=== PATIENT | male | born 1960 | race African-American/Black ===

== ENCOUNTER → 2017-11-24 08:27 | Outpatient (CLI) | payer OTHER, SELFPAY ==
--- NOTE | 2017-11-24 12:00 | CT_ITS ---
STUDY: CT CHEST WITHOUT CONTRAST REASON FOR EXAM: Male, 57 years old. Follow-up examination for renal cell carcinoma. RADIATION DOSAGE (If Supplied By Facility): CTDIvol = ( 12.14 ) mGy, DLP = ( 479.38 ) mGycm TECHNIQUE: Transaxial imaging was performed without the administration of intravenous contrast material. Multiplanar coronal and sagittal images were reformatted. Individualized dose optimization techniques were used for this CT. COMPARISON: Comparison is made with prior study dated January 02, 2017. FINDINGS: The lungs are normal. There is no demonstrated pleural abnormality. Normal heart and pericardium. Normal mediastinum. Normal hilar regions. Normal unenhanced pulmonary arteries. Normal aorta arch and descending thoracic aorta. There are mild degenerative changes of the thoracic spine. Status post left nephrectomy. Punctate nonobstructive intrarenal calculi in the right upper pole. CT/Chest without Contrast IMPRESSION: Stable examination. No acute abnormality is seen. Electronically Signed: Forrest Michael MD at 14:45 EDT Tel [phone], Service support ,
== END ==
PROVIDERS: Family Provider Family Medicine; PCP Family Medicine; Visit Provider Urology
DX: C64.9 Malignant neoplasm of unspecified kidney, except renal pelvis (principal)
CPT/HCPCS: 71250

== ENCOUNTER → 2017-11-25 08:45 | Outpatient (CLI) | payer OTHER, SELFPAY ==
[2017-11-25 09:34] LABS: Absolute Lymphocyte Count 1.63 X10^3/ul (0.83-4.51); Basophil# 0.03 X10^3/uL; Basophil% 0.7 % (0-1); Eosinophil# 0.05 X10^3/uL; Eosinophils% 1.2 % (0-5); Hematocrit 44.7 % (40-54); Hemoglobin 15.2 g/dl (13.0-16.5); Lymphocyte # 1.63 X10^3/ul (4.0); Lymphocyte % 39.7 % (19-41); Mean Corpuscular Hgb 31.8 pg (27.0-32.0); Mean Corpuscular Volume 93.5 fL (80-94); Mean Platelet Vol. 10.2 fl (6.2-12.0); Monocyte# 0.43 X10^3/uL; Monocyte% 10.5 % (0-10); Neutrophil # 1.97 X10^3/uL (2.7-7.7); Neutrophil % 47.9 % (47-70); Platelet Count 156 K/mm3 (150-450); RBC Distribution Width CV 12.1 % (11.6-14.6); RBC Distribution Width SD 40.9 fl (35.1-43.9); Red Blood Count 4.78 M/mm3 (4.6-6.2); White Blood Count 4.1 K/mm3 (4.4-11.0)
[2017-11-25 09:39] LABS: POSITIVE COUNT NO; POSITIVE DIFFERENTIAL NO; POSITIVE MORPHOLOGY NO
[2017-11-25 09:57] LABS: Microalbumin,Random Urine 5.2 mg/L (NO RANGE EST.); Microalbumin:Creatinine Ratio 10.9 mg/g CRE (<30 mg/g CRE)
[2017-11-25 10:10] LABS: AST(SGOT) 18 U/L (15-37); Alanine Aminotransfer ALT/SGPT 29 U/L (16-61); Albumin, Serum 3.9 g/dL (3.2-5.0); Alkaline Phosphatase 90 U/L (45-117); Anion Gap 6 (5-15); BUN 25 mg/dL (7-18); BUN/Creat Ratio 17.1 RATIO (10-20); Chloride 106 mmol/L (98-107); Creatinine, Serum 1.46 mg/dL (0.70-1.30); EST Glomerular Filtration Rate 53 mL/min (>60); Est Glom Filt Rate - Afr Amer 64 mL/min (>60); Globulin 3.9 g/dL (2.2-4.2); Glucose 94 mg/dL (74-106); Magnesium 2.2 mg/dL (1.6-2.6); PSA,Total - Annual Screen 0.63 ng/mL (0.00-4.00); Potassium 4.2 mmol/L (3.5-5.1); Protein, Total 7.8 g/dL (6.4-8.2); Sodium Level 140 mmol/L (136-145)
[2017-11-25 14:27] LABS: Bilirubin, Direct 0.14 mg/dL (0.00-0.30)
[2017-11-25 14:53] LABS: Phosphorus 2.9 mg/dL (2.5-4.9)
[2017-11-26 09:03] LABS: Vitamin D,25 Hydroxy 32.3 ng/mL (29.95-100.01)
[2017-11-26 09:05] LABS: PTHIN 38.7 pg/mL (18.4-80.1)
[2017-11-27 08:19] LABS: Cholesterol 183 mg/dL (200); High Density Lipoprotein 76 mg/dL; Triglycerides 42 mg/dL; Very Low Density Lipoprotein 8 mg/dL (5-40)
== END ==
PROVIDERS: Family Provider Family Medicine; PCP Family Medicine; Visit Provider Internal Medicine Nephrology
DX: C64.9 Malignant neoplasm of unspecified kidney, except renal pelvis (principal); N18.3 Chronic kidney disease, stage 3 (moderate); E78.00 Pure hypercholesterolemia, unspecified; E55.9 Vitamin D deficiency, unspecified; Z12.5 Encounter for screening for malignant neoplasm of prostate; Z13.0 Encounter for screening for diseases of the blood and blood-forming organs and certain disorders involving the immune mechanism; Z13.220 Encounter for screening for lipoid disorders
CPT/HCPCS: 36415; 80053; 80061; 82043; 82248; 82306; 82570; 83735; 83970; 84100; 84153; 85025; G0103

== ENCOUNTER → 2018-03-19 07:49 | Outpatient (CLI) | payer OTHER, SELFPAY ==
[2018-03-19 08:42] LABS: Absolute Lymphocyte Count 1.77 X10^3/ul (0.83-4.51); Absolute Neutrophil Count 1.5 X10^3/uL (2.0-7.7); Basophil# 0.04 X10^3/uL; Basophil% 1.1 % (0-1); Eosinophil# 0.04 X10^3/uL; Eosinophils% 1.1 % (0-5); Hematocrit 45.5 % (40-54); Lymphocyte # 1.77 X10^3/ul (4.0); Lymphocyte % 47.2 % (19-41); Mean Corpuscular Hgb 30.8 pg (27.0-32.0); Mean Corpuscular Volume 93.4 fL (80-94); Mean Platelet Vol. 9.9 fl (6.2-12.0); Monocyte# 0.39 X10^3/uL; Monocyte% 10.4 % (0-10); Neutrophil # 1.51 X10^3/uL (2.7-7.7); Neutrophil % 40.2 % (47-70); Platelet Count 168 K/mm3 (150-450); RBC Distribution Width CV 12.6 % (11.6-14.6); RBC Distribution Width SD 42.8 fl (35.1-43.9); Red Blood Count 4.87 M/mm3 (4.6-6.2); White Blood Count 3.8 K/mm3 (4.4-11.0)
[2018-03-19 08:44] LABS: POSITIVE COUNT NO; POSITIVE DIFFERENTIAL NO; POSITIVE MORPHOLOGY NO
[2018-03-19 09:15] LABS: ALB/GLOB Ratio 0.9 RATIO (0.9-2.4); AST(SGOT) 16 U/L (15-37); Alanine Aminotransfer ALT/SGPT 29 U/L (16-61); Albumin, Serum 3.7 g/dL (3.2-5.0); Alkaline Phosphatase 83 U/L (45-117); BUN 20 mg/dL (7-18); BUN/Creat Ratio 12.8 RATIO (10-20); Bilirubin, Direct 0.16 mg/dL (0.00-0.30); Calcium,Total 8.9 mg/dL (8.5-10.1); Chloride 107 mmol/L (98-107); Cholesterol 186 mg/dL (200); Creatinine, Serum 1.56 mg/dL (0.70-1.30); EST Glomerular Filtration Rate 49 mL/min (>60); Est Glom Filt Rate - Afr Amer 60 mL/min (>60); Glucose 96 mg/dL (74-106); High Density Lipoprotein 73 mg/dL; Phosphorus 2.9 mg/dL (2.5-4.9); Potassium 4.2 mmol/L (3.5-5.1); Protein, Total 7.7 g/dL (6.4-8.2); Sodium Level 140 mmol/L (136-145); Triglycerides 53 mg/dL; Very Low Density Lipoprotein 11 mg/dL (5-40)
[2018-03-21 11:10] LABS: Hep B Surface Antibodies Non Reactive (.)
== END ==
PROVIDERS: Family Provider Family Medicine; PCP Family Medicine; Referring Provider Family Medicine; Visit Provider Family Medicine
DX: Z00.00 Encounter for general adult medical examination without abnormal findings (principal); N18.3 Chronic kidney disease, stage 3 (moderate); E78.00 Pure hypercholesterolemia, unspecified
CPT/HCPCS: 36415; 80061; 80069; 82247; 82248; 84075; 84156; 84450; 84460; 85025; 86706

== ENCOUNTER → 2018-08-30 09:41 | Outpatient (CLI) | payer OTHER, SELFPAY ==
[2018-08-30 11:00] LABS: Absolute Lymphocyte Count 1.46 X10^3/ul (0.83-4.51); Absolute Neutrophil Count 1.8 X10^3/uL (2.0-7.7); Basophil# 0.01 X10^3/uL; Basophil% 0.3 % (0-1); Eosinophil# 0.04 X10^3/uL; Eosinophils% 1.1 % (0-5); Hematocrit 46.1 % (40-54); Hemoglobin 15.6 g/dl (13.0-16.5); Lymphocyte # 1.46 X10^3/ul (4.0); Lymphocyte % 40.7 % (19-41); Mean Corp Hgb Conc 33.8 g/gl (32-36); Mean Corpuscular Hgb 30.8 pg (27.0-32.0); Mean Corpuscular Volume 90.9 fL (80-94); Mean Platelet Vol. 10.4 fl (6.2-12.0); Monocyte# 0.31 X10^3/uL; Monocyte% 8.6 % (0-10); Neutrophil # 1.77 X10^3/uL (2.7-7.7); Neutrophil % 49.3 % (47-70); Platelet Count 173 K/mm3 (150-450); RBC Distribution Width CV 12.1 % (11.6-14.6); RBC Distribution Width SD 39.8 fl (35.1-43.9); Red Blood Count 5.07 M/mm3 (4.6-6.2); White Blood Count 3.6 K/mm3 (4.4-11.0)
[2018-08-30 11:04] LABS: POSITIVE COUNT NO; POSITIVE DIFFERENTIAL NO; POSITIVE MORPHOLOGY NO
[2018-08-30 11:35] LABS: Anion Gap 4 (5-15); BUN 15 mg/dL (7-18); BUN/Creat Ratio 10.9 RATIO (10-20); Calcium,Total 9.1 mg/dL (8.5-10.1); Chloride 107 mmol/L (98-107); Creatinine, Serum 1.37 mg/dL (0.70-1.30); EST Glomerular Filtration Rate 57 mL/min (>60); Est Glom Filt Rate - Afr Amer 69 mL/min (>60); Glucose 95 mg/dL (74-106); Magnesium 2.3 mg/dL (1.6-2.6); Potassium 3.9 mmol/L (3.5-5.1); Sodium Level 138 mmol/L (136-145); Thyroid Stim Hormone (TSH) 1.55 uIU/mL (0.358-3.74)
== END ==
PROVIDERS: Family Provider Family Medicine; PCP Family Medicine; Referring Provider Family Medicine; Visit Provider Family Medicine
DX: R07.89 Other chest pain (principal)
CPT/HCPCS: 36415; 80048; 83735; 84443; 84484; 85025

== ENCOUNTER → 2018-10-08 06:50 | Outpatient (CLI) | payer OTHER, SELFPAY ==
[2018-10-08 06:52] LABS: Bacteria 0 SEEN /hpf (None Seen); Mucous, Urine 0 SEEN /hpf (<or=2+); Squamous Epithelial Cells - UA 0 SEEN /hpf (0-5)
[2018-10-08 07:01] LABS: Color, Urine Straw (Yellow); Glucose, Dipstick Normal (Normal); Ketone-Dipstick Negative (Negative); Leukocyte Esterase-Dipstick Negative /ul (Negative); Nitrite-Dipstick Negative (Negative); Occult Blood-Urine Negative /ul (Negative); Protein-Dipstick Negative (Negative); Urine Bilirubin Dipstick Negative (Negative); Urine Clarity Clear (Clear); Urine Urobilinogen Normal (Normal)
[2018-10-08 07:09] LABS: White Blood Cells 0-5 SEEN /hpf (0-5)
[2018-10-08 07:10] LABS: Red Blood Cells-Urine 0-5 SEEN /hpf (0-5)
[2018-10-08 07:57] LABS: AST(SGOT) 18 U/L (15-37); Alanine Aminotransfer ALT/SGPT 36 U/L (16-61); Albumin, Serum 3.6 g/dL (3.2-5.0); Alkaline Phosphatase 86 U/L (45-117); Anion Gap 5 (5-15); BUN 20 mg/dL (7-18); BUN/Creat Ratio 12.8 RATIO (10-20); Bilirubin, Direct 0.17 mg/dL (0.00-0.30); Calcium,Total 8.9 mg/dL (8.5-10.1); Chloride 108 mmol/L (98-107); Creatinine, Serum 1.56 mg/dL (0.70-1.30); EST Glomerular Filtration Rate 49 mL/min (>60); Est Glom Filt Rate - Afr Amer 59 mL/min (>60); Globulin 3.9 g/dL (2.2-4.2); Glucose 96 mg/dL (74-106); Potassium 4.2 mmol/L (3.5-5.1); Protein, Total 7.5 g/dL (6.4-8.2); Sodium Level 140 mmol/L (136-145)
== END ==
PROVIDERS: Family Provider Family Medicine; PCP Family Medicine; Referring Provider Urology; Visit Provider Urology
DX: C64.2 Malignant neoplasm of left kidney, except renal pelvis (principal); R31.29 Other microscopic hematuria; N42.9 Disorder of prostate, unspecified
CPT/HCPCS: 36415; 80048; 80076; 81001; 84153

== ENCOUNTER → 2018-10-22 08:17 | Outpatient (CLI) | payer OTHER, SELFPAY ==
--- NOTE | 2018-10-22 06:44 | CT_ITS ---
STUDY: CT CHEST WITHOUT CONTRAST REASON FOR EXAM: Male, 58 years old. Left renal cancer, 5 year follow-up RADIATION DOSAGE (If Supplied By Facility): CTDIvol = ( 16.55 ) mGy, DLP = ( 603.35 ) mGycm TECHNIQUE: Transaxial imaging was performed without the administration of intravenous contrast material. Individualized dose optimization techniques were used for this CT. COMPARISON: 11/24/2017 FINDINGS: The lungs are normal. There is no demonstrated pleural abnormality. Normal heart and pericardium. Normal mediastinum. Normal hilar regions. Normal unenhanced pulmonary arteries. Normal aorta arch and descending thoracic aorta. Normal osseous structures. Left nephrectomy and adrenalectomy. Nonobstructing right renal stones. CT/Chest without Contrast IMPRESSION: No metastatic lesions are identified in the chest. Electronically Signed: Jose Carlos Ramírez MD at 11:11 EDT Tel , Service support ,
--- NOTE | 2018-10-22 06:44 | CT_ITS ---
STUDY: CT ABDOMEN AND PELVIS WITHOUT CONTRAST REASON FOR EXAM: Male, 58 years old. 5 years follow-up left renal cancer RADIATION DOSAGE (If Supplied By Facility): CTDIvol = ( 15.71 ) mGy, DLP = ( 722.23 ) mGycm TECHNIQUE: Transaxial images were obtained from the dome of the diaphragm to the symphysis pubis without oral contrast, and without intravenous contrast. Sagittal and coronal images were reconstructed. Individualized dose optimization techniques were used for this CT. COMPARISON: 01/02/2017, MRI 01/12/2015 FINDINGS: The visualized lung bases are unremarkable. The visualized portions of the heart are within normal limits. Interval development of a subcentimeter hypodensity in the left hepatic lobe on image 13 of series 3. Stable subcentimeter cyst in the right hepatic lobe. Normal gallbladder and extrahepatic biliary system. Normal spleen. Normal pancreas. Left nephrectomy and adrenalectomy. Multiple small nonobstructing right renal stones. Normal visualized stomach. Normal small intestine. Normal colon. The appendix is visualized and appears normal. Normal abdominal aorta. Normal inferior vena cava. Normal retroperitoneum. Normal urinary bladder. There are prostatic calcifications. Umbilical fat hernia. Remote deformity of the sacrum. CT/Abdomen/Pelvis without Cont IMPRESSION: Interval development of a subcentimeter hypodensity in the left hepatic lobe. Consider correlation with follow-up MRI or ultrasound. Otherwise, given the limitations of a noncontrast study, there is no CT evidence of metastatic disease in the abdomen or pelvis. Electronically Signed: Jose Carlos Ramírez MD at 11:27 EDT Tel , Service support ,
== END ==
PROVIDERS: Family Provider Family Medicine; PCP Family Medicine; Referring Provider Urology; Visit Provider Urology
DX: C64.2 Malignant neoplasm of left kidney, except renal pelvis (principal)
CPT/HCPCS: 71250; 74176

== ENCOUNTER → 2018-10-25 14:21 | Outpatient (CLI) | payer OTHER, SELFPAY ==
--- NOTE | 2018-10-25 14:22 | US_ITS ---
STUDY: ABDOMINAL ULTRASOUND - RIGHT UPPER QUADRANT REASON FOR VISIT: Male, 58 years old. Possible hepatic cysts. TECHNIQUE: Ultrasound evaluation of the right upper quadrant was performed with real-time and static harris-scale imaging. TECHNICAL QUALITY: Adequate. COMPARISON: Comparison is made with prior CT scan abdomen dated October 22, 2018. FINDINGS: Liver: The liver measures 13.3 cm. There is normal echogenicity of the liver. The bile ducts are within normal limits. There is hepatic color flow. The direction of portal flow is hepatopetal. There is a 7 mm x 10 mm x 5 mm cyst in the left lobe of the liver. This corresponds to the CT findings. Gallbladder: Normal distended gallbladder. The gallbladder wall measures 2.0 mm. There is a negative sonographic Richmond's sign. There is no pericholecystic fluid. There are no gallstones. Small polyps are seen adherent to the gallbladder wall. The largest measures 5 mm x 4 mm by 4 mm Common Bile Duct (C.B.D.): The common bile duct measures 2.0 mm. Pancreas: There is nonvisualization of the pancreas due to overlying bowel gas. Right Kidney: Normal size of the right kidney. The right kidney measures 11.7 cm x 5.6 x 5.8 cm. Normal renal cortex. The right cortex measures 1.9 cm. There is no demonstrated renal mass or cyst. There is no right hydronephrosis. Several small nonobstructive intrarenal calculi. The largest measures 3 mm x 4 mm x 3 mm US/Abdomen Limited IMPRESSION: Small cyst in the left lobe of the liver. Gallbladder polyps. Nonobstructive right intrarenal calculi. Electronically Signed: Forrest Michael, at 15:08 EDT , Service support ,
== END ==
PROVIDERS: Family Provider Family Medicine; PCP Family Medicine; Referring Provider Family Medicine; Visit Provider Family Medicine
DX: K76.89 Other specified diseases of liver (principal); K82.4 Cholesterolosis of gallbladder; N20.0 Calculus of kidney
CPT/HCPCS: 76705

== ENCOUNTER → 2019-03-23 07:03 | Outpatient (CLI) | payer OTHER, SELFPAY ==
[2019-03-23 09:30] LABS: Hematocrit 47.8 % (40-54); Hemoglobin 15.7 g/dL (13.0-16.5); Mean Corp Hgb Conc 32.8 g/dL (32-36); Mean Corpuscular Volume 94.3 fL (80-94); Mean Platelet Vol. 10.1 fl (6.2-12.0); Platelet Count 172 K/mm3 (150-450); RBC Distribution Width CV 12.2 % (11.6-14.6); RBC Distribution Width SD 42.1 fl (35.1-43.9); Red Blood Count 5.07 M/mm3 (4.6-6.2); White Blood Count 3.4 K/mm3 (4.4-11.0)
[2019-03-23 09:56] LABS: BUN 17 mg/dL (7-18); Calcium,Total 9.2 mg/dL (8.5-10.1); Chloride 104 mmol/L (98-107); Creatinine, Serum 1.42 mg/dL (0.70-1.30); EST Glomerular Filtration Rate 55 mL/min (>60); Est Glom Filt Rate - Afr Amer 66 mL/min (>60); Glucose 88 mg/dL (74-106); Magnesium 2.5 mg/dL (1.6-2.6); Phosphorus 2.7 mg/dL (2.5-4.9); Potassium 4.3 mmol/L (3.5-5.1); Sodium Level 139 mmol/L (136-145)
[2019-03-23 10:02] LABS: Protein:Creat Ratio 230 mg/g CRE (0-200)
[2019-03-23 10:27] LABS: Vitamin D,25 Hydroxy 24.5 ng/mL (29.95-100.01)
== END ==
LOC: LAB.FUTURE 07:05 → LAB 07:14
PROVIDERS: Family Provider Family Medicine; PCP Family Medicine; Referring Provider Internal Medicine Nephrology; Visit Provider Internal Medicine Nephrology
DX: N18.3 Chronic kidney disease, stage 3 (moderate) (principal); E55.9 Vitamin D deficiency, unspecified; Z13.0 Encounter for screening for diseases of the blood and blood-forming organs and certain disorders involving the immune mechanism
CPT/HCPCS: 36415; 80069; 82306; 82570; 83735; 84156; 85027

== ENCOUNTER → 2019-04-26 16:58 | Outpatient (CLI) | payer OTHER, SELFPAY ==
[2019-04-26 17:29] LABS: Bacteria 0 SEEN /hpf (None Seen); Mucous, Urine 0 SEEN /hpf (<or=2+); Red Blood Cells-Urine 0 SEEN /hpf (0-5); Squamous Epithelial Cells - UA 0 SEEN /hpf (0-5)
[2019-04-26 17:36] LABS: Color, Urine Straw (Yellow); Glucose, Dipstick Normal (Normal); Ketone-Dipstick Negative (Negative); Leukocyte Esterase-Dipstick 100 /ul (Negative); Nitrite-Dipstick Negative (Negative); Occult Blood-Urine 10 /ul (Negative); Protein-Dipstick Negative (Negative); Specific Gravity, Urine 1.005 (1.002-1.030); Urine Bilirubin Dipstick Negative (Negative); Urine Clarity Clear (Clear); Urine Urobilinogen Normal (Normal)
[2019-04-26 18:42] LABS: White Blood Cells 0-5 SEEN /hpf (0-5)
== END ==
PROVIDERS: Family Provider Family Medicine; PCP Family Medicine; Referring Provider Family Medicine; Visit Provider Family Medicine
DX: R30.0 Dysuria (principal)
CPT/HCPCS: 81001; 87077; 87086; 87088; 87186

== ENCOUNTER → 2019-04-27 09:55 | Outpatient (CLI) | payer OTHER, SELFPAY ==
[2019-04-27 11:03] LABS: Absolute Lymphocyte Count 1.23 X10^3/uL (0.83-4.51); Absolute Neutrophil Count 11.8 X10^3/uL (2.0-7.7); Basophil# 0.03 X10^3/uL; Basophil% 0.2 % (0-1); Hematocrit 46.2 % (40-54); Hemoglobin 15.2 g/dL (13.0-16.5); Lymphocyte # 1.23 X10^3/ul (4.0); Lymphocyte % 8.7 % (19-41); Mean Corp Hgb Conc 32.9 g/dL (32-36); Mean Corpuscular Volume 94.1 fL (80-94); Mean Platelet Vol. 10.4 fl (6.2-12.0); NRBC Flagged by Analyzer 0 % (0-5); Neutrophil # 11.84 X10^3/uL (2.7-7.7); Neutrophil % 83.3 % (47-70); Platelet Count 151 K/mm3 (150-450); RBC Distribution Width CV 12.4 % (11.6-14.6); RBC Distribution Width SD 42.8 fl (35.1-43.9); Red Blood Count 4.91 M/mm3 (4.6-6.2); White Blood Count 14.2 K/mm3 (4.4-11.0)
[2019-04-27 13:50] LABS: AST(SGOT) 19 U/L (15-37); Alanine Aminotransfer ALT/SGPT 39 U/L (16-61); Alkaline Phosphatase 81 U/L (45-117); Anion Gap 6 (5-15); BUN 21 mg/dL (7-18); BUN/Creat Ratio 12.1 RATIO (10-20); Calcium,Total 9.4 mg/dL (8.5-10.1); Chloride 106 mmol/L (98-107); Creatinine, Serum 1.74 mg/dL (0.70-1.30); EST Glomerular Filtration Rate 43 mL/min (>60); Est Glom Filt Rate - Afr Amer 52 mL/min (>60); Globulin 4.2 g/dL (2.2-4.2); Glucose 107 mg/dL (74-106); Potassium 3.9 mmol/L (3.5-5.1); Protein, Total 8.2 g/dL (6.4-8.2); Sodium Level 138 mmol/L (136-145)
[2019-04-27 13:59] VITALS: BP 126/75; PULSE 88; RESP 16; TEMP 37; O2SAT 94; BMI 27.1
[2019-04-27] MEDS: Ceftriaxone 1 GM/50 mL Premix x1 IV (14:16)
== END ==
LOC: LAB.FUTURE 10:00 → LAB 10:09
PROVIDERS: Family Provider Family Medicine; PCP Family Medicine; Referring Provider Family Medicine; Visit Provider Family Medicine
DX: N10 Acute pyelonephritis (principal); Z90.5 Acquired absence of kidney
CPT/HCPCS: 96365; 36415; 80053; 85025; 86140; J7050; A4216

== ENCOUNTER → 2019-04-28 14:23 | Outpatient (CLI) | payer OTHER, SELFPAY ==
[2019-04-27 13:59] VITALS: BMI 27.1
[2019-04-28] MEDS: Ceftriaxone 1 GM/50 mL Premix x1 IV (14:35)
[2019-04-28 14:38] VITALS: BP 118/87; PULSE 82; RESP 18; TEMP 36.2; O2SAT 99; BMI 26.9
== END ==
PROVIDERS: Family Provider Family Medicine; PCP Family Medicine; Referring Provider Family Medicine; Visit Provider Family Medicine
DX: N10 Acute pyelonephritis (principal); Z90.5 Acquired absence of kidney
CPT/HCPCS: 96365; J7050; A4216

== ENCOUNTER → 2019-05-15 07:09 | Outpatient (CLI) | payer OTHER, SELFPAY ==
[2019-04-28 14:38] VITALS: BMI 26.9
[2019-05-15 08:11] LABS: Hematocrit 43.1 % (40-54); Hemoglobin 14.1 g/dL (13.0-16.5); Mean Corp Hgb Conc 32.7 g/dL (32-36); Mean Corpuscular Hgb 30.7 pg (27.0-32.0); Mean Corpuscular Volume 93.7 fL (80-94); Mean Platelet Vol. 10.1 fl (6.2-12.0); Platelet Count 209 K/mm3 (150-450); RBC Distribution Width CV 12.3 % (11.6-14.6); RBC Distribution Width SD 42.4 fl (35.1-43.9); White Blood Count 3.9 K/mm3 (4.4-11.0)
[2019-05-15 08:39] LABS: Anion Gap 3 (5-15); BUN 17 mg/dL (7-18); BUN/Creat Ratio 11.5 RATIO (10-20); Calcium,Total 8.5 mg/dL (8.5-10.1); Chloride 107 mmol/L (98-107); Creatinine, Serum 1.48 mg/dL (0.70-1.30); EST Glomerular Filtration Rate 52 mL/min (>60); Est Glom Filt Rate - Afr Amer 63 mL/min (>60); Glucose 102 mg/dL (74-106); Potassium 3.8 mmol/L (3.5-5.1); Sodium Level 139 mmol/L (136-145); Uric Acid 5.7 mg/dL (3.5-7.2)
== END ==
PROVIDERS: Family Provider Family Medicine; PCP Family Medicine; Referring Provider Internal Medicine Nephrology; Visit Provider Internal Medicine Nephrology
DX: N18.3 Chronic kidney disease, stage 3 (moderate) (principal); N20.0 Calculus of kidney
CPT/HCPCS: 36415; 80048; 83735; 84100; 84550; 85027

== ENCOUNTER → 2019-09-16 08:25 | Outpatient (CLI) | payer OTHER, SELFPAY ==
[2019-04-28 14:38] VITALS: BMI 26.9
[2019-09-16 08:47] LABS: Bacteria 0 SEEN /hpf (None Seen); Mucous, Urine 0 SEEN /hpf (<or=2+); Red Blood Cells-Urine 0 SEEN /hpf (0-5); White Blood Cells 0 SEEN /hpf (0-5)
[2019-09-16 09:34] LABS: Hematocrit 46.2 % (40-54); Hemoglobin 15.2 g/dL (13.0-16.5); Mean Corp Hgb Conc 32.9 g/dL (32-36); Mean Corpuscular Hgb 31.4 pg (27.0-32.0); Mean Corpuscular Volume 95.5 fL (80-94); Mean Platelet Vol. 10.3 fl (6.2-12.0); Platelet Count 152 K/mm3 (150-450); RBC Distribution Width CV 12.1 % (11.6-14.6); RBC Distribution Width SD 42.1 fl (35.1-43.9); Red Blood Count 4.84 M/mm3 (4.6-6.2); White Blood Count 3.7 K/mm3 (4.4-11.0)
[2019-09-16 09:37] LABS: Color, Urine Yellow (Yellow); Glucose, Dipstick Normal (Normal); Ketone-Dipstick Negative (Negative); Leukocyte Esterase-Dipstick Negative /ul (Negative); Nitrite-Dipstick Negative (Negative); Occult Blood-Urine Negative /ul (Negative); Protein-Dipstick Negative (Negative); Urine Bilirubin Dipstick Negative (Negative); Urine Clarity Clear (Clear); Urine Urobilinogen Normal (Normal); Urine pH 6.5 (5.0 - 8.0)
[2019-09-16 09:46] LABS: Protein, Urine (Random) 10.1 mg/dL (<11.9); Protein:Creat Ratio 72 mg/g CRE (0-200)
[2019-09-16 09:48] LABS: Squamous Epithelial Cells - UA 0-5 SEEN /hpf (0-5)
[2019-09-16 10:09] LABS: ALB/GLOB Ratio 0.9 RATIO (0.9-2.4); AST(SGOT) 18 U/L (15-37); Alanine Aminotransfer ALT/SGPT 33 U/L (16-61); Albumin, Serum 3.6 g/dL (3.2-5.0); Alkaline Phosphatase 78 U/L (45-117); Anion Gap 7 (5-15); BUN 14 mg/dL (7-18); BUN/Creat Ratio 10.6 RATIO (10-20); Calcium,Total 8.9 mg/dL (8.5-10.1); Chloride 107 mmol/L (98-107); Cholesterol 189 mg/dL (200); Creatinine, Serum 1.32 mg/dL (0.70-1.30); EST Glomerular Filtration Rate 59 mL/min (>60); Est Glom Filt Rate - Afr Amer 72 mL/min (>60); Globulin 3.8 g/dL (2.2-4.2); Glucose 98 mg/dL (74-106); High Density Lipoprotein 73 mg/dL; Phosphorus 2.4 mg/dL (2.5-4.9); Protein, Total 7.4 g/dL (6.4-8.2); Sodium Level 138 mmol/L (136-145); Triglycerides 65 mg/dL; Very Low Density Lipoprotein 13 mg/dL (5-40)
[2019-09-18 08:10] LABS: Vitamin D,25 Hydroxy 51.3 ng/mL
== END ==
PROVIDERS: PCP Family Medicine; Referring Provider Urology; Visit Provider Urology
DX: N18.3 Chronic kidney disease, stage 3 (moderate) (principal); E78.00 Pure hypercholesterolemia, unspecified; E55.9 Vitamin D deficiency, unspecified; N42.9 Disorder of prostate, unspecified; C64.9 Malignant neoplasm of unspecified kidney, except renal pelvis; C79.9 Secondary malignant neoplasm of unspecified site; Z90.5 Acquired absence of kidney; Z13.0 Encounter for screening for diseases of the blood and blood-forming organs and certain disorders involving the immune mechanism
CPT/HCPCS: 36415; 80053; 80061; 81001; 82306; 82570; 83735; 84100; 84153; 84156; 85027

== ENCOUNTER 2020-02-01 08:46 | Emergency (ER) | payer OTHER, SELFPAY ==
[2019-04-28 14:38] VITALS: BMI 26.9
[2020-02-01 08:47] VITALS: BP 155/107; PULSE 91; RESP 18; TEMP 36.1; O2SAT 99; BMI 26.6
--- NOTE | 2020-02-01 08:47 | RAD_ITS ---
STUDY: X-RAY CHEST REASON FOR EXAM: Male, 59 years old. CHEST PAIN OFF AND ON, HEADACHE TECHNIQUE: Single AP portable view of the chest. COMPARISON: Comparison is made with prior study dated 05/05/2014. FINDINGS: EKG electrodes are seen. The lungs are clear and expanded. There is no demonstrated pleural abnormality. Normal size heart. Normal mediastinum and thao. Normal visualized pulmonary arteries. Normal visualized aortic arch and descending thoracic aorta. There are mild degenerative changes of the visualized thoracic spine. Normal visualized ribs, clavicles, and shoulders. There is no demonstrated abnormality of the visualized soft tissue structures of the upper abdomen. RAD/Chest 1 View (Portable) IMPRESSION: Normal x-ray examination of the chest. Electronically Signed: Forrest Michael, at 9:30 EDT , Service support ,
[2020-02-01 08:59] LABS: Absolute Lymphocyte Count 2.27 X10^3/uL (0.83-4.51); Absolute Neutrophil Count 1.9 X10^3/uL (2.0-7.7); Basophil# 0.04 X10^3/uL; Basophil% 0.8 % (0-1); Eosinophil# 0.05 X10^3/uL; Eosinophils% 1.1 % (0-5); Hematocrit 47.6 % (40-54); Hemoglobin 15.9 g/dL (13.0-16.5); Lymphocyte # 2.27 X10^3/ul (4.0); Lymphocyte % 47.7 % (19-41); Mean Corp Hgb Conc 33.4 g/dL (32-36); Mean Corpuscular Hgb 31.2 pg (27.0-32.0); Mean Corpuscular Volume 93.5 fL (80-94); Mean Platelet Vol. 9.7 fl (6.2-12.0); Monocyte# 0.52 X10^3/uL; Monocyte% 10.9 % (0-10); NRBC Flagged by Analyzer 0 % (0-5); Neutrophil # 1.87 X10^3/uL (2.7-7.7); Neutrophil % 39.3 % (47-70); Platelet Count 190 K/mm3 (150-450); RBC Distribution Width CV 11.9 % (11.6-14.6); RBC Distribution Width SD 41.1 fl (35.1-43.9); Red Blood Count 5.09 M/mm3 (4.6-6.2); White Blood Count 4.8 K/mm3 (4.4-11.0)
--- NOTE | 2020-02-01 08:59 | ED.VIS.GEN ---
History of Present Illness Chief Complaint: Chest Pain Informant: Patient Onset: Days Context: Gradual Onset Timing: Intermittent Current Severity: Mild Maximum Severity: Moderate Narrative: The patient is a 59-year-old male with medical history significant for hypertension and hyperlipidemia that presents to the emergency department with chest pain. Patient states he has been having the pain intermittently for the past 10 days. He states he had an outpatient stress about 7 days ago which was negative. Today, while at work, he began to have a substernal heaviness up into his neck and radiated to his left arm. He states that the symptoms abated. He did not climb stairs, and the symptoms returned. EKG was obtained prior to arrival which showed lateral T wave inversions which were new. On arrival, he rates the pain is mild. He states he did have a remote heart catheterization about 10 years ago without intervention. Prior similar symptoms: No Recent Illness/Hospitalization: No Past Medical History - Allergies and Home Meds Allergies/Adverse Reactions: Allergies No Known Allergies Allergy (Verified 04/27/19 13:59) Primary Care Physician: Tony Staples MD [Primary Care Provider] - Prior records reviewed: Yes Past Medical History: - - Hypertension, hyperlipidemia Surgical History: noncontributory Smoking Status: Never smoker Review of Systems General: Denies: Chills, Fever, Sweats Eyes: Denies: Visual changes - bilaterally, Diplopia ENT: Denies: Rhinorrhea, Sore throat Cardiovascular: Reports: Chest pain. Denies: Palpitations Respiratory: Denies: Dyspnea, Cough, Dyspnea on exertion Gastrointestinal: Denies: Abdominal pain, Nausea, Vomiting, Diarrhea, Melena, Hematochezia Genitourinary: Denies: Dysuria, Hematuria, Frequency Musculoskeletal: Denies: Back pain, Extremity Pain Skin: Denies: Rash, Wounds Neurological: Denies: Headache, Weakness, Numbness Physical Exam Vital Signs/Narrative: Vital Signs Temp Pulse Resp BP Pulse Ox 02/01/20 08:47 97.0 F L 91 18 155/107 H 99 Inital Vital Signs reviewed: Yes General: Well nourished, Well developed, No Acute Distress Head: Normocephalic, Atraumatic Eyes: Perrl, EOMI ENT: Moist mucous membranes, No rhinorrhea Neck: Supple, Nontender Cardiovascular: Regular rate, Regular rhythm, No murmurs Respiratory: No distress, CTA bilaterally, Chest nontender Abdomen: Soft, Nontender, Nondistended, Normal bowel sounds Back: Nontender, Normal Inspection Extremities: Nontender, No edema Skin: Normal color, No rash Neurological: Alert, Oriented x3, Cranial nerves II-XII grossly intact, Normal Strength, Normal Sensation Psychological: Normal affect, Normal Mood Diagnostic/Tx/Re-eval - Rhythm Strip Rhythm Strip: Sinus Rhythm Rate: 80 Ectopy: None - EKG Initial EKG Interpretation: Sinus Rhythm, Inverted T-Waves, Non-Specific ST Changes Prior: Changed - Medical Decision Making The patient presents with chest pain. His EKG is concerning for lateral ischemia with deep T wave inversions. There is also biphasic T wave in lead V3. He was given 1 nitro and his symptoms have resolved. I did discuss his case with Dr. Morgan, on-call for cardiology. The plan will be for after metabolic work-up to proceed for cardiac catheterization due to new ischemic changes on the EKG. Patient is comfortable with this plan of care. Impression 1. Acute coronary syndrome 2. EKG changes ED Disposition - Plan for ED Patient: Referrals: Tony Staples MD [Primary Care Provider] -
[2020-02-01 09:00] VITALS: BP 153/104; PULSE 4
[2020-02-01] MEDS: Nitroglycerin SL (ED/IMG/CATH) 0.4 MG TABLET SUBLINGUAL (09:00)
--- NOTE | 2020-02-01 09:08 | ED.RN ---
nitro given at 0901. unable to chart against medication. no chest pressure at this time. pt does have a headache
[2020-02-01 09:09] VITALS: BP 147/112; PULSE 85; RESP 18; TEMP 36.6; O2SAT 99
[2020-02-01 09:25] VITALS: BP 147/112; PULSE 85; RESP 18; O2SAT 99
[2020-02-01 09:34] LABS: International Normalized Ratio 0.9; Partial Thromboplast Time 26.2 Seconds (24.1-36.2)
[2020-02-01 09:42] LABS: Anion Gap 5 (5-15); BUN 12 mg/dL (7-18); BUN/Creat Ratio 8.8 RATIO (10-20); Chloride 105 mmol/L (98-107); Creatinine, Serum 1.37 mg/dL (0.70-1.30); EST Glomerular Filtration Rate 57 mL/min (>60); Est Glom Filt Rate - Afr Amer 69 mL/min (>60); Estimated Creatinine Clearance 53.68 ml/min; Glucose 112 mg/dL (74-106); Potassium 4.1 mmol/L (3.5-5.1); Sodium Level 139 mmol/L (136-145)
--- NOTE | 2020-02-01 11:26 | CL.D_ITS ---
Patient Name: HATTIE KATZ Study Date: 02/01/2020 Performing: Barron Morgan MD Ht: 66.14 inches 168 cm : 1960 Wt: 165.35 lbs 75 kg Age: 59 Gender: male BSA: 1.85 PROCEDURE(S) PERFORMED [id number]-GB[facility] CLINICAL PROFILE AND INDICATIONS Indications: Worsening Angina Heart Failure: None Stress/Imaging Stress/Image Study Performed: No Stress/Image Study Performed: No CAD Presentations: Unstable angina. CONCLUSIONS No significant obstructive stenoses. Normal LVEDP. No significant RECOMMENDATIONS DESCRIPTION OF PROCEDURE The patient arrived to the procedure lab. The risks and benefits of the procedure as well as a full d escription of our services here and current unavailability of surgical backup were fully explained to the patient and/or their significant other prior to the catheterization. The Timeout was completed, verifying the correct patient and procedure. The patient's procedural site was prepped and draped in the usual fashion. Local anesthetic was given subcutaneously to right radial region with Lidocaine 2% . Using a modified Seldinger technique, arterial access was obtained via the right radial artery, a 6 Fr sheath was inserted. Left Coronary Artery selective angiography was performed in multiple views u sing a 5 Fr. JL3.5 catheter. LV to AO pullback pressures were then recorded. Right Coronary Artery se lective angiography was then performed in multiple views using a 5 Fr. JR 4 catheter.The arterial she ath was pulled and a TR Band was applied for hemostasis 10cc air inserted CORONARY ANGIOGRAPHY DOMINANCE: Right Dominant LEFT HEART ASSESSMENT LEFT MAIN: Angiographically normal LEFT ANTERIOR DESCENDING ARTERY: No significant disease noted CIRCUMFLEX ARTERY: No significant disease noted. Mildly ectatic RIGHT CORONARY ARTERY: Mild luminal irregularities VALVE FINDINGS: No Aortic Valve Stenosis COMPLICATIONS No Complications PROCEDURE MEDICATIONS Oxygen: 2 L/min via nasal cannula Heparin given IA 02/01/2020 10:23:06 Verapamil 2.5mg, Ntg 100mcgs, 3000 units of Heparin given IA 02/01/2020 10:23:06 SUMMARY OF HEMODYNAMIC DATA Time AIR REST ECG 10:16:40 AO 126/82 (109) SA 10:25:15 LV 161/-8, 11 10:31:13 LV 153/-9, 9 10:31:19 LVp 158/-11, 8 10:31:28 AOp 131/77 (98) 10:31:34 Signed By Barron Morgan MD On 02/01/2020 11:25:55 AM Barron Morgan MD
--- NOTE | 2020-02-16 09:46 | HP.PCM_ITS ---
History of Present Illness Date of Admission: 03/02/20 Chief Complaint: chest pain The patient is a 59-year-old male with medical history significant for hypertension and hyperlipidemia that presents to the emergency department with chest pain. Patient states he has been having the pain intermittently for the past 10 days. He states he had an outpatient stress about 7 days ago which was negative. Today, while at work, he began to have a substernal heaviness up into his neck and radiated to his left arm. He states that the symptoms abated. He did climb stairs, and the symptoms returned. EKG was obtained prior to arrival which showed lateral T wave inversions which were new. On arrival, he rates the pain is mild. He had a remote heart catheterization about 10 years ago without intervention. Past Medical History Allergies/Adverse Reactions: Allergies No Known Allergies Allergy (Verified 04/27/19 13:59) Home Medications: Ambulatory Orders Medication Instructions Recorded Amlodipine [Norvasc] 10 mg PO DAILY 02/01/20 Cholecalciferol (Vitamin D3) 2,000 unit PO DAILY 02/01/20 [Vitamin D3] Simvastatin [Zocor] 20 mg PO DAILY 02/01/20 Surgical History: noncontributory Smoking Status: Never smoker Objective: Vital Signs Temp Pulse Resp BP Pulse Ox 97.9 F 85 18 147/112 H 99 02/01/20 09:09 02/01/20 09:25 02/01/20 09:25 02/01/20 09:25 02/01/20 09:25 Oxygen Flow Rate (L/min) 2 Oxygen Delivery Method Nasal Cannula Weight: 165 lb 5.547 oz Body Mass Index (BMI) 26.6 General: Awake, Alert, Oriented x 3 HEENT: Atraumatic Oral: Moist Mucosa Neck: Supple Cardiovascular: Regular Rhythm Extremities: No edema Skin: No Rashes Psych/Mental Status: Appropriate VTE Information - Inpt Only VTE Present on Admission: No VTE Mechan Device Prophylaxis: None VTE Pharm Prophylaxis ordered?: No Reason prophylaxis not ordered:: Treatment Not Indicated Rhythm: EKG: ECHO: Stress Test: Cardiac Cath: PCI: CT Surgery: Holter monitor: EPS: PPM: CXR: Chest CT Scan: Assessment/Plan 1. Chest pain: Chest pain appears typical by history and suspicious for unstable angina. We will proceed with coronary angiography. Rest of the management w ill be based on coronary angiography findings.
== END 2020-02-01 09:55 | disposition short-term general hospital (02) ==
PROVIDERS: Emergency Provider Emergency Medicine; PCP Family Medicine
DX: I20.0 Unstable angina (principal); I10 Essential (primary) hypertension; R94.31 Abnormal electrocardiogram [ECG] [EKG]; E78.5 Hyperlipidemia, unspecified
CPT/HCPCS: 71045; 80048; 84484; 85025; 85610; 85730; 87635; 93005; 93454; 93458; 99285; C9803; J7030; A4216; C1769; C1894; Q9967; U0003

== ENCOUNTER → 2020-02-14 08:53 | Outpatient (CLI) | payer OTHER, SELFPAY ==
[2020-02-01 08:47] VITALS: BMI 26.6
--- NOTE | 2020-02-14 08:56 | CT_ITS ---
STUDY: CT CHEST WITHOUT CONTRAST REASON FOR EXAM: Male, 59 years old. Atypical chest pain. HISTORY OF KIDNEY CANCER 2013. REMOVAL OF LEFT KIDNEY RADIATION DOSAGE (If Supplied By Facility): CTDIvol = ( 12.00 ) mGy, DLP = ( 434.96 ) mGycm TECHNIQUE: Transaxial imaging was performed without the administration of intravenous contrast material. Multiplanar coronal and sagittal images were reformatted. Individualized dose optimization techniques were used for this CT. COMPARISON: Comparison is made with prior examination dated 10/22/2018. FINDINGS: Stable small benign-appearing bilateral axillary lymph nodes. The lungs are normal. There is no demonstrated pleural abnormality. Normal heart and pericardium. Normal mediastinum. Normal hilar regions. Normal unenhanced pulmonary arteries. Normal aorta arch and descending thoracic aorta. Normal osseous structures. Status post left nephrectomy. Tiny nonobstructive calculi are seen in the upper pole calyx of the right kidney. Small cysts are seen in the right lobe of the liver. 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 CT/Chest without Contrast IMPRESSION: Stable examination. No acute abnormality is seen Electronically Signed: Forrest Michael, at 9:30 EDT , Service support ,
== END ==
PROVIDERS: PCP Family Medicine; Referring Provider Family Medicine; Visit Provider Family Medicine
DX: R07.89 Other chest pain (principal)
CPT/HCPCS: 71250

== ENCOUNTER → 2020-03-19 13:09 | Outpatient (CLI) | payer OTHER, SELFPAY ==
[2020-03-19 13:43] LABS: Hemoglobin 15.4 g/dL (13.0-16.5); Mean Corp Hgb Conc 32.1 g/dL (32-36); Mean Corpuscular Volume 96.6 fL (80-94); Mean Platelet Vol. 9.7 fl (6.2-12.0); Platelet Count 173 K/mm3 (150-450); RBC Distribution Width SD 43.1 fl (35.1-43.9); Red Blood Count 4.97 M/mm3 (4.6-6.2); White Blood Count 4.4 K/mm3 (4.4-11.0)
[2020-03-19 13:56] LABS: Protein, Urine (Random) 8.4 mg/dL (<11.9); Protein:Creat Ratio 104 mg/g CRE (0-200)
[2020-03-19 14:22] LABS: Albumin, Serum 3.9 g/dL (3.2-5.0); BUN 15 mg/dL (7-18); BUN/Creat Ratio 9.9 RATIO (10-20); Calcium,Total 9.3 mg/dL (8.5-10.1); Chloride 104 mmol/L (98-107); Cholesterol 183 mg/dL (200); Creatinine, Serum 1.51 mg/dL (0.70-1.30); EST Glomerular Filtration Rate 51 mL/min (>60); Est Glom Filt Rate - Afr Amer 61 mL/min (>60); Glucose 99 mg/dL (74-106); High Density Lipoprotein 85 mg/dL; Magnesium 2.1 mg/dL (1.6-2.6); Phosphorus 3.1 mg/dL (2.5-4.9); Potassium 3.6 mmol/L (3.5-5.1); Sodium Level 137 mmol/L (136-145); Triglycerides 61 mg/dL; Very Low Density Lipoprotein 12 mg/dL (5-40)
[2020-03-19 14:23] LABS: Vitamin D,25 Hydroxy 33.7 ng/mL
== END ==
PROVIDERS: PCP Family Medicine; Referring Provider Internal Medicine Nephrology; Visit Provider Internal Medicine Nephrology
DX: Z13.0 Encounter for screening for diseases of the blood and blood-forming organs and certain disorders involving the immune mechanism (principal); N18.30 Chronic kidney disease, stage 3 unspecified; E55.9 Vitamin D deficiency, unspecified; Q60.0 Renal agenesis, unilateral
CPT/HCPCS: 36415; 80061; 80069; 82306; 82570; 83735; 84156; 85027

== ENCOUNTER → 2020-04-25 08:01 | Outpatient (CLI) | payer OTHER, SELFPAY ==
[2020-04-25 08:45] LABS: Albumin, Serum 3.9 g/dL (3.2-5.0); BUN 15 mg/dL (7-18); BUN/Creat Ratio 9.9 RATIO (10-20); Calcium,Total 9.4 mg/dL (8.5-10.1); Chloride 107 mmol/L (98-107); Creatinine, Serum 1.52 mg/dL (0.70-1.30); EST Glomerular Filtration Rate 50 mL/min (>60); Est Glom Filt Rate - Afr Amer 61 mL/min (>60); Glucose 102 mg/dL (74-106); Phosphorus 2.9 mg/dL (2.5-4.9); Potassium 3.9 mmol/L (3.5-5.1); Sodium Level 140 mmol/L (136-145)
== END ==
PROVIDERS: PCP Family Medicine; Referring Provider Family Medicine; Visit Provider Family Medicine
DX: N18.30 Chronic kidney disease, stage 3 unspecified (principal)
CPT/HCPCS: 36415; 80069

== ENCOUNTER → 2020-06-05 13:26 | Outpatient (CLI) | payer OTHER, SELFPAY ==
[2020-06-05 13:30] LABS: Bacteria 0 SEEN /hpf (None Seen); Mucous, Urine 0 SEEN /hpf (<or=2+); Red Blood Cells-Urine 0 SEEN /hpf (0-5); Squamous Epithelial Cells - UA 0 SEEN /hpf (0-5); White Blood Cells 0 SEEN /hpf (0-5)
[2020-06-05 14:22] LABS: Color, Urine Straw (Yellow); Glucose, Dipstick Normal (Normal); Ketone-Dipstick Negative (Negative); Leukocyte Esterase-Dipstick Negative /ul (Negative); Nitrite-Dipstick Negative (Negative); Occult Blood-Urine Negative /ul (Negative); Protein-Dipstick Negative (Negative); Urine Bilirubin Dipstick Negative (Negative); Urine Clarity Clear (Clear); Urine Urobilinogen Normal (Normal)
== END ==
PROVIDERS: PCP Family Medicine; Visit Provider Family Medicine
DX: R53.81 Other malaise (principal)
CPT/HCPCS: 81001

== ENCOUNTER → 2020-11-23 09:08 | Outpatient (CLI) | payer OTHER, SELFPAY ==
[2020-08-27 07:21] VITALS: BMI 26.9
[2020-11-23 09:48] LABS: Absolute Lymphocyte Count 1.78 X10^3/uL (0.83-4.51); Absolute Neutrophil Count 1.8 X10^3/uL (2.0-7.7); Basophil# 0.04 X10^3/uL; Eosinophil# 0.03 X10^3/uL; Eosinophils% 0.7 % (0-5); Hematocrit 43.6 % (40-54); Hemoglobin 14.6 g/dL (13.0-16.5); Lymphocyte # 1.78 X10^3/ul (0.83-4.51); Lymphocyte % 44.4 % (19-41); Mean Corp Hgb Conc 33.5 g/dL (32-36); Mean Corpuscular Hgb 31.1 pg (27.0-32.0); Mean Platelet Vol. 9.6 fl (6.2-12.0); Monocyte# 0.37 X10^3/uL; Monocyte% 9.2 % (0-10); NRBC Flagged by Analyzer 0 % (0-5); Neutrophil # 1.78 X10^3/uL (2.7-7.7); Neutrophil % 44.5 % (47-70); Platelet Count 186 K/mm3 (150-450); RBC Distribution Width SD 41.3 fl (35.1-43.9); Red Blood Count 4.69 M/mm3 (4.6-6.2)
[2020-11-23 10:16] LABS: Microalbumin,Random Urine < 5.0 mg/L (NO RANGE EST.)
[2020-11-23 10:31] LABS: ALB/GLOB Ratio 0.9 RATIO (0.9-2.4); AST(SGOT) 20 U/L (15-37); Alanine Aminotransfer ALT/SGPT 28 U/L (16-61); Albumin, Serum 3.7 g/dL (3.2-5.0); Alkaline Phosphatase 113 U/L (45-117); Anion Gap 6 (5-15); BUN 17 mg/dL (7-18); BUN/Creat Ratio 11.9 RATIO (10-20); Chloride 105 mmol/L (98-107); Cholesterol 177 mg/dL (200); Creatinine, Serum 1.43 mg/dL (0.70-1.30); EST Glomerular Filtration Rate 54 mL/min (>60); Est Glom Filt Rate - Afr Amer 65 mL/min (>60); Glucose 96 mg/dL (74-106); High Density Lipoprotein 78 mg/dL; PSA,Total - Annual Screen 0.75 ng/mL (0.00-4.00); Protein, Total 7.7 g/dL (6.4-8.2); Sodium Level 136 mmol/L (136-145); Triglycerides 56 mg/dL; Very Low Density Lipoprotein 11 mg/dL (5-40)
[2020-11-25 15:31] LABS: Vitamin D,25 Hydroxy 33.2 ng/mL
== END ==
PROVIDERS: PCP Family Medicine; Referring Provider Family Medicine; Visit Provider Family Medicine
DX: N42.83 Cyst of prostate (principal); E78.00 Pure hypercholesterolemia, unspecified; N18.30 Chronic kidney disease, stage 3 unspecified
CPT/HCPCS: 36415; 80053; 80061; 82043; 82306; 82570; 84153; 85025; G0103

== ENCOUNTER → 2021-04-11 10:37 | Outpatient (CLI) | payer OTHER, SELFPAY ==
[2021-04-11 11:22] LABS: Absolute Lymphocyte Count 2.14 X10^3/uL (0.83-4.51); Absolute Neutrophil Count 1.5 X10^3/uL (2.0-7.7); Basophil# 0.04 X10^3/uL; Eosinophil# 0.03 X10^3/uL; Eosinophils% 0.7 % (0-5); Hematocrit 44.6 % (40-54); Hemoglobin 14.7 g/dL (13.0-16.5); Lymphocyte # 2.14 X10^3/ul (0.83-4.51); Lymphocyte % 52.1 % (19-41); Mean Corpuscular Hgb 30.9 pg (27.0-32.0); Mean Corpuscular Volume 93.9 fL (80-94); Mean Platelet Vol. 9.2 fl (6.2-12.0); Monocyte# 0.44 X10^3/uL; Monocyte% 10.7 % (0-10); NRBC Flagged by Analyzer 0 % (0-5); Neutrophil # 1.45 X10^3/uL (2.7-7.7); Neutrophil % 35.3 % (47-70); Platelet Count 177 K/mm3 (150-450); RBC Distribution Width CV 12.2 % (11.6-14.6); RBC Distribution Width SD 42.4 fl (35.1-43.9); Red Blood Count 4.75 M/mm3 (4.6-6.2); White Blood Count 4.1 K/mm3 (4.4-11.0)
[2021-04-11 11:38] LABS: Microalbumin,Random Urine < 5.0 mg/L (NO RANGE EST.)
[2021-04-11 11:53] LABS: Albumin, Serum 3.5 g/dL (3.2-5.0); BUN 15 mg/dL (7-18); BUN/Creat Ratio 10.9 RATIO (10-20); Calcium,Total 9.1 mg/dL (8.5-10.1); Chloride 106 mmol/L (98-107); Cholesterol 177 mg/dL (200); Creatinine, Serum 1.37 mg/dL (0.70-1.30); EST Glomerular Filtration Rate 57 mL/min (>60); Est Glom Filt Rate - Afr Amer 68 mL/min (>60); Glucose 92 mg/dL (74-106); High Density Lipoprotein 72 mg/dL; Phosphorus 2.7 mg/dL (2.5-4.9); Sodium Level 138 mmol/L (136-145); Triglycerides 47 mg/dL; Very Low Density Lipoprotein 9 mg/dL (5-40)
[2021-04-11 13:32] LABS: PTHIN 68.8 pg/mL (18.4-80.1); Vitamin D,25 Hydroxy 28.1 ng/mL
== END ==
PROVIDERS: PCP Family Medicine; Referring Provider Internal Medicine Nephrology; Visit Provider Internal Medicine Nephrology
DX: Z13.0 Encounter for screening for diseases of the blood and blood-forming organs and certain disorders involving the immune mechanism (principal); N18.31 Chronic kidney disease, stage 3a; E55.9 Vitamin D deficiency, unspecified; E78.00 Pure hypercholesterolemia, unspecified
CPT/HCPCS: 36415; 80061; 80069; 82043; 82306; 82570; 83735; 83970; 85025

== ENCOUNTER 2021-06-27 08:57 | Outpatient (CLI) | payer OTHER, SELFPAY ==
[2021-06-27 09:00] LABS: Mucous, Urine 0 SEEN /hpf (<or=2+); Squamous Epithelial Cells - UA 0 SEEN /hpf (0-5)
[2021-06-27 09:58] LABS: Color, Urine Yellow (Yellow); Glucose, Dipstick Normal (Normal); Ketone-Dipstick Negative (Negative); Leukocyte Esterase-Dipstick 500 /ul (Negative); Nitrite-Dipstick Negative (Negative); Occult Blood-Urine 25 /ul (Negative); Protein-Dipstick 15 mg/dl (Negative); Specific Gravity, Urine 1.015 (1.002-1.030); Urine Bilirubin Dipstick Negative (Negative); Urine Clarity Sl. Cloudy (Clear); Urine Urobilinogen Normal (Normal); Urine pH 6.5 (5.0 - 8.0)
[2021-06-27 10:05] LABS: Bacteria 1+ /hpf (None Seen); Red Blood Cells-Urine 0-5 SEEN /hpf (0-5); White Blood Cells 25-50 SEEN /hpf (0-5)
== END 2021-06-27 23:59 | disposition home or self-care (01) ==
PROVIDERS: PCP Family Medicine; Referring Provider Family Medicine; Visit Provider Family Medicine
DX: R30.0 Dysuria (principal)
CPT/HCPCS: 81001; 87077; 87086; 87088; 87186

== ENCOUNTER 2021-07-14 06:45 | Outpatient (CLI) | payer OTHER, SELFPAY ==
[2021-07-14 07:05] LABS: Hematocrit 45.4 % (40-54); Hemoglobin 15.1 g/dL (13.0-16.5); Mean Corp Hgb Conc 33.3 g/dL (32-36); Mean Corpuscular Hgb 31.1 pg (27.0-32.0); Mean Corpuscular Volume 93.4 fL (80-94); Mean Platelet Vol. 9.6 fl (6.2-12.0); Platelet Count 200 K/mm3 (150-450); RBC Distribution Width CV 12.7 % (11.6-14.6); RBC Distribution Width SD 43.6 fl (35.1-43.9); Red Blood Count 4.86 M/mm3 (4.6-6.2); White Blood Count 5.1 K/mm3 (4.4-11.0)
[2021-07-14 07:28] LABS: Albumin, Serum 3.7 g/dL (3.2-5.0); BUN 18 mg/dL (7-18); BUN/Creat Ratio 12.7 RATIO (10-20); Calcium,Total 9.2 mg/dL (8.5-10.1); Chloride 105 mmol/L (98-107); Creatinine, Serum 1.42 mg/dL (0.70-1.30); EST Glomerular Filtration Rate 54 mL/min (>60); Est Glom Filt Rate - Afr Amer 66 mL/min (>60); Glucose 103 mg/dL (74-106); Magnesium 2.5 mg/dL (1.6-2.6); Phosphorus 2.7 mg/dL (2.5-4.9); Potassium 3.8 mmol/L (3.5-5.1); Sodium Level 138 mmol/L (136-145)
[2021-07-14 07:29] LABS: Microalbumin,Random Urine 30.7 mg/L (NO RANGE EST.); Microalbumin:Creatinine Ratio 42.9 mg/g CRE (<30 mg/g CRE)
[2021-07-14 07:39] LABS: Color, Urine Yellow (Yellow); Glucose, Dipstick Normal (Normal); Ketone-Dipstick Negative (Negative); Leukocyte Esterase-Dipstick 25 /ul (Negative); Nitrite-Dipstick Negative (Negative); Occult Blood-Urine 10 /ul (Negative); Protein-Dipstick Negative (Negative); Specific Gravity, Urine 1.015 (1.002-1.030); Urine Bilirubin Dipstick Negative (Negative); Urine Clarity Clear (Clear); Urine Urobilinogen Normal (Normal)
[2021-07-14 08:25] LABS: PTHIN 98.2 pg/mL (18.4-80.1)
[2021-07-14 14:01] LABS: Squamous Epithelial Cells - UA 0 SEEN /hpf (0-5)
[2021-07-14 14:02] LABS: Bacteria 0 SEEN /hpf (None Seen); Mucous, Urine 0 SEEN /hpf (<or=2+)
[2021-07-14 14:23] LABS: Red Blood Cells-Urine 0-5 SEEN /hpf (0-5); White Blood Cells 0-5 SEEN /hpf (0-5)
[2021-07-15 10:44] LABS: Hemoglobin A1c 5.6 % (3.8-5.6)
== END 2021-07-14 23:59 | disposition home or self-care (01) ==
PROVIDERS: PCP Family Medicine; Referring Provider Internal Medicine Nephrology; Visit Provider Internal Medicine Nephrology
DX: Z13.0 Encounter for screening for diseases of the blood and blood-forming organs and certain disorders involving the immune mechanism (principal); N18.31 Chronic kidney disease, stage 3a; N30.00 Acute cystitis without hematuria; E55.9 Vitamin D deficiency, unspecified
CPT/HCPCS: 80069; 81002; 82043; 82570; 83036; 83735; 83970; 85027; 87086; 87088

== ENCOUNTER 2021-08-04 07:02 | Outpatient (CLI) | payer OTHER, SELFPAY ==
[2021-08-04 07:06] LABS: Mucous, Urine 0 SEEN /hpf (<or=2+); Squamous Epithelial Cells - UA 0 SEEN /hpf (0-5)
[2021-08-04 08:01] LABS: Color, Urine Yellow (Yellow); Glucose, Dipstick Normal (Normal); Ketone-Dipstick Negative (Negative); Leukocyte Esterase-Dipstick 100 /ul (Negative); Nitrite-Dipstick Negative (Negative); Occult Blood-Urine 10 /ul (Negative); Protein-Dipstick Negative (Negative); Urine Bilirubin Dipstick Negative (Negative); Urine Clarity Clear (Clear); Urine Urobilinogen Normal (Normal)
[2021-08-04 08:10] LABS: Bacteria 1+ /hpf (None Seen); Red Blood Cells-Urine 0-5 SEEN /hpf (0-5); White Blood Cells 10-25 SEEN /hpf (0-5)
[2021-08-04 08:21] LABS: Microalbumin,Random Urine 13.8 mg/L (NO RANGE EST.); Microalbumin:Creatinine Ratio 12.4 mg/g CRE (<30 mg/g CRE)
[2021-08-04 17:30] LABS: Vitamin D,25 Hydroxy 36.4 ng/mL
[2021-08-05 08:28] LABS: PTHIN 75.2 pg/mL (18.4-80.1)
== END 2021-08-04 23:59 | disposition home or self-care (01) ==
PROVIDERS: PCP Family Medicine; Referring Provider Family Medicine; Visit Provider Family Medicine
DX: N18.31 Chronic kidney disease, stage 3a (principal); E55.9 Vitamin D deficiency, unspecified; N42.83 Cyst of prostate; N30.00 Acute cystitis without hematuria; A49.9 Bacterial infection, unspecified
CPT/HCPCS: 36415; 81001; 82043; 82306; 82570; 83970; 87077; 87086; 87088; 87186

== ENCOUNTER 2021-08-09 03:53 | Emergency (ER) | payer OTHER, SELFPAY ==
[2021-08-09 03:54] VITALS: BP 149/88; PULSE 94; RESP 16; TEMP 37; O2SAT 99; BMI 31.6
[2021-08-09 03:56] VITALS: BP 149/88; PULSE 88; RESP 17; TEMP 37; O2SAT 99
[2021-08-09 04:18] LABS: Absolute Lymphocyte Count 1.16 X10^3/uL (0.83-4.51); Absolute Neutrophil Count 4.3 X10^3/uL (2.0-7.7); Basophil# 0.03 X10^3/uL; Basophil% 0.5 % (0-1); Eosinophil# 0.01 X10^3/uL; Eosinophils% 0.2 % (0-5); Hematocrit 41.9 % (40-54); Hemoglobin 14.3 g/dL (13.0-16.5); Lymphocyte # 1.16 X10^3/ul (0.83-4.51); Lymphocyte % 18.3 % (19-41); Mean Corp Hgb Conc 34.1 g/dL (32-36); Mean Corpuscular Hgb 32.2 pg (27.0-32.0); Mean Corpuscular Volume 94.4 fL (80-94); Mean Platelet Vol. 9.3 fl (6.2-12.0); Monocyte% 12.6 % (0-10); NRBC Flagged by Analyzer 0 % (0-5); Neutrophil # 4.33 X10^3/uL (2.7-7.7); Neutrophil % 68.2 % (47-70); Platelet Count 174 K/mm3 (150-450); RBC Distribution Width CV 12.3 % (11.6-14.6); RBC Distribution Width SD 42.9 fl (35.1-43.9); Red Blood Count 4.44 M/mm3 (4.6-6.2); White Blood Count 6.3 K/mm3 (4.4-11.0)
[2021-08-09] MEDS: Piperacil/Tazobactam 3.375 GM/50 ML ML IV (04:30)
[2021-08-09 04:32] LABS: Anion Gap 2 (5-15); BUN 19 mg/dL (7-18); Chloride 109 mmol/L (98-107); Creatinine, Serum 1.58 mg/dL (0.70-1.30); EST Glomerular Filtration Rate 48 mL/min (>60); Est Glom Filt Rate - Afr Amer 58 mL/min (>60); Estimated Creatinine Clearance 45.43 ml/min; Glucose 135 mg/dL (74-106); Sodium Level 140 mmol/L (136-145)
[2021-08-09 04:46] LABS: Lactic Acid 0.9 mmol/L (0.4-1.9)
--- NOTE | 2021-08-09 05:29 | EDS_ITS ---
HPI History of Present Illness Chief Complaint: General Illness Narrative Narrative: Patient is a 61-year-old male with past medical history of single kidney and mild renal insufficiency secondary to this. He had outpatient studies performed 4 days ago secondary to urinary frequency with slight dysuria and was found to have UTI secondary to prostatic issues. The urine was sent for culture and he was started on Omnicef. Patient states he has been taking the medication as directed but he has had increased fatigue subjective chills and headache. He states that he has previously needed IV antibiotics to help resolve similar infections and is concerned he is progressing to that route once again and therefore comes in for evaluation. PFSH PFS Home Medications amlodipine 10 mg PO DAILY 02/01/20 [History Last Taken 02/01/20] cholecalciferol (vitamin D3) 2,000 unit PO DAILY 02/01/20 [History Last Taken 02/01/20] simvastatin 20 mg PO DAILY 02/01/20 [History Last Taken 02/01/20] cefdinir 300 mg 08/09/21 [History Last Taken Unknown] Allergy/AdvReac Type Severity Reaction Status Date / Time No Known Allergies Allergy Verified 08/09/21 03:58 Social History (Updated 08/27/20 @ 10:56 by Cezar DEAN, PA) Smoking Status: Never smoker ROS [facility] ED Constitutional Constitutional ED: Reports chills and subjective; Denies fever(s) ENT ENT ED: Denies sore throat Cardiovascular Cardiovascular: Denies chest pain Respiratory/Chest Respiratory/Chest: Denies cough or dyspnea Gastrointestinal Gastrointestinal: Reports abdominal pain; Denies nausea or vomiting Genitourinary Genitourinary ED: Reports dysuria and urinary frequency Musculoskeletal Musculoskeletal: Reports myalgias Integumentary Denies rash Neurologic Neurologic: Reports headache(s) Hematologic/Lymphatic Hematologic/Lymphatic: Denies easy bleeding or easy bruising EXAM Physical Exam Const Vital Signs: 08/09/21 03:54 08/09/21 03:56 08/09/21 04:01 Temperature 98.6 F 98.6 F Temperature Source Oral Temporal Pulse Rate 94 88 Respiratory Rate 16 17 Respiratory Effort Normal Blood Pressure 149/88 H 149/88 H Blood Pressure Mean 108 108 Pulse Ox 99 99 Oxygen Delivery Method Room Air Room Air Positive well nourished and well developed General Appearance ED: well developed Eyes PERRL and EOMs intact bilaterally Neck supple GI non-distended and no masses GI Narrative: Abdomen is soft and nondistended there are no masses organomegaly noted. No pulsatile mass. There is mild pain with palpation in the suprapubic region. Palpation: soft Extremity normal to inspection Neuro oriented x3 and CN's II-XII intact bilaterally Sensorium / Orientation: alert Motor Exam: strength 5/5 throughout Psych mental status grossly normal Skin no rashes or lesions noted MDM MDM MDM Narrative Medical decision making narrative: Patient presented to the ER afebrile and slightly hypertensive. His abdomen is soft and nonsurgical so I feel there is no need for a CT scan. Because of the patient's history of single kidney with renal insufficiency and UTI I did elect to perform basic laboratory studies. Patient's white count is normal at 6.3 he does not have left shift and there is no elevation to his lactate. Kidney function is slightly elevated at 1.58 but chart review reveals patient's baseline is approximately 1.4. Therefore this mild elevation is not clinically significant. The patient's recent urine culture was reviewed and it shows E. coli present. It is resistant to multiple drugs and therefore patient was given Zosyn which list sensitivity with an SHAYNA of 4. On reevaluation the patient is resting comfortably and vitals remained stable. Patient was advised to continue his Omnicef but was informed based on the culture reports he may need to be given once daily IV infusion as the Omnicef is not strictly listed under the sensitivity report and the remaining medications are only injectable. Patient will follow up with his doctor to discuss the possibility of changing his medication and if symptoms worsen he will return to the ER for repeat evaluation Lab Data Attestation: I reviewed the patient's lab results. Labs: Laboratory Results - last 24 hr 08/09/21 08/09/21 08/09/21 04:10 04:10 04:10 WBC 6.3 RBC 4.44 L Hgb 14.3 Hct 41.9 MCV 94.4 H MCH 32.2 H MCHC 34.1 RDW Std Deviation 42.9 RDW Coeff of [place] 12.3 Plt Count 174 MPV 9.3 Immature Gran % (Auto) 0.200 Neut % (Auto) 68.2 Lymph % (Auto) 18.3 L [place] % (Auto) 12.6 H Eos % (Auto) 0.2 Baso % (Auto) 0.5 Absolute Neuts (auto) 4.3 Absolute Lymphs (auto) 1.16 Nucleated RBC % 0 Sodium 140 Potassium 4.0 Chloride 109 H Carbon Dioxide 29.0 Anion Gap 2 L BUN 19 H Creatinine 1.58 H Estim Creat Clear Calc 45.43 Est GFR (MDRD) Af Amer 58 L Est GFR (MDRD) Non-Af 48 L BUN/Creatinine Ratio 12.0 Glucose 135 H Lactic Acid 0.9 Calcium 9.0 Discharge Plan Triage Chief Complaint: General Illness ED Provider: Ki Webb Dx/Rx/DC Orders Clinical Impression: UTI (urinary tract infection), Chronic renal insufficiency Instructions: Urinary Tract Infections in Men Prescriptions: No Action amlodipine 10 MG tablet 10 mg PO DAILY RF: 0 simvastatin 20 MG tablet 20 mg PO DAILY RF: 0 cholecalciferol (vitamin D3) 2,000 UNIT capsule 2,000 unit PO DAILY RF: 0 cefdinir 300 mg capsule 300 mg RF: 0 Primary Care Provider: Tony Staples Referrals: Tony Staples MD [Primary Care Provider] - Activity Restrictions/Additional Instructions: Please discuss with your doctor about changing from oral medication to home injections or daily infusions based on the urine culture Disposition Disposition: Home, Self Care
[2021-08-09 05:40] VITALS: BP 138/76; PULSE 85; RESP 16; TEMP 37.3; O2SAT 99
== END 2021-08-09 05:44 | disposition home or self-care (01) ==
PROVIDERS: Emergency Provider Emergency Medicine; PCP Family Medicine; Visit Provider Emergency Medicine
DX: N39.0 Urinary tract infection, site not specified (principal); B96.20 Unspecified Escherichia coli [E. coli] as the cause of diseases classified elsewhere; N18.9 Chronic kidney disease, unspecified; Z90.5 Acquired absence of kidney; Z79.899 Other long term (current) drug therapy
CPT/HCPCS: 80048; 83605; 85025; 96365; 99283; J7050; A4216

== ENCOUNTER 2021-08-11 08:54 | Outpatient (CLI) | payer OTHER, SELFPAY ==
[2021-08-11] MEDS: 0.9% NaCl Peripheral Flush Adult/Peds IV (09:08)
[2021-08-11 09:17] VITALS: BP 139/81; PULSE 101; RESP 16; TEMP 36.9; O2SAT 99
[2021-08-11 10:51] VITALS: BP 135/76; PULSE 90; RESP 16; TEMP 37.7; O2SAT 98
== END 2021-08-11 23:59 | disposition home or self-care (01) ==
LOC: MEDOUTP 08:54
PROVIDERS: PCP Family Medicine; Referring Provider Family Medicine; Visit Provider Family Medicine
DX: N41.0 Acute prostatitis (principal); A49.9 Bacterial infection, unspecified
CPT/HCPCS: 96365; J7040; A4216

== ENCOUNTER 2021-08-12 07:49 | Outpatient (CLI) | payer OTHER, SELFPAY ==
[2021-08-12] MEDS: 0.9% NaCl Peripheral Flush Adult/Peds IV (07:54)
[2021-08-12 08:00] VITALS: BP 136/81; PULSE 78; RESP 16; TEMP 36.6; O2SAT 98
== END 2021-08-12 23:59 | disposition home or self-care (01) ==
LOC: MEDOUTP 07:49
PROVIDERS: PCP Family Medicine; Referring Provider Family Medicine; Visit Provider Family Medicine
DX: N41.0 Acute prostatitis (principal); A49.9 Bacterial infection, unspecified
CPT/HCPCS: 96365; J7040; A4216

== ENCOUNTER 2021-08-13 07:58 | Outpatient (CLI) | payer OTHER, SELFPAY ==
[2021-08-13] MEDS: 0.9% NaCl Peripheral Flush Adult/Peds IV ×2 (08:05→09:50)
[2021-08-13 08:12] VITALS: BP 124/83; PULSE 75; RESP 16; TEMP 35.7; O2SAT 99; BMI 26.8
== END 2021-08-13 23:59 | disposition home or self-care (01) ==
LOC: MEDOUTP 07:58
PROVIDERS: PCP Family Medicine; Referring Provider Family Medicine; Visit Provider Family Medicine
DX: N41.0 Acute prostatitis (principal); A49.9 Bacterial infection, unspecified
CPT/HCPCS: 96365; J7040; A4216

== ENCOUNTER 2021-08-14 07:53 | Outpatient (CLI) | payer OTHER, SELFPAY ==
[2021-08-14] MEDS: 0.9% NaCl Peripheral Flush Adult/Peds IV (08:06)
[2021-08-14 08:08] VITALS: BP 124/76; PULSE 77; RESP 16; TEMP 36.2; O2SAT 100
[2021-08-14 09:26] VITALS: BP 125/78; PULSE 61; TEMP 35.8; O2SAT 99
== END 2021-08-14 23:59 | disposition home or self-care (01) ==
LOC: MEDOUTP 07:53
PROVIDERS: PCP Family Medicine; Referring Provider Family Medicine; Visit Provider Family Medicine
DX: N41.0 Acute prostatitis (principal); A49.9 Bacterial infection, unspecified
CPT/HCPCS: 96365; J7040; A4216

== ENCOUNTER 2021-08-15 07:56 | Outpatient (CLI) | payer OTHER, SELFPAY ==
[2021-08-15] MEDS: 0.9% NaCl Peripheral Flush Adult/Peds IV ×2 (08:06→09:41)
[2021-08-15 08:09] VITALS: BP 114/86; PULSE 71; RESP 16; TEMP 35.7; O2SAT 100
== END 2021-08-15 23:59 | disposition home or self-care (01) ==
PROVIDERS: PCP Family Medicine; Referring Provider Family Medicine; Visit Provider Family Medicine
DX: N41.0 Acute prostatitis (principal); A49.9 Bacterial infection, unspecified
CPT/HCPCS: 96365; J7040; A4216

== ENCOUNTER 2021-08-16 08:17 | Outpatient (CLI) | payer OTHER, SELFPAY ==
[2021-08-16 08:22] VITALS: BP 132/89; PULSE 71; RESP 16; TEMP 36.2; O2SAT 100
[2021-08-16] MEDS: 0.9% Saline Lock 10 ML Syringe IV (09:31)
[2021-08-16 09:33] VITALS: BP 129/90; PULSE 61; RESP 16; TEMP 36.2; O2SAT 100
== END 2021-08-16 23:59 | disposition home or self-care (01) ==
LOC: MEDOUTP 08:17 → MS3 08:18
PROVIDERS: PCP Family Medicine; Referring Provider Family Medicine; Visit Provider Family Medicine
DX: N41.0 Acute prostatitis (principal); A49.9 Bacterial infection, unspecified
CPT/HCPCS: 96365; J7050; A4216

== ENCOUNTER 2021-08-17 08:06 | Outpatient (CLI) | payer OTHER, SELFPAY ==
[2021-08-17 08:17] VITALS: BP 125/88; PULSE 69; RESP 18; TEMP 36.9; O2SAT 98
[2021-08-17 09:11] VITALS: BP 127/87; PULSE 62; RESP 18; TEMP 36.9; O2SAT 98
== END 2021-08-17 23:59 | disposition home or self-care (01) ==
LOC: MEDOUTP 08:06 → MS3 08:07
PROVIDERS: PCP Family Medicine; Referring Provider Family Medicine; Visit Provider Family Medicine
DX: N41.0 Acute prostatitis (principal); A49.9 Bacterial infection, unspecified
CPT/HCPCS: 96365

== ENCOUNTER 2021-08-18 07:51 | Outpatient (CLI) | payer OTHER, SELFPAY ==
[2021-08-18] MEDS: 0.9% NaCl Peripheral Flush Adult/Peds IV ×2 (08:16→09:49)
[2021-08-18 08:21] VITALS: BP 124/80; PULSE 71; RESP 16; TEMP 36.1; O2SAT 100
[2021-08-18 08:28] LABS: Hemoglobin 14.2 g/dL (13.0-16.5); Mean Corpuscular Hgb 30.9 pg (27.0-32.0); Mean Corpuscular Volume 93.5 fL (80-94); Mean Platelet Vol. 8.9 fl (6.2-12.0); Platelet Count 275 K/mm3 (150-450); RBC Distribution Width CV 12.5 % (11.6-14.6); RBC Distribution Width SD 43.1 fl (35.1-43.9); White Blood Count 4.7 K/mm3 (4.4-11.0)
[2021-08-18 08:44] LABS: AST(SGOT) 31 U/L (15-37); Alanine Aminotransfer ALT/SGPT 63 U/L (16-61); Albumin, Serum 2.9 g/dL (3.2-5.0); Alkaline Phosphatase 95 U/L (45-117); Anion Gap 5 (5-15); BUN 17 mg/dL (7-18); BUN/Creat Ratio 14.9 RATIO (10-20); Calcium,Total 7.6 mg/dL (8.5-10.1); Chloride 113 mmol/L (98-107); Creatinine, Serum 1.14 mg/dL (0.70-1.30); EST Glomerular Filtration Rate 70 mL/min (>60); Est Glom Filt Rate - Afr Amer 84 mL/min (>60); Globulin 3.7 g/dL (2.2-4.2); Glucose 97 mg/dL (74-106); Potassium 3.4 mmol/L (3.5-5.1); Protein, Total 6.6 g/dL (6.4-8.2); Sodium Level 141 mmol/L (136-145)
[2021-08-18 09:49] VITALS: BP 140/83; PULSE 69; RESP 16; TEMP 35.9; O2SAT 100
== END 2021-08-18 23:59 | disposition home or self-care (01) ==
LOC: MEDOUTP 07:51
PROVIDERS: Internal Medicine Infectious Disease; PCP Family Medicine; Referring Provider Family Medicine; Visit Provider Family Medicine
DX: N41.0 Acute prostatitis (principal); A49.9 Bacterial infection, unspecified
CPT/HCPCS: 96365; 80048; 80076; 85027; J7040; A4216

== ENCOUNTER 2021-08-19 09:02 | Outpatient (CLI) | payer OTHER, SELFPAY ==
[2021-08-19 09:12] VITALS: BP 136/79; PULSE 82; RESP 16; TEMP 36.8; O2SAT 98
[2021-08-19] MEDS: 0.9% NaCl Peripheral Flush Adult/Peds IV (09:12)
[2021-08-19 10:24] VITALS: BP 119/72; PULSE 62; RESP 16; TEMP 36.2; O2SAT 99
== END 2021-08-19 23:59 | disposition home or self-care (01) ==
LOC: MEDOUTP 09:02
PROVIDERS: PCP Family Medicine; Referring Provider Family Medicine; Visit Provider Family Medicine
DX: N41.0 Acute prostatitis (principal); A49.9 Bacterial infection, unspecified
CPT/HCPCS: 96365; J7050; A4216

== ENCOUNTER 2021-08-20 07:53 | Outpatient (CLI) | payer OTHER, SELFPAY ==
[2021-08-20 07:55] VITALS: BP 132/75; PULSE 66; RESP 16; TEMP 36.6; O2SAT 99
[2021-08-20] MEDS: 0.9% NaCl Peripheral Flush Adult/Peds IV (08:03)
[2021-08-20] MEDS: 0.9% NaCl IVPB Med Flush (250 mL) 15 ML IV (08:03)
[2021-08-20 09:04] VITALS: BP 142/89; PULSE 71; RESP 16
== END 2021-08-20 23:59 | disposition home or self-care (01) ==
LOC: MEDOUTP 07:53
PROVIDERS: PCP Family Medicine; Referring Provider Family Medicine; Visit Provider Family Medicine
DX: N41.0 Acute prostatitis (principal); A49.9 Bacterial infection, unspecified
CPT/HCPCS: 96365; J7050; A4216

== ENCOUNTER 2021-08-21 08:01 | Outpatient (CLI) | payer OTHER, SELFPAY ==
[2021-08-21 08:10] VITALS: BP 137/83; PULSE 70; RESP 16; TEMP 36.6; O2SAT 100
[2021-08-21] MEDS: 0.9% NaCl Peripheral Flush Adult/Peds IV (08:14)
[2021-08-21 09:42] VITALS: BP 129/89; PULSE 71; RESP 12; TEMP 36.6; O2SAT 99
== END 2021-08-21 23:59 | disposition home or self-care (01) ==
LOC: MEDOUTP 08:01
PROVIDERS: PCP Family Medicine; Referring Provider Family Medicine; Visit Provider Family Medicine
DX: N41.0 Acute prostatitis (principal); A49.9 Bacterial infection, unspecified
CPT/HCPCS: 96365; J7040; A4216

== ENCOUNTER 2021-08-22 07:53 | Outpatient (CLI) | payer OTHER, SELFPAY ==
[2021-08-22] MEDS: 0.9% NaCl Peripheral Flush Adult/Peds IV ×3 (08:00→09:35)
[2021-08-22 08:15] VITALS: BP 135/77; PULSE 78; RESP 16; TEMP 36.4; O2SAT 95
[2021-08-22 09:04] LABS: ALB/GLOB Ratio 0.8 RATIO (0.9-2.4); AST(SGOT) 23 U/L (15-37); Alanine Aminotransfer ALT/SGPT 59 U/L (16-61); Albumin, Serum 3.2 g/dL (3.2-5.0); Alkaline Phosphatase 103 U/L (45-117); Anion Gap 3 (5-15); BUN 15 mg/dL (7-18); Calcium,Total 8.8 mg/dL (8.5-10.1); Chloride 110 mmol/L (98-107); Creatinine, Serum 1.36 mg/dL (0.70-1.30); EST Glomerular Filtration Rate 57 mL/min (>60); Est Glom Filt Rate - Afr Amer 69 mL/min (>60); Globulin 4.1 g/dL (2.2-4.2); Glucose 109 mg/dL (74-106); Magnesium 2.2 mg/dL (1.6-2.6); Potassium 4.3 mmol/L (3.5-5.1); Protein, Total 7.3 g/dL (6.4-8.2); Sodium Level 139 mmol/L (136-145)
== END 2021-08-22 23:59 | disposition home or self-care (01) ==
LOC: MEDOUTP 07:53
PROVIDERS: PCP Family Medicine; Referring Provider Family Medicine; Visit Provider Family Medicine
DX: N41.0 Acute prostatitis (principal); N18.30 Chronic kidney disease, stage 3 unspecified; A49.9 Bacterial infection, unspecified
CPT/HCPCS: 96365; 36415; 80053; 83735; J7040; A4216

== ENCOUNTER 2021-08-23 08:21 | Outpatient (CLI) | payer OTHER, SELFPAY ==
[2021-08-23] MEDS: 0.9% Saline Lock 10 ML Syringe IV ×2 (08:15→09:04)
== END 2021-08-23 23:59 | disposition home or self-care (01) ==
LOC: MEDOUTP 08:23 → MS3 08:25
PROVIDERS: PCP Family Medicine; Referring Provider Family Medicine; Visit Provider Family Medicine
DX: N41.0 Acute prostatitis (principal); A49.9 Bacterial infection, unspecified
CPT/HCPCS: 96365; J7050; A4216

== ENCOUNTER 2021-08-24 08:08 | Outpatient (CLI) | payer OTHER, SELFPAY ==
[2021-08-24] MEDS: 0.9% Saline Lock 10 ML Syringe IV (08:20)
== END 2021-08-24 23:59 | disposition home or self-care (01) ==
LOC: MEDOUTP 08:09 → MS3 08:09
PROVIDERS: PCP Family Medicine; Referring Provider Family Medicine; Visit Provider Family Medicine
DX: N41.0 Acute prostatitis (principal); A49.9 Bacterial infection, unspecified
CPT/HCPCS: 96365; J7050; A4216

== ENCOUNTER → 2021-09-30 | Outpatient (CLI) | payer OTHER, SELFPAY ==
[2021-09-30 10:15] LABS: Albumin, Serum 3.6 g/dL (3.2-5.0); BUN 11 mg/dL (7-18); Calcium,Total 9.1 mg/dL (8.5-10.1); Chloride 105 mmol/L (98-107); Creatinine, Serum 1.37 mg/dL (0.70-1.30); EST Glomerular Filtration Rate 56 mL/min (>60); Est Glom Filt Rate - Afr Amer 68 mL/min (>60); Glucose 107 mg/dL (74-106); Phosphorus 3.3 mg/dL (2.5-4.9); Potassium 3.6 mmol/L (3.5-5.1); Sodium Level 138 mmol/L (136-145)
[2021-09-30 21:50] LABS: Mucous, Urine 0 SEEN /hpf (<or=2+)
[2021-09-30 22:06] LABS: Color, Urine Straw (Yellow); Glucose, Dipstick Normal (Normal); Ketone-Dipstick Negative (Negative); Leukocyte Esterase-Dipstick 100 /ul (Negative); Nitrite-Dipstick Negative (Negative); Occult Blood-Urine 25 /ul (Negative); Protein-Dipstick Negative (Negative); Urine Bilirubin Dipstick Negative (Negative); Urine Clarity Clear (Clear); Urine Urobilinogen Normal (Normal)
[2021-09-30 22:18] LABS: Bacteria RARE /hpf (None Seen); Red Blood Cells-Urine 0-5 SEEN /hpf (0-5); Squamous Epithelial Cells - UA 0-5 SEEN /hpf (0-5); White Blood Cells 5-10 SEEN /hpf (0-5)
== END | disposition home or self-care (01) ==
PROVIDERS: PCP Family Medicine; Referring Provider Family Medicine; Visit Provider Family Medicine
DX: R82.81 Pyuria (principal); N18.30 Chronic kidney disease, stage 3 unspecified
CPT/HCPCS: 36415; 80069; 81001; 87077; 87086; 87088; 87186

== ENCOUNTER → 2021-10-10 | Outpatient (CLI) | payer OTHER, SELFPAY ==
[2021-10-10 07:54] VITALS: BP 133/81; PULSE 73; RESP 16; TEMP 36; O2SAT 99
== END | disposition home or self-care (01) ==
LOC: MEDOUTP 07:30
PROVIDERS: PCP Family Medicine; Referring Provider Internal Medicine Infectious Disease; Visit Provider Internal Medicine Infectious Disease
DX: N41.0 Acute prostatitis (principal); B96.20 Unspecified Escherichia coli [E. coli] as the cause of diseases classified elsewhere
CPT/HCPCS: 96365; J7050; A4216; J3490

== ENCOUNTER 2021-10-11 08:37 | Outpatient (CLI) | payer OTHER, SELFPAY ==
[2021-10-11] MEDS: 0.9% NaCl Peripheral Flush Adult/Peds IV ×2 (08:42→10:00)
[2021-10-11 08:51] VITALS: BP 129/97; PULSE 74; RESP 12; TEMP 36.6; O2SAT 100
== END 2021-10-11 09:11 | disposition home or self-care (01) ==
LOC: MEDOUTP 08:37 → PCU 08:38
PROVIDERS: PCP Family Medicine; Referring Provider Internal Medicine Infectious Disease; Visit Provider Internal Medicine Infectious Disease
DX: N41.0 Acute prostatitis (principal); B96.20 Unspecified Escherichia coli [E. coli] as the cause of diseases classified elsewhere
CPT/HCPCS: 96365; A4216

== ENCOUNTER 2021-10-12 09:55 | Outpatient (CLI) | payer OTHER, SELFPAY ==
[2021-10-20 07:54] VITALS: BP 107/61; PULSE 68; RESP 16; TEMP 36.6; O2SAT 97; BMI 26.3
[2021-10-20 08:51] VITALS: BP 116/69; PULSE 61; RESP 16
== END 2021-10-12 10:18 | disposition home or self-care (01) ==
LOC: MEDOUTP 09:57 → PCU 10:02
PROVIDERS: PCP Family Medicine; Visit Provider Internal Medicine Infectious Disease
DX: R69 Illness, unspecified (principal)

== ENCOUNTER → 2021-10-12 | Outpatient (CLI) | payer OTHER, SELFPAY ==
[2021-10-12 08:20] VITALS: BP 135/78; PULSE 78; RESP 14; TEMP 36.6; O2SAT 100
== END | disposition home or self-care (01) ==
LOC: MEDOUTP 10-18 21:06
PROVIDERS: PCP Family Medicine; Referring Provider Internal Medicine Infectious Disease; Visit Provider Internal Medicine Infectious Disease
DX: N41.0 Acute prostatitis (principal); B96.20 Unspecified Escherichia coli [E. coli] as the cause of diseases classified elsewhere
CPT/HCPCS: 96365

== ENCOUNTER 2021-10-13 08:13 | Outpatient (CLI) | payer OTHER, SELFPAY ==
[2021-10-13 08:17] VITALS: BP 127/79; PULSE 72; RESP 12; TEMP 36.8; O2SAT 99
[2021-10-13] MEDS: 0.9% Saline Lock 10 ML Syringe IV (09:04)
== END 2021-10-13 09:08 | disposition home or self-care (01) ==
LOC: MEDOUTP 08:14 → PCU 08:14
PROVIDERS: PCP Family Medicine; Referring Provider Internal Medicine Infectious Disease; Visit Provider Internal Medicine Infectious Disease
DX: N41.0 Acute prostatitis (principal); B96.20 Unspecified Escherichia coli [E. coli] as the cause of diseases classified elsewhere
CPT/HCPCS: 96365; A4216

== ENCOUNTER → 2021-10-14 | Outpatient (CLI) | payer OTHER, SELFPAY ==
[2021-10-14 07:53] VITALS: BP 124/81; PULSE 79; RESP 16; TEMP 36.2; O2SAT 98; BMI 26.1
[2021-10-14 08:35] VITALS: BP 123/79; PULSE 73; RESP 12; TEMP 36.2; O2SAT 98
== END | disposition home or self-care (01) ==
LOC: MEDOUTP 07:33
PROVIDERS: PCP Family Medicine; Referring Provider Internal Medicine Infectious Disease; Visit Provider Internal Medicine Infectious Disease
DX: N41.0 Acute prostatitis (principal); B96.20 Unspecified Escherichia coli [E. coli] as the cause of diseases classified elsewhere
CPT/HCPCS: 96365; J7050; A4216

== ENCOUNTER 2021-10-15 07:34 | Outpatient (CLI) | payer OTHER, SELFPAY ==
[2021-10-15 07:41] VITALS: PULSE 68; RESP 16; TEMP 36.1; O2SAT 99; BMI 26.1
[2021-10-15 08:10] LABS: Erythrocyte Sedimentation Rate 20 mm/hr (0-20)
[2021-10-15 08:11] LABS: Hematocrit 43.8 % (40-54); Hemoglobin 14.6 g/dL (13.0-16.5); Mean Corp Hgb Conc 33.3 g/dL (32-36); Mean Corpuscular Hgb 31.2 pg (27.0-32.0); Mean Corpuscular Volume 93.6 fL (80-94); Mean Platelet Vol. 9.7 fl (6.2-12.0); Platelet Count 189 K/mm3 (150-450); RBC Distribution Width CV 12.4 % (11.6-14.6); RBC Distribution Width SD 42.6 fl (35.1-43.9); Red Blood Count 4.68 M/mm3 (4.6-6.2); White Blood Count 3.9 K/mm3 (4.4-11.0)
[2021-10-15 08:15] LABS: AST(SGOT) 18 U/L (15-37); Alanine Aminotransfer ALT/SGPT 23 U/L (16-61); Albumin, Serum 3.6 g/dL (3.2-5.0); Alkaline Phosphatase 78 U/L (45-117); Anion Gap 5 (5-15); BUN 15 mg/dL (7-18); BUN/Creat Ratio 11.1 RATIO (10-20); Bilirubin, Direct 0.16 mg/dL (0.00-0.30); Calcium,Total 9.5 mg/dL (8.5-10.1); Chloride 110 mmol/L (98-107); Creatinine, Serum 1.35 mg/dL (0.70-1.30); EST Glomerular Filtration Rate 57 mL/min (>60); Est Glom Filt Rate - Afr Amer 69 mL/min (>60); Estimated Creatinine Clearance 53.17 ml/min; Glucose 103 mg/dL (74-106); Protein, Total 7.6 g/dL (6.4-8.2); Sodium Level 139 mmol/L (136-145)
[2021-10-15 08:31] VITALS: BP 120/77; PULSE 66; RESP 12; TEMP 35.7; O2SAT 98
[2021-10-15 09:23] VITALS: BP 138/102; PULSE 76; RESP 14; TEMP 36.6; O2SAT 100; BMI 26.1
== END 2021-10-15 23:59 | disposition home or self-care (01) ==
PROVIDERS: PCP Family Medicine; Referring Provider Internal Medicine Infectious Disease; Visit Provider Internal Medicine Infectious Disease
DX: N41.0 Acute prostatitis (principal); B96.20 Unspecified Escherichia coli [E. coli] as the cause of diseases classified elsewhere
CPT/HCPCS: 96365; 36569; 80048; 80076; 85027; 85652; J7050; A4216; J3490

== ENCOUNTER 2021-10-16 07:28 | Outpatient (CLI) | payer OTHER, SELFPAY ==
[2021-10-16 07:45] VITALS: BP 117/75; PULSE 68; RESP 16; TEMP 36.1; O2SAT 97; BMI 26.1
[2021-10-16 08:31] VITALS: BP 108/72; PULSE 68; RESP 12; TEMP 35.8; O2SAT 98
== END 2021-10-16 23:59 | disposition home or self-care (01) ==
PROVIDERS: PCP Family Medicine; Referring Provider Internal Medicine Infectious Disease; Visit Provider Internal Medicine Infectious Disease
DX: N41.0 Acute prostatitis (principal); B96.20 Unspecified Escherichia coli [E. coli] as the cause of diseases classified elsewhere
CPT/HCPCS: 96365; J7050; A4216

== ENCOUNTER 2021-10-17 07:31 | Outpatient (CLI) | payer OTHER, SELFPAY ==
[2021-10-17 07:42] VITALS: BP 127/80; PULSE 78; RESP 16; TEMP 35.6; BMI 26.1
[2021-10-17 08:53] VITALS: BP 113/79; PULSE 79; RESP 14; TEMP 36.4; O2SAT 99
== END 2021-10-17 23:59 | disposition home or self-care (01) ==
LOC: MEDOUTP 07:31
PROVIDERS: PCP Family Medicine; Referring Provider Internal Medicine Infectious Disease; Visit Provider Internal Medicine Infectious Disease
DX: N41.0 Acute prostatitis (principal); B96.20 Unspecified Escherichia coli [E. coli] as the cause of diseases classified elsewhere
CPT/HCPCS: 96365; J7050; A4216; J3490

== ENCOUNTER 2021-10-18 08:28 | Outpatient (CLI) | payer OTHER, SELFPAY | END 2021-10-18 09:20 | disposition home or self-care (01) | LOC: MEDOUTP 08:29 → PCU 08:30 | PROVIDERS: PCP Family Medicine; Referring Provider Internal Medicine Infectious Disease; Visit Provider Internal Medicine Infectious Disease | DX: N41.0 Acute prostatitis (principal); B96.20 Unspecified Escherichia coli [E. coli] as the cause of diseases classified elsewhere | CPT/HCPCS: 96365 ==

== ENCOUNTER 2021-10-19 08:24 | Outpatient (CLI) | payer OTHER, SELFPAY | END 2021-10-19 09:27 | disposition home or self-care (01) | LOC: MEDOUTP 08:24 → PCU 08:25 | PROVIDERS: PCP Family Medicine; Referring Provider Internal Medicine Infectious Disease; Visit Provider Internal Medicine Infectious Disease | DX: N41.0 Acute prostatitis (principal); B96.20 Unspecified Escherichia coli [E. coli] as the cause of diseases classified elsewhere | CPT/HCPCS: 96365 ==

== ENCOUNTER → 2021-10-20 | Outpatient (CLI) | payer OTHER, SELFPAY | END | disposition home or self-care (01) | LOC: MEDOUTP 07:31 | PROVIDERS: PCP Family Medicine; Referring Provider Internal Medicine Infectious Disease; Visit Provider Internal Medicine Infectious Disease | DX: N41.0 Acute prostatitis (principal); B96.20 Unspecified Escherichia coli [E. coli] as the cause of diseases classified elsewhere | CPT/HCPCS: 96365; J7050; A4216 ==

== ENCOUNTER → 2021-10-21 | Outpatient (CLI) | payer OTHER, SELFPAY ==
[2021-10-21 07:35] VITALS: BP 121/76; PULSE 86; RESP 16; TEMP 36.4; O2SAT 99; BMI 26.3
== END | disposition home or self-care (01) ==
LOC: MEDOUTP 07:33
PROVIDERS: PCP Family Medicine; Referring Provider Internal Medicine Infectious Disease; Visit Provider Internal Medicine Infectious Disease
DX: N41.0 Acute prostatitis (principal); B96.20 Unspecified Escherichia coli [E. coli] as the cause of diseases classified elsewhere
CPT/HCPCS: 96365; J7050; A4216; J3490

== ENCOUNTER → 2021-10-22 | Outpatient (CLI) | payer OTHER, SELFPAY ==
[2021-10-22 08:50] VITALS: BP 112/61; PULSE 62; RESP 14; TEMP 36.6; O2SAT 95; BMI 26.3
[2021-10-22 09:03] LABS: Hematocrit 43.5 % (40-54); Hemoglobin 14.4 g/dL (13.0-16.5); Mean Corp Hgb Conc 33.1 g/dL (32-36); Mean Corpuscular Hgb 30.8 pg (27.0-32.0); Mean Corpuscular Volume 92.9 fL (80-94); Mean Platelet Vol. 9.4 fl (6.2-12.0); Platelet Count 160 K/mm3 (150-450); RBC Distribution Width CV 12.4 % (11.6-14.6); RBC Distribution Width SD 42.5 fl (35.1-43.9); Red Blood Count 4.68 M/mm3 (4.6-6.2); White Blood Count 3.3 K/mm3 (4.4-11.0)
[2021-10-22 09:09] LABS: Erythrocyte Sedimentation Rate 21 mm/hr (0-20)
[2021-10-22 09:23] LABS: AST(SGOT) 17 U/L (15-37); Alanine Aminotransfer ALT/SGPT 27 U/L (16-61); Albumin, Serum 3.5 g/dL (3.2-5.0); Alkaline Phosphatase 79 U/L (45-117); Anion Gap 6 (5-15); BUN 18 mg/dL (7-18); BUN/Creat Ratio 14.4 RATIO (10-20); Bilirubin, Direct 0.16 mg/dL (0.00-0.30); Calcium,Total 9.4 mg/dL (8.5-10.1); Chloride 106 mmol/L (98-107); Creatinine, Serum 1.25 mg/dL (0.70-1.30); EST Glomerular Filtration Rate 63 mL/min (>60); Est Glom Filt Rate - Afr Amer 76 mL/min (>60); Estimated Creatinine Clearance 57.42 ml/min; Globulin 4.1 g/dL (2.2-4.2); Glucose 98 mg/dL (74-106); Protein, Total 7.6 g/dL (6.4-8.2); Sodium Level 139 mmol/L (136-145)
[2021-10-22 09:46] VITALS: BP 124/81; PULSE 70; RESP 16; O2SAT 98
== END | disposition home or self-care (01) ==
LOC: MEDOUTP 08:33
PROVIDERS: PCP Family Medicine; Referring Provider Internal Medicine Infectious Disease; Visit Provider Internal Medicine Infectious Disease
DX: N41.0 Acute prostatitis (principal); B96.20 Unspecified Escherichia coli [E. coli] as the cause of diseases classified elsewhere
CPT/HCPCS: 96365; 36592; 80048; 80076; 85027; 85652; A4216; J3490

== ENCOUNTER → 2021-10-23 | Outpatient (CLI) | payer OTHER, SELFPAY ==
[2021-10-23 07:47] VITALS: BP 110/78; PULSE 76; RESP 16; TEMP 36.3; O2SAT 98; BMI 26.3
[2021-10-23 08:31] VITALS: BP 115/82; PULSE 61; RESP 16; TEMP 36.3; O2SAT 98
== END | disposition home or self-care (01) ==
LOC: MEDOUTP 07:31
PROVIDERS: PCP Family Medicine; Referring Provider Internal Medicine Infectious Disease; Visit Provider Internal Medicine Infectious Disease
DX: N41.0 Acute prostatitis (principal); B96.20 Unspecified Escherichia coli [E. coli] as the cause of diseases classified elsewhere
CPT/HCPCS: 96365; J7050; A4216; J3490

== ENCOUNTER → 2021-10-24 | Outpatient (CLI) | payer OTHER, SELFPAY ==
[2021-10-24 08:44] VITALS: BP 118/76; PULSE 92; RESP 16; TEMP 36.3; O2SAT 100
[2021-10-24 09:30] VITALS: BP 138/80; PULSE 86; RESP 16; O2SAT 99
== END | disposition home or self-care (01) ==
LOC: MEDOUTP 08:28
PROVIDERS: PCP Family Medicine; Referring Provider Internal Medicine Infectious Disease; Visit Provider Internal Medicine Infectious Disease
DX: N41.0 Acute prostatitis (principal); B96.20 Unspecified Escherichia coli [E. coli] as the cause of diseases classified elsewhere
CPT/HCPCS: 96365; A4216

== ENCOUNTER 2021-10-25 08:04 | Outpatient (CLI) | payer OTHER, SELFPAY ==
[2021-10-25] MEDS: 0.9% NaCl PICC Flush IV (08:17)
[2021-10-25 08:18] VITALS: BP 111/69; PULSE 74; RESP 16; TEMP 36.8; O2SAT 98
== END 2021-10-25 09:11 | disposition home or self-care (01) ==
LOC: MEDOUTP 08:05 → PCU 08:06
PROVIDERS: PCP Family Medicine; Referring Provider Internal Medicine Infectious Disease; Visit Provider Internal Medicine Infectious Disease
DX: N41.0 Acute prostatitis (principal); B96.20 Unspecified Escherichia coli [E. coli] as the cause of diseases classified elsewhere
CPT/HCPCS: 96365; A4216

== ENCOUNTER 2021-10-26 08:05 | Outpatient (CLI) | payer OTHER, SELFPAY ==
[2021-10-26 08:15] VITALS: BP 107/62; PULSE 63; RESP 16; TEMP 36.8; O2SAT 99
[2021-10-26] MEDS: 0.9% NaCl PICC Flush IV (09:07)
== END 2021-10-26 09:01 | disposition home or self-care (01) ==
LOC: MEDOUTP 08:14 → PCU 08:15
PROVIDERS: PCP Family Medicine; Referring Provider Internal Medicine Infectious Disease; Visit Provider Internal Medicine Infectious Disease
DX: N41.0 Acute prostatitis (principal); B96.20 Unspecified Escherichia coli [E. coli] as the cause of diseases classified elsewhere
CPT/HCPCS: 96365; J7040; A4216

== ENCOUNTER → 2021-10-27 | Outpatient (CLI) | payer OTHER, SELFPAY ==
[2021-10-27] MEDS: 0.9% NaCl IVPB Med Flush (250 mL) 15 ML IV (07:42)
[2021-10-27] MEDS: 0.9% NaCl PICC Flush IV ×2 (07:42→08:35)
[2021-10-27 07:47] VITALS: BP 100/58; PULSE 68; RESP 16; TEMP 36.4; O2SAT 98
== END | disposition home or self-care (01) ==
LOC: MEDOUTP 07:28
PROVIDERS: PCP Family Medicine; Referring Provider Internal Medicine Infectious Disease; Visit Provider Internal Medicine Infectious Disease
DX: N41.0 Acute prostatitis (principal); B96.20 Unspecified Escherichia coli [E. coli] as the cause of diseases classified elsewhere
CPT/HCPCS: 96365; J7050; A4216

== ENCOUNTER → 2021-10-28 | Outpatient (CLI) | payer OTHER, SELFPAY ==
[2021-10-28] MEDS: 0.9% NaCl IVPB Med Flush (250 mL) 15 ML IV (07:36)
[2021-10-28] MEDS: 0.9% NaCl PICC Flush IV ×2 (07:36→08:33)
[2021-10-28 07:39] VITALS: BP 116/72; PULSE 74; RESP 14; TEMP 36.6; O2SAT 98; BMI 26.3
[2021-10-28 08:38] VITALS: BP 113/85; PULSE 84; RESP 12; TEMP 36.7; O2SAT 98
[2021-10-28 16:27] LABS: Bacteria 0 SEEN /hpf (None Seen); Mucous, Urine 0 SEEN /hpf (<or=2+); Red Blood Cells-Urine 0 SEEN /hpf (0-5); White Blood Cells 0 SEEN /hpf (0-5)
[2021-10-28 17:25] LABS: Color, Urine Straw (Yellow); Glucose, Dipstick Normal (Normal); Ketone-Dipstick Negative (Negative); Leukocyte Esterase-Dipstick Negative /ul (Negative); Nitrite-Dipstick Negative (Negative); Occult Blood-Urine Negative /ul (Negative); Protein-Dipstick Negative (Negative); Specific Gravity, Urine 1.015 (1.002-1.030); Urine Bilirubin Dipstick Negative (Negative); Urine Clarity Clear (Clear); Urine Urobilinogen Normal (Normal); Urine pH 6.5 (5.0 - 8.0)
[2021-10-28 17:36] LABS: Squamous Epithelial Cells - UA 0-5 SEEN /hpf (0-5)
== END | disposition home or self-care (01) ==
PROVIDERS: PCP Family Medicine; Referring Provider Internal Medicine Infectious Disease; Visit Provider Internal Medicine Infectious Disease
DX: N41.0 Acute prostatitis (principal); B96.20 Unspecified Escherichia coli [E. coli] as the cause of diseases classified elsewhere; N30.00 Acute cystitis without hematuria
CPT/HCPCS: 96365; 81001; 87086; J7050; A4216

== ENCOUNTER → 2021-10-29 | Outpatient (CLI) | payer OTHER, SELFPAY ==
[2021-10-29 07:54] VITALS: BP 105/74; PULSE 60; RESP 14; TEMP 36.4; O2SAT 99; BMI 26.3
[2021-10-29 08:06] LABS: Hemoglobin 13.6 g/dL (13.0-16.5); Mean Corp Hgb Conc 33.2 g/dL (32-36); Mean Corpuscular Hgb 31.3 pg (27.0-32.0); Mean Corpuscular Volume 94.3 fL (80-94); Mean Platelet Vol. 9.3 fl (6.2-12.0); Platelet Count 183 K/mm3 (150-450); RBC Distribution Width CV 12.2 % (11.6-14.6); Red Blood Count 4.35 M/mm3 (4.6-6.2)
[2021-10-29 08:52] VITALS: BP 108/76; PULSE 56; RESP 12; TEMP 36.7; O2SAT 99
[2021-10-29 09:02] LABS: Erythrocyte Sedimentation Rate 12 mm/hr (0-20)
[2021-10-29 09:26] LABS: AST(SGOT) 17 U/L (15-37); Alanine Aminotransfer ALT/SGPT 23 U/L (16-61); Albumin, Serum 3.4 g/dL (3.2-5.0); Alkaline Phosphatase 82 U/L (45-117); Anion Gap 5 (5-15); BUN 12 mg/dL (7-18); BUN/Creat Ratio 9.6 RATIO (10-20); Bilirubin, Direct 0.12 mg/dL (0.00-0.30); Calcium,Total 9.1 mg/dL (8.5-10.1); Chloride 109 mmol/L (98-107); Creatinine, Serum 1.25 mg/dL (0.70-1.30); EST Glomerular Filtration Rate 63 mL/min (>60); Est Glom Filt Rate - Afr Amer 76 mL/min (>60); Estimated Creatinine Clearance 57.42 ml/min; Globulin 3.6 g/dL (2.2-4.2); Glucose 102 mg/dL (74-106); Potassium 3.9 mmol/L (3.5-5.1); Sodium Level 141 mmol/L (136-145)
== END | disposition home or self-care (01) ==
LOC: MEDOUTP 07:27
PROVIDERS: PCP Family Medicine; Referring Provider Internal Medicine Infectious Disease; Visit Provider Internal Medicine Infectious Disease
DX: N41.0 Acute prostatitis (principal); B96.20 Unspecified Escherichia coli [E. coli] as the cause of diseases classified elsewhere
CPT/HCPCS: 96365; 36592; 80048; 80076; 85027; 85652; A4216; J3490

== ENCOUNTER → 2021-10-30 | Outpatient (CLI) | payer OTHER, SELFPAY ==
[2021-10-30 07:45] VITALS: BP 116/71; PULSE 77; RESP 12; TEMP 36.4; O2SAT 99
[2021-10-30 08:31] VITALS: BP 116/85; PULSE 72; RESP 12; TEMP 36.2; O2SAT 98
== END | disposition home or self-care (01) ==
LOC: MEDOUTP 07:32
PROVIDERS: PCP Family Medicine; Referring Provider Internal Medicine Infectious Disease; Visit Provider Internal Medicine Infectious Disease
DX: N41.0 Acute prostatitis (principal); B96.20 Unspecified Escherichia coli [E. coli] as the cause of diseases classified elsewhere
CPT/HCPCS: 96365; J7050; A4216

== ENCOUNTER → 2021-10-31 | Outpatient (CLI) | payer OTHER, SELFPAY ==
[2021-10-31 08:48] VITALS: BP 115/81; PULSE 67; RESP 16; TEMP 35.7; O2SAT 100
== END | disposition home or self-care (01) ==
LOC: MEDOUTP 08:39
PROVIDERS: PCP Family Medicine; Referring Provider Internal Medicine Infectious Disease; Visit Provider Internal Medicine Infectious Disease
DX: N41.0 Acute prostatitis (principal); B96.20 Unspecified Escherichia coli [E. coli] as the cause of diseases classified elsewhere
CPT/HCPCS: 96365; J7050; A4216

== ENCOUNTER 2021-11-01 09:22 | Outpatient (CLI) | payer OTHER, SELFPAY ==
[2021-11-01 09:37] VITALS: BP 135/84; PULSE 75; RESP 18; TEMP 35.7; O2SAT 100
[2021-11-01] MEDS: 0.9% NaCl PICC Flush IV (10:35)
[2021-11-01 10:41] VITALS: BP 134/69; PULSE 68; RESP 16; TEMP 35.7; O2SAT 98
== END 2021-11-01 10:42 | disposition home or self-care (01) ==
LOC: MEDOUTP 09:22 → ICU 09:24
PROVIDERS: PCP Family Medicine; Referring Provider Internal Medicine Infectious Disease; Visit Provider Internal Medicine Infectious Disease
DX: N41.0 Acute prostatitis (principal); B96.20 Unspecified Escherichia coli [E. coli] as the cause of diseases classified elsewhere
CPT/HCPCS: 96365; A4216

== ENCOUNTER 2021-11-02 07:58 | Outpatient (CLI) | payer OTHER, SELFPAY ==
[2021-11-02 08:07] VITALS: BP 117/75; PULSE 69; RESP 16; TEMP 36.2; O2SAT 98
[2021-11-02] MEDS: 0.9% Saline Lock 10 ML Syringe IV ×2 (08:08→09:18)
[2021-11-02 09:18] VITALS: BP 111/82; PULSE 67; RESP 16; TEMP 36.1; O2SAT 99
== END 2021-11-02 09:20 | disposition home or self-care (01) ==
LOC: MEDOUTP 07:58 → ICU 08:00
PROVIDERS: PCP Family Medicine; Referring Provider Internal Medicine Infectious Disease; Visit Provider Internal Medicine Infectious Disease
DX: N41.0 Acute prostatitis (principal); B96.20 Unspecified Escherichia coli [E. coli] as the cause of diseases classified elsewhere
CPT/HCPCS: 96365; A4216

== ENCOUNTER → 2021-11-03 | Outpatient (CLI) | payer OTHER, SELFPAY ==
[2021-11-03] MEDS: 0.9% NaCl PICC Flush IV ×2 (07:44→08:42)
[2021-11-03] MEDS: 0.9% NaCl IVPB Med Flush (250 mL) 15 ML IV (07:44)
[2021-11-03 07:48] VITALS: BP 118/72; PULSE 66; RESP 16; TEMP 35.6; O2SAT 98
[2021-11-03 08:42] VITALS: BP 118/86; PULSE 62; RESP 16
== END | disposition home or self-care (01) ==
LOC: MEDOUTP 07:34
PROVIDERS: PCP Family Medicine; Referring Provider Internal Medicine Infectious Disease; Visit Provider Internal Medicine Infectious Disease
DX: N41.0 Acute prostatitis (principal); B96.20 Unspecified Escherichia coli [E. coli] as the cause of diseases classified elsewhere
CPT/HCPCS: 96365; J7050; A4216

== ENCOUNTER → 2021-11-04 | Outpatient (CLI) | payer OTHER, SELFPAY ==
[2021-11-04 07:43] VITALS: BP 114/70; PULSE 70; RESP 12; TEMP 36.1; O2SAT 99
== END | disposition home or self-care (01) ==
LOC: MEDOUTP 07:32
PROVIDERS: PCP Family Medicine; Referring Provider Internal Medicine Infectious Disease; Visit Provider Internal Medicine Infectious Disease
DX: N41.0 Acute prostatitis (principal); B96.20 Unspecified Escherichia coli [E. coli] as the cause of diseases classified elsewhere
CPT/HCPCS: 96365; J7050; A4216

== ENCOUNTER → 2021-11-05 | Outpatient (CLI) | payer OTHER, SELFPAY ==
[2021-11-05 07:52] VITALS: BP 130/81; PULSE 78; RESP 12; TEMP 36.2; O2SAT 97
[2021-11-05 08:09] LABS: Hematocrit 43.4 % (40-54); Hemoglobin 14.4 g/dL (13.0-16.5); Mean Corp Hgb Conc 33.2 g/dL (32-36); Mean Corpuscular Hgb 30.7 pg (27.0-32.0); Mean Corpuscular Volume 92.5 fL (80-94); Mean Platelet Vol. 9.7 fl (6.2-12.0); Platelet Count 196 K/mm3 (150-450); RBC Distribution Width CV 12.5 % (11.6-14.6); RBC Distribution Width SD 42.4 fl (35.1-43.9); Red Blood Count 4.69 M/mm3 (4.6-6.2); White Blood Count 3.3 K/mm3 (4.4-11.0)
[2021-11-05 08:11] LABS: Erythrocyte Sedimentation Rate 17 mm/hr (0-20)
[2021-11-05 08:21] LABS: AST(SGOT) 16 U/L (15-37); Alanine Aminotransfer ALT/SGPT 26 U/L (16-61); Albumin, Serum 3.6 g/dL (3.2-5.0); Alkaline Phosphatase 81 U/L (45-117); Anion Gap 7 (5-15); BUN 11 mg/dL (7-18); BUN/Creat Ratio 8.5 RATIO (10-20); Bilirubin, Direct 0.17 mg/dL (0.00-0.30); Calcium,Total 9.1 mg/dL (8.5-10.1); Chloride 107 mmol/L (98-107); EST Glomerular Filtration Rate 60 mL/min (>60); Est Glom Filt Rate - Afr Amer 73 mL/min (>60); Glucose 102 mg/dL (74-106); Potassium 3.8 mmol/L (3.5-5.1); Protein, Total 7.6 g/dL (6.4-8.2); Sodium Level 139 mmol/L (136-145)
[2021-11-05 13:49] VITALS: BP 106/78; PULSE 68; RESP 12; TEMP 36.5; O2SAT 98
--- NOTE | 2021-11-05 13:52 | NURSING ---
Old PICC line dressing removed. Sterile gloves applied SL PICC line discontinued from Right upper arm per order. Patient tolerated well. Cannula intact. Pressure applied and held for at least 5 minutes. Site without compromise. Vaseline gauze applied over insertion site covered with 2x2 gauze and IV 3000 tegaderm applied. Wrapped with Coban. Patient tolerated well site witout compromise. Patient remained on the unit for addtional 20 minutes for observation. Site observed and remains with compromise. Reviewed s/s of infection and what to do if bleeding starts and patient verbalized understanding and agreeable. JULIA Guzmán
== END | disposition home or self-care (01) ==
LOC: MEDOUTP 07:40
PROVIDERS: PCP Family Medicine; Referring Provider Internal Medicine Infectious Disease; Visit Provider Internal Medicine Infectious Disease
DX: N41.0 Acute prostatitis (principal); B96.20 Unspecified Escherichia coli [E. coli] as the cause of diseases classified elsewhere
CPT/HCPCS: 96365; 36592; 80048; 80076; 85027; 85652; A4216

== ENCOUNTER → 2021-11-30 | Outpatient (CLI) | payer OTHER, SELFPAY ==
[2021-11-30 14:48] LABS: Mucous, Urine 0 SEEN /hpf (<or=2+); Red Blood Cells-Urine 0 SEEN /hpf (0-5); Squamous Epithelial Cells - UA 0 SEEN /hpf (0-5)
[2021-11-30 14:56] LABS: Color, Urine Straw (Yellow); Glucose, Dipstick Normal (Normal); Ketone-Dipstick Negative (Negative); Leukocyte Esterase-Dipstick 500 /ul (Negative); Nitrite-Dipstick Negative (Negative); Occult Blood-Urine 150 /ul (Negative); Protein-Dipstick Negative (Negative); Specific Gravity, Urine 1.005 (1.002-1.030); Urine Bilirubin Dipstick Negative (Negative); Urine Clarity Clear (Clear); Urine Urobilinogen Normal (Normal)
[2021-11-30 15:12] LABS: White Blood Cells 5-10 SEEN /hpf (0-5)
[2021-11-30 15:15] LABS: Bacteria 1+ /hpf (None Seen)
== END | disposition home or self-care (01) ==
LOC: LAB 14:39
PROVIDERS: PCP Family Medicine; Visit Provider Family Medicine
DX: N41.1 Chronic prostatitis (principal); R39.9 Unspecified symptoms and signs involving the genitourinary system
CPT/HCPCS: 81001; 87077; 87086; 87088; 87186

== ENCOUNTER → 2022-02-09 | Outpatient (CLI) | payer OTHER, SELFPAY ==
[2022-02-09 17:03] LABS: Bacteria 0 SEEN /hpf (None Seen); Mucous, Urine 0 SEEN /hpf (<or=2+); Red Blood Cells-Urine 0 SEEN /hpf (0-5); Squamous Epithelial Cells - UA 0 SEEN /hpf (0-5)
[2022-02-09 18:07] LABS: Color, Urine Straw (Yellow); Glucose, Dipstick Normal (Normal); Ketone-Dipstick Negative (Negative); Leukocyte Esterase-Dipstick 500 /ul (Negative); Nitrite-Dipstick Negative (Negative); Occult Blood-Urine 25 /ul (Negative); Protein-Dipstick Negative (Negative); Urine Bilirubin Dipstick Negative (Negative); Urine Clarity Clear (Clear); Urine Urobilinogen Normal (Normal)
[2022-02-09 18:15] LABS: White Blood Cells 5-10 SEEN /hpf (0-5)
== END | disposition home or self-care (01) ==
LOC: LAB 17:00
PROVIDERS: PCP Family Medicine; Referring Provider Family Medicine; Visit Provider Family Medicine
DX: N41.9 Inflammatory disease of prostate, unspecified (principal)
CPT/HCPCS: 81001; 87086; 87088

== ENCOUNTER → 2022-10-20 | Outpatient (CLI) | payer SELFPAY ==
[2022-10-19 16:17] LABS: Bacteria 0 SEEN /hpf (None Seen); Mucous, Urine 0 SEEN /hpf (<or=2+); Red Blood Cells-Urine 0 SEEN /hpf (0-5); Squamous Epithelial Cells - UA 0 SEEN /hpf (0-5); White Blood Cells 0 SEEN /hpf (0-5)
[2022-10-20 08:02] LABS: Absolute Lymphocyte Count 2.06 X10^3/uL (0.83-4.51); Absolute Neutrophil Count 1.3 X10^3/uL (2.0-7.7); Basophil# 0.05 X10^3/uL; Basophil% 1.3 % (0-1); Eosinophil# 0.05 X10^3/uL; Eosinophils% 1.3 % (0-5); Hematocrit 46.7 % (40-54); Hemoglobin 15.5 g/dL (13.0-16.5); Lymphocyte # 2.06 X10^3/ul (0.83-4.51); Mean Corp Hgb Conc 33.2 g/dL (32-36); Mean Corpuscular Hgb 31.7 pg (27.0-32.0); Mean Corpuscular Volume 95.5 fL (80-94); Mean Platelet Vol. 9.8 fl (6.2-12.0); Monocyte# 0.43 X10^3/uL; Monocyte% 11.1 % (0-10); NRBC Flagged by Analyzer 0 % (0-5); Neutrophil # 1.29 X10^3/uL (2.7-7.7); Platelet Count 184 K/mm3 (150-450); RBC Distribution Width SD 42.4 fl (35.1-43.9); Red Blood Count 4.89 M/mm3 (4.6-6.2); White Blood Count 3.9 K/mm3 (4.4-11.0)
[2022-10-20 08:05] LABS: Color, Urine Yellow (Yellow); Glucose, Dipstick Normal (Normal); Ketone-Dipstick Negative (Negative); Leukocyte Esterase-Dipstick Negative /ul (Negative); Nitrite-Dipstick Negative (Negative); Occult Blood-Urine Negative /ul (Negative); Protein-Dipstick Negative (Negative); Urine Bilirubin Dipstick Negative (Negative); Urine Clarity Clear (Clear); Urine Urobilinogen Normal (Normal)
[2022-10-20 08:29] LABS: Microalbumin,Random Urine 5.8 mg/L (NO RANGE EST.)
[2022-10-20 08:31] LABS: AST(SGOT) 22 U/L (15-37); Alanine Aminotransfer ALT/SGPT 27 U/L (16-61); Albumin, Serum 3.8 g/dL (3.2-5.0); Alkaline Phosphatase 79 U/L (45-117); Anion Gap 3 (5-15); BUN 13 mg/dL (7-18); BUN/Creat Ratio 9.6 RATIO (10-20); Calcium,Total 9.2 mg/dL (8.5-10.1); Chloride 107 mmol/L (98-107); Cholesterol 205 mg/dL (200); Creatinine, Serum 1.35 mg/dL (0.70-1.30); EST Glomerular Filtration Rate 57 mL/min (>60); Est Glom Filt Rate - Afr Amer 69 mL/min (>60); Glucose 96 mg/dL (74-106); High Density Lipoprotein 85 mg/dL; PSA,Total- Diagnostic 0.97 ng/mL (0.0-4.0); Potassium 3.8 mmol/L (3.5-5.1); Protein, Total 7.8 g/dL (6.4-8.2); Sodium Level 137 mmol/L (136-145); Triglycerides 65 mg/dL; Very Low Density Lipoprotein 13 mg/dL (5-40)
[2022-10-20 08:49] LABS: Vitamin D,25 Hydroxy 33.6 ng/mL
[2022-10-20 08:59] LABS: PTHIN 93.2 pg/mL (18.4-80.1)
== END | disposition home or self-care (01) ==
LOC: LAB 07:05
PROVIDERS: PCP Family Medicine; Referring Provider Family Medicine; Visit Provider Family Medicine
DX: I12.9 Hypertensive chronic kidney disease with stage 1 through stage 4 chronic kidney disease, or unspecified chronic kidney disease (principal); N18.31 Chronic kidney disease, stage 3a; N41.1 Chronic prostatitis; E78.00 Pure hypercholesterolemia, unspecified; Z85.528 Personal history of other malignant neoplasm of kidney
CPT/HCPCS: 36415; 80053; 80061; 81001; 82043; 82306; 82570; 83970; 84153; 85025

== ENCOUNTER → 2022-11-27 | Outpatient (CLI) | payer OTHER, SELFPAY ==
[2022-11-27 18:52] LABS: Bacteria 0 SEEN /hpf (None Seen); Mucous, Urine 0 SEEN /hpf (<or=2+); Squamous Epithelial Cells - UA 0 SEEN /hpf (0-5)
[2022-11-27 18:59] LABS: Color, Urine Yellow (Yellow); Glucose, Dipstick Normal (Normal); Ketone-Dipstick 5 mg/dl (Negative); Leukocyte Esterase-Dipstick 100 /ul (Negative); Nitrite-Dipstick Negative (Negative); Occult Blood-Urine 10 /ul (Negative); Protein-Dipstick Negative (Negative); Specific Gravity, Urine 1.005 (1.002-1.030); Urine Bilirubin Dipstick Negative (Negative); Urine Clarity Clear (Clear); Urine Urobilinogen Normal (Normal)
[2022-11-27 19:09] LABS: Red Blood Cells-Urine 0-5 SEEN /hpf (0-5); White Blood Cells 0-5 SEEN /hpf (0-5)
== END | disposition home or self-care (01) ==
LOC: LAB 18:47
PROVIDERS: PCP Family Medicine; Referring Provider Family Medicine; Visit Provider Family Medicine
DX: N41.1 Chronic prostatitis (principal); R30.0 Dysuria
CPT/HCPCS: 81001; 87077; 87086; 87088; 87186

== ENCOUNTER 2022-11-30 12:01 | Outpatient (CLI) | payer OTHER, SELFPAY ==
[2022-11-30 12:18] VITALS: BP 117/82; PULSE 60; RESP 16; TEMP 35.9; O2SAT 98; BMI 25.2
[2022-11-30] MEDS: 0.9% NaCl IVPB Med Flush (250 mL) 15 ML IV (12:22)
[2022-11-30] MEDS: 0.9% NaCl Peripheral Flush Adult/Peds IV (12:24)
[2022-11-30 13:43] VITALS: BP 130/76; PULSE 57; RESP 16; TEMP 36.1; O2SAT 99
== END 2022-11-30 12:02 | disposition home or self-care (01) ==
PROVIDERS: PCP Family Medicine; Referring Provider Family Medicine; Visit Provider Family Medicine
DX: N41.9 Inflammatory disease of prostate, unspecified (principal)
CPT/HCPCS: 96365; J7050; A4216

== ENCOUNTER 2022-12-01 07:06 | Outpatient (CLI) | payer OTHER, SELFPAY ==
[2022-12-01] MEDS: 0.9% NaCl IVPB Med Flush (250 mL) 15 ML IV (07:34)
[2022-12-01] MEDS: 0.9% NaCl Peripheral Flush Adult/Peds IV (07:37)
[2022-12-01 07:38] VITALS: BP 128/80; PULSE 74; RESP 16; TEMP 36.6; O2SAT 98; BMI 25.2
[2022-12-01 08:39] VITALS: BP 128/84; PULSE 71; RESP 16; TEMP 36.6; O2SAT 99
== END 2022-12-01 07:07 | disposition home or self-care (01) ==
LOC: MEDOUTP 07:06
PROVIDERS: PCP Family Medicine; Referring Provider Family Medicine; Visit Provider Family Medicine
DX: N41.9 Inflammatory disease of prostate, unspecified (principal); Z16.12 Extended spectrum beta lactamase (ESBL) resistance
CPT/HCPCS: 96365; J7050; A4216

== ENCOUNTER 2022-12-02 07:34 | Outpatient (CLI) | payer OTHER, SELFPAY ==
[2022-12-02] MEDS: 0.9% NaCl IVPB Med Flush (250 mL) 15 ML IV (07:43)
[2022-12-02] MEDS: 0.9% NaCl Peripheral Flush Adult/Peds IV ×2 (07:44→09:05)
[2022-12-02 07:48] VITALS: BP 117/73; PULSE 69; RESP 16; TEMP 36.4; O2SAT 100; BMI 25.2
[2022-12-02 08:56] VITALS: BP 120/87; PULSE 64
[2022-12-02 09:06] LABS: Anion Gap 6 (5-15); BUN 12 mg/dL (7-18); BUN/Creat Ratio 9.4 RATIO (10-20); Calcium,Total 9.2 mg/dL (8.5-10.1); Chloride 106 mmol/L (98-107); Creatinine, Serum 1.28 mg/dL (0.70-1.30); EST Glomerular Filtration Rate 61 mL/min (>60); Est Glom Filt Rate - Afr Amer 74 mL/min (>60); Estimated Creatinine Clearance 55.38 ml/min; Glucose 99 mg/dL (74-106); Potassium 4.1 mmol/L (3.5-5.1); Sodium Level 137 mmol/L (136-145)
== END 2022-12-02 07:35 | disposition home or self-care (01) ==
LOC: MEDOUTP 07:34
PROVIDERS: PCP Family Medicine; Referring Provider Family Medicine; Visit Provider Family Medicine
DX: N41.1 Chronic prostatitis (principal); Z16.12 Extended spectrum beta lactamase (ESBL) resistance
CPT/HCPCS: 96365; 36415; 80048; 84153; 86140; J7050; A4216

== ENCOUNTER 2022-12-03 07:26 | Outpatient (CLI) | payer OTHER, SELFPAY ==
[2022-12-03] MEDS: 0.9% NaCl Peripheral Flush Adult/Peds IV (07:39)
[2022-12-03] MEDS: 0.9% NaCl IVPB Med Flush (250 mL) 15 ML IV (07:40)
[2022-12-03 07:45] VITALS: BP 120/87; PULSE 66; RESP 16; TEMP 36.2; O2SAT 98
[2022-12-03 08:43] VITALS: BP 119/81; PULSE 71; RESP 16; TEMP 36.1; O2SAT 100
== END 2022-12-03 07:27 | disposition home or self-care (01) ==
LOC: MEDOUTP 07:26
PROVIDERS: PCP Family Medicine; Referring Provider Family Medicine; Visit Provider Family Medicine
DX: N41.9 Inflammatory disease of prostate, unspecified (principal)
CPT/HCPCS: 96365; J7050; A4216

== ENCOUNTER 2022-12-04 07:21 | Outpatient (CLI) | payer OTHER, SELFPAY ==
[2022-12-04] MEDS: 0.9% NaCl Peripheral Flush Adult/Peds IV (07:27)
[2022-12-04] MEDS: 0.9% NaCl IVPB Med Flush (250 mL) 15 ML IV (07:27)
[2022-12-04 07:28] VITALS: BP 117/77; PULSE 70; RESP 16; TEMP 35.9; O2SAT 97
[2022-12-04 08:39] VITALS: BP 136/81; PULSE 57; RESP 16
== END 2022-12-04 07:22 | disposition home or self-care (01) ==
LOC: MEDOUTP 07:21
PROVIDERS: PCP Family Medicine; Referring Provider Family Medicine; Visit Provider Family Medicine
DX: N41.9 Inflammatory disease of prostate, unspecified (principal)
CPT/HCPCS: 96365; J7050; A4216

== ENCOUNTER 2022-12-05 12:09 | Outpatient (CLI) | payer OTHER, SELFPAY ==
[2022-12-05 12:00] VITALS: BP 129/90; PULSE 66; RESP 12; TEMP 36.9; O2SAT 100
== END 2022-12-05 13:02 | disposition home or self-care (01) ==
LOC: MEDOUTP 12:11 → PCU 12:12
PROVIDERS: PCP Family Medicine; Referring Provider Family Medicine; Visit Provider Family Medicine
DX: N41.9 Inflammatory disease of prostate, unspecified (principal)
CPT/HCPCS: 96365

== ENCOUNTER 2022-12-06 12:13 | Outpatient (CLI) | payer OTHER, SELFPAY ==
[2022-12-06 12:15] VITALS: BP 132/80; PULSE 67; RESP 12; TEMP 36.8; O2SAT 98
== END 2022-12-06 13:37 | disposition home or self-care (01) ==
LOC: MEDOUTP 12:20 → PCU 12:22
PROVIDERS: PCP Family Medicine; Referring Provider Family Medicine; Visit Provider Family Medicine
DX: N41.9 Inflammatory disease of prostate, unspecified (principal)
CPT/HCPCS: 96365

== ENCOUNTER 2022-12-07 07:36 | Outpatient (CLI) | payer OTHER, SELFPAY ==
[2022-12-07 07:36] VITALS: BP 122/81; PULSE 67; RESP 16; TEMP 36.1; O2SAT 99
[2022-12-07 08:47] VITALS: BP 118/78; PULSE 60; RESP 16; TEMP 36.3
== END 2022-12-07 07:37 | disposition home or self-care (01) ==
LOC: MEDOUTP 07:36
PROVIDERS: PCP Family Medicine; Referring Provider Family Medicine; Visit Provider Family Medicine
DX: N41.9 Inflammatory disease of prostate, unspecified (principal)
CPT/HCPCS: 96365; J7050; A4216

== ENCOUNTER 2022-12-08 07:41 | Outpatient (CLI) | payer OTHER, SELFPAY ==
[2022-12-08] MEDS: 0.9% NaCl Peripheral Flush Adult/Peds IV ×2 (07:43→08:44)
[2022-12-08] MEDS: 0.9% NaCl IVPB Med Flush (250 mL) 15 ML IV (07:44)
[2022-12-08 07:46] VITALS: BP 106/71; PULSE 62; RESP 16; TEMP 36.8; O2SAT 100; BMI 25.3
[2022-12-08 08:45] VITALS: BP 122/80; PULSE 68
== END 2022-12-08 07:42 | disposition home or self-care (01) ==
LOC: MEDOUTP 07:42
PROVIDERS: PCP Family Medicine; Referring Provider Family Medicine; Visit Provider Family Medicine
DX: N41.9 Inflammatory disease of prostate, unspecified (principal)
CPT/HCPCS: 96365; J7050; A4216

== ENCOUNTER 2022-12-09 07:37 | Outpatient (CLI) | payer OTHER, SELFPAY ==
[2022-12-09] MEDS: 0.9% NaCl IVPB Med Flush (250 mL) 15 ML IV (07:42)
[2022-12-09] MEDS: 0.9% NaCl Peripheral Flush Adult/Peds IV ×2 (07:42→08:27)
[2022-12-09 07:49] VITALS: BP 121/79; PULSE 66; RESP 16; TEMP 36.2; O2SAT 98
== END 2022-12-09 07:38 | disposition home or self-care (01) ==
LOC: MEDOUTP 07:37
PROVIDERS: PCP Family Medicine; Referring Provider Family Medicine; Visit Provider Family Medicine
DX: N41.1 Chronic prostatitis (principal); Z16.12 Extended spectrum beta lactamase (ESBL) resistance
CPT/HCPCS: 96365; 87086; J7050; A4216

== ENCOUNTER 2022-12-10 07:33 | Outpatient (CLI) | payer OTHER, SELFPAY ==
[2022-12-10] MEDS: 0.9% NaCl IVPB Med Flush (250 mL) 15 ML IV (07:39)
[2022-12-10] MEDS: 0.9% NaCl Peripheral Flush Adult/Peds IV (07:39)
[2022-12-10 07:40] VITALS: BP 116/79; PULSE 67; RESP 16; TEMP 36.2; O2SAT 98
[2022-12-10 08:36] VITALS: BP 117/76; PULSE 74; RESP 16; TEMP 36.3; O2SAT 100
== END 2022-12-10 07:34 | disposition home or self-care (01) ==
LOC: MEDOUTP 07:34
PROVIDERS: PCP Family Medicine; Referring Provider Family Medicine; Visit Provider Family Medicine
DX: N41.1 Chronic prostatitis (principal); Z16.12 Extended spectrum beta lactamase (ESBL) resistance
CPT/HCPCS: 96365; J7050; A4216

== ENCOUNTER 2022-12-11 07:29 | Outpatient (CLI) | payer OTHER, SELFPAY ==
[2022-12-11 07:38] VITALS: BP 115/74; PULSE 75; RESP 16; TEMP 36.1; O2SAT 100
[2022-12-11] MEDS: 0.9% NaCl Peripheral Flush Adult/Peds IV ×2 (07:38→08:37)
[2022-12-11] MEDS: 0.9% NaCl IVPB Med Flush (250 mL) 15 ML IV (07:38)
== END 2022-12-11 07:30 | disposition home or self-care (01) ==
LOC: MEDOUTP 07:30
PROVIDERS: PCP Family Medicine; Visit Provider Family Medicine
DX: N41.1 Chronic prostatitis (principal); Z16.12 Extended spectrum beta lactamase (ESBL) resistance
CPT/HCPCS: 96365; J7050; A4216

== ENCOUNTER 2022-12-12 11:30 | Outpatient (CLI) | payer OTHER, SELFPAY ==
[2022-12-12] MEDS: 0.9% NaCl IVPB Med Flush (250 mL) 15 ML IV (11:37)
[2022-12-12] MEDS: 0.9% NaCl Peripheral Flush Adult/Peds IV (11:46)
[2022-12-12 11:50] VITALS: BP 120/80; PULSE 63; RESP 18; TEMP 35.7; O2SAT 100
== END 2022-12-12 12:42 | disposition home or self-care (01) ==
LOC: MEDOUTP 11:31 → MS3 11:32
PROVIDERS: PCP Family Medicine; Referring Provider Family Medicine; Visit Provider Family Medicine
DX: N41.1 Chronic prostatitis (principal); Z16.12 Extended spectrum beta lactamase (ESBL) resistance
CPT/HCPCS: 96365; J7050; A4216

== ENCOUNTER 2022-12-13 09:10 | Outpatient (CLI) | payer OTHER, SELFPAY ==
[2022-12-13] MEDS: 0.9% NaCl IVPB Med Flush (250 mL) 15 ML IV (09:05)
[2022-12-13 09:19] VITALS: BP 110/73; PULSE 57; RESP 18; TEMP 36.6; O2SAT 98
[2022-12-13] MEDS: 0.9% NaCl Peripheral Flush Adult/Peds IV (09:19)
== END 2022-12-13 10:08 | disposition home or self-care (01) ==
LOC: MEDOUTP 09:11 → MS3 09:12
PROVIDERS: PCP Family Medicine; Visit Provider Family Medicine
DX: N41.1 Chronic prostatitis (principal); Z16.12 Extended spectrum beta lactamase (ESBL) resistance
CPT/HCPCS: 96365; J7050; A4216

== ENCOUNTER 2022-12-14 07:29 | Outpatient (CLI) | payer OTHER, SELFPAY ==
[2022-12-14] MEDS: 0.9% NaCl IVPB Med Flush (250 mL) 15 ML IV (07:54)
[2022-12-14 07:55] VITALS: BP 117/81; PULSE 72; RESP 16; TEMP 36.4; O2SAT 99; BMI 25.3
[2022-12-14] MEDS: 0.9% NaCl Peripheral Flush Adult/Peds IV ×3 (08:03→08:36)
[2022-12-14 08:38] VITALS: BP 131/97; PULSE 76; RESP 16; TEMP 36.4; O2SAT 98
== END 2022-12-14 07:30 | disposition home or self-care (01) ==
PROVIDERS: PCP Family Medicine; Visit Provider Family Medicine
DX: N41.1 Chronic prostatitis (principal); Z16.12 Extended spectrum beta lactamase (ESBL) resistance
CPT/HCPCS: 96365; J7050; A4216

== ENCOUNTER 2022-12-15 07:47 | Outpatient (CLI) | payer OTHER, SELFPAY ==
[2022-12-15 07:50] VITALS: BP 118/80; PULSE 68; RESP 16; TEMP 36.4; O2SAT 98; BMI 25.3
[2022-12-15] MEDS: 0.9% NaCl Peripheral Flush Adult/Peds IV ×3 (08:01→08:57)
[2022-12-15] MEDS: 0.9% NaCl IVPB Med Flush (250 mL) 15 ML IV (08:01)
[2022-12-15 08:58] VITALS: BP 125/81; PULSE 66
== END 2022-12-15 07:48 | disposition home or self-care (01) ==
PROVIDERS: PCP Family Medicine; Referring Provider Family Medicine; Visit Provider Family Medicine
DX: N41.1 Chronic prostatitis (principal); Z16.12 Extended spectrum beta lactamase (ESBL) resistance
CPT/HCPCS: 96365; J7050; A4216

== ENCOUNTER 2022-12-16 07:28 | Outpatient (CLI) | payer OTHER, SELFPAY ==
[2022-12-16 07:45] VITALS: BP 109/80; PULSE 65; RESP 16; TEMP 36.3; O2SAT 99; BMI 25.3
[2022-12-16] MEDS: 0.9% NaCl Peripheral Flush Adult/Peds IV (07:50)
[2022-12-16] MEDS: 0.9% NaCl IVPB Med Flush (250 mL) 15 ML IV (07:50)
[2022-12-16 09:02] VITALS: BP 127/77; PULSE 67; RESP 16
== END 2022-12-16 07:29 | disposition home or self-care (01) ==
LOC: MEDOUTP 07:28
PROVIDERS: PCP Family Medicine; Referring Provider Family Medicine; Visit Provider Family Medicine
DX: N41.1 Chronic prostatitis (principal); Z16.12 Extended spectrum beta lactamase (ESBL) resistance
CPT/HCPCS: 96365; J7050; A4216

== ENCOUNTER → 2022-12-17 | Outpatient (CLI) | payer OTHER, SELFPAY ==
[2022-12-17 08:04] LABS: ALB/GLOB Ratio 0.8 RATIO (0.9-2.4); AST(SGOT) 16 U/L (15-37); Alanine Aminotransfer ALT/SGPT 26 U/L (16-61); Albumin, Serum 3.5 g/dL (3.2-5.0); Alkaline Phosphatase 106 U/L (45-117); Anion Gap 8 (5-15); BUN 20 mg/dL (7-18); BUN/Creat Ratio 15.7 RATIO (10-20); CRP < 2.90 mg/L (0.0-3.0); Calcium,Total 9.1 mg/dL (8.5-10.1); Chloride 105 mmol/L (98-107); Creatinine, Serum 1.27 mg/dL (0.70-1.30); EST Glomerular Filtration Rate 61 mL/min (>60); Est Glom Filt Rate - Afr Amer 74 mL/min (>60); Globulin 4.2 g/dL (2.2-4.2); Glucose 103 mg/dL (74-106); PSA,Total- Diagnostic 3.57 ng/mL (0.0-4.0); Protein, Total 7.7 g/dL (6.4-8.2); Sodium Level 139 mmol/L (136-145)
== END | disposition home or self-care (01) ==
LOC: LAB 06:49
PROVIDERS: PCP Family Medicine; Referring Provider Family Medicine; Visit Provider Family Medicine
DX: N41.0 Acute prostatitis (principal); N41.1 Chronic prostatitis
CPT/HCPCS: 36415; 80053; 84153; 86140; 87086

== ENCOUNTER → 2023-04-14 | Outpatient (CLI) | payer OTHER, SELFPAY ==
[2023-04-14 06:21] LABS: Bacteria 0 SEEN /hpf (None Seen); Mucous, Urine 0 SEEN /hpf (<or=2+); Squamous Epithelial Cells - UA 0 SEEN /hpf (0-5); White Blood Cells 0 SEEN /hpf (0-5)
[2023-04-14 07:04] LABS: Color, Urine Yellow (Yellow); Glucose, Dipstick Normal (Normal); Ketone-Dipstick Negative (Negative); Leukocyte Esterase-Dipstick Negative /ul (Negative); Nitrite-Dipstick Negative (Negative); Occult Blood-Urine 250 /ul (Negative); Protein-Dipstick 15 mg/dl (Negative); Specific Gravity, Urine 1.015 (1.002-1.030); Urine Bilirubin Dipstick Negative (Negative); Urine Clarity Clear (Clear); Urine Urobilinogen Normal (Normal)
[2023-04-14 07:57] LABS: Absolute Lymphocyte Count 2.01 X10^3/uL (0.83-4.51); Absolute Neutrophil Count 2.1 X10^3/uL (2.0-7.7); Basophil# 0.05 X10^3/uL; Basophil% 1.1 % (0-1); Eosinophil# 0.04 X10^3/uL; Eosinophils% 0.8 % (0-5); Hemoglobin 14.1 g/dL (13.0-16.5); Lymphocyte # 2.01 X10^3/ul (0.83-4.51); Lymphocyte % 42.7 % (19-41); Mean Corpuscular Hgb 31.1 pg (27.0-32.0); Mean Corpuscular Volume 97.1 fL (80-94); Mean Platelet Vol. 10.1 fl (6.2-12.0); Monocyte# 0.51 X10^3/uL; Monocyte% 10.8 % (0-10); NRBC Flagged by Analyzer 0 % (0-5); Neutrophil # 2.09 X10^3/uL (2.7-7.7); Neutrophil % 44.4 % (47-70); Platelet Count 199 K/mm3 (150-450); RBC Distribution Width CV 12.2 % (11.6-14.6); Red Blood Count 4.53 M/mm3 (4.6-6.2); White Blood Count 4.7 K/mm3 (4.4-11.0)
[2023-04-14 08:38] LABS: Red Blood Cells-Urine 25-50 SEEN /hpf (0-5)
[2023-04-14 10:34] LABS: ALB/GLOB Ratio 0.9 RATIO (0.9-2.4); AST(SGOT) 19 U/L (15-37); Alanine Aminotransfer ALT/SGPT 26 U/L (16-61); Albumin, Serum 3.6 g/dL (3.2-5.0); Alkaline Phosphatase 124 U/L (45-117); Anion Gap 5 (5-15); BUN 20 mg/dL (7-18); BUN/Creat Ratio 12.9 RATIO (10-20); Calcium,Total 9.2 mg/dL (8.5-10.1); Chloride 106 mmol/L (98-107); Creatinine, Serum 1.55 mg/dL (0.70-1.30); EST Glomerular Filtration Rate 49 mL/min (>60); Est Glom Filt Rate - Afr Amer 59 mL/min (>60); Globulin 3.9 g/dL (2.2-4.2); Glucose 121 mg/dL (74-106); Potassium 3.8 mmol/L (3.5-5.1); Protein, Total 7.5 g/dL (6.4-8.2); Sodium Level 136 mmol/L (136-145)
== END | disposition home or self-care (01) ==
LOC: LAB 06:19
PROVIDERS: PCP Family Medicine; Referring Provider Family Medicine; Visit Provider Family Medicine
DX: N40.1 Benign prostatic hyperplasia with lower urinary tract symptoms (principal); N18.31 Chronic kidney disease, stage 3a; N13.8 Other obstructive and reflux uropathy; I12.9 Hypertensive chronic kidney disease with stage 1 through stage 4 chronic kidney disease, or unspecified chronic kidney disease; N42.83 Cyst of prostate; N41.1 Chronic prostatitis
CPT/HCPCS: 36415; 80053; 81001; 85025; 87086

== ENCOUNTER → 2023-05-03 | Outpatient (CLI) | payer OTHER, SELFPAY ==
[2023-05-03 15:01] LABS: Bacteria 0 SEEN /hpf (None Seen); Mucous, Urine 0 SEEN /hpf (<or=2+); Squamous Epithelial Cells - UA 0 SEEN /hpf (0-5)
[2023-05-03 15:15] LABS: Color, Urine Straw (Yellow); Glucose, Dipstick Normal (Normal); Ketone-Dipstick Negative (Negative); Leukocyte Esterase-Dipstick 100 /ul (Negative); Nitrite-Dipstick Negative (Negative); Occult Blood-Urine 250 /ul (Negative); Protein-Dipstick 30 mg/dl (Negative); Urine Bilirubin Dipstick Negative (Negative); Urine Clarity Clear (Clear); Urine Urobilinogen Normal (Normal); Urine pH 6.5 (5.0 - 8.0)
[2023-05-03 15:30] LABS: Red Blood Cells-Urine 25-50 SEEN /hpf (0-5); White Blood Cells 10-25 SEEN /hpf (0-5)
== END | disposition home or self-care (01) ==
LOC: LAB 14:56
PROVIDERS: PCP Family Medicine; Referring Provider Family Medicine; Visit Provider Family Medicine
DX: N41.1 Chronic prostatitis (principal)
CPT/HCPCS: 81001; 87086

== ENCOUNTER → 2023-08-30 | Outpatient (CLI) | payer OTHER, SELFPAY ==
[2023-08-30 07:31] LABS: Absolute Lymphocyte Count 1.95 X10^3/uL (0.83-4.51); Absolute Neutrophil Count 1.5 X10^3/uL (2.0-7.7); Basophil# 0.03 X10^3/uL; Basophil% 0.7 % (0-1); Eosinophil# 0.06 X10^3/uL; Eosinophils% 1.5 % (0-5); Hematocrit 43.9 % (40-54); Lymphocyte # 1.95 X10^3/ul (0.83-4.51); Lymphocyte % 48.3 % (19-41); Mean Corp Hgb Conc 31.9 g/dL (32-36); Mean Corpuscular Hgb 30.1 pg (27.0-32.0); Mean Corpuscular Volume 94.4 fL (80-94); Mean Platelet Vol. 9.8 fl (6.2-12.0); Monocyte% 12.4 % (0-10); NRBC Flagged by Analyzer 0 % (0-5); Neutrophil # 1.49 X10^3/uL (2.7-7.7); Neutrophil % 36.9 % (47-70); Platelet Count 182 K/mm3 (150-450); RBC Distribution Width CV 12.6 % (11.6-14.6); Red Blood Count 4.65 M/mm3 (4.6-6.2)
[2023-08-30 08:08] LABS: ALB/GLOB Ratio 1.1 RATIO (0.9-2.4); AST(SGOT) 17 U/L (15-37); Alanine Aminotransfer ALT/SGPT 21 U/L (16-61); Albumin, Serum 3.7 g/dL (3.2-5.0); Alkaline Phosphatase 78 U/L (45-117); Anion Gap 5 (5-15); BUN 14 mg/dL (7-18); BUN/Creat Ratio 10.7 RATIO (10-20); Calcium,Total 9.1 mg/dL (8.5-10.1); Chloride 107 mmol/L (98-107); Cholesterol 205 mg/dL (200); Creatinine, Serum 1.31 mg/dL (0.70-1.30); EST Glomerular Filtration Rate 59 mL/min (>60); Est Glom Filt Rate - Afr Amer 71 mL/min (>60); Globulin 3.5 g/dL (2.2-4.2); Glucose 103 mg/dL (74-106); High Density Lipoprotein 84 mg/dL; PSA,Total- Diagnostic 1.24 ng/mL (0.0-4.0); Potassium 4.1 mmol/L (3.5-5.1); Protein, Total 7.2 g/dL (6.4-8.2); Sodium Level 140 mmol/L (136-145); Triglycerides 49 mg/dL; Very Low Density Lipoprotein 10 mg/dL (5-40)
[2023-08-30 09:16] LABS: Vitamin D,25 Hydroxy 29.5 ng/mL
[2023-08-30 09:52] LABS: Hemoglobin A1c 5.5 % (3.8-5.6)
--- NOTE | 2023-08-30 13:10 | RAD_ITS ---
STUDY: X-RAY - ABDOMEN/PELVIS REASON FOR EXAM: Male, 63 years old. CALCULUS OF KIDNEY TECHNIQUE: Single AP view of the abdomen / pelvis. COMPARISON: None. FINDINGS: Normal visualized lung bases. There is an abundance of fecal material throughout the colon. The visualized liver, spleen and kidneys are grossly normal in size and morphology. Normal soft tissue structures. Normal visualized osseous structures. RAD/Abdomen Single View IMPRESSION: Large amount of fecal material is seen in the colon. Electronically Signed: Forrest Michael MD at 8:32 EDT ,
== END | disposition home or self-care (01) ==
LOC: LAB 06:51
PROVIDERS: PCP Family Medicine; Referring Provider Urology; Visit Provider Urology
DX: N42.83 Cyst of prostate (principal); N18.31 Chronic kidney disease, stage 3a; N20.0 Calculus of kidney; E78.00 Pure hypercholesterolemia, unspecified
CPT/HCPCS: 36415; 74018; 80053; 80061; 82306; 83036; 84153; 85025

== ENCOUNTER → 2024-03-01 | Outpatient (CLI) | payer OTHER, SELFPAY ==
[2024-03-01 09:06] LABS: ALB/GLOB Ratio 1.1 RATIO (0.9-2.4); AST(SGOT) 14 U/L (15-37); Alanine Aminotransfer ALT/SGPT 22 U/L (16-61); Albumin, Serum 3.7 g/dL (3.2-5.0); Alkaline Phosphatase 86 U/L (45-117); Anion Gap 4 (5-15); BUN 12 mg/dL (7-18); BUN/Creat Ratio 9.1 RATIO (10-20); Calcium,Total 9.1 mg/dL (8.5-10.1); Chloride 108 mmol/L (98-107); Cholesterol 164 mg/dL (200); Creatinine, Serum 1.32 mg/dL (0.70-1.30); EST Glomerular Filtration Rate 58 mL/min (>60); Est Glom Filt Rate - Afr Amer 71 mL/min (>60); Globulin 3.5 g/dL (2.2-4.2); Glucose 101 mg/dL (74-106); High Density Lipoprotein 76 mg/dL; PSA,Total- Diagnostic 1.02 ng/mL (0.0-4.0); Potassium 4.2 mmol/L (3.5-5.1); Protein, Total 7.2 g/dL (6.4-8.2); Sodium Level 139 mmol/L (136-145); Triglycerides 39 mg/dL; Very Low Density Lipoprotein 8 mg/dL (5-40)
== END | disposition home or self-care (01) ==
LOC: LAB.FUTURE 07:43 → LAB 07:44
PROVIDERS: PCP Family Medicine; Referring Provider Urology; Visit Provider Urology
DX: N41.1 Chronic prostatitis (principal); N18.31 Chronic kidney disease, stage 3a; E78.00 Pure hypercholesterolemia, unspecified
CPT/HCPCS: 36415; 80053; 80061; 84153

== ENCOUNTER → 2024-03-03 | Outpatient (CLI) | payer OTHER, SELFPAY ==
--- NOTE | 2024-03-03 10:18 | RAD_ITS ---
STUDY: X-RAY - ABDOMEN/PELVIS REASON FOR EXAM: Male, 64 years old. Calculus of kidney TECHNIQUE: Frontal view COMPARISON: None. FINDINGS: Normal visualized lung bases. There is an unremarkable bowel gas pattern. Colonic fecal retention. There is no demonstrated free abdominal air. The visualized liver, spleen and kidneys are grossly normal in size and morphology. Normal soft tissue structures. Normal visualized osseous structures. RAD/Abdomen Single View IMPRESSION: Colonic fecal retention. Electronically Signed: Srikanth Toure DO at 17:30 EDT ,
== END | disposition home or self-care (01) ==
LOC: RAD 08:25
PROVIDERS: PCP Family Medicine; Referring Provider Urology; Visit Provider Urology
DX: N20.0 Calculus of kidney (principal)
CPT/HCPCS: 74018

== ENCOUNTER 2024-06-25 09:59 | Outpatient (CLI) | payer OTHER, SELFPAY | END 2024-06-25 23:59 | disposition home or self-care (01) | LOC: LABSPEC 10:00 | PROVIDERS: PCP Family Medicine; Referring Provider Family Medicine; Visit Provider Family Medicine | DX: R39.9 Unspecified symptoms and signs involving the genitourinary system (principal) ==

== ENCOUNTER 2024-06-25 10:16 | Outpatient (CLI) | payer OTHER, SELFPAY ==
[2024-06-25 10:22] LABS: Bacteria 0 SEEN /hpf (None Seen); Mucous, Urine 0 SEEN /hpf (<or=2+); Squamous Epithelial Cells - UA 0 SEEN /hpf (0-5); White Blood Cells 0 SEEN /hpf (0-5)
[2024-06-25 10:34] LABS: Color, Urine Yellow (Yellow); Glucose, Dipstick Normal (Normal); Ketone-Dipstick Negative (Negative); Leukocyte Esterase-Dipstick Negative /ul (Negative); Nitrite-Dipstick Negative (Negative); Occult Blood-Urine Negative /ul (Negative); Protein-Dipstick Negative (Negative); Urine Bilirubin Dipstick Negative (Negative); Urine Clarity Clear (Clear); Urine Urobilinogen Normal (Normal)
[2024-06-25 10:45] LABS: Red Blood Cells-Urine 0 SEEN /hpf (0-5)
== END 2024-06-25 23:59 | disposition home or self-care (01) ==
LOC: LAB 10:17
PROVIDERS: PCP Family Medicine; Visit Provider Family Medicine
DX: R39.9 Unspecified symptoms and signs involving the genitourinary system (principal); N18.31 Chronic kidney disease, stage 3a
CPT/HCPCS: 81001; 87086

== ENCOUNTER → 2024-12-04 | Outpatient (CLI) | payer OTHER, SELFPAY ==
--- OUTSIDE RECORDS SUMMARY | 2024-12-04 06:51 | XMS RPT_ITS | CCD ---
Author Organization [facility] Care Team Providers Care Cardiothoracic Icu Rn Name Role Phone Ivonne Garcia DC Unavailable DAVE STUART Attending Unavailable NOY STAPLES Referring Unavailable NOY STAPLES Primary Care Unavailable DAVE STUART Attending Unavailable NOY STAPLES Referring Unavailable NOY STAPLES Primary Care Unavailable DAVE STUART Attending Unavailable NOY STAPLES Referring Unavailable NOY STAPLES Primary Care Unavailable Ivonne Garcia DC Unavailable NOY STAPLES MD Primary Care Physician Dr. Noy Staples Primary Care Provider Dr. Noy Staples Referring Provider [phone] JERMAINE Ramachandran Attending Provider Dr. Héctor Benavidez Attending Provider JERMAINE Crockett Attending Provider Dr. oNy Staples Primary Care Provider Dr. Noy Staples Referring Provider Noy Staples MD Primary Care Provider Dr. Noy Staples Primary Care Provider [phone] Dr. Noy Staples Referring Provider Noy Staples MD Primary Care Provider Dr. Noy Staples Primary Care Provider Dr. Noy Staples Referring Provider Dr. Ivonne Garcia Attending Provider [phone] Staples MD A Primary Care Provider [phone] DAVE STUART Referring Unavail able DAVE STUART Admitting Unavail able STAPLES, NOY A Primary Care Unavailable DAVE STUART Attending Unavail able STUART, DAVE SMALL Referring Unavail able STUART, DAVE SMALL Attending Unavail able STAPLES, NOY A Primary Care Unavailable STUART, DAVE SMALL Referring Unavail able STAPLES, NOY A Primary Care Unavailable DAVE STUART Attending Unavail able STUART, DAVE SMALL Referring Unavail able LUCIE SCHNEIDER Attending Unavailable STAPLES, NOY A Primary Care Unavailable STUARTDAVE SPARKS Attending Unavail able STAPLES, NOY A Primary Care Unavailable CHERI MURRAY Admitting Unavailabl e CHERI MURRAY Attending Unavailabl e STAPLES, NOY A Primary Care Unavailable STAPLES, NOY A Primary Care Unavailable Jhoan CESAR, Dr. Jimenez Primary Care Provider [phone] Jhoan CESAR, Dr. Jimenez Referring Provider [phone] Dr. Ivonne Garcia DC Attending Provider [phone] Noy Staples Primary Care Unavailable JollDiamond lagunas Attending Unavailable JollDiamond lagunas Referring Unavailable Jhoan, Noy Primary Care Unavailable Dave Stuart Attending Unavailable Chuck, Dave Referring Unavailable Staples, Noy Primary Care Unavailable Dave Stuart Attending Unavailable Chuck, Dave Referring Unavailable Staples, Noy Primary Care Unavailable Staples, Noy Referring Unavailable Ivonne Garcia Attending Unavailable Jhoan, Noy Primary Care Unavailable Noy Staples Attending Unavailable Medications Current Medications Medication Drug Class(es) Dates Sig (Normalized) Sig (Original) amLODIPine 10 mg oral tablet (20 sources) Dihydropyridine Calcium Channel Rossana Start: 02-01-2015 take 1 tablet by mouth once daily Amlodipine 10 MG tablet Active 10 mg PO DAILY February 01, 2020 12:00am AMLODIPINE BESYL ATE (NORVASC ORAL) Take by mouth. 0 Active Comment on above: Take by mouth. Take 10 mg by mouth. ascorbic acid 1000 mg oral tablet (5 sources) Vitamin C ascorbic acid (VITAMIN C ORAL) Take 1,000 mg by mouth. Active Comment on above: Take 1,000 mg by timmy th. cholecalciferol 0.05 mg oral capsule (20 sources) Vitamin D Start: 09-17-2 020 take 1 capsule by mouth once daily Cholecalciferol (Vitamin D3) 2,000 UNIT capsule Active 2000 U PO DAILY February 01, 2020 12:00am Comment on above: Take by mouth. methenamine hippurate 1000 mg oral tablet (6 sources) take 1 tablet by mouth twice daily at mealtime Methenamine Hippurate (HIPREX) 1 gram tablet Take 1 g by mouth two times a day with meals. Active Comment on above: Take 1 g by mouth tw o times a day with meals. nitrofurantoin, macrocrystals 100 mg oral capsule (12 sources) Nitrofuran Antibacterial Start: End: take 1 capsule by mouth twice daily nitrofurantoin macrocrystal (MACRODANTIN) 100 mg capsule Take 1 capsule by mouth two times a day. 60 capsule 0 08/27/2023 09/26/2023 Active Start: 12-03-2021 nitrofurantoin macrocrystal (MACRODANTIN) 50 mg capsule Take 1 capsule by mouth as directed for 30 doses. Take 1 tab PO as directed 30 capsule 2 12/03/2021 Active Start: 10-06-2021 End: 12-05-2021 take 1 capsule by mouth twice daily nitrofurantoin (MACRODANTIN) 100 mg capsule Take 1 capsule by mouth twice daily. 60 capsule 1 10/06/2021 12/05/2021 Active Comment on above: Take 1 capsule by [facility] twice daily. Take 1 capsule by mo [facility] as directed for 30 doses. Take 1 tab PO as directed Take 1 capsule by mo [facility] two times a day. simvastatin 20 mg oral tablet (20 sources) HMG-CoA Reductase Inhibitor Start: 02-01-2015 take 1 tablet by mouth once daily Simvastatin 20 MG tablet Active 20 mg PO DAILY February 01, 2020 12:00am SIMVASTATIN ORAL Take by mouth. 0 Active Comment on above: Take by mouth. Take 20 mg by mouth once daily. tadalafil 5 mg oral tablet (17 sources) Phosphodiesterase 5 Inhibitor Start: 07-26-19 End: 03-03-20 take 1 tablet by mouth once daily Tadalafil (CIALIS) 5 mg tablet Indications: erectile dysfunction Take 1 tablet by mouth once daily. 90 tablet 3 03/03/2024 03/03/2025 Active Comment on above: Take 1 tablet by timmy th once daily. Completed/Discontinued Medications Medication Drug Class(es) Dates Sig (Normalized) Sig (Original) cefdinir 300 mg oral capsule (20 sources) Cephalosporin Antibacterial Start: 08-07-2021 End: 07-26-2023 Cefdinir 300 mg capsule Discontinued 300 mg August 09, 2021 12:00am July 26, 2023 3:23pm Comment on above: Take 1 capsule by mo [facility] twice daily. fosfomycin 3000 mg powder for oral solution (7 sources) Start: 08-16-2021 fosfomycin (MONUROL) 3 g pack Problems Active Problems Problem Classification Problem Date Documented Da te Episodic/Chronic Cancer of kidney and renal pelvis (3 sources) Malignant tumor of kidney; Translations: [Malignant neoplasm of left kidney, except renal pelvis] Onset: 03-03-2024 08-27-2023 Chronic Chronic kidney disease (20 sources) Chronic renal insufficiency; Translations: [Chronic kidney disease, unspecified] 08-17-2021 Chronic Disorders of lipid metabolism (5 sources) Hyperlipidemia; Translations: [Hyperlipidemia, unspecified] Onset: 04-07-2023 04-07-2023 Chronic Essential hypertension (5 sources) Hypertensive disorder; Translations: [Essential (primary) hypertension] Onset: 04-07-2023 04-07-2023 Chronic Hyperplasia of prostate (14 sources) Benign prostatic hypertrophy with outflow obstruction; Translations: [Benign prostatic hyperplasia with lower urinary tract symptoms] Onset: 04-08-2023 Chronic Immunizations and screening for infectious disease (20 sources) Patient encounter status; Translations: [Encounter for screening for COVID-19] Episodic Inflammatory conditions of male genital organs (2 sources) Chronic prostatitis; Translations: [Chronic prostatitis] Onset: 03-23-2024 Chronic Other bone disease and musculoskeletal deformities (16 sources) Segmental and somatic dysfunction; Translations: [Segmental and somatic dysfunction of lumbar region] Onset: 09-22-2016 09-22-2016 Episodic Other bone disease and musculoskeletal deformities (3 sources) Segmental and somatic dysfunction of lumbar region; Translations: [Nonallopathic lesions, lumbar region] Onset: 11-16-2024 07-26-2023 Episodic Other bone disease and musculoskeletal deformities (3 sources) Segmental and somatic dysfunction of pelvic region; Translations: [Nonallopathic lesions, pelvic region] Onset: 11-16-2024 07-26-2023 Episodic Other diseases of kidney and ureters (2 sources) Other obstructive and reflux uropathy; Translations: [Hypertrophy of prostate with urinary obstruction] Onset: 04-08-2023 Episodic Other male genital disorders (1 source) Prostatic cyst; Translations: [Cyst of prostate] Chronic Other male genital disorders (1 source) Cyst of prostate; Translations: [Cyst of prostate] Onset: 07-09-2023 Chronic Other male genital disorders (7 sources) Prostate mass; Translations: [Other specified disorders of prostate] Onset: 04-07-2023 03-12-2023 Episodic Other male genital disorders (1 source) Disorder of prostate; Translations: [Disorder of prostate, unspecified] 08-27-2023 Episodic Other upper respiratory disease (20 sources) Respiratory tract congestion; Translations: [Nasal congestion] 04-29-2021 Episodic Spondylosis; intervertebral disc disorders; other back problems (2 sources) Dorsalgia, unspecified; Translations: [Backache, unspecified] 07-26-2023 Episodic Sprains and strains (4 sources) Low back strain; Translations: [Strain of muscle, fascia and tendon of lower back, initial encounter] 07-26-2023 Episodic Unclassified (2 sources) Other microscopic hematuria Onset: 07-25-2018 Unclassified (1 source) Patient Conference Onset: 03-12-2023 Urinary tract infections (20 sources) Urinary tract infectious disease; Translations: [Urinary tract infection, site not specified] 08-17-2021 Episodic Past or Other Problems Problem Classification Problem Date Documented Date Episodic/Chronic Calculus of urinary tract (4 sources) Kidney stone; Translations: [Calculus of kidney] Onset: 03-03-2024 08-27-2023 Episodic Genitourinary symptoms and ill-defined conditions (1 source) Unspecified symptoms and signs involving the genitourinary system; Translations: [Unspecified symptoms and signs involving the genitourinary system] Onset: 08-17-2024 Episodic Other inflammatory condition of skin (5 sources) Seborrheic dermatitis; Translations: [Seborrheic dermatitis, unspecified] Onset: 04-16-2011 04-16-2011 Episodic Other male genital disorders (1 source) Other specified disorders of prostate; Translations: [Prostate mass] Onset: 04-07-2023 Episodic Other male genital disorders (1 source) Disorder of prostate, unspecified; Translations: [Disorder of prostate] Onset: 08-27-2023 Episodic Results Test Name Value Interpretation Reference Range Facility Chiropractic Reporton 2024 Chiropractic Report [facility] [address] [place] [address] OFFICE VISIT Date of Service: 11/16/24 MR#: [id number] Acct: [id number] Name: RICARDO GANNON Rep #: [id number] : 1960 Provider: HENRY Kirkpatrick Age/Sex: 64/M Location: [facility] Status: Signed Intake Vital Signs 12/16/22 07:45 11/16/24 11:46 Height 5 ft 6 in 5 ft 6 in Intake Visit Reasons: REEVAL Chief Complaint: Low back pain Is patient in pain?: Yes (low back ) Pain scale (1-10): 3 Allergies No Known Allergies Allergy (Verified 11/16/24 15:51) Medications ???Medication ???Instructions ???Recorded ???Confirmed ???Type amlodipine 10 mg tablet 10 mg PO DAILY 02/01/20 11/16/24 H istory cholecalciferol (vitamin D3) 50 2,000 unit PO DAILY 02/01/2011/16 History mcg (2,000 unit) capsule simvastatin 20 mg tablet 20 mg PO DAILY 02/01/20 11/16/24 [facility] Social History Smoking Status: Never smoker HPI REEVAL Chief Complaint: low back pain Visit Number: 1 Details: Ricardo Gannon a 64 year old male is here today to f/u on low back pain. Pt. advises his low back pain flared up about 2 weeks ago. He states he has been doing a lot of heart caths recently and then went golfing last which really caused his pain to increase. He rates his pain 3/10 today. The pain continues to be slightly worse on the left side. He denies new injury, numbness, tingling or radiculopathy. 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 He states the bending position he uses for golf also aggravates his low back. He has been performing John exercises at home to treat pain as well as Icy hot patches,which provide some relief. He reports chiropractic adjustments are helpful in relieving his pain and discomfort. Onset: 11/06/24 Location: low back Duration: constant Aggravating or associated factors: bending, working, golfing Relieving factors: chiro,John ex Pain Quality: aching and dull Exam Musc General: Yes normal posture, normal gait and joint tenderness; No muscle weakness or decreased range of motion Thoracic/Lumber: Yes thoracic and lumbar spine normal to inspection, Yes straight leg raise negative bilaterally, Yes pain with thoraco-lumbar ROM (pain on L) with forward flexion, with lateral flexion to the right and with rotation to the left, Yes paraspinal tenderness on the left greater than right (lumbopelvic), No thoraco-lumbar ROM limited, Yes thoraco-lumbar spasm on the left greater than right (QL, paraspinal L2-L5) and Yes misalignment L2, L3, L4, L5, RIL and LIL Sacroiliac joints: bilaterally tender to palpation Neuro General: patient alert, patient awake, patient oriented x3, gait normal, normal light touch, pain and propioception and no focal motor deficits Cognition: normal cognition Speech: speech normal Gait: normal gait Motor: muscle tone normal throughout Sensory Exam: no sensory deficits noted Ortho Test CERVICAL THORACIC LUMBAR Kemps: Negative Valsalvas: Negative SLR: Negative Iliac Compression: Positive and Left Office Procedures Procedures - Chiropractic Procedures Manipulation: Lumbar L4 and Pelvis RIL Manipulation: 1-2 regions Electronic Stimulation: Yes Electrical Stimulation: Lumbar 15 mins (12) mA Therapy Performed by:: Cecilia May Traction, Mechanical: Yes Patient Response: positive Assessment and Plan Assessment and Plan (1) Segmental and somatic dysfunction of lumbar region: Status: Acute (2) Segmental and somatic dysfunction of pelvic region: Status: Acute Orders: Orders Chiropractic Treatments 11/16/24 M99.03 - Segmental and somatic dysfunction of lumbar region, M99.05 - Segmental and somatic dysfunction of pelvic region Plan Patient presented with similar exacerbation from previous visit. Treated with Gonstead/Brewer drop adjustment, well tolerated. He will continue to perform his John exercises and follow up should pain persist. Plan Details Goals Barriers: Goals Decrease pain Decrease spasm Improve ROM/ADLs Target Due Date 12/14/24 Follow Up: PRN Coding Level of Care Code Off vis,est,level 2 Diagnoses Segmental and somatic dysfunction of lumbar region M99.03 Segmental and somatic dysfunction of pelvic region M99.05 CPT Codes Procedures - Manipulation: 1-2 regions (02606) Procedures - Electronic Stimulation: Yes (31229) Procedures - Traction, Mechanical: Yes (93958) 11/20/24 0941 Date Ivonne John Signature: Date (if applicable) CC: Normal [facility] Urine Cultureon 06-26-2024 URC Culture exhibits no growth. Normal [facility] Comment on above: Performed By: #### M 100.2200, L400.0001 #### [facility] [address] [place], [address] Urinalysis, Completeon 06-25 RBC 0 SEEN Normal 0-5 [facility] Comment on above: Order Comment: Urine , Random Performed By: #### M 100.2200, L400.0001 #### [facility] [address] [place], [address] BACTERIA 0 SEEN Normal None Seen [facility] Comment on above: Order Comment: Urine , Random Performed By: #### M 100.2200, L400.0001 #### [facility] [address] [place], [address] EPI,SQUAMOUS 0 SEEN Normal 0-5 [facility] Comment on above: Order Comment: Urine , Random Performed By: #### M 100.2200, L400.0001 #### [facility] [address] [place], [address] Mucus Ql (Urine sed) 0 SEEN Normal [facility] Comment on above: Order Comment: Urine , Random Performed By: #### M 100.2200, L400.0001 #### [facility] [address] [place], [address] WBC 0 SEEN Normal 0-5 [facility] Comment on above: Order Comment: Urine , Random Performed By: #### M 100.2200, L400.0001 #### [facility] [address] [place], [address] Abdomen Single Viewon 2023 Abdomen Single View [facility] Services [address] [place] [address] Abdomen Single View MR#: [id number] Acct: [id number] Name: RICARDO GANNON Rep #: [id number] : 1960 M 64 From: Srikanth Toure DO PCP: Dr. Noy Staples MD Status: REG CLI Study: Abdomen Single View Date of Exam: 03/03/24 Exam# [id number] Ordering Dr: Dave Stuart MD [id number] STUDY: X-RAY - ABDOMEN/PELVIS REASON FOR EXAM: Male, 64 years old. Calculus of kidney TECHNIQUE: Frontal view COMPARISON: None. FINDINGS: Normal visualized lung bases. There is an unremarkable bowel gas pattern. Colonic fecal retention. There is no demonstrated free abdominal air. The visualized liver, spleen and kidneys are grossly normal in size and morphology. Normal soft tissue structures. Normal visualized osseous structures. RAD/Abdomen Single View IMPRESSION: Colonic fecal retention. Electronically Signed: Srikanth Toure DO at 17:30 EDT , CC: Dr. Dave Stuart MD; Dr. Noy Staples MD Donor Center Technician: Signed [facility] CNOVon 03-03-2024 CNOV Office Visit (AKURFL) RICARDO GANNON ([id number]) 1960 M Date Time Provider Department 03/03/24 7:15 AM DAVE STUART During your visit today, we recorded the following information about you: Temperature Height 76 degrees 1.676 m Dave Stuart MD 03/03/2024 8:41 AM Signed ESTABLISHED PATIENT VISIT HPI Buckleydustin Gannon is a 64 year old male who presents with a history of left renal cell carcinoma, much greater than 5 years out with no evidence of disease PSA 1.02 03/01/24 Creatinine 1.32 Currently taking methenamine and occasionally takes nitrofurantoin He does have a simple cyst and a small renal stone. Solitary right kidney Longstanding history of a prostatic utricle and recurrent UTI with sepsis. MRI done for the prostatic utricle and this demonstrated a PI-RADS 4 lesion. This was biopsied again demonstrated high-grade PIN Mini TURP/unroofing of prostatic utricle in April 2023 07/09/23 Renal US: 1. Status post left nephrectomy. 2. Right kidney shows no hydronephrosis. 3. Benign-appearing right-sided renal cysts. 4. 2. Nonobstructing stones in the right kidney. Creatinine Date Value Ref Range Status 01/03/2014 1.67 (H) 0.67 - 1.17 mg/dL Final PSA (no units) Date Value 09/16/2019 1.20 10/08/2018 0.70 11/25/2017 0.63 Color (no units) Date Value 12/15/2012 YELLOW Glucose, Urine (mg/dL) Date Value 07/23/2017 neg Bilirubin, Urine (no units) Date Value 07/23/2017 neg Ketones, Urine (no units) Date Value 07/23/2017 neg Specific [place], Ur (no units) Date Value 07/23/2017 1.020 Hemoglobin/Blood,Ur (no units) Date Value 07/23/2017 trace pH, Urine (no units) Date Value 07/23/2017 6.0 Protein, Urine (mg/dL) Date Value 07/23/2017 neg Nitrites (no units) Date Value 07/23/2017 neg Leukocytes Esterase (no units) Date Value 12/15/2012 NEGATIVE 24HR Urine Studies: No results for input(s): LUPH, LUCAL, LUCIT, LUOXA, LUURIC, LUVOL, LSCAO, LSCAP, LSURIC, LUCL, EVANGELIST, CARTER, LUUREA, LUAM, LUMAG, LUPHOS, LUPCR, LUCREA, LUCRKBW, LUCAKBW, LUCACREA, LUCREACL, LWK, LUSUL in the last 77013 hours. REVIEW OF SYSTEMS Review of Systems Review of system, history including past medical history, surgical history, family history and social history reviewed and confirmed by me. HISTORIES PAST MEDICAL HISTORY Diagnosis Date Acute prostatitis Encounter for prostate cancer screening Hypertension Male stress incontinence Malignant neoplasm of left kidney, except renal pelvis (HCC) Unspecified disorder of prostate PAST SURGICAL HISTORY Procedure Laterality Date PAST SURGICAL HISTORY OF 2013 left total nephrectomy VASECTOMY UNI/BI SPX W/POSTOP SEMEN EXAMS FAMILY HISTORY Problem Relation Age of Onset Hypertension Mother Stroke Mother Hypertension Father SOCIAL HISTORY Social History Tobacco Use Smoking status: Never Smokeless tobacco: Never Substance Use Topics Alcohol use: No Drug use: No MEDICATIONS: ascorbic acid (VITAMIN C ORAL) Take 1,000 mg by mouth. Methenamine Hippurate (HIPREX) 1 gram tablet Take 1 g by mouth two times a day with meals. Cholecalciferol, Vitamin D3, 50 mcg (2,000 unit) cap Take by mouth. AMLODIPINE BESYLATE (NORVASC ORAL) Take 10 mg by mouth. SIMVASTATIN ORAL Take 20 mg by mouth once daily. Tadalafil (CIALIS) 5 mg tablet Take 1 tablet by mouth once daily. nitrofurantoin macrocrystal (MACRODANTIN) 50 mg capsule Take 1 capsule by mouth as directed for 30 doses. Take 1 tab PO as directed (Patient not taking: Reported on 03/03/2024) PHYSICAL EXAMINATION General appearance: Well appearing, alert, in no acute distress, and well-hydrated, well nourished ASSESSMENT/PLAN: 1. Malignant neoplasm of left kidney (HCC) - ICD9: 189.0, ICD10: C64.2 (primary diagnosis) 2. Hypertrophy of prostate with urinary obstruction - ICD9: 600.01, 599.69, ICD10: N40.1, N13.8 3. Prostate mass - ICD9: 602.8, ICD10: N42.89 4. Calculus of kidney - ICD9: 592.0, ICD10: N20.0 - XR ABDOMEN 1V SUPINE Dave Stuart Start daily tadalafil ; May try to stop methenamine Uses nitrofurantoin prn sexual activity Medical Decision Making: Medical Decision Making Level: 1 - N/A Referring Provider: DAVE STUART [[id number]] Allergies As of Date: 03/03/2024 (No Known Allergies) Date Reviewed: 03/03/2024 Reviewed by: Stacey Gonzalez MA - Fully Assessed Reason for Visit: Prostate Problem [89] Kidney Stones [84977] Renal Cancer [3907] Primary Visit Diagnosis:Malignant neoplasm of left kidney (HCC) [C64.2] Other Visit Diagnoses:Hypertroph y of prostate with urinary obstruction [N40.1, N13.8] Prostate mass [N42.89] Calculus of kidney [N20.0] Order(s):UA DIP, URINE (POC) [[id number]] Order #: [id number] #:[id number] (more content not included)... Normal [facility] UA DIP, URINE (POC)on 2023 BILIRUBIN UA (POCT) Negative Negative [facility] CLARITY UA (POCT) Clear [facility] COLOR UA (POCT) Yellow [facility] GLUCOSE UA (POCT) Negative Negative mg/dL [facility] Hemoglobin Ql (U) Negative Negative [facility] Interpretation and review of laboratory results Abnormal [facility] KETONE UA (POCT) Negative Negative mg/dL [facility] LEUKOCYTES UA (POCT) Trace Abnormal [facility] ([facility]) Negative Negative [facility] PH UA (POCT) 6.5 4.5 - 8.0 [facility] Protein Ql (U) Negative Negative mg/dL [facility] SPECIFIC GRAVITY UA (POCT) 1.015 1.005 - 1.030 [facility] UROBILINOGEN UA (POCT) 0.2 Jaye l E.U./dL [facility] Location:[facility], [address] [place] [address], [address] [place] [address] POINT OF CARE [facility] Comprehensive Metabolic Prof ilhector 03-01-2024 Albumin [Mass/Vol] 3.7 g/dL Normal 3.2-5.0 [facility] Comment on above: Order Comment: Inter face Comments: cc copy all to Dr. Stuart, urology Order Date: 02/28/24 Order Info: [id number] - CMP Order Info: [id number] - LIPID Comments: cc copy all to Dr. Stuart, urology Order Info: [id number] - PSAD cc copy all to Dr. Stuart, urology Performed By: #### L 500.4050, L501.9940, L500.4100 #### [facility] [address] [place], [address] Albumin/Globulin [Mass ratio] 1.1 {ratio} Normal 0.9-2.4 [facility] Comment on above: Order Comment: Inter face Comments: cc copy all to Dr. Stuart, urology Order Date: 02/28/24 Order Info: [id number] - CMP Order Info: [id number] - LIPID Comments: cc copy all to Dr. Stuart, urology Order Info: [id number] - PSAD cc copy all to Dr. Stuart, urology Performed By: #### L 500.4050, L501.9940, L500.4100 #### [facility] [address] [place], [address] ALK P 86 U/L Normal 45-117 [facility] Comment on above: Order Comment: Inter face Comments: cc copy all to Dr. Stuart, urology Order Date: 02/28/24 Order Info: [id number] - CMP Order Info: [id number] - LIPID Comments: cc copy all to Dr. Stuart, urology Order Info: [id number] PSAD cc copy all to Dr. Stuart, urology Performed By: #### L 500.4050, L501.9940, L500.4100 #### [facility] [address] [place], [address] ALT [Catalytic activity/Vol] 22 U/L Normal 16-61 [facility] Comment on above: Order Comment: Inter face Comments: cc copy all to Dr. Stuart, urology Order Date: 02/28/24 Order Info: 785-05 - CMP Order Info: [id number] - LIPID Comments: cc copy all to Dr. Stuart, urology Order Info: 782-05 PSAD cc copy all to Dr. Stuart, urology Performed By: #### L 500.4050, L501.9940, L500.4100 #### [facility] [address] [place], [address] AST [Catalytic activity/Vol] 14 U/L Low 15-37 [facility] Comment on above: Order Comment: Inter face Comments: cc copy all to Dr. Stuart, urology Order Date: 02/28/24 Order Info: 785-05 - CMP Order Info: [id number] - LIPID Comments: cc copy all to Dr. Stuart, urology Order Info: 782-05 - PSAD cc copy all to Dr. Stuart, urology Performed By: #### L 500.4050, L501.9940, L500.4100 #### [facility] [address] [place], [address] Bilirubin [Mass/Vol] 0.70 mg/dL Normal 0.20-1.00 [facility] Comment on above: Order Comment: Inter face Comments: cc copy all to Dr. Stuart, urology Order Date: 02/28/24 Order Info: 785-05 - CMP Order Info: [id number] - LIPID Comments: cc copy all to Dr. Stuart, urology Order Info: 782-05 - PSAD cc copy all to Dr. Stuart, urology Result Comment: For patients on eltrombopag therapy, use of Dimension [place] TBIL is not recommended. Performed By: #### L 500.4050, L501.9940, L500.4100 #### [facility] [address] [place], [address] BUN/CRE 9.1 RATIO Low 10-20 [facility] Comment on above: Order Comment: Inter face Comments: cc copy all to Dr. Stuart urology Order Date: 02/28/24 Order Info: 785-05 - CMP Order Info: [id number] - LIPID Comments: cc copy all to Dr. Stuart, urology Order Info: 782-05 - PSAD cc copy all to Dr. Stuart, urology Performed By: #### L 500.4050, L501.9940, L500.4100 #### [facility] [address] [place], [address] CA,Total 9.1 mg/dL Normal 8.5-10.1 [facility] Comment on above: Order Comment: Inter face Comments: cc copy all to Dr. Stuart urology Order Date: 02/28/24 Order Info: 785-05 - CMP Order Info: [id number] - LIPID Comments: cc copy all to Dr. Stuart, urology Order Info: 782-05 - PSAD cc copy all to Dr. Stuart, urology Performed By: #### L 500.4050, L501.9940, L500.4100 #### [facility] [address] [place], [address] Chloride [Moles/Vol] 108 mmol/L High 98-107 [facility] Comment on above: Order Comment: Inter face Comments: cc copy all to Dr. Stuart, urology Order Date: 02/28/24 Order Info: 785-05 - CMP Order Info: [id number] - LIPID Comments: cc copy all to Dr. Stuart, urology Order Info: 782-05 PSAD cc copy all to Dr. Stuart, urology Performed By: #### L 500.4050, L501.9940, L500.4100 #### [facility] [address] [place], [address] CO2 [Moles/Vol] 27.0 mmol/L Normal 21.0-32.0 [facility] Comment on above: Order Comment: Inter face Comments: cc copy all to Dr. Stuart urology Order Date: 02/28/24 Order Info: 785-05 - CMP Order Info: [id number] - LIPID Comments: cc copy all to Dr. Stuart, urology Order Info: [id number] cc copy all to Dr. Stuart, urology Performed By: #### L 500.4050, L501.9940, L500.4100 #### [facility] [address] [place], [address] Creatinine [Mass/Vol] 1.32 mg/dL High 0.70-1.30 [facility] Comment on above: Order Comment: Inter face Comments: cc copy all to Dr. Stuart, urology Order Date: 02/28/24 Order Info: 785-05 - CMP Order Info: [id number] - LIPID Comments: cc copy all to Dr. Stuart, urology Order Info: 782-05 PSAD cc copy all to Dr. Stuart, urology Result Comment: The validity of the calculated GFR GFRAA in patients over 70 years has not been determined. Clinical correlation is essential. Performed By: #### L 500.4050, L501.9940, L500.4100 #### [facility] [address] [place], [address] EST GFR - AA 71 mL/min Normal >60 [facility] Comment on above: Order Comment: Inter face Comments: cc copy all to Dr. Stuart, urology Order Date: 02/28/24 Order Info: 785-05 - CMP Order Info: [id number] - LIPID Comments: cc copy all to Dr. Stuart, urology Order Info: 782-05 - PSAD cc copy all to Dr. Stuart, urology Result Comment: Afri can Barb[place] GFR Calc Performed By: #### L 500.4050, L501.9940, L500.4100 #### [facility] [address] [place], [address] GAP 4 Low 5-15 [facility] Comment on above: Order Comment: Inter face Comments: cc copy all to Dr. Stuart, urology Order Date: 02/28/24 Order Info: 785-05 - CMP Order Info: [id number] - LIPID Comments: cc copy all to Dr. Stuart, urology Order Info: 782-05 - PSAD cc copy all to Dr. Stuart, urology Performed By: #### L 500.4050, L501.9940, L500.4100 #### [facility] [address] [place], [address] GFR/1.73 sq M.predicted among non-blacks MDRD (S/P/Bld) [Vol rate/Area] 58 mL/min/{1.73_m2} Low >60 [facility] Comment on above: Order Comment: Inter face Comments: cc copy all to Dr. Stuart, urology Order Date: 02/28/24 Order Info: 785-05 - CMP Order Info: [id number] - LIPID Comments: cc copy all to Dr. Stuart, urology Order Info: 782-05 - PSAD cc copy all to Dr. Stuart, urology Result Comment: Non- GFR Calc Performed By: #### L 500.4050, L501.9940, L500.4100 #### [facility] [address] [place], [address] Globulin (S) [Mass/Vol] 3.5 g/dL Normal 2.2-4.2 [facility] Comment on above: Order Comment: Inter face Comments: cc copy all to Dr. Stuart, urology Order Date: 02/28/24 Order Info: 785-05 - CMP Order Info: [id number] - LIPID Comments: cc copy all to Dr. Stuart, urology Order Info: 782-05 - PSAD cc copy all to Dr. Stuart, urology Performed By: #### L 500.4050, L501.9940, L500.4100 #### [facility] [address] [place], [address] Glucose [Mass/Vol] 101 mg/dL Normal 74-106 [facility] Comment on above: Order Comment: Inter face Comments: cc copy all to Dr. Stuart, urology Order Date: 02/28/24 Order Info: 785-05 - CMP Order Info: [id number] - LIPID Comments: cc copy all to Dr. Stuart, urology Order Info: 782-05 - D cc copy all to Dr. Stuart, urology Result Comment: Fast ing Glucose result from 100 to 125 mg/dL suggests IMPAIRED HOMEOSTASIS per A.D.A. criteria. Performed By: #### L 500.4050, L501.9940, L500.4100 #### [facility] [address] [place], [address] Potassium [Moles/Vol] 4.2 mmol/L Normal 3.5-5.1 [facility] Comment on above: Order Comment: Inter face Comments: cc copy all to Dr. Stuart, urology Order Date: 02/28/24 Order Info: 785-05 - CMP Order Info: [id number] - LIPID Comments: cc copy all to Dr. Stuart, urology Order Info: 782-05 - PSAD cc copy all to Dr. Stuart, urology Performed By: #### L 500.4050, L501.9940, L500.4100 #### [facility] [address] [place], [address] Sodium [Moles/Vol] 139 mmol/L Normal 136-145 [facility] Comment on above: Order Comment: Inter face Comments: cc copy all to Dr. Stuart, urology Order Date: 02/28/24 Order Info: 785-05 - CMP Order Info: [id number] - LIPID Comments: cc copy all to Dr. Stuart, urology Order Info: 782-05 PSAD cc copy all to Dr. Stuart, urology Performed By: #### L 500.4050, L501.9940, L500.4100 #### [facility] [address] [place], [address] T PROT 7.2 g/dL Normal 6.4-8.2 [facility] Comment on above: Order Comment: Inter face Comments: cc copy all to Dr. Stuart, urology Order Date: 02/28/24 Order Info: 785-05 - CMP Order Info: [id number] - LIPID Comments: cc copy all to Dr. Stuart, urology Order Info: 782-05 cc copy all to Dr. Stuart, urology Performed By: #### L 500.4050, L501.9940, L500.4100 #### [facility] [address] [place], [address] Urea nitrogen [Mass/Vol] 12 mg/dL Normal 7-18 [facility] Comment on above: Order Comment: Inter face Comments: cc copy all to Dr. Stuart urology Order Date: 02/28/24 Order Info: 785-05 - CMP Order Info: [id number] - LIPID Comments: cc copy all to Dr. Stuart, urology Order Info: 782-05 PSAD cc copy all to Dr. Stuart, urology Performed By: #### L 500.4050, L501.9940, L500.4100 #### [facility] [address] [place], [address] Lipid Profileon 03-01-2024 Cholesterol [Mass/Vol] 164 mg/dL Normal 200 [facility] Comment on above: Order Comment: Inter face Comments: cc copy all to Dr. Stuart urology Order Date: 02/28/24 Order Info: 785-05 - CMP Order Info: [id number] - LIPID Comments: cc copy all to Dr. Stuart, urology Order Info: 782-05 - PSAD cc copy all to Dr. Stuart, urology Result Comment: <200 mg/dL Desirable 200-240 mg/dL Borderline >240 mg/dL High Risk Performed By: #### L 500.4050, L501.9940, L500.4100 #### [facility] [address] [place], [address] Cholesterol in HDL [Mass/Vol] 76 mg/dL Normal [facility] Comment on above: Order Comment: Inter face Comments: cc copy all to Dr. Stuart, urology Order Date: 02/28/24 Order Info: 785-05 - CMP Order Info: [id number] - LIPID Comments: cc copy all to Dr. Stuart, urology Order Info: 782-05 PSAD cc copy all to Dr. Stuart, urology Result Comment: The drugs N-Acetylcysteine and Metamizole may falsely depress this assay. Reference Range HDL <40 mg/dL Low HDL Cholesterol HDL >or= 60 mg/dL High HDL Cholesterol Performed By: #### L 500.4050, L501.9940, L500.4100 #### [facility] [address] [place], [address] Cholesterol in LDL [Mass/Vol] 80 mg/dL Normal 0-130 [facility] Comment on above: Order Comment: Inter face Comments: cc copy all to Dr. Stuart, urology Order Date: 02/28/24 Order Info: 785-05 - CMP Order Info: [id number] - LIPID Comments: cc copy all to Dr. Stuart, urology Order Info: 782-05 - PSAD cc copy all to Dr. Stuart, urology Performed By: #### L 500.4050, L501.9940, L500.4100 #### [facility] [address] [place], [address] Cholesterol in VLDL [Mass/Vol] 8 mg/dL Normal 5-40 [facility] Comment on above: Order Comment: Inter face Comments: cc copy all to Dr. Stuart, urology Order Date: 02/28/24 Order Info: 785-05 - CMP Order Info: [id number] - LIPID Comments: cc copy all to Dr. Stuart, urology Order Info: 782-05 - PSAD cc copy all to Dr. Stuart, urology Performed By: #### L 500.4050, L501.9940, L500.4100 #### [facility] [address] [place], [address] Triglyceride [Mass/Vol] 39 mg/dL Normal [facility] Comment on above: Order Comment: Inter face Comments: cc copy all to Dr. Stuart urology Order Date: 02/28/24 Order Info: 785-05 - CMP Order Info: [id number] - LIPID Comments: cc copy all to Dr. Stuart, urology Order Info: 782-05 - PSAD cc copy all to Dr. Stuart, urology Result Comment: The drugs N-Acetylcysteine and Metamizole may falsely depress this assay. Serum Triglycerides Reference Interval Normal <150 mg/dL Borderline high 150 - 199 mg/dL High 200 - 499 mg/dL Very High > or = 500 mg/dL Performed By: #### L 500.4050, L501.9940, L500.4100 #### [facility] [address] [place], [place], [address] PSA,Total- Diagnosticon 02-14 PSA, DIAGNOSTIC 1.02 ng/mL Normal 0.0-4.0 [facility] Comment on above: Order Comment: Inter face Comments: cc copy all to Dr. Stuart urology Order Date: 02/28/24 Order Info: 785-05 - CMP Order Info: [id number] - LIPID Comments: cc copy all to Dr. Stuart, urology Order Info: 782-05 - PSAD cc copy all to Dr. Stuart, urology Result Comment: This test was performed using the TPSA assay method for the bop.fm system. Values obtained with different assay methods cannot be used interchangably. When changing PSA assays in the course of monitoring a patient, additional sequential testing should be carried out to confirm baseline values. Performed By: #### L 500.4050, L501.9940, L500.4100 #### [facility] [address] [place], [address] Absolute lymphocyte countOrd ered By: Noy Staples on 08-30-2023 Lymphocytes Auto (Unsp spec) [#/Vol] 1.95 10*3/uL 0.83-4.51 [facility] Automated lymphocyte count a s percentage of total leukocytesOrdered By: Noy Staples on 08-30-2023 Lymphocytes/100 WBC Auto (Unsp spec) 48.3 % 19-41 [facility] Basophil percentageOrdered B y: Noy Staples on 08-30-2023 Basophil percentage 1.24 ng/mL 0.0-4.0 [facility] Comment on above: This test was perfor med using the TPSA assay method for theYaphie chemistry system. Values obtained with differentassay methods cannot be used interchangably.When changing PSA assays in the course of monitoring apatient, additional sequential testing should be carriedout to confirm baseline values. Basophils/100 WBC (Bld) 0.7 % 0-1 [facility] Bilirubin [Mass/Vol] 0.70 mg/dL 0.20-1.00 [facility] Comment on above: For patients on eltr ombopag therapy, use of Dimension [place] TBIL is not recommended. Chloride [Moles/Vol] 107 mmol/L 98-107 [facility] Cholesterol [Mass/Vol] 205 mg/dL <200 [facility] Comment on above: <200 mg/dL Desirable 200-240 mg/dL Borderline >240 mg/dL High Risk Eosinophils/100 WBC (Bld) 1.5 % 0-5 [facility] Glucose [Mass/Vol] 103 mg/dL 74-106 [facility] Comment on above: Fasting Glucose resu lt from 100 to 125 mg/dL suggests IMPAIRED HOMEOSTASIS per A.D.A. criteria. Hemoglobin (Bld) [Mass/Vol] 14.0 g/dL 13.0-16.5 [facility] Monocytes/100 WBC (Bld) 12.4 % 0-10 [facility] Neutrophils (Bld) [#/Vol] 1.5 10*3/uL 2.0-7.7 [facility] Neutrophils/100 WBC (Bld) 36.9 % 47-70 [facility] Potassium [Moles/Vol] 4.1 mmol/L 3.5-5.1 [facility] Protein [Mass/Vol] 7.2 g/dL 6.4-8.2 [facility] Sodium [Moles/Vol] 140 mmol/L 136-145 [facility] Triglyceride [Mass/Vol] 49 mg/dL <199 [facility] Comment on above: The drugs N-Acetylcy steine and Metamizole may falsely depress this assay.Serum Triglycerides Reference Interval Normal <150 mg/dL Borderline high 150 - 199 mg/dL High 200 - 499 mg/dL Very High > or = 500 mg/dL WBC (Bld) [#/Vol] 4.0 10*3/uL 4.4-11.0 [facility] Determination of erythrocyte mean corpuscular volume (MCV)Ordered By: Noy Staples on 08-30-2023 MCV (RBC) [Entitic vol] 94.4 fL 80-94 [facility] Erythrocyte distribution wid th ratioOrdered By: Noy Staples on 08-30-2023 Erythrocyte distribution width (RBC) [Ratio] 12.6 % 11.6-14.6 [facility] Erythrocyte distribution wid th standard deviationOrdered By: Noy Staples on 08-30-2023 Erythrocyte distribution width (RBC) [Entitic vol] 44.0 fL 35.1-43.9 [facility] Hematocrit Auto (Bld) [Volum e fraction]Ordered By: Noy Staples on 08-30-2023 Hematocrit (Bld) [Volume fraction] 43.9 % 40-54 [facility] Immature granulocytes/100 WB C Auto (Bld)Ordered By: Noy Staples on 08-30-2023 Immature granulocytes/100 WBC (Bld) 0.200 % 0.0-0.9 [facility] Comment on above: IG% - Immature Granu locytes (promyelocytes, myelocytes and metamyelocytes) > 1% indicates that a LEFT SHIFT is Present. Laboratory - Chemistry and C hemistry - challengeOrdered By: Noy Staples on 08-30-2023 Albumin/Globulin [Mass ratio] 1.1 {ratio} 0.9-2.4 [facility] ALP [Catalytic activity/Vol] 78 U/L 45-117 [facility] ALT [Catalytic activity/Vol] 21 U/L 16-61 [facility] Cholesterol in HDL [Mass/Vol] 84 mg/dL >40 [facility] Comment on above: The drugs N-Acetylcy steine and Metamizole may falsely depress this assay. Reference Range HDL <40 mg/dL Low HDL Cholesterol HDL >or= 60 mg/dL High HDL Cholesterol Cholesterol in LDL [Mass/Vol] 111 mg/dL 0-130 [facility] CO2 [Moles/Vol] 28.0 mmol/L 21.0-32.0 [facility] Globulin (S) [Mass/Vol] 3.5 g/dL 2.2-4.2 [facility] Urea nitrogen/Creatinine [Mass ratio] 10.7 mg/mg 10-20 [facility] - Hematology and Cell countsOrdered By: Noy Staples on 08-30-2023 MCH (RBC) [Entitic mass] 30.1 pg 27.0-32.0 [facility] MCHC (RBC) [Mass/Vol] 31.9 g/dL 32-36 [facility] Nucleated RBC/100 WBC (Bld) [Ratio] 0 % 0-5 [facility] Platelet mean volume (Bld) [Entitic vol] 9.8 fL 6.2-12.0 [facility] Platelets (Bld) [#/Vol] 182 10*3/uL 150-450 [facility] No Panel InformationOrdered By: Noy Staples on 08-30-2023 Estimated GFR (MDRD) Amer 71 mL/min >60 [facility] Comment on above: GFR Calc Estimated GFR (MDRD) Non-Af Amer 59 mL/min >60 [facility] Comment on above: Non- GFR Calc Vitamin D 25-Hydroxy 29.5 ng/mL [facility] Comment on above: Vitamin D 25(OH) Sta tus Range Deficiency <20 ng/mL (50nmol/L) Insufficiency 20 - 30 ng/mL (50 - 75 nmol/L) Sufficiency 30 - 100 ng/mL (75 - 250 nmol/L) Toxicity >100 ng/mL (>250 nmol/L) VLDL Cholesterol 10 mg/dL 5-40 [facility] RBC Auto (Bld) [#/Vol]Ordere d By: Noy Staples on 08-30-2023 RBC (Bld) [#/Vol] 4.65 10*6/uL 4.6-6.2 [facility] Serum or plasma calcium kaitlin urement (mass/volume)Ordered By: Noy Staples on 08-30-2023 Calcium [Mass/Vol] 9.1 mg/dL 8.5-10.1 [facility] Serum or plasma creatinine m easurement (mass/volume)Ordered By: Noy Staples on 08-30-2023 Creatinine [Mass/Vol] 1.31 mg/dL 0.70-1.30 [facility] Comment on above: The validity of the calculated GFR & GFRAA in patients over 70 years has not been determined. Clinical correlation is essential. Serum or plasma urea nitroge n measurement (mass/volume)Ordered By: Noy Staples on 08-30-2023 Urea nitrogen [Mass/Vol] 14 mg/dL 7-18 [facility] Thin prep Papanicolaou smear with manual screeningOrdered By: Noy Staples on 08-30-2023 Thin prep Papanicolaou smear with manual screening 3.7 g/dL 3.2-5.0 [facility] Thin prep Papanicolaou smear with manual screening 17 U/L 15-37 [facility] Thin prep Papanicolaou smear with manual screening 5 5-15 [facility] Whole blood hemoglobin A1c/t otal hemoglobin ratio (mass fraction)Ordered By: Noy Staples on 08-30-2023 HbA1c (Bld) [Mass fraction] 5.5 % 3.8-5.6 [facility] Comment on above: Normal < 5.7 % Predi abetic 5.7 - 6.4 % Diabetic >or= 6.5 % Please note range changes. CNOVon 08-27-2023 CNOV Office Visit (AKURFL) RICARDO GANNON ([id number]) 1960 M Date Time Provider Department 08/27/23 7:15 AM DAVE STUART During your visit today, we recorded the following information about you: Pulse Blood pressure Height 72/minute 170/72 1.676 m Dave Stuart MD 08/27/2023 7:45 AM Signed ESTABLISHED PATIENT VISIT HPI Ricardo Gannon is a 63 year old male who presents left renal cell carcinoma, no evidence of disease greater than 5 years out Recent renal ultrasound reviewed, simple cyst, small renal stone, gave order for KUB MRI of the prostate done for a prostatic utricle and recurrent UTI with sepsis demonstrated a PI-RADS 4 lesion. This lesion was biopsied and was high-grade PIN Patient will get a follow-up PSA Mini TURP/unroofing of prostatic utricle in April 2023 and has had no urinary tract infections since. Urinary tract infections and sepsis tended to happen after ejaculation, so he will continue to take prophylactic nitrofurantoin after sexual activity Creatinine Date Value Ref Range Status 01/03/2014 1.67 (H) 0.67 - 1.17 mg/dL Final PSA (no units) Date Value 09/16/2019 1.20 10/08/2018 0.70 11/25/2017 0.63 Color (no units) Date Value 12/15/2012 YELLOW Glucose, Urine (mg/dL) Date Value 07/23/2017 neg Bilirubin, Urine (no units) Date Value 07/23/2017 neg Ketones, Urine (no units) Date Value 07/23/2017 neg Specific [place], Ur (no units) Date Value 07/23/2017 1.020 Hemoglobin/Blood,Ur (no units) Date Value 07/23/2017 trace pH, Urine (no units) Date Value 07/23/2017 6.0 Protein, Urine (mg/dL) Date Value 07/23/2017 neg Nitrites (no units) Date Value 07/23/2017 neg Leukocytes Esterase (no units) Date Value 12/15/2012 NEGATIVE 24HR Urine Studies: No results for input(s): LUPH, LUCAL, LUCIT, LUOXA, LUURIC, LUVOL, LSCAO, LSCAP, LSURIC, LUCL, EVANGELIST, CARTER, LUUREA, LUAM, LUMAG, LUPHOS, LUPCR, LUCREA, LUCRKBW, LUCAKBW, LUCACREA, LUCREACL, LWK, LUSUL in the last 04131 hours. REVIEW OF SYSTEMS Review of Systems Constitutional: Negative. HENT: Negative. Eyes: Negative. Respiratory: Negative. Cardiovascular: Negative. Gastrointestinal: Negative. Endocrine: Negative. Genitourinary: Nocturia Review of system, history including past medical history, surgical history, family history and social history reviewed and confirmed by me. HISTORIES PAST MEDICAL HISTORY Diagnosis Date Acute prostatitis Encounter for prostate cancer screening Hypertension Male stress incontinence Malignant neoplasm of left kidney, except renal pelvis (HCC) Unspecified disorder of prostate PAST SURGICAL HISTORY Procedure Laterality Date PAST SURGICAL HISTORY OF 2013 left total nephrectomy VASECTOMY UNI/BI SPX W/POSTOP SEMEN EXAMS FAMILY HISTORY Problem Relation Age of Onset Hypertension Mother Stroke Mother Hypertension Father SOCIAL HISTORY Social History Tobacco Use Smoking status: Never Smokeless tobacco: Never Substance Use Topics Alcohol use: No Drug use: No MEDICATIONS: Tadalafil (CIALIS) 5 mg tablet Take 1 tablet by mouth once daily. nitrofurantoin macrocrystal (MACRODANTIN) 100 mg capsule Take 1 capsule by mouth two times a day. ascorbic acid (VITAMIN C ORAL) Take 1,000 mg by mouth. Methenamine Hippurate (HIPREX) 1 gram tablet Take 1 g by mouth two times a day with meals. nitrofurantoin macrocrystal (MACRODANTIN) 50 mg capsule Take 1 capsule by mouth as directed for 30 doses. Take 1 tab PO as directed (Patient not taking: Reported on 05/27/2023) Cholecalciferol, Vitamin D3, 50 mcg (2,000 unit) cap Take by mouth. Tadalafil (CIALIS) 5 mg tablet Take 1 tablet by mouth once daily. AMLODIPINE BESYLATE (NORVASC ORAL) Take 10 mg by mouth. SIMVASTATIN ORAL Take 20 mg by mouth once daily. PHYSICAL EXAMINATION General appearance: Well appearing, alert, in no acute distress, and well-hydrated, well nourished ASSESSMENT/PLAN: 1. Disorder of prostate - ICD9: 602.9, ICD10: N42.9 (primary diagnosis) - PROSTATE-SPECIFIC ANTIGEN DIAGNOSTIC 2. Calculus of kidney - ICD9: 592.0, ICD10: N20.0 - XR ABDOMEN 1V SUPINE 3. 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 Normal [facility] UA DIP, URINE (POC)on 2023 BILIRUBIN UA (POCT) Negative Negative [facility] CLARITY UA (POCT) Clear [facility] COLOR UA (POCT) Yellow [facility] GLUCOSE UA (POCT) Negative Negative mg/dL [facility] Hemoglobin Ql (U) Trace-intact Abnormal Negative [facility] [facility] KETONE UA (POCT) Negative Negative mg/dL [facility] LEUKOCYTES UA (POCT) Negative Negative [facility] NITRITE UA (POCT) Negative Negative [facility] PH UA (POCT) 5.5 4.5 - 8.0 [facility] Protein Ql (U) Negative Negative mg/dL [facility] SPECIFIC GRAVITY UA (POCT) 1.020 1.005 - 1.030 [facility] UROBILINOGEN UA (POCT) 0.2 E.U./dL Jaye l E.U./dL [facility] US KIDNEY/BLADDERon 07-09-19 24 US KIDNEY/BLADDER * * *Final Report* * * DATE OF EXAM: Jul 09 2023 4:17PM LDU 1055 - US KIDNEY/BLADDER / PROCEDURE REASON: Prostatic utricle cyst N42.83 * * * * Physician Interpretation * * * * EXAMINATION: RENAL ULTRASOUND CLINICAL HISTORY: Follow-up. History of left nephrectomy for renal cell carcinoma. TECHNIQUE: Sonography of the kidneys and urinary bladder was performed. Images were obtained and stored in a permanent archive. MQ: UR_1 COMPARISON: Outside CT scan from RESULT: Right Kidney: -Renal length: 12.2 cm -Parenchyma: Normal parenchymal echogenicity. Normal parenchymal thickness. -Collecting system: No hydronephrosis. -Calculus: Suspicion of 6 mm stone in the upper pole and 7 mm stone in the mid to lower pole. -Lesion: Benign-appearing simple cyst measuring 1.2 cm in the mid to upper pole. Left Kidney: -Surgically absent. Bladder: Normal sonographic appearance. Prostate: Measures 4.1 x 2.8 x 3.2 cm with volume of 20 cc. Previously noted utricle cyst is not seen. IMPRESSION: 1. Status post left nephrectomy. 2. Right kidney shows no hydronephrosis. 3. Benign-appearing right-sided renal cysts. 4. 2. Nonobstructing stones in the right kidney. Donor Center Technician: PSCB Transcribe Date/Time: Jul 10 2023 3:54P Dictated by : JUAN BELLO MD This examination was interpreted and the report reviewed and electronically signed by: JUAN BELLO MD on Jul 10 2023 3:57PM EST [id number] CN [facility] 05-29-2023 [facility] Telephone (AKMARYJANE) RICARDO GANNON ([id number]) 1960 M Date Time Provider Department 05/29/23 LUCIE SCHNEIDER During your visit today, we recorded the following information about you: Lucie Schneider PA-C 05/29/2023 6:53 AM Signed Please call pt, no infection in urine. DREW Burroughs Cma, [place] 05/31/2023 8:39 AM Signed Called left message for patient to call for test results. Alexia Kimbrough Cma, MA 05/31/2023 9:12 AM Signed Pt advised of message. Alexia gillespie MA Allergies As of Date: 05/29/2023 (No Known Allergies) Date Reviewed: 05/27/2023 Reviewed by: Renate Hernandez MA - Fully Assessed Reason for Visit: Results [95] Prescriptions as of 05/31/2023 - ascorbic acid (VITAMIN C ORAL) Take 1,000 mg by mouth. - Methenamine Hippurate (HIPREX) 1 gram tablet Take 1 g by mouth two times a day with meals. - nitrofurantoin macrocrystal (MACRODANTIN) 50 mg capsule Take 1 capsule by mouth as directed for 30 doses. Take 1 tab PO as directed - Cholecalciferol, Vitamin D3, 50 mcg (2,000 unit) cap Take by mouth. - Tadalafil (CIALIS) 5 mg tablet Take 1 tablet by mouth once daily. - AMLODIPINE BESYLATE (NORVASC ORAL) Take 10 mg by mouth. - SIMVASTATIN ORAL Take 20 mg by mouth once daily. 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, N13.8] 04/22/2023 Encounter Status:Closed by LUCIE SCHNEIDER on 05/29/23 [facility] Bacteria Ur Culton Bacteria identified Cx Nom (U) CULTURE, URINE: No growth (<1,000 CFU/ml) [facility] Comment on above: Performed By: #### 6 30-4 ####[facility]ATORY[facility]IA [id number] [address] [place] CNOVon 05-27-2023 CNOV Office Visit (BEATRIZ) RICARDO GANNON ([id number]) 1960 M Date Time Provider Department 05/27/23 3:00 PM LUCIE SCHNEIDER During your visit today, we recorded the following information about you: Pulse Weight Height 80/minute 72.6 kg 1.676 m Lucie Schneider PA-C 05/27/2023 3:24 PM Signed ESTABLISHED PATIENT OFFICE VISIT HISTORY OF PRESENT ILLNESS: Ricardo Gannon is a 63 year old male, Ht 167.6 cm (5' 6) BMI 25.82 kg/m2 with a PMH significant for s/p Turp, pvr 67cc. . Pt with just occational dysuria since surgery, has not seen blood for several days. No fever,chills. Will continue methenamine and sending urine today. LAB: Creatinine Date Value Ref Range Status 01/03/2014 1.67 (H) 0.67 - 1.17 mg/dL Final PSA (no units) Date Value 09/16/2019 1.20 10/08/2018 0.70 11/25/2017 0.63 Glucose, Urine (mg/dL) Date Value 07/23/2017 neg Bilirubin, Urine (no units) Date Value 07/23/2017 neg Ketones, Urine (no units) Date Value 07/23/2017 neg Specific [place], Ur (no units) Date Value 07/23/2017 1.020 Hemoglobin/Blood,Ur (no units) Date Value 07/23/2017 trace pH, Urine (no units) Date Value 07/23/2017 6.0 Protein, Urine (mg/dL) Date Value 07/23/2017 neg Urobilinogen, Urine (EU) Date Value 07/23/2017 0.2 Nitrites (no units) Date Value 07/23/2017 neg Leukocytes (no units) Date Value 07/23/2017 neg Color/Appearance (comment:) Date Value 07/23/2017 y/c MEDICATIONS: ascorbic acid (VITAMIN C ORAL) Take 1,000 mg by mouth. Methenamine Hippurate (HIPREX) 1 gram tablet Take 1 g by mouth two times a day with meals. Cholecalciferol, Vitamin D3, 50 mcg (2,000 unit) cap Take by mouth. Tadalafil (CIALIS) 5 mg tablet Take 1 tablet by mouth once daily. AMLODIPINE BESYLATE (NORVASC ORAL) Take 10 mg by mouth. SIMVASTATIN ORAL Take 20 mg by mouth once daily. nitrofurantoin macrocrystal (MACRODANTIN) 50 mg capsule Take 1 capsule by mouth as directed for 30 doses. Take 1 tab PO as directed (Patient not taking: Reported on 05/27/2023) Review of Systems HISTORIES PAST MEDICAL HISTORY Diagnosis Date Acute prostatitis Encounter for prostate cancer screening Hypertension Male stress incontinence Malignant neoplasm of left kidney, except renal pelvis (HCC) Unspecified disorder of prostate FAMILY HISTORY Problem Relation Age of Onset Hypertension Mother Stroke Mother Hypertension Father Social History Tobacco Use Smoking status: Never Smokeless tobacco: Never Substance Use Topics Alcohol use: No Drug use: No PHYSICAL EXAMINATION GENERAL APPEARANCE: Well appearing, alert, in no acute distress, well-hydrated, well nourished. ASSESSMENT/PLAN: 1. Hypertrophy of prostate with urinary obstruction - ICD9: 600.01, 599.69, ICD10: N40.1, N13.8 - US MSR POST-VOID RESID URINE - URINE CULTURE Continue methenamine Lucie Schneider PA-C Referring Provider: DAVE STUART [[id number]] Allergies As of Date: 05/27/2023 (No Known Allergies) Date Reviewed: 05/27/2023 Reviewed by: Renate Hernandez MA - Fully Assessed Reason for Visit: Post Op [174] Cmt: TURP Primary Visit Diagnosis:Hypertroph y of prostate with urinary obstruction [N40.1, N13.8] Order(s):US MSR POST-VOID RESID URINE [16781YOR] Order #: [id number] UA DIP, URINE (POC) [[id number]] Order #: [id number]. #:[id number] URINE CULTURE [SQURCUL] Order #: [id number]. #:[id number] Prescriptions as of 05/27/2023 - ascorbic acid (VITAMIN C ORAL) Take 1,000 mg by mouth. - Methenamine Hippurate (HIPREX) 1 gram tablet Take 1 g by mouth two times a day with meals. - nitrofurantoin macrocrystal (MACRODANTIN) 50 mg capsule Take 1 capsule by mouth as directed for 30 doses. Take 1 tab PO as directed - Cholecalciferol, Vitamin D3, 50 mcg (2,000 unit) cap Take by mouth. - Tadalafil (CIALIS) 5 mg tablet Take 1 tablet by mouth once daily. - AMLODIPINE BESYLATE (NORVASC ORAL) Take 10 mg by mouth. - SIMVASTATIN ORAL Take 20 mg by mouth once daily. Problem List As Of Date 05/27/2023 Noted Resolved Preop examination [Z01.818] 04/07/2023 Prostate mass [N42.89] 04/07/2023 Hypertension [I10] 04/07/2023 Hyperlipidemia [E78.5] 04/07/2023 BPH with obstruction/lower urinary tract sympto*04/08/2023 BPH with urinary obstruction [N40.1, N13.8] 04/22/2023 Encounter Status:Closed by LUCIE SCHNEIDER on 05/27/23 [facility] Basophil percentageOrdered B y: Noy Staples on 05-03-2023 Basophil percentage 10-25 SEEN /hpf 0-5 [facility] Bilirubin Test strip Ql (U)O rdered By: Noy Staples on 05-03-2023 Bilirubin Ql (U) Negative Negative [facility] Culture, urineOrdered By: Madhav Staples on 05-03-2023 Bacteria identified Cx Nom (U) Culture exhibits no growth. [facility] Ketones Test strip Ql (U)Ord ered By: Noy Staples on 05-03-2023 Ketones Ql (U) Negative Negative [facility] Mucus LM Ql (Urine sed)Order ed By: Noy Staples on 05-03-2023 Mucus Ql (Urine sed) 0 SEEN /hpf [facility] Nitrite Test strip Ql (U)Ord ered By: Noy Staples on 05-03-2023 Nitrite Ql (U) Negative Negative [facility] Protein Test strip Ql (U)Ord ered By: Noy Staples on 05-03-2023 Protein Ql (U) 30 mg/dl Negative [facility] Squamous epithelial cells de tection in urine sediment by light microscopyOrdered By: Noy Staples on 05-03-2023 Epithelial cells.squamous LM Ql (Urine sed) 0 SEEN /hpf 0-5 [facility] Urine blood detectionOrdered By: Noy Staples on 05-03-2023 RBC Ql (U) 250 /ul Negative [facility] RBC Ql (U) 25-50 SEEN /hpf 0-5 [facility] Urine clarityOrdered By: Nabila Staples on 05-03-2023 Clarity (U) Clear Clear [facility] Urine color determinationOrd ered By: Noy Staples on 05-03-2023 Color (U) Straw Yellow [facility] Urine glucose detectionOrder ed By: Noy Staples on 05-03-2023 Glucose Ql (U) Normal mg/dl Normal [facility] Urine leukocyte esterase det ection by dipstickOrdered By: Noy Staples on 05-03-2023 Leukocyte esterase Test strip Ql (U) 100 /ul Negative [facility] Urine pHOrdered By: Noy briseno on 05-03-2023 pH (U) 6.5 [pH] 5.0 - 8.0 [facility] Urine sediment bacteria coun t by microscopy (number/high power field)Ordered By: Noy Staples on 05-03-2023 Bacteria LM.HPF (Urine sed) [#/Area] 0 /[HPF] None Seen [facility] Urine specific gravity measu rementOrdered By: Noy Staples on 05-03-2023 Specific gravity (U) [Rel density] 1.010 1.002-1.030 [facility] Urobilinogen Auto test strip Ql (U)Ordered By: Noy Staples on 05-03-2023 Urobilinogen Ql (U) Normal mg/dl Normal [facility] ANES POSTPROC EVALon 023 ANES POSTPROC EVAL HNO ID: [id number] Author: Juan Sofia MD Service: Anesthesiology Author Type: Physician Type: Anesthesia Postprocedure Evaluation Filed: 04/23/2023 10:29 AM Note Text: POST ANESTHESIA EVALUATION NOTE : 1960 Procedure Summary Date: 04/22/23 Room / Location: [place] OR 19 / [place] Anesthesia Start: 1247 Anesthesia Stop: 1333 Procedures: CYSTOSCOPY (Bladder) TURP COMPLETE (Prostate) Diagnosis: BPH with obstruction/lower urinary tract symptoms (BPH with obstruction/lower urinary tract symptoms [N40.1, N13.8]) Surgeons: Dave Stuart MD Responsible Provider: Juan Sofia MD Anesthesia Type: general ASA Status: 3 Anesthesia Type: general Airway Type: LMA Last Vitals Vitals Value Taken Time BP 114/82 04/22/231999 Temp 36.3 ?C (97.3 ?F) 04/22/231999 HR SpO2 70 04/22/232014 Resp 17 04/22/232014 SpO2 96 % 04/22/232014 Post Anesthesia Patient Status Patient Evaluation: bedside. Neurological Status: aware and responsive. Pulmonary Status: breathing comfortably on supplemental oxygen Airway Control: returned to baseline unsupported. Cardiovascular Status: stable. Pain Management: clinically adequate Postoperative Hydration: acceptable. Intraoperative Events: no significant anesthesia events Post Operative Nausea/Vomiting Status: no significant post operative nausea or vomiting Recommendation: continue current plan of care. Anesthesia Observations No Documentation SIGNATURE: Juan Sofia MD PATIENT NAME: Ricardo Gannon DATE: April 23, 2023 TIME: 10:29 AM CSN: [id number] [facility] 04-23-2023 [facility] HNO ID: [id number] Author: Dave Stuart MD Service: Urology Author Type: Physician Type: Discharge Summary Filed: 04/23/2023 9:23 AM Note Text: DISCHARGE NOTE (Patient Admitted Less than 48 Hours) SERVICE DATE: 04/23/2023 SERVICE TIME: 8:46 AM ADMISSION DATE: 04/22/2023 DISCHARGE DISPOSITION: Home with Self Care Prostatic utricle s/p TURP/unroofing of prostatic utricle 04/22. Was kept overnight for observation and for administration of 1 dose of ertapenem on the morning of POD1. Patient was discharged with martinez in place. DIET: Regular ACTIVITY AFTER DISCHARGE: Resume pre-hospital activity FOLLOW UP CARE REQUIRED: Urology for martinez removal DISCHARGE MEDICATIONS: Medication List CONTINUE taking these medications Cholecalciferol (Vitamin D3) 50 mcg (2,000 unit) Cap Methenamine Hippurate 1 gram tablet Commonly known as: HIPREX nitrofurantoin macrocrystal 50 mg capsule Commonly known as: MACRODANTIN Take 1 capsule by mouth as directed for 30 doses. Take 1 tab PO as directed NORVASC ORAL SIMVASTATIN ORAL Tadalafil 5 mg tablet Commonly known as: CIALIS Take 1 tablet by mouth once daily. VITAMIN C ORAL FINAL DIAGNOSIS: prostatic utricle Plan of care discussed with Provider, RN, Patient SIGNATURE: Jessie Murray MD PATIENT NAME: Ricardo Gannon DATE: April 23, 2023 TIME: 8:46 AM [facility] ANES PRE-OPon 04-22-2023 ANES PRE-OP HNO ID: [id number] Author: Juan Sofia MD Service: Anesthesiology Author Type: Physician Type: Anesthesia Preprocedure Evaluation Filed: 04/22/2023 11:44 AM Note Text: ANESTHESIOLOGY DAY OF SURGERY NOTE : 1960 Procedure Information Date/Time: 04/22/23 1130 Procedures: CYSTOSCOPY (Bladder) TURP COMPLETE (Prostate) Location: [place] OR 19 / [place] Surgeons: Dave Stuart MD Estimated body mass index is 25.18 kg/m? as calculated from the following: Height as of 04/07/23: 167.6 cm (5' 6). Weight as of 04/07/23: 70.8 kg (156 lb). Most recent hematocrit and potassium results: Hematocrit 38.5 12/08/2013 Potassium 4.9 01/03/2014 Relevant Problems CARDIO (+) Hypertension I - PHYSICAL EVALUATION AIRWAY Patient intubated: No. Tracheostomy tube not present Mallampati: II. TM distance: >3 FB. Neck ROM: full ROM without neurological symptoms. Mouth opening: adequate. Short neck: no. Thick neck: no DENTAL Dental findings: teeth intact. Additional exam findings: no II - ANESTHESIA PLAN ASA Score: 3 Anesthetic Plan: general Airway type: LMA NPO Status: adequate Beta [place]ana Monitoring Plan Monitoring plan: standard ASA. Post Procedure Analgesic Plan Postoperative analgesic plan: parenteral or oral opioids. Informed Consent Anesthetic risks, benefits, alternatives, personnel and consent discussed: yes. Patient / Responsible Republican agrees to proceed: yes Patient / Surrogate agrees to blood products: blood products not planned DNR status not reviewed with patient and/or family prior to surgery. Significant changes in the patient condition since the History and Physical, not otherwise documented in primary service progress note: no. Potential Anesthesia issues that may suggest increased risk of complications or contraindication to planned procedure: none. Vitals Value Taken Time BP 126/84 04/22/23 1008 Pulse 66 04/22/23 1008 Resp 18 04/22/23 1008 Temp 36.4 ?C (97.5 ?F) 04/22/23 1008 SpO2 100 % 04/22/23 1008 Facility-Administere d Medications as of 04/22/2023 Medication Dose Route Frequency - lidocaine 10 mg/mL (1 %) 1-2 mg injection (XYLOCAINE) 0.1-0.2 mL INTRADERMAL PRN - lactated ringers iv infusion 5-30 mL/hr INTRAVENOUS CONTINUOUS - NaCl 0.9% iv flush bag 20 mL INTRAVENOUS PRN - ertapenem 1 g in NaCl 0.9% 100 mL Vial-Bag (INVanz) 1 g INTRAVENOUS ONCE Outpatient Medications as of 04/22/2023 Medication Sig - nitrofurantoin macrocrystal (MACRODANTIN) 50 mg capsule Take 1 capsule by mouth as directed for 30 doses. Take 1 tab PO as directed (Patient taking differently: Take 100 mg by mouth once daily. Take 1 tab PO as directed) - Cholecalciferol, Vitamin D3, 50 mcg (2,000 unit) cap Take by mouth. - AMLODIPINE BESYLATE (NORVASC ORAL) Take by mouth. - SIMVASTATIN ORAL Take 20 mg by mouth once daily. - Tadalafil (CIALIS) 5 mg tablet Take 1 tablet by mouth once daily. I have interviewed and examined the patient. I have reviewed the medical record and/or the pre-anesthesia evaluation, pertinent labs, and test results. This contains updated information obtained within 48 hours of Surgery/Procedure. SIGNATURE: Juan Sofia MD PATIENT NAME: Ricardo Gannon DATE: April 22, 2023 TIME: 11:43 AM CSN: [id number] [facility] OPERATIVE NOon 04-22-2023 OPERATIVE NO HNO ID: [id number] Author: Dave Stuart MD Service: Urology Author Type: Physician Type: Operative Report Filed: 04/23/2023 7:12 AM Note Text: UROLOGY OPERATIVE/PROCEDURE REPORT LOG ID: [id number] Surgery/Procedure Date: 04/22/2023 Incision/Procedure Start Time: 1:00 PM Incision Close/Procedure End Time: 1:23 PM Surgeon(s)/Procedura list(s) and Autom[employer] General Manager(s): Surgeon(s) and Role: * Dave Stuart MD - Primary * Prem Dowling MD - Resident - Assisting No Additional Staff Procedure(s): Cystoscopy, Transurethral resection of prostate- bipolar, unroofing of prostatic utricle Anesthesia: General Pre-Op/Pre-Procedure Diagnosis: prostatic utricle, recurrent urosepsis Post-Op/Post-Procedu re Diagnosis: Same Estimated Blood Loss: <20cc Specimens: prostate chips Implantable Devices: None Drains: 24F martinez Complications: None Procedure Details: Indications This is a 63 year old pt who presents with a history of prostatic utricle and recurrent sepsis from urinary origin. After a thorough discussion of his risks, benefits and treatment options he does wish to proceed forward with surgical intervention. Operation Patient was brought to the operating room. Patient was placed on OR table, secured with a safety strap, and anesthesia induced. Airways and lines were maintained by anesthesia team. Patient was placed into dorsal lithotomy position. Pressure points were padded. Prepped and draped in usual sterile fashion. A timeout was completed confirming the correct patient, procedure, medications, positioning, prior to beginning the procedure. All present were in agreement. A 26 F continuous flow resectoscope sheath was inserted through the male urethra using the visual obturator. The entire bladder was inspected using a 30 degree angled lens. The prostatic urethra had no significant obstruction, but a high bladder neck and a short length prostatic fossa. Bilateral ureteral orifices were in normal anatomic position, well away from the bladder neck. Using the bipolar loop, the floor of the the resection was done deeply along the floor until the prostatic utricle was unroofed. Prostate was resected carefully. This was begun starting at the bladder neck working distally to the verumontanum. Starting at the 6 o'clock position this was done to create a trough. Care was taken to avoid resection distally to the verumontanum to avoid injury to the external urethral sphincter. The utricle was marsupialized and completely unroofed. There was cloudy appearing urine that drained from this. Hemostasis was maintained during the procedure using the cautery function. After achieving hemostasis the bladder was irrigated and all debris was evacuated from the bladder. On re-inspection, any bleeding was point cauterized until hemostasis was excellent. There was noted to be a steep angle from the verumontanum up to the bladder, due to the prostatic utricle. The resectoscope was withdrawn and a 24 F 3-way martinez catheter with 30 ml balloon was inserted. A catheter guide was required for martinez placement due to the steep angle created body utricle and tissue irritation from the resection. The bladder was irrigated and the urine found to be light pink/ clear. The patient tolerated the procedure well and was transported to the recovery room. At the end of the case all counts were correct. The primary surgeon/proceduralis t performed the procedure with assistance. SIGNATURE: Prem Dowling MD PATIENT NAME: Ricardo Gannon DATE: April 22, 2023 TIME: 2:57 PM PAGER/CONTACT #: I performed procedure with assistance from my resident Dave Stuart MD [facility] SURGICAL PATHOLOGYon CASE REPORT [facility] Comment on above: Order Comment: Speci men Type: TISSUE SPECIMEN Ordering Facility: [facility] Address: [address] [place] [address] Result Comment: Surg ica Pathology Report Case: [id number] Authorizing Provider: Dave Stuart, Collected: 04/22/2023 01:17 PM Ordering Location: [facility] Received: 04/23/2023 06:38 AM Pathologist: Matias Garcia DO Specimen: PROSTATE TISSUE (CHIPS), prostate chips Performed By: #### S #### [facility] CLIA [id number] [address] [place] [address] [place] CLINICAL HISTORY Normal [facility] Comment on above: Order Comment: Speci men Type: TISSUE SPECIMEN Ordering Facility: [facility] Address: [address] [place] [address] Result Comment: Pre- op diagnosis: BPH with obstruction/lower urinary tract symptoms [N40.1, N13.8] Performed By: #### S #### [facility] CLIA [id number] [address] [place] [address] FINAL DIAGNOSIS Normal [facility] Comment on above: Order Comment: Speci men Type: TISSUE SPECIMEN Ordering Facility: [facility] Address: [address] [place] [address] Result Comment: Nathaniel chance, transurethral resection: - Benign prostatic tissue. Performed By: #### S #### [facility] CLIA [id number] [address] [place] [address] FINAL PERFORMING LAB Normal [facility] Comment on above: Order Comment: Speci men Type: TISSUE SPECIMEN Ordering Facility: [facility] Address: [address] [place] [address] Result Comment: Diag nostic interpretation performed at [facility], [address] [place] [address] CLIA# [id number] Negotiator Sales: Noy Duran M.D. Performed By: #### S #### [facility] CLIA [id number] [address] [place] [address] GROSS DESCRIPTION Normal [facility] Comment on above: Order Comment: Speci men Type: TISSUE SPECIMEN Ordering Facility: [facility] Address: [address] [place] [address] Result Comment: Nathaniel CHANCE TISSUE (CHIPS) Received in formalin labeled prostate tissue chips are multiple irregular cunningham-pink rubbery tissue fragments weighing 2 g and aggregating to 3 x 2.5 x 0.4 cm. The specimen is submitted entirely in A1-A2. Gross examination performed at [facility], [address] [place] [address] CLIA#[id number] [facility] [address] April 23, 2023 10:00 AM Performed By: #### S #### [facility] CLIA [id number] [address] [place] Absolute lymphocyte countOrd ered By: Noy Staples on 04-14-2023 Lymphocytes Auto (Unsp spec) [#/Vol] 2.01 10*3/uL 0.83-4.51 [facility] Basophil percentageOrdered B y: Noy Staples on 04-14-2023 Basophil percentage 0 SEEN /hpf 0-5 [facility] Basophils/100 WBC (Bld) 1.1 % 0-1 [facility] Bilirubin [Mass/Vol] 0.30 mg/dL 0.20-1.00 [facility] Comment on above: For patients on eltr ombopag therapy, use of Dimension [place] TBIL is not recommended. Chloride [Moles/Vol] 106 mmol/L 98-107 [facility] Eosinophils/100 WBC (Bld) 0.8 % 0-5 [facility] Glucose [Mass/Vol] 121 mg/dL 74-106 [facility] Comment on above: Fasting Glucose resu lt from 100 to 125 mg/dL suggests IMPAIRED HOMEOSTASIS per A.D.A. criteria. Neutrophils (Bld) [#/Vol] 2.1 10*3/uL 2.0-7.7 [facility] Neutrophils/100 WBC (Bld) 44.4 % 47-70 [facility] Potassium [Moles/Vol] 3.8 mmol/L 3.5-5.1 [facility] Protein [Mass/Vol] 7.5 g/dL 6.4-8.2 [facility] Sodium [Moles/Vol] 136 mmol/L 136-145 [facility] WBC (Bld) [#/Vol] 4.7 10*3/uL 4.4-11.0 [facility] Bilirubin Test strip Ql (U)O rdered By: Noy Staples on 04-14-2023 Bilirubin Ql (U) Negative Negative [facility] Blood erythrocytes count (nu mber/volume)Ordered By: Noy Staples on 04-14-2023 RBC (Bld) [#/Vol] 4.53 10*6/uL 4.6-6.2 [facility] Blood hemoglobin measurement (mass/volume)Ordered By: Noy Staples on 04-14-2023 Hemoglobin (Bld) [Mass/Vol] 14.1 g/dL 13.0-16.5 [facility] Blood lymphocytes/100 leukoc ytesOrdered By: Noy Staples on 04-14-2023 Lymphocytes/100 WBC (Bld) 42.7 % 19-41 [facility] Blood monocytes/100 leukocyt esOrdered By: Noy Staples on 04-14-2023 Monocytes/100 WBC (Bld) 10.8 % 0-10 [facility] Blood platelet mean volumeOr dered By: Noy Staples on 04-14-2023 Platelet mean volume (Bld) [Entitic vol] 10.1 fL 6.2-12.0 [facility] Culture, urineOrdered By: Madhav Staples on 04-14-2023 Bacteria identified Cx Nom (U) Culture exhibits no growth. [facility] Determination of erythrocyte mean corpuscular volume (MCV)Ordered By: Noy Staples on 04-14-2023 MCV (RBC) [Entitic vol] 97.1 fL 80-94 [facility] Hematocrit Auto (Bld) [Volum e fraction]Ordered By: Noy Staples on 04-14-2023 Hematocrit (Bld) [Volume fraction] 44.0 % 40-54 [facility] Ketones Test strip Ql (U)Ord ered By: Noy Staples on 04-14-2023 Ketones Ql (U) Negative Negative [facility] Laboratory - Chemistry and C hemistry - challengeOrdered By: Noy Staples on 04-14-2023 ALP [Catalytic activity/Vol] 124 U/L 45-117 [facility] ALT [Catalytic activity/Vol] 26 U/L 16-61 [facility] CO2 [Moles/Vol] 25.0 mmol/L 21.0-32.0 [facility] Globulin (S) [Mass/Vol] 3.9 g/dL 2.2-4.2 [facility] Urea nitrogen/Creatinine [Mass ratio] 12.9 mg/mg 10-20 [facility] Laboratory - Hematology and Cell countsOrdered By: Noy Staples on 04-14-2023 Erythrocyte distribution width (RBC) [Entitic vol] 44.0 fL 35.1-43.9 [facility] Erythrocyte distribution width (RBC) [Ratio] 12.2 % 11.6-14.6 [facility] Immature granulocytes/100 WBC (Bld) 0.200 % 0.0-0.9 [facility] Comment on above: IG% - Immature Granu locytes (promyelocytes, myelocytes and metamyelocytes) > 1% indicates that a LEFT SHIFT is Present. MCH (RBC) [Entitic mass] 31.1 pg 27.0-32.0 [facility] Nucleated RBC/100 WBC (Bld) [Ratio] 0 % 0-5 [facility] MCHC Auto (RBC) [Mass/Vol]Or dered By: Noy Staples on 04-14-2023 MCHC (RBC) [Mass/Vol] 32.0 g/dL 32-36 [facility] Mucus LM Ql (Urine sed)Order ed By: Noy Staples on 04-14-2023 Mucus Ql (Urine sed) 0 SEEN /hpf [facility] Nitrite Test strip Ql (U)Ord ered By: Noy Staples on 04-14-2023 Nitrite Ql (U) Negative Negative [facility] No Panel InformationOrdered By: Noy Staples on 04-14-2023 Estimated GFR (MDRD) Amer 59 mL/min >60 [facility] Comment on above: GFR Calc Estimated GFR (MDRD) Non-Af Amer 49 mL/min >60 [facility] Comment on above: Non- GFR Calc Platelets bldOrdered By: Nabila Staples on 04-14-2023 Platelets (Bld) [#/Vol] 199 10*3/uL 150-450 [facility] Protein Test strip Ql (U)Ord ered By: Noy Staples on 04-14-2023 Protein Ql (U) 15 mg/dl Negative [facility] Serum or plasma albumin kaitlin urement (mass/volume)Ordered By: Noy Staples on 04-14-2023 Albumin [Mass/Vol] 3.6 g/dL 3.2-5.0 [facility] Serum or plasma albumin/glob ulin mass ratioOrdered By: Noy Staples on 04-14-2023 Albumin/Globulin [Mass ratio] 0.9 {ratio} 0.9-2.4 [facility] Serum or plasma calcium kaitlin urement (mass/volume)Ordered By: Noy Staples on 04-14-2023 Calcium [Mass/Vol] 9.2 mg/dL 8.5-10.1 [facility] Serum or plasma creatinine m easurement (mass/volume)Ordered By: Noy Staples on 04-14-2023 Creatinine [Mass/Vol] 1.55 mg/dL 0.70-1.30 [facility] Comment on above: The validity of the calculated GFR & GFRAA in patients over 70 years has not been determined. Clinical correlation is essential. Serum or plasma urea nitroge n measurement (mass/volume)Ordered By: Noy Staples on 04-14-2023 Urea nitrogen [Mass/Vol] 20 mg/dL 7-18 [facility] Squamous epithelial cells de tection in urine sediment by light microscopyOrdered By: Noy Staples on 04-14-2023 Epithelial cells.squamous LM Ql (Urine sed) 0 SEEN /hpf 0-5 [facility] Thin prep Papanicolaou smear with manual screeningOrdered By: Noy Staples on 04-14-2023 Thin prep Papanicolaou smear with manual screening 19 U/L 15-37 [facility] Thin prep Papanicolaou smear with manual screening 5 5-15 [facility] Urine blood detectionOrdered By: Noy Staples on 04-14-2023 RBC Ql (U) 250 /ul Negative [facility] RBC Ql (U) 25-50 SEEN /hpf 0-5 [facility] Urine clarityOrdered By: Nabila Staples on 04-14-2023 Clarity (U) Clear Clear [facility] Urine color determinationOrd ered By: Noy Staples on 04-14-2023 Color (U) Yellow Yellow [facility] Urine glucose detectionOrder ed By: Noy Staples on 04-14-2023 Glucose Ql (U) Normal mg/dl Normal [facility] Urine leukocyte esterase det ection by dipstickOrdered By: Noy Staples on 04-14-2023 Leukocyte esterase Test strip Ql (U) Negative Negative [facility] Urine pHOrdered By: Noy briseno on 04-14-2023 pH (U) 6.0 [pH] 5.0 - 8.0 [facility] Urine sediment bacteria coun t by microscopy (number/high power field)Ordered By: Noy Staples on 04-14-2023 Bacteria LM.HPF (Urine sed) [#/Area] 0 /[HPF] None Seen [facility] Urine specific gravity measu rementOrdered By: Noy Staples on 04-14-2023 Specific gravity (U) [Rel density] 1.015 1.002-1.030 [facility] Urobilinogen Auto test strip Ql (U)Ordered By: Noy Staples on 04-14-2023 Urobilinogen Ql (U) Normal mg/dl Normal [facility] CNPNon 04-12-2023 CNPN Telephone (AKURFL) RICARDO GANNON ([id number]) 1960 M Date Time Provider Department 04/12/23 DAVE STUART AKURF During your visit today, we recorded the following information about you: Melody Dupree 04/12/2023 4:40 PM Signed Pt had MRI Fusion prostate Bx last week. Also has TURP scheduled for next week, 04/22/23. Please advise if okay to proceed with TURP based on Bx results. Thanks, Melody Morales 04/13/2023 9:31 AM Signed Pt notified of below. Pt to do preop labs tomorrow. Postop with Lucie scheduled for 05/27/22 @ 3:00. Melody Dupree Allergies As of Date: 04/12/2023 (No Known Allergies) Date Reviewed: 04/07/2023 Reviewed by: Diana Crowder, JULIA - Fully Assessed Reason for Visit: Results [95] Prescriptions as of 04/13/2023 - ascorbic acid (VITAMIN C ORAL) Take 1,000 mg by mouth. - Methenamine Hippurate (HIPREX) 1 gram tablet Take 1 g by mouth two times a day with meals. - nitrofurantoin macrocrystal (MACRODANTIN) 50 mg capsule Take 1 capsule by mouth as directed for 30 doses. Take 1 tab PO as directed - fosfomycin (MONUROL) 3 g pack - cefdinir (OMNICEF) 300 mg capsule Take 1 capsule by mouth twice daily. - cefdinir (OMNICEF) 300 mg capsule - Cholecalciferol, Vitamin D3, 50 mcg (2,000 unit) cap Take by mouth. - Tadalafil (CIALIS) 5 mg tablet Take 1 tablet by mouth once daily. - AMLODIPINE BESYLATE (NORVASC ORAL) Take by mouth. - SIMVASTATIN ORAL Take 20 mg by mouth once daily. Problem List As Of Date 04/12/2023 Noted Resolved Preop examination [Z01.818] 04/07/2023 Prostate mass [N42.89] 04/07/2023 Hypertension [I10] 04/07/2023 Hyperlipidemia [E78.5] 04/07/2023 BPH with obstruction/lower urinary tract sympto*04/08/2023 Encounter Status:Closed by MELODY DUPREE on 04/13/23 [facility] HISTORY PHYSICALon 3 HISTORY PHYSICAL HNO ID: [id number] Author: Cheri Murray MD Service: Urology Author Type: Physician Type: HANDP Filed: 04/07/2023 12:17 PM Note Text: UPDATED HISTORY AND PHYSICAL EXAMINATION SERVICE DATE: 04/07/2023 SERVICE TIME: 12:17 PM PHYSICAL EXAM MUST BE COMPLETED ON ADMISSION The History and Physical (completed in the past 30 days) has been reviewed and the patient has been examined. The contents accurately reflect the patient's condition with the following additions or revisions since the HANDP was completed. Examination indicates no changes. This HANDP can be found in the Electronic Medical Record dated 04/07. SIGNATURE: Cheri Murray MD PATIENT NAME: Ricardo Gannon DATE: April 07, 2023 TIME: 12:17 PM PAGER: [facility] HISTORY PHYSICAL HNO ID: [id number] Author: Noy Zafar PA Service: Anesthesiology Author Type: Physician Automotive General Manager Type: HANDP Filed: 04/07/2023 11:39 AM Note Text: HISTORY AND PHYSICAL EXAMINATION SERVICE DATE: 04/07/2023 SERVICE TIME: 11:34 AM PRIMARY CARE PHYSICIAN: Noy Staples MD REASON FOR VISIT: The reason for this visit is To perform a comprehensive review of the patients past medical history, assess their current health status and obtain any additional testing required based on anesthesia guidelines. To assess and identify potential anesthesia problems, particularly those that may suggest potential complications or contraindications to the planned procedure. The patient has the following: ACTIVE PROBLEM LIST Preop Examination Prostate Mass Hypertension Hyperlipidemia Subjective CHIEF COMPLAINT: Preoperative Examination HPI: Patient presents for Procedure(s): BIOPSY PROSTATE (N/A) MRI FUSION PROSTATE BIOPSY (N/A). Pt states a lesion was discovered on MRI on his prostate. Pt denies urinary frequency, urgency, nocturia, dysuria, hematuria. Patient denies any other problems or concerns at this time. Risks and benefits of the procedure discussed by Surgeon and patient agreed to proceed with planned procedure. METS: Climb a flight of stairs or walk up a hill (5.50 METs) Patient denies any CP/SOB with above activity. PAST MEDICAL HISTORY Diagnosis Date Acute prostatitis Encounter for prostate cancer screening Hypertension Male stress incontinence Malignant neoplasm of left kidney, except renal pelvis (HCC) Unspecified disorder of prostate PAST SURGICAL HISTORY Procedure Laterality Date PAST SURGICAL HISTORY OF 2013 left total nephrectomy VASECTOMY UNI/BI SPX W/POSTOP SEMEN EXAMS FAMILY HISTORY Problem Relation Age of Onset Hypertension Mother Stroke Mother Hypertension Father SOCIAL HISTORY: Social History Tobacco Use Smoking status: Never Smokeless tobacco: Never Substance Use Topics Alcohol use: No Drug use: No Prior to Admission medications as of 04/07/23 1137 Medication Sig Last Dose Taking ascorbic acid (VITAMIN C ORAL) Take 1,000 mg by mouth. Yes Methenamine Hippurate (HIPREX) 1 gram tablet Take 1 g by mouth two times a day with meals. Yes nitrofurantoin macrocrystal (MACRODANTIN) 50 mg capsule Take 1 capsule by mouth as directed for 30 doses. Take 1 tab PO as directed Patient taking differently: Take 100 mg by mouth once daily. Take 1 tab PO as directed Yes Cholecalciferol, Vitamin D3, 50 mcg (2,000 unit) cap Take by mouth. Yes AMLODIPINE BESYLATE (NORVASC ORAL) Take by mouth. 04/07/2023 at 0600 Yes SIMVASTATIN ORAL Take 20 mg by mouth once daily. 04/07/2023 at 0600 Yes fosfomycin (MONUROL) 3 g pack cefdinir (OMNICEF) 300 mg capsule Take 1 capsule by mouth twice daily. cefdinir (OMNICEF) 300 mg capsule Tadalafil (CIALIS) 5 mg tablet Take 1 tablet by mouth once daily. No medication comments found. ALLERGIES No Known Allergies REVIEW OF SYSTEMS: PAIN ASSESSMENT: Pain Pain Level: 0 Pain Assessment: Assessment Tool: Verbal (Numeric Rating or Visual Analog Scale) General: (-) fever, chills, and unexpected weight change. Neuro: (-) dizziness and headaches. Respiratory: (-) SOB. Cardiovascular: (+) HTN, HLD. (-) CP and palpitations. GI: (-) abdominal pain, N/V/D/C. : See HPI. Endocrine: (-) diabetes, thyroid conditions. Hematology: (-) history of bleeding or clotting disorder, autoimmune disorders. Psych: (-) anxiety/depression. Musculoskeletal: (-) joint pain and swelling. Skin: (-) open sores and rashes. Objective PHYSICAL EXAM: VITALS: BP 130/83 Pulse 72 Temp (Src) 96.8 (Temporal) Resp 16 Ht 5' 6 (1.68m) Wt 156 lb (70.8kg) SpO2 100% BMI 25.19 kg/(m2). O2 Therapy: Room Air General: NAD. Cooperative. Skin: Skin is warm, no rashes, and no open sores. HEENT: Normocephalic. Cardiovascular: Normal S1 AND S2. No murmur. Lungs: CTA Bilaterally. No respiratory distress. Abdomen: Soft. Pos BS x4quad Extremities: No edema. Neurological: Alert and oriented to person, place, and time. Pulses: radial pulses +2 Diagnostic tests reviewed for today's visit: Lab Value Units Date High Low HB No results within date range. HCT No results within date range. WBC No results within date range. PLT No results within date range. NA No results within date range. K No results within date range. GLUC No results within date range. BUN No results within date range. CREAT No results within date range. PTSEC No results within date range. INR No results within date range. APTT No results within date range. ALT No results within date range. AST No results within date range. TBILI No results within date range. TSH No results within date range. Lab Value Units Date High Low HCGQT No results within date range. UHCG No results within date range. HCG, BODY* No results with (more content not included)... Normal [facility] OPERATIVE NOon 04-07-2023 OPERATIVE NO HNO ID: [id number] Author: Cheri Murray MD Service: Urology Author Type: Physician Type: Operative Report Filed: 04/07/2023 12:50 PM Note Text: MRI Fusion Biopsy of Prostate/transrectal Buckley S Jagdeep a 63 year old. 04/07/2023 LOG ID: [id number] INCISION/PROCEDURE START TIME: 12:33 PM INCISION CLOSE/PROCEDURE END TIME: 12:41 PM Preop Dx:prostate mass Post op Dx: same Procedure: MRI fusion biopsy of the prostate Surgeon: Cheri Murray MD SURGEON(S)/PROCEDURA LIST(S) AND HOME CARE ADMINISTRATOR(S): Surgeon(s) and Role: * Cheri Murray MD - Primary No Additional Staff Anesthesia: local ESTIMATED BLOOD LOSS: < 5 cc SPECIMENS: prostate bxs COMPLICATIONS: None Procedure: History and Physical reviewed and is unchanged. . ALLERGIES No Known Allergies Informed Consent Discussed: Yes. Risks, benefits, alternatives and personnel discussed with patient who consents to proceed. Discussed RBAPC. Antibiotics given pre-operatively: Yes, Levaquin 500 mg po, Tobramycin 120 mg IM on arrival Huddle was performed in standard fashion and pt taken back to OR Pt placed in Lt lateral decubitus position Audible time out was performed. PSA (no units) Date Value 09/16/2019 1.20 PROSTATE ULTRASOUND/TRUS MEDICATIONS: 10 ml 1% Plain Xylocaine ghada prostatic nerve block given: Yes The prostate sonogram was obtained via transrectal approach. The gland is slightly enlarged, measuring 28cc. There is a homogeneous echo pattern throughout the prostate gland. Utricle cyst midline noted Echogenic foci within the gland consistant with clacifications were noted. There is no focal lesion within the pereferal zone of the prostate gland. MRI/US fusion/guided biopsies: The MRI image was viewed on the UroNav unit and the the image was fused to US image in standard fashion. There are 1 lesion noted on the MRI: the biopsy needle is passed using this guidence Lesion 1--6 biopsies taken Prostate biopsies taken from the site below using ultrasound guidance 1.) RIGHT BASE: 1 2.) RIGHT MID: 1 3.) RIGHT APEX: 1 4.) LEFT BASE: 1 5.) LEFT MID: 1 6.) LEFT APEX: 1 POST PROCEDURE: Pt taken to recovery room and will f/u as planned Cheri Murray MD Normal [facility] SURGICAL PATHOLOGYon 023 CASE REPORT [facility] Comment on above: Order Comment: Speci men Type: TISSUE SPECIMENOrdering Facility: [facility] Address: [address] [place] [address] Result Comment: Surg [facility] Pathology Report Case: [id number] Authorizing Provider: Cheri Murray MD Collected: 04/07/2023 11:30 AM Ordering Location: [facility] Draw Station Received: 04/09/2023 08:26 AM Pathologist: Arturo Godinez MD Specimens: A) - PROSTATE, BIOPSY, RIGHT LATERAL BASE, right lateral base B) - PROSTATE, BIOPSY, RIGHT LATERAL MID, right lateral mid C) - PROSTATE, BIOPSY, RIGHT LATERAL APEX, right lateral apex D) - PROSTATE, BIOPSY, LEFT LATERAL BASE, left lateral base E) - PROSTATE, BIOPSY, LEFT LATERAL MID, left lateral mid F) - PROSTATE, BIOPSY, LEFT LATERAL APEX, left lateral apex G) - PROSTATE NEEDLE BIOPSY RIGHT, lesion #1 Performed By: #### S ####[facility] LABORATORYCLIA [id number] [address] CLINICAL HISTORY Other specified disorders of prostate Normal [facility] Comment on above: Order Comment: Speci men Type: TISSUE SPECIMENOrdering Facility: [facility] Address: [address] [place] [address] Performed By: #### S ####[facility] LABORATORYCLIA [id number] [address] DIAGNOSIS COMMENT Part G was reviewed by Dr. Stephanie Cervantes, who agrees with this assessment. Normal [facility] Comment on above: Order Comment: Speci men Type: TISSUE SPECIMENOrdering Facility: [facility] Address: [address] [place] [address] Performed By: #### S ####[facility] LABORATORYCLIA [id number] [address] FINAL DIAGNOSIS Normal [facility] Comment on above: Order Comment: Speci men Type: TISSUE SPECIMENOrdering Facility: [facility] Address: [address] [place] [address] Result Comment: A. P rostate, right lateral base, biopsy: - Benign prostatic tissue. B. Prostate, right lateral mid, biopsy: - Benign prostatic tissue. C. Prostate, right lateral apex, biopsy: - Benign prostatic tissue. D. Prostate, left lateral base, biopsy: - Benign prostatic tissue. E. Prostate, left lateral mid, biopsy: - Benign prostatic tissue. F. Prostate, left lateral apex, biopsy: - Benign prostatic tissue. G. Prostate, right lesion #1, biopsy: - Focal high-grade prostatic intraepithelial neoplasia, (see comment). Performed By: #### S ####[facility] LABORATORYIA [id number] [address] FINAL PERFORMING LAB Normal [facility] Comment on above: Order Comment: Speci men Type: TISSUE SPECIMENOrdering Facility: [facility] Address: [address] [place] [address] Result Comment: Diag nostic interpretation performed at [facility], [address] [place] [address] CLIA# [id number] Negotiator Sales: Noy Duran M.D. Performed By: #### S ####[facility] LABORATORYIA [id number] [address] GROSS DESCRIPTION Normal [facility] Comment on above: Order Comment: Speci men Type: TISSUE SPECIMENOrdering Facility: [facility] Address: [address] [place] [address] Result Comment: A. P ROSTATE, BIOPSY, RIGHT LATERAL BASE Received in formalin labeled right lateral base is one cylindrical tissue measuring 1.5 x 0.1 x 0.1 cm, cunningham and of a soft and friable consistency. Totally submitted in in one cassette. B. PROSTATE, BIOPSY, RIGHT LATERAL MID Received in formalin labeled right lateral mid is one cylindrical tissue measuring 1.6 x 0.1 x 0.1 cm, cunningham and of a soft and friable consistency. Totally submitted in in one cassette. C. PROSTATE, BIOPSY, RIGHT LATERAL APEX Received in formalin labeled right lateral apex is one cylindrical tissue measuring 1.5 x 0.1 x 0.1 cm, cunningham and of a soft and friable consistency. Totally submitted in in one cassette. D. PROSTATE, BIOPSY, LEFT LATERAL BASE Received in formalin labeled left lateral base is one cylindrical tissue measuring 2 x 0.1 x 0.1 cm, cunningham and of a soft and friable consistency. Totally submitted in in one cassette. E. PROSTATE, BIOPSY, LEFT LATERAL MID Irina received in formalin labeled left lateral mid is one cylindrical tissue measuring 2.1 x 0.1 x 0.1 cm, cunningham and of a soft and friable consistency. Totally submitted in in one cassette. F. PROSTATE, BIOPSY, LEFT LATERAL APEX Received in formalin labeled left lateral apex is one fragmented cylindrical tissue measuring 1.8 x 0.1 x 0.1 cm, cunningham and of a soft and friable consistency. Totally submitted in in one cassette. G. PROSTATE NEEDLE BIOPSY RIGHT Received in formalin labeled prostate needle biopsy right lesion #1 are 6 segments of cylindrical tissue ranging in length from 1.7 -2.5 and averaging 0.1 cm in diameter, cunningham and of a soft and friable consistency. Totally submitted in formalin in 2 cassettes. Gross examination performed at [facility], [address] [place] [address] CLIA# [id number] April 09, 2023 12:21 PM Performed By: #### S ####[facility] LABORATORYCLIA [id number] [place] [id number] [facility] Jose Eduardo 03-25-2023 CNPN Telephone (AKMARYJANE) RICARDO [id number]) 1960 M Date Time Provider Department 03/25/23 CHERI MURRAY During your visit today, we recorded the following information about you: Melody Dupree 03/25/2023 1:25 PM Signed Pt is scheduled for MRI Fusion Bx LOCAL with Dr Murray at [facility] on 04/07/23 @ 2:50 (1:20 arrival). Pt given date, time, prep and arrival instructions over the phone on 03/15/23. Melody Morales 04/05/2023 2:03 PM Signed Pt notified of time change for Bx on 04/07/23. Pt wants to make sure that his antibiotic will be IV Invanz- states he has antibiotic resistance and will not do the procedure without that antibiotic. Melody Dupree Allergies As of Date: 03/25/2023 (No Known Allergies) Date Reviewed: 03/24/2023 Reviewed by: Carol Diaz APRN.ENGINE SETTER - Fully Assessed Reason for Visit: Surgery Scheduled [Other] Prescriptions as of 04/05/2023 - Methenamine Hippurate (HIPREX) 1 gram tablet Take 1 g by mouth two times a day with meals. - nitrofurantoin macrocrystal (MACRODANTIN) 50 mg capsule Take 1 capsule by mouth as directed for 30 doses. Take 1 tab PO as directed - fosfomycin (MONUROL) 3 g pack - cefdinir (OMNICEF) 300 mg capsule Take 1 capsule by mouth twice daily. - cefdinir (OMNICEF) 300 mg capsule - Cholecalciferol, Vitamin D3, 50 mcg (2,000 unit) cap Take by mouth. - Tadalafil (CIALIS) 5 mg tablet Take 1 tablet by mouth once daily. - AMLODIPINE BESYLATE (NORVASC ORAL) Take by mouth. - SIMVASTATIN ORAL Take 20 mg by mouth once daily. Problem List As Of Date: 03/25/2023 (None) Encounter Status:Closed by MELODY DUPREE on 03/25/23 [facility] Jose Eduardo 03-19-2023 [place] Telephone (BEATRIZ) RICARDO GANNON ([id number]) 1960 M Date Time Provider Department 03/19/23 DAVE STUART During your visit today, we recorded the following information about you: Melody Dupree 03/19/2023 10:48 AM Signed Pt's BELEM [place] with Dr Stuart at [facility] rescheduled to 04/22/23 @ 11:15 (9:15 arrival). PAT and labs on 04/09/23 @ 11:20 at [place]. Follow up with Lucie on 05/26/22 @ 11:30. Pt given date, time, prep and arrival instructions in person on 02/20/23. Melody Morales 04/16/2023 9:51 AM Signed Pt had his preop labs done at [facility]- received faxed results for CBC, CMP, urinalysis. I called the lab and spoke with Christi. They will run the culture and fax results to us. Order faxed to [facility]. Melody Dupree Allergies As of Date: 03/19/2023 (No Known Allergies) Date Reviewed: 03/12/2023 Reviewed by: Stacey Gonzalez CMA - Fully Assessed Reason for Visit: Surgery Rescheduled [Other] Prescriptions as of 04/16/2023 - ascorbic acid (VITAMIN C ORAL) Take 1,000 mg by mouth. - Methenamine Hippurate (HIPREX) 1 gram tablet Take 1 g by mouth two times a day with meals. - nitrofurantoin macrocrystal (MACRODANTIN) 50 mg capsule Take 1 capsule by mouth as directed for 30 doses. Take 1 tab PO as directed - fosfomycin (MONUROL) 3 g pack - cefdinir (OMNICEF) 300 mg capsule Take 1 capsule by mouth twice daily. - cefdinir (OMNICEF) 300 mg capsule - Cholecalciferol, Vitamin D3, 50 mcg (2,000 unit) cap Take by mouth. - Tadalafil (CIALIS) 5 mg tablet Take 1 tablet by mouth once daily. - AMLODIPINE BESYLATE (NORVASC ORAL) Take by mouth. - SIMVASTATIN ORAL Take 20 mg by mouth once daily. Problem List As Of Date: 03/19/2023 (None) Encounter Status:Closed by MELODY DUPREE on 03/19/23 [facility] CNOVon 03-12-2023 CNOV Office Visit (AKURFL) RICARDO GANNON ([id number]) 1960 M Date Time Provider Department 03/12/23 11:15 AM DAVE STUART During your visit today, we recorded the following information about you: Weight Height 73.5 kg 1.676 m Dave Stuart MD 03/12/2023 12:29 PM Signed ESTABLISHED PATIENT VISIT HPI Ricardo Gannon is a 63 year old male who presents with recurrent UTI, ESBL E. Coli Ertapenem sensitive Has a prostatic utricle and original plan was to do a limited TUR to unroofed and opened the prostate at the utricle to try to decrease risk of future infection Patient ended up going to [facility] for a second opinion and a follow-up MRI demonstrated a PI-RADS 4 lesion PSMA PET scan demonstrated mild uptake in the prostate and some uptake in the ribs. PSA is only 1.3 During today's visit I introduced patient to Dr. Murray and discussed MRI fusion biopsy We will put TURP on hold until fusion biopsy is performed Patient Entered Questionnaires PROMIS Global Health Percentiles provide an indication of how the patient's score ranks in relation to the general population. Higher percentile rankings indicate better function/quality of life. 50th percentile is the average of the general population and indicates half of respondents had a worse score. Creatinine Date Value Ref Range Status 01/03/2014 1.67 (H) 0.67 - 1.17 mg/dL Final PSA (no units) Date Value 09/16/2019 1.20 10/08/2018 0.70 11/25/2017 0.63 Color (no units) Date Value 12/15/2012 YELLOW Glucose, Urine (mg/dL) Date Value 07/23/2017 neg Bilirubin, Urine (no units) Date Value 07/23/2017 neg Ketones, Urine (no units) Date Value 07/23/2017 neg Specific [place], Ur (no units) Date Value 07/23/2017 1.020 Hemoglobin/Blood,Ur (no units) Date Value 07/23/2017 trace pH, Urine (no units) Date Value 07/23/2017 6.0 Protein, Urine (mg/dL) Date Value 07/23/2017 neg Nitrites (no units) Date Value 07/23/2017 neg Leukocytes Esterase (no units) Date Value 12/15/2012 NEGATIVE 24HR Urine Studies: No results for input(s): LUPH, LUCAL, LUCIT, LUOXA, LUURIC, LUVOL, LSCAO, LSCAP, LSURIC, LUCL, EVANGELIST, CARTER, LUUREA, LUAM, LUMAG, LUPHOS, LUPCR, LUCREA, LUCRKBW, LUCAKBW, LUCACREA, LUCREACL, LWK, LUSUL in the last [id number] hours. REVIEW OF SYSTEMS Review of Systems Constitutional: Negative for chills, fatigue, fever and unexpected weight change. HENT: Negative for sore throat and trouble swallowing. Eyes: Negative for visual disturbance. Respiratory: Negative for shortness of breath and wheezing. Cardiovascular: Negative for chest pain and leg swelling. Gastrointestinal: Negative for abdominal pain, blood in stool, diarrhea and nausea. Endocrine: Positive for polyuria. Genitourinary: Negative for difficulty urinating, dysuria, enuresis, flank pain, frequency, hematuria and urgency. Nocturia Musculoskeletal: Negative for back pain. Skin: Negative for rash. Neurological: Negative for dizziness and headaches. Hematological: Does not bruise/bleed easily. Psychiatric/Behavior al: Negative for behavioral problems and confusion. Review of system, history including past medical history, surgical history, family history and social history reviewed and confirmed by me. HISTORIES PAST MEDICAL HISTORY Diagnosis Date Acute prostatitis Encounter for prostate cancer screening Hypertension Male stress incontinence Malignant neoplasm of left kidney, except renal pelvis (HCC) Unspecified disorder of prostate PAST SURGICAL HISTORY Procedure Laterality Date VASECTOMY UNI/BI SPX W/POSTOP SEMEN EXAMS FAMILY HISTORY Problem Relation Age of Onset Hypertension Mother Stroke Mother Hypertension Father SOCIAL HISTORY Social History Tobacco Use Smoking status: Never Smokeless tobacco: Never Substance Use Topics Alcohol use: No Drug use: No MEDICATIONS: nitrofurantoin macrocrystal (MACRODANTIN) 50 mg capsule Take 1 capsule by mouth as directed for 30 doses. Take 1 tab PO as directed fosfomycin (MONUROL) 3 g pack cefdinir (OMNICEF) 300 mg capsule Take 1 capsule by mouth twice daily. cefdinir (OMNICEF) 300 mg capsule Cholecalciferol, Vitamin D3, 50 mcg (2,000 unit) cap Take by mouth. Tadalafil (CIALIS) 5 mg tablet Take 1 tablet by mouth once daily. AMLODIPINE BESYLATE (NORVASC ORAL) Take by mouth. SIMVASTATIN ORAL Take by mouth. PHYSICAL EXAMINATION General appearance: Well appearing, alert, in no acute distress, and well-hydrated, well nourished ASSESSMENT/PLAN: 1. Hypertrophy of prostate with urinary obstruction - ICD9: 600.01, 599.69, ICD10: N40.1, N13.8 (primary diagnosis) 2. Prostate mass - ICD9: 602.8, ICD10: N42.89 Discussed risk benefits and alternatives to MRI fusion biopsy. He will need erta (more content not included)... Normal [facility] Basophil percentageOrdered B y: Noy Staples on 12-17-2022 Bilirubin [Mass/Vol] 0.40 mg/dL 0.20-1.00 [facility] Comment on above: For patients on eltr ombopag therapy, use of Dimension [place] TBIL is not recommended. Chloride [Moles/Vol] 105 mmol/L 98-107 [facility] Glucose [Mass/Vol] 103 mg/dL 74-106 [facility] Comment on above: Fasting Glucose resu lt from 100 to 125 mg/dL suggests IMPAIRED HOMEOSTASIS per A.D.A. criteria. Potassium [Moles/Vol] 4.0 mmol/L 3.5-5.1 [facility] Protein [Mass/Vol] 7.7 g/dL 6.4-8.2 [facility] Sodium [Moles/Vol] 139 mmol/L 136-145 [facility] Culture, urineOrdered By: Madhav Staples on 12-17-2022 Bacteria identified Cx Nom (U) Culture exhibits no growth. [facility] - Chemistry and C hemistry - challengeOrdered By: Noy Staples on 12-17-2022 ALP [Catalytic activity/Vol] 106 U/L 45-117 [facility] ALT [Catalytic activity/Vol] 26 U/L 16-61 [facility] CO2 [Moles/Vol] 26.0 mmol/L 21.0-32.0 [facility] Globulin (S) [Mass/Vol] 4.2 g/dL 2.2-4.2 [facility] Urea nitrogen/Creatinine [Mass ratio] 15.7 mg/mg 10-20 [facility] No Panel InformationOrdered By: Noy Staples on 12-17-2022 Estimated GFR (MDRD) Amer 74 mL/min >60 [facility] Comment on above: GFR Calc Estimated GFR (MDRD) Non-Af Amer 61 mL/min >60 [facility] Comment on above: Non- GFR Calc Prostate Specific Antigen Total 3.57 ng/mL 0.0-4.0 [facility] Comment on above: This test was perfor med using the TPSA assay method for theYaphie chemistry system. Values obtained with differentassay methods cannot be used interchangably.When changing PSA assays in the course of monitoring apatient, additional sequential testing should be carriedout to confirm baseline values. Serum or plasma C reactive p rotein measurement (mass/volume)Ordered By: Noy Staples on 12-17-2022 CRP [Mass/Vol] mg/L 0.0-3.0 [facility] Comment on above: C-Reactive Protein ( CRP) provides useful information for thediagnosis, therapy and monitoring of inflammatory processesand associated diseases. For the evaluation of Relative Riskfor Cardiovascular Disease, a High Sensitivity CRP (HSCRP)should be ordered. Serum or plasma albumin kaitlin urement (mass/volume)Ordered By: Noy Staples on 12-17-2022 Albumin [Mass/Vol] 3.5 g/dL 3.2-5.0 [facility] Serum or plasma albumin/glob ulin mass ratioOrdered By: Noy Staples on 12-17-2022 Albumin/Globulin [Mass ratio] 0.8 {ratio} 0.9-2.4 [facility] Serum or plasma calcium kaitlin urement (mass/volume)Ordered By: Noy Staples on 12-17-2022 Calcium [Mass/Vol] 9.1 mg/dL 8.5-10.1 [facility] Serum or plasma creatinine m easurement (mass/volume)Ordered By: Noy Staples on 12-17-2022 Creatinine [Mass/Vol] 1.27 mg/dL 0.70-1.30 [facility] Comment on above: The validity of the calculated GFR & GFRAA in patients over 70 years has not been determined. Clinical correlation is essential. Serum or plasma urea nitroge n measurement (mass/volume)Ordered By: Noy Staples on 12-17-2022 Urea nitrogen [Mass/Vol] 20 mg/dL 7-18 [facility] Thin prep Papanicolaou smear with manual screeningOrdered By: Noy Staples on 12-17-2022 Thin prep Papanicolaou smear with manual screening 16 U/L 15-37 [facility] Thin prep Papanicolaou smear with manual screening 8 5-15 [facility] Culture, urineOrdered By: Madhav Staples on 12-09-2022 Bacteria identified Cx Nom (U) Culture exhibits no growth. [facility] Basophil percentageOrdered B y: Noy Staples on 12-02-2022 Chloride [Moles/Vol] 106 mmol/L 98-107 [facility] Glucose [Mass/Vol] 99 mg/dL 74-106 [facility] Potassium [Moles/Vol] 4.1 mmol/L 3.5-5.1 [facility] Sodium [Moles/Vol] 137 mmol/L 136-145 [facility] - Chemistry and C hemistry - challengeOrdered By: Noy Staples on 12-02-2022 CO2 [Moles/Vol] 25.0 mmol/L 21.0-32.0 [facility] Urea nitrogen/Creatinine [Mass ratio] 9.4 mg/mg 10-20 [facility] No Panel InformationOrdered By: Noy Staples on 12-02-2022 Estimated Creatinine Clearance Calc 55.38 ml/min [facility] Estimated GFR (MDRD) Amer 74 mL/min >60 [facility] Comment on above: GFR Calc Estimated GFR (MDRD) Non-Af Amer 61 mL/min >60 [facility] Comment on above: Non- GFR Calc Prostate Specific Antigen Total 15.60 ng/mL 0.0-4.0 [facility] Comment on above: This test was perfor med using the TPSA assay method for theYaphie chemistry system. Values obtained with differentassay methods cannot be used interchangably.When changing PSA assays in the course of monitoring apatient, additional sequential testing should be carriedout to confirm baseline values. Serum or plasma C reactive p rotein measurement (mass/volume)Ordered By: Noy Staples on 12-02-2022 CRP [Mass/Vol] 23.60 mg/L 0.0-3.0 [facility] Comment on above: C-Reactive Protein ( CRP) provides useful information for thediagnosis, therapy and monitoring of inflammatory processesand associated diseases. For the evaluation of Relative Riskfor Cardiovascular Disease, a High Sensitivity CRP (HSCRP)should be ordered. Serum or plasma calcium kaitlin urement (mass/volume)Ordered By: Noy Staples on 12-02-2022 Calcium [Mass/Vol] 9.2 mg/dL 8.5-10.1 [facility] Serum or plasma creatinine m easurement (mass/volume)Ordered By: Noy Staples on 12-02-2022 Creatinine [Mass/Vol] 1.28 mg/dL 0.70-1.30 [facility] Comment on above: The validity of the calculated GFR & GFRAA in patients over 70 years has not been determined. Clinical correlation is essential. Serum or plasma urea nitroge n measurement (mass/volume)Ordered By: Noy Staples on 12-02-2022 Urea nitrogen [Mass/Vol] 12 mg/dL 7-18 [facility] Thin prep Papanicolaou smear with manual screeningOrdered By: Noy Staples on 12-02-2022 Thin prep Papanicolaou smear with manual screening 6 5-15 [facility] Basophil percentageOrdered B y: Noy Staples on 11-27-2022 Basophil percentage 0-5 SEEN /hpf 0-5 [facility] Bilirubin Test strip Ql (U)O rdered By: Noy Staples on 07-14-2023 Bilirubin Ql (U) Negative Negative [facility] Culture, urineOrdered By: Madhav Staples on 11-27-2022 Bacteria identified Cx Nom (U) ESBL Escherichia coli [facility] Ketones Test strip Ql (U)Ord ered By: Noy Staples on 11-27-2022 Ketones Ql (U) 5 mg/dl Negative [facility] Mucus LM Ql (Urine sed)Order ed By: Noy Staples on 11-27-2022 Mucus Ql (Urine sed) 0 SEEN /hpf [facility] Nitrite Test strip Ql (U)Ord ered By: Noy Staples on 11-27-2022 Nitrite Ql (U) Negative Negative [facility] Protein Test strip Ql (U)Ord ered By: Noy Staples on 11-27-2022 Protein Ql (U) Negative Negative [facility] Squamous epithelial cells de tection in urine sediment by light microscopyOrdered By: Noy Staples on 11-27-2022 Epithelial cells.squamous LM Ql (Urine sed) 0 SEEN /hpf 0-5 [facility] Urine blood detectionOrdered By: Noy Staples on 11-27-2022 RBC Ql (U) 10 /ul Negative [facility] RBC Ql (U) 0-5 SEEN /hpf 0-5 [facility] Urine clarityOrdered By: Nabila Staples on 11-27-2022 Clarity (U) Clear Clear [facility] Urine color determinationOrd ered By: Noy Staples on 11-27-2022 Color (U) Yellow Yellow [facility] Urine glucose detectionOrder ed By: Noy Stalpes on 11-27-2022 Glucose Ql (U) Normal mg/dl Normal [facility] Urine leukocyte esterase det ection by dipstickOrdered By: Noy Staples on 11-27-2022 Leukocyte esterase Test strip Ql (U) 100 /ul Negative [facility] Urine pHOrdered By: Noy briseno on 11-27-2022 pH (U) 7.0 [pH] 5.0 - 8.0 [facility] Urine sediment bacteria coun t by microscopy (number/high power field)Ordered By: Noy Staples on 11-27-2022 Bacteria LM.HPF (Urine sed) [#/Area] 0 /[HPF] None Seen [facility] Urine specific gravity measu rementOrdered By: Noy Staples on 11-27-2022 Specific gravity (U) [Rel density] 1.005 1.002-1.030 [facility] Urobilinogen Auto test strip Ql (U)Ordered By: Noy Staples on 11-27-2022 Urobilinogen Ql (U) Normal mg/dl Normal [facility] Absolute lymphocyte countOrd ered By: Noy Staples on 10-20-2022 Lymphocytes Auto (Unsp spec) [#/Vol] 2.06 10*3/uL 0.83-4.51 [facility] Basophil percentageOrdered B y: Noy Staples on 10-20-2022 Basophil percentage 0 SEEN /hpf 0-5 [facility] Basophils/100 WBC (Bld) 1.3 % 0-1 [facility] Eosinophils/100 WBC (Bld) 1.3 % 0-5 [facility] Neutrophils (Bld) [#/Vol] 1.3 10*3/uL 2.0-7.7 [facility] Neutrophils/100 WBC (Bld) 33.0 % 47-70 [facility] WBC (Bld) [#/Vol] 3.9 10*3/uL 4.4-11.0 [facility] Bilirubin [Mass/Vol] 0.80 mg/dL 0.20-1.00 [facility] Comment on above: For patients on eltr ombopag therapy, use of Dimension [place] TBIL is not recommended. Chloride [Moles/Vol] 107 mmol/L 98-107 [facility] Cholesterol [Mass/Vol] 205 mg/dL <200 [facility] Comment on above: <200 mg/dL Desirable 200-240 mg/dL Borderline >240 mg/dL High Risk Glucose [Mass/Vol] 96 mg/dL 74-106 [facility] Potassium [Moles/Vol] 3.8 mmol/L 3.5-5.1 [facility] Protein [Mass/Vol] 7.8 g/dL 6.4-8.2 [facility] Sodium [Moles/Vol] 137 mmol/L 136-145 [facility] Triglyceride [Mass/Vol] 65 mg/dL <199 [facility] Comment on above: The drugs N-Acetylcy steine and Metamizole may falsely depress this assay.Serum Triglycerides Reference Interval Normal <150 mg/dL Borderline high 150 - 199 mg/dL High 200 - 499 mg/dL Very High > or = 500 mg/dL Bilirubin Test strip Ql (U)O rdered By: Noy Staples on 10-20-2022 Bilirubin Ql (U) Negative Negative [facility] Blood erythrocytes count (nu mber/volume)Ordered By: Noy Staples on 10-20-2022 RBC (Bld) [#/Vol] 4.89 10*6/uL 4.6-6.2 [facility] Blood hemoglobin measurement (mass/volume)Ordered By: Noy Staples on 10-20-2022 Hemoglobin (Bld) [Mass/Vol] 15.5 g/dL 13.0-16.5 [facility] Blood lymphocytes/100 leukoc ytesOrdered By: Noy Staples on 10-20-2022 Lymphocytes/100 WBC (Bld) 53.0 % 19-41 [facility] Blood monocytes/100 leukocyt esOrdered By: Noy Staples on 10-20-2022 Monocytes/100 WBC (Bld) 11.1 % 0-10 [facility] Blood platelet mean volumeOr dered By: Noy Staples on 10-20-2022 Platelet mean volume (Bld) [Entitic vol] 9.8 fL 6.2-12.0 [facility] Determination of erythrocyte mean corpuscular volume (MCV)Ordered By: Noy Staples on 10-20-2022 MCV (RBC) [Entitic vol] 95.5 fL 80-94 [facility] Hematocrit Auto (Bld) [Volum e fraction]Ordered By: Noy tSaples on 10-20-2022 Hematocrit (Bld) [Volume fraction] 46.7 % 40-54 [facility] Ketones Test strip Ql (U)Ord ered By: Noy Staples on 10-20-2022 Ketones Ql (U) Negative Negative [facility] - Chemistry and C hemistry - challengeOrdered By: Noy Staples on 10-20-2022 ALP [Catalytic activity/Vol] 79 U/L 45-117 [facility] ALT [Catalytic activity/Vol] 27 U/L 16-61 [facility] CO2 [Moles/Vol] 27.0 mmol/L 21.0-32.0 [facility] Globulin (S) [Mass/Vol] 4.0 g/dL 2.2-4.2 [facility] Urea nitrogen/Creatinine [Mass ratio] 9.6 mg/mg 10-20 [facility] - Hematology and Cell countsOrdered By: Noy Staples on 10-20-2022 Erythrocyte distribution width (RBC) [Entitic vol] 42.4 fL 35.1-43.9 [facility] Erythrocyte distribution width (RBC) [Ratio] 12.0 % 11.6-14.6 [facility] Immature granulocytes/100 WBC (Bld) 0.300 % 0.0-0.9 [facility] Comment on above: IG% - Immature Granu locytes (promyelocytes, myelocytes and metamyelocytes) > 1% indicates that a LEFT SHIFT is Present. MCH (RBC) [Entitic mass] 31.7 pg 27.0-32.0 [facility] Nucleated RBC/100 WBC (Bld) [Ratio] 0 % 0-5 [facility] MCHC Auto (RBC) [Mass/Vol]Or dered By: Noy Staples on 10-20-2022 MCHC (RBC) [Mass/Vol] 33.2 g/dL 32-36 [facility] Mucus LM Ql (Urine sed)Order ed By: Noy Staples on 10-20-2022 Mucus Ql (Urine sed) 0 SEEN /hpf [facility] Nitrite Test strip Ql (U)Ord ered By: Noy Staples on 10-20-2022 Nitrite Ql (U) Negative Negative [facility] No Panel InformationOrdered By: Noy Staples on 10-20-2022 Parathyroid Hormone (Intact) 93.2 pg/mL 18.4-80.1 [facility] Urine Microalbumin/Creatinine Ratio 8.0 mg/g CRE <30 [facility] Vitamin D 25-Hydroxy 33.6 ng/mL [facility] Comment on above: Vitamin D 25(OH) Sta tus Range Deficiency <20 ng/mL (50nmol/L) Insufficiency 20 - 30 ng/mL (50 - 75 nmol/L) Sufficiency 30 - 100 ng/mL (75 - 250 nmol/L) Toxicity >100 ng/mL (>250 nmol/L) Estimated GFR (MDRD) Amer 69 mL/min >60 [facility] Comment on above: GFR Calc Estimated GFR (MDRD) Non-Af Amer 57 mL/min >60 [facility] Comment on above: Non- GFR Calc Prostate Specific Antigen Total 0.97 ng/mL 0.0-4.0 [facility] Comment on above: This test was perfor med using the TPSA assay method for theYaphie chemistry system. Values obtained with differentassay methods cannot be used interchangably.When changing PSA assays in the course of monitoring apatient, additional sequential testing should be carriedout to confirm baseline values. Platelets bldOrdered By: Nabila Staples on 10-20-2022 Platelets (Bld) [#/Vol] 184 10*3/uL 150-450 [facility] Protein Test strip Ql (U)Ord ered By: Noy Staples on 10-20-2022 Protein Ql (U) Negative Negative [facility] Serum or plasma albumin kaitlin urement (mass/volume)Ordered By: Noy Staples on 10-20-2022 Albumin [Mass/Vol] 3.8 g/dL 3.2-5.0 [facility] Serum or plasma albumin/glob ulin mass ratioOrdered By: Noy Staples on 10-20-2022 Albumin/Globulin [Mass ratio] 1.0 {ratio} 0.9-2.4 [facility] Serum or plasma calcium kaitlin urement (mass/volume)Ordered By: Noy Staples on 10-20-2022 Calcium [Mass/Vol] 9.2 mg/dL 8.5-10.1 [facility] Serum or plasma cholesterol in HDL measurement (mass/volume)Ordered By: Noy Staples on 10-20-2022 Cholesterol in HDL [Mass/Vol] 85 mg/dL >40 [facility] Comment on above: The drugs N-Acetylcy steine and Metamizole may falsely depress this assay. Reference Range HDL <40 mg/dL Low HDL Cholesterol HDL >or= 60 mg/dL High HDL Cholesterol Serum or plasma cholesterol in VLDL measurement (mass/volume)Ordered By: Noy Staples on 10-20-2022 Cholesterol in VLDL [Mass/Vol] 13 mg/dL 5-40 [facility] Serum or plasma creatinine m easurement (mass/volume)Ordered By: Noy Staples on 10-20-2022 Creatinine [Mass/Vol] 1.35 mg/dL 0.70-1.30 [facility] Comment on above: The validity of the calculated GFR & GFRAA in patients over 70 years has not been determined. Clinical correlation is essential. Serum or plasma low density lipoprotein (LDL) cholesterol measurement (mass/volume)Ordered By: Noy Staples on 10-20-2022 Cholesterol in LDL [Mass/Vol] 107 mg/dL 0-130 [facility] Serum or plasma urea nitroge n measurement (mass/volume)Ordered By: Noy Staples on 10-20-2022 Urea nitrogen [Mass/Vol] 13 mg/dL 7-18 [facility] Squamous epithelial cells de tection in urine sediment by light microscopyOrdered By: Noy Staples on 10-20-2022 Epithelial cells.squamous LM Ql (Urine sed) 0 SEEN /hpf 0-5 [facility] Thin prep Papanicolaou smear with manual screeningOrdered By: Noy Staples on 10-20-2022 Thin prep Papanicolaou smear with manual screening 5.8 mg/L NO RANGE EST. [facility] Thin prep Papanicolaou smear with manual screening 22 U/L 15-37 [facility] Thin prep Papanicolaou smear with manual screening 3 5-15 [facility] Urine blood detectionOrdered By: Noy Staples on 10-20-2022 RBC Ql (U) Negative Negative [facility] RBC Ql (U) 0 SEEN /hpf 0-5 [facility] Urine clarityOrdered By: Nabila Staples on 10-20-2022 Clarity (U) Clear Clear [facility] Urine color determinationOrd ered By: Noy Staples on 10-20-2022 Color (U) Yellow Yellow [facility] Urine creatinine measurement (mass/volume)Ordered By: Noy Staples on 10-20-2022 Creatinine (U) [Mass/Vol] 73.30 mg/dL NO RANGE EST. [facility] Urine glucose detectionOrder ed By: Noy Staples on 10-20-2022 Glucose Ql (U) Normal mg/dl Normal [facility] Urine leukocyte esterase det ection by dipstickOrdered By: Noy Staples on 10-20-2022 Leukocyte esterase Test strip Ql (U) Negative Negative [facility] Urine pHOrdered By: Noy briseno on 10-20-2022 pH (U) 7.0 [pH] 5.0 - 8.0 [facility] Urine sediment bacteria coun t by microscopy (number/high power field)Ordered By: Noy Staples on 10-20-2022 Bacteria LM.HPF (Urine sed) [#/Area] 0 /[HPF] None Seen [facility] Urine specific gravity measu rementOrdered By: Noy Staples on 10-20-2022 Specific gravity (U) [Rel density] 1.010 1.002-1.030 [facility] Urobilinogen Auto test strip Ql (U)Ordered By: Noy Staples on 10-20-2022 Urobilinogen Ql (U) Normal mg/dl Normal [facility] Basophil percentageon 2021 Basophil percentage 5-10 SEEN /hpf 0-5 [facility] Work Phone: Bilirubin Test strip Ql (U)o n 02-09-2022 Bilirubin Ql (U) Negative Negative [facility] Work Phone: Ketones Test strip Ql (U)on 02-09-2022 Ketones Ql (U) Negative Negative [facility] Work Phone: Mucus LM Ql (Urine sed)on Mucus Ql (Urine sed) 0 SEEN /hpf [facility] Work Phone: Nitrite Test strip Ql (U)on 02-09-2022 Nitrite Ql (U) Negative Negative [facility] Work Phone: Protein Test strip Ql (U)on 02-09-2022 Protein Ql (U) Negative Negative [facility] Work Phone: Squamous epithelial cells de tection in urine sediment by light microscopyon 02-09-2022 Epithelial cells.squamous LM Ql (Urine sed) 0 SEEN /hpf 0-5 [facility] Work Phone: Urine blood detectionon 01-16 RBC Ql (U) 25 /ul Negative [facility] Work Phone: RBC Ql (U) 0 SEEN /hpf 0-5 [facility] Work Phone: Urine clarityon 02-09-2022 Clarity (U) Clear Clear [facility] Work Phone: Urine color determinationon 02-09-2022 Color (U) Straw Yellow [facility] Work Phone: Urine glucose detectionon Glucose Ql (U) Normal mg/dl Normal [facility] Work Phone: Urine leukocyte esterase det ection by dipstickon 02-09-2022 Leukocyte esterase Test strip Ql (U) 500 /ul Negative [facility] Work Phone: Urine pHon 02-09-2022 pH (U) 7.0 [pH] 5.0 - 8.0 [facility] Work Phone: Urine sediment bacteria coun t by microscopy (number/high power field)on 02-09-2022 Bacteria LM.HPF (Urine sed) [#/Area] 0 /[HPF] None Seen [facility] Work Phone: Urine specific gravity measu rementon 02-09-2022 Specific gravity (U) [Rel density] 1.010 1.002-1.030 [facility] Work Phone: Urobilinogen Auto test strip Ql (U)on 02-09-2022 Urobilinogen Ql (U) Normal mg/dl Normal [facility] Work Phone: Basophil percentageon 2021 Basophil percentage 5-10 SEEN /hpf 0-5 [facility] Work Phone: Bilirubin Test strip Ql (U)o n 11-30-2021 Bilirubin Ql (U) Negative Negative [facility] Work Phone: Ketones Test strip Ql (U)on 11-30-2021 Ketones Ql (U) Negative Negative [facility] Work Phone: Mucus LM Ql (Urine sed)on Mucus Ql (Urine sed) 0 SEEN /hpf [facility] Work Phone: Nitrite Test strip Ql (U)on 11-30-2021 Nitrite Ql (U) Negative Negative [facility] Work Phone: Protein Test strip Ql (U)on 11-30-2021 Protein Ql (U) Negative Negative [facility] Work Phone: Squamous epithelial cells de tection in urine sediment by light microscopyon 11-30-2021 Epithelial cells.squamous LM Ql (Urine sed) 0 SEEN /hpf 0-5 [facility] Work Phone: Urine blood detectionon 11-14 RBC Ql (U) 150 /ul Negative [facility] Work Phone: RBC Ql (U) 0 SEEN /hpf 0-5 [facility] Work Phone: Urine clarityon 11-30-2021 Clarity (U) Clear Clear [facility] Work Phone: Urine color determinationon 11-30-2021 Color (U) Straw Yellow [facility] Work Phone: Urine glucose detectionon Glucose Ql (U) Normal mg/dl Normal [facility] Work Phone: Urine leukocyte esterase det ection by dipstickon 11-30-2021 Leukocyte esterase Test strip Ql (U) 500 /ul Negative [facility] Work Phone: Urine pHon 11-30-2021 pH (U) 7.0 [pH] 5.0 - 8.0 [facility] Work Phone: Urine sediment bacteria coun t by microscopy (number/high power field)on 11-30-2021 Bacteria LM.HPF (Urine sed) [#/Area] 1 /[HPF] None Seen [facility] Work Phone: Urine specific gravity measu rementon 11-30-2021 Specific gravity (U) [Rel density] 1.005 1.002-1.030 [facility] Work Phone: Urobilinogen Auto test strip Ql (U)on 11-30-2021 Urobilinogen Ql (U) Normal mg/dl Normal [facility] Work Phone: Basophil percentageon 2021 Bilirubin [Mass/Vol] 0.60 mg/dL 0.20-1.00 [facility] Work Phone: Comment on above: For patients on eltr ombopag therapy, use of Dimension [place] TBIL is not recommended. Chloride [Moles/Vol] 107 mmol/L 98-107 [facility] Work Phone: Glucose [Mass/Vol] 102 mg/dL 74-106 [facility] Work Phone: Comment on above: Fasting Glucose resu lt from 100 to 125 mg/dL suggests IMPAIRED HOMEOSTASIS per A.D.A. criteria. Potassium [Moles/Vol] 3.8 mmol/L 3.5-5.1 [facility] Work Phone: Protein [Mass/Vol] 7.6 g/dL 6.4-8.2 [facility] Work Phone: Sodium [Moles/Vol] 139 mmol/L 136-145 [facility] Work Phone: WBC (Bld) [#/Vol] 3.3 10*3/uL 4.4-11.0 [facility] Work Phone: Blood erythrocytes count (nu mber/volume)on 11-05-2021 RBC (Bld) [#/Vol] 4.69 10*6/uL 4.6-6.2 [facility] Work Phone: Blood hemoglobin measurement (mass/volume)on 11-05-2021 Hemoglobin (Bld) [Mass/Vol] 14.4 g/dL 13.0-16.5 [facility] Work Phone: Blood platelet mean volumeon 11-05-2021 Platelet mean volume (Bld) [Entitic vol] 9.7 fL 6.2-12.0 [facility] Work Phone: Determination of erythrocyte mean corpuscular volume (MCV)on 11-05-2021 MCV (RBC) [Entitic vol] 92.5 fL 80-94 [facility] Work Phone: Direct bilirubinon Bilirubin.direct [Mass/Vol] 0.17 mg/dL 0.00-0.30 [facility] Work Phone: Erythrocyte sedimentation ra dot 11-05-2021 ESR (Bld) [Velocity] 17 mm/h 0-20 [facility] Work [facility]: Hematocrit Auto (Bld) [Volum e fraction]on 11-05-2021 Hematocrit (Bld) [Volume fraction] 43.4 % 40-54 [facility] Work Phone: Laboratory - Chemistry and C hemistry - challengeon 11-05-2021 ALP [Catalytic activity/Vol] 81 U/L 45-117 [facility] Work Phone: ALT [Catalytic activity/Vol] 26 U/L 16-61 [facility] Work Phone: CO2 [Moles/Vol] 25.0 mmol/L 21.0-32.0 [facility] Work Phone: Globulin (S) [Mass/Vol] 4.0 g/dL 2.2-4.2 [facility] Work Phone: Urea nitrogen/Creatinine [Mass ratio] 8.5 mg/mg 10-20 [facility] Work Phone: Laboratory - Hematology and Cell countson 11-05-2021 Erythrocyte distribution width (RBC) [Entitic vol] 42.4 fL 35.1-43.9 [facility] Work Phone: Erythrocyte distribution width (RBC) [Ratio] 12.5 % 11.6-14.6 [facility] Work Phone: MCH (RBC) [Entitic mass] 30.7 pg 27.0-32.0 [facility] Work Phone: MCHC Auto (RBC) [Mass/Vol]on 11-05-2021 MCHC (RBC) [Mass/Vol] 33.2 g/dL 32-36 [facility] Work Phone: No Panel Informationon 11-05 Estimated GFR (MDRD) Amer 73 mL/min >60 [facility] Work Phone: Comment on above: GFR Calc Estimated GFR (MDRD) Non-Af Amer 60 mL/min >60 [facility] Work Phone: Comment on above: Non- GFR Calc Platelets bldon 11-05-2021 Platelets (Bld) [#/Vol] 196 10*3/uL 150-450 [facility] Work Phone: Serum or plasma albumin kaitlin urement (mass/volume)on 11-05-2021 Albumin [Mass/Vol] 3.6 g/dL 3.2-5.0 [facility] Work Phone: Serum or plasma calcium kaitlin urement (mass/volume)on 11-05-2021 Calcium [Mass/Vol] 9.1 mg/dL 8.5-10.1 [facility] Work Phone: Serum or plasma creatinine m easurement (mass/volume)on 11-05-2021 Creatinine [Mass/Vol] 1.30 mg/dL 0.70-1.30 [facility] Work Phone: Comment on above: The validity of the calculated GFR & GFRAA in patients over 70 years has not been determined. Clinical correlation is essential. Serum or plasma urea nitroge n measurement (mass/volume)on 11-05-2021 Urea nitrogen [Mass/Vol] 11 mg/dL 7-18 [facility] Work Phone: Thin prep Papanicolaou smear with manual screeningon 11-05-2021 Thin prep Papanicolaou smear with manual screening 16 U/L 15-37 [facility] Work Phone: Thin prep Papanicolaou smear with manual screening 7 5-15 [facility] Work Phone: Basophil percentageon 2021 Bilirubin [Mass/Vol] 0.40 mg/dL 0.20-1.00 [facility] Work Phone: Comment on above: For patients on eltr ombopag therapy, use of Dimension [place] TBIL is not recommended. Chloride [Moles/Vol] 109 mmol/L 98-107 [facility] Work Phone: Glucose [Mass/Vol] 102 mg/dL 74-106 [facility] Work Phone: Comment on above: Fasting Glucose resu lt from 100 to 125 mg/dL suggests IMPAIRED HOMEOSTASIS per A.D.A. criteria. Potassium [Moles/Vol] 3.9 mmol/L 3.5-5.1 [facility] Work Phone: Protein [Mass/Vol] 7.0 g/dL 6.4-8.2 [facility] Work Phone: Sodium [Moles/Vol] 141 mmol/L 136-145 [facility] Work Phone: WBC (Bld) [#/Vol] 3.0 10*3/uL 4.4-11.0 [facility] Work Phone: Blood erythrocytes count (nu mber/volume)on 10-29-2021 RBC (Bld) [#/Vol] 4.35 10*6/uL 4.6-6.2 [facility] Work Phone: Blood hemoglobin measurement (mass/volume)on 10-29-2021 Hemoglobin (Bld) [Mass/Vol] 13.6 g/dL 13.0-16.5 [facility] Work Phone: Blood platelet mean volumeon 10-29-2021 Platelet mean volume (Bld) [Entitic vol] 9.3 fL 6.2-12.0 [facility] Work Phone: Determination of erythrocyte mean corpuscular volume (MCV)on 10-29-2021 MCV (RBC) [Entitic vol] 94.3 fL 80-94 [facility] Work Phone: Direct bilirubinon Bilirubin.direct [Mass/Vol] 0.12 mg/dL 0.00-0.30 [facility] Work Phone: Erythrocyte sedimentation ra dot 10-29-2021 ESR (Bld) [Velocity] 12 mm/h 0-20 [facility] Work Phone: Hematocrit Auto (Bld) [Volum e fraction]on 10-29-2021 Hematocrit (Bld) [Volume fraction] 41.0 % 40-54 [facility] Work Phone: Laboratory - Chemistry and C hemistry - challengeon 10-29-2021 ALP [Catalytic activity/Vol] 82 U/L 45-117 [facility] Work Phone: ALT [Catalytic activity/Vol] 23 U/L 16-61 [facility] Work Phone: CO2 [Moles/Vol] 27.0 mmol/L 21.0-32.0 [facility] Work Phone: Globulin (S) [Mass/Vol] 3.6 g/dL 2.2-4.2 [facility] Work Phone: Urea nitrogen/Creatinine [Mass ratio] 9.6 mg/mg 10-20 [facility] Work Phone: Laboratory - Hematology and Cell countson 10-29-2021 Erythrocyte distribution width (RBC) [Entitic vol] 43.0 fL 35.1-43.9 [facility] Work Phone: Erythrocyte distribution width (RBC) [Ratio] 12.2 % 11.6-14.6 [facility] Work Phone: MCH (RBC) [Entitic mass] 31.3 pg 27.0-32.0 [facility] Work Phone: MCHC Auto (RBC) [Mass/Vol]on 10-29-2021 MCHC (RBC) [Mass/Vol] 33.2 g/dL 32-36 [facility] Work Phone: No Panel Informationon 10-29 Estimated Creatinine Clearance Calc 57.42 ml/min [facility] Work Phone: Estimated GFR (MDRD) Amer 76 mL/min >60 [facility] Work Phone: Comment on above: GFR Calc Estimated GFR (MDRD) Non-Af Amer 63 mL/min >60 [facility] Work Phone: Comment on above: Non- GFR Calc Platelets bldon 10-29-2021 Platelets (Bld) [#/Vol] 183 10*3/uL 150-450 [facility] Work Phone: Serum or plasma albumin kaitlin urement (mass/volume)on 10-29-2021 Albumin [Mass/Vol] 3.4 g/dL 3.2-5.0 [facility] Work Phone: Serum or plasma calcium kaitlin urement (mass/volume)on 10-29-2021 Calcium [Mass/Vol] 9.1 mg/dL 8.5-10.1 [facility] Work Phone: Serum or plasma creatinine m easurement (mass/volume)on 10-29-2021 Creatinine [Mass/Vol] 1.25 mg/dL 0.70-1.30 [facility] Work Phone: Comment on above: The validity of the calculated GFR & GFRAA in patients over 70 years has not been determined. Clinical correlation is essential. Serum or plasma urea nitroge n measurement (mass/volume)on 10-29-2021 Urea nitrogen [Mass/Vol] 12 mg/dL 7-18 [facility] Work Phone: Thin prep Papanicolaou smear with manual screeningon 10-29-2021 Thin prep Papanicolaou smear with manual screening 17 U/L 15-37 [facility] Work Phone: Thin prep Papanicolaou smear with manual screening 5 5-15 [facility] Work Phone: Basophil percentageon 2021 Basophil percentage 0 SEEN /hpf 0-5 [facility] Work Phone: Bilirubin Test strip Ql (U)o n 10-28-2021 Bilirubin Ql (U) Negative Negative [facility] Work Phone: Ketones Test strip Ql (U)on 10-28-2021 Ketones Ql (U) Negative Negative [facility] Work Phone: Mucus LM Ql (Urine sed)on Mucus Ql (Urine sed) 0 SEEN /hpf [facility] Work Phone: Nitrite Test strip Ql (U)on 10-28-2021 Nitrite Ql (U) Negative Negative [facility] Work Phone: Protein Test strip Ql (U)on 10-28-2021 Protein Ql (U) Negative Negative [facility] Work Phone: Squamous epithelial cells de tection in urine sediment by light microscopyon 10-28-2021 Epithelial cells.squamous LM Ql (Urine sed) 0-5 SEEN /hpf 0-5 [facility] Work Phone: Urine blood detectionon 10-15 RBC Ql (U) Negative Negative [facility] Work Phone: RBC Ql (U) 0 SEEN /hpf 0-5 [facility] Work Phone: Urine clarityon 10-28-2021 Clarity (U) Clear Clear [facility] Work Phone: Urine color determinationon 10-28-2021 Color (U) Straw Yellow [facility] Work Phone: Urine glucose detectionon Glucose Ql (U) Normal mg/dl Normal [facility] Work Phone: Urine leukocyte esterase det ection by dipstickon 10-28-2021 Leukocyte esterase Test strip Ql (U) Negative Negative [facility] Work Phone: Urine pHon 10-28-2021 pH (U) 6.5 [pH] 5.0 - 8.0 [facility] Work Phone: Urine sediment bacteria coun t by microscopy (number/high power field)on 10-28-2021 Bacteria LM.HPF (Urine sed) [#/Area] 0 /[HPF] None Seen [facility] Work Phone: Urine specific gravity measu rementon 10-28-2021 Specific gravity (U) [Rel density] 1.015 1.002-1.030 [facility] Work Phone: Urobilinogen Auto test strip Ql (U)on 10-28-2021 Urobilinogen Ql (U) Normal mg/dl Normal [facility] Work Phone: Basophil percentageon 2021 Bilirubin [Mass/Vol] 0.60 mg/dL 0.20-1.00 [facility] Work Phone: Comment on above: For patients on eltr ombopag therapy, use of Dimension [place] TBIL is not recommended. Chloride [Moles/Vol] 106 mmol/L 98-107 [facility] Work Phone: Glucose [Mass/Vol] 98 mg/dL 74-106 [facility] Work Phone: Potassium [Moles/Vol] 4.0 mmol/L 3.5-5.1 [facility] Work Phone: Protein [Mass/Vol] 7.6 g/dL 6.4-8.2 [facility] Work Phone: Sodium [Moles/Vol] 139 mmol/L 136-145 [facility] Work Phone: WBC (Bld) [#/Vol] 3.3 10*3/uL 4.4-11.0 [facility] Work Phone: Blood erythrocytes count (nu mber/volume)on 10-22-2021 RBC (Bld) [#/Vol] 4.68 10*6/uL 4.6-6.2 [facility] Work Phone: Blood hemoglobin measurement (mass/volume)on 10-22-2021 Hemoglobin (Bld) [Mass/Vol] 14.4 g/dL 13.0-16.5 [facility] Work Phone: Blood platelet mean volumeon 06-08-2022 Platelet mean volume (Bld) [Entitic vol] 9.4 fL 6.2-12.0 [facility] Work Phone: Determination of erythrocyte mean corpuscular volume (MCV)on 10-22-2021 MCV (RBC) [Entitic vol] 92.9 fL 80-94 [facility] Work Phone: Direct bilirubinon Bilirubin.direct [Mass/Vol] 0.16 mg/dL 0.00-0.30 [facility] Work Phone: Erythrocyte sedimentation ra dot 10-22-2021 ESR (Bld) [Velocity] 21 mm/h 0-20 [facility] Work Phone: Hematocrit Auto (Bld) [Volum e fraction]on 10-22-2021 Hematocrit (Bld) [Volume fraction] 43.5 % 40-54 [facility] Work Phone: Laboratory - Chemistry and C hemistry - challengeon 10-22-2021 ALP [Catalytic activity/Vol] 79 U/L 45-117 [facility] Work Phone: ALT [Catalytic activity/Vol] 27 U/L 16-61 [facility] Work Phone: CO2 [Moles/Vol] 27.0 mmol/L 21.0-32.0 [facility] Work Phone: Globulin (S) [Mass/Vol] 4.1 g/dL 2.2-4.2 [facility] Work Phone: Urea nitrogen/Creatinine [Mass ratio] 14.4 mg/mg 10-20 [facility] Work Phone: Laboratory - Hematology and Cell countson 10-22-2021 Erythrocyte distribution width (RBC) [Entitic vol] 42.5 fL 35.1-43.9 [facility] Work Phone: Erythrocyte distribution width (RBC) [Ratio] 12.4 % 11.6-14.6 [facility] Work Phone: MCH (RBC) [Entitic mass] 30.8 pg 27.0-32.0 [facility] Work Phone: MCHC Auto (RBC) [Mass/Vol]on 10-22-2021 MCHC (RBC) [Mass/Vol] 33.1 g/dL 32-36 [facility] Work Phone: No Panel Informationon 10-22 Estimated Creatinine Clearance Calc 57.42 ml/min [facility] Work Phone: Estimated GFR (MDRD) Amer 76 mL/min >60 [facility] Work Phone: Comment on above: GFR Calc Estimated GFR (MDRD) Non-Af Amer 63 mL/min >60 [facility] Work Phone: Comment on above: Non- GFR Calc Platelets bldon 10-22-2021 Platelets (Bld) [#/Vol] 160 10*3/uL 150-450 [facility] Work Phone: Serum or plasma albumin kaitlin urement (mass/volume)on 10-22-2021 Albumin [Mass/Vol] 3.5 g/dL 3.2-5.0 [facility] Work Phone: Serum or plasma calcium kaitlin urement (mass/volume)on 10-22-2021 Calcium [Mass/Vol] 9.4 mg/dL 8.5-10.1 [facility] Work Phone: Serum or plasma creatinine m easurement (mass/volume)on 10-22-2021 Creatinine [Mass/Vol] 1.25 mg/dL 0.70-1.30 [facility] Work Phone: Comment on above: The validity of the calculated GFR & GFRAA in patients over 70 years has not been determined. Clinical correlation is essential. Serum or plasma urea nitroge n measurement (mass/volume)on 10-22-2021 Urea nitrogen [Mass/Vol] 18 mg/dL 7-18 [facility] Work Phone: Thin prep Papanicolaou smear with manual screeningon 10-22-2021 Thin prep Papanicolaou smear with manual screening 17 U/L 15-37 [facility] Work Phone: Thin prep Papanicolaou smear with manual screening 6 5-15 [facility] Work Phone: Basophil percentageon 2021 Bilirubin [Mass/Vol] 0.50 mg/dL 0.20-1.00 [facility] Work Phone: Comment on above: For patients on eltr ombopag therapy, use of Dimension [place] TBIL is not recommended. Chloride [Moles/Vol] 110 mmol/L 98-107 [facility] Work Phone: Glucose [Mass/Vol] 103 mg/dL 74-106 [facility] Work Phone: Comment on above: Fasting Glucose resu lt from 100 to 125 mg/dL suggests IMPAIRED HOMEOSTASIS per A.D.A. criteria. Potassium [Moles/Vol] 4.0 mmol/L 3.5-5.1 [facility] Work Phone: Protein [Mass/Vol] 7.6 g/dL 6.4-8.2 [facility] Work Phone: Sodium [Moles/Vol] 139 mmol/L 136-145 [facility] Work Phone: WBC (Bld) [#/Vol] 3.9 10*3/uL 4.4-11.0 [facility] Work Phone: Blood erythrocytes count (nu mber/volume)on 10-15-2021 RBC (Bld) [#/Vol] 4.68 10*6/uL 4.6-6.2 [facility] Work Phone: Blood hemoglobin measurement (mass/volume)on 10-15-2021 Hemoglobin (Bld) [Mass/Vol] 14.6 g/dL 13.0-16.5 [facility] Work Phone: Blood platelet mean volumeon 10-15-2021 Platelet mean volume (Bld) [Entitic vol] 9.7 fL 6.2-12.0 [facility] Work Phone: Determination of erythrocyte mean corpuscular volume (MCV)on 10-15-2021 MCV (RBC) [Entitic vol] 93.6 fL 80-94 [facility] Work Phone: Direct bilirubinon 2 Bilirubin.direct [Mass/Vol] 0.16 mg/dL 0.00-0.30 [facility] Work Phone: Erythrocyte sedimentation ra dot 10-15-2021 ESR (Bld) [Velocity] 20 mm/h 0-20 [facility] Work Phone: Hematocrit Auto (Bld) [Volum e fraction]on 10-15-2021 Hematocrit (Bld) [Volume fraction] 43.8 % 40-54 [facility] Work Phone: Laboratory - Chemistry and C hemistry - challengeon 10-15-2021 ALP [Catalytic activity/Vol] 78 U/L 45-117 [facility] Work Phone: ALT [Catalytic activity/Vol] 23 U/L 16-61 [facility] Work Phone: CO2 [Moles/Vol] 24.0 mmol/L 21.0-32.0 [facility] Work Phone: Globulin (S) [Mass/Vol] 4.0 g/dL 2.2-4.2 [facility] Work Phone: Urea nitrogen/Creatinine [Mass ratio] 11.1 mg/mg 10-20 [facility] Work Phone: Laboratory - Hematology and Cell countson 10-15-2021 Erythrocyte distribution width (RBC) [Entitic vol] 42.6 fL 35.1-43.9 [facility] Work Phone: Erythrocyte distribution width (RBC) [Ratio] 12.4 % 11.6-14.6 [facility] Work Phone: MCH (RBC) [Entitic mass] 31.2 pg 27.0-32.0 [facility] Work Phone: MCHC Auto (RBC) [Mass/Vol]on 10-15-2021 MCHC (RBC) [Mass/Vol] 33.3 g/dL 32-36 [facility] Work Phone: No Panel Informationon 10-15 Estimated Creatinine Clearance Calc 53.17 ml/min [facility] Work Phone: Estimated GFR (MDRD) Amer 69 mL/min >60 [facility] Work Phone: Comment on above: GFR Calc Estimated GFR (MDRD) Non-Af Amer 57 mL/min >60 [facility] Work Phone: Comment on above: Non- GFR Calc Platelets bldon 10-15-2021 Platelets (Bld) [#/Vol] 189 10*3/uL 150-450 [facility] Work Phone: Serum or plasma albumin kaitlin urement (mass/volume)on 10-15-2021 Albumin [Mass/Vol] 3.6 g/dL 3.2-5.0 [facility] Work Phone: Serum or plasma calcium kaitlin urement (mass/volume)on 10-15-2021 Calcium [Mass/Vol] 9.5 mg/dL 8.5-10.1 [facility] Work Phone: Serum or plasma creatinine m easurement (mass/volume)on 10-15-2021 Creatinine [Mass/Vol] 1.35 mg/dL 0.70-1.30 [facility] Work Phone: Comment on above: The validity of the calculated GFR & GFRAA in patients over 70 years has not been determined. Clinical correlation is essential. Serum or plasma urea nitroge n measurement (mass/volume)on 10-15-2021 Urea nitrogen [Mass/Vol] 15 mg/dL 7-18 [facility] Work Phone: Thin prep Papanicolaou smear with manual screeningon 10-15-2021 Thin prep Papanicolaou smear with manual screening 18 U/L 15-37 [facility] Work Phone: Thin prep Papanicolaou smear with manual screening 5 5-15 [facility] Work Phone: Basophil percentageon 2021 Basophil percentage 5-10 SEEN /hpf 0-5 [facility] Work Phone: Basophil percentage 3.3 mg/dL 2.5-4.9 [facility] Work Phone: Chloride [Moles/Vol] 105 mmol/L 98-107 [facility] Work Phone: Glucose [Mass/Vol] 107 mg/dL 74-106 [facility] Work Phone: Comment on above: Fasting Glucose resu lt from 100 to 125 mg/dL suggests IMPAIRED HOMEOSTASIS per A.D.A. criteria. Potassium [Moles/Vol] 3.6 mmol/L 3.5-5.1 [facility] Work Phone: Sodium [Moles/Vol] 138 mmol/L 136-145 [facility] Work Phone: Bilirubin Test strip Ql (U)o n 09-30-2021 Bilirubin Ql (U) Negative Negative [facility] Work Phone: Culture, urineon 09-30-2021 Bacteria identified Cx Nom (U) Escherichia coli [facility] Work Phone: Ketones Test strip Ql (U)on 09-30-2021 Ketones Ql (U) Negative Negative [facility] Work Phone: Laboratory - Chemistry and C hemistry - challengeon 09-30-2021 CO2 [Moles/Vol] 26.0 mmol/L 21.0-32.0 [facility] Work Phone: Urea nitrogen/Creatinine [Mass ratio] 8.0 mg/mg 10-20 [facility] Work Phone: Mucus LM Ql (Urine sed)on Mucus Ql (Urine sed) 0 SEEN /hpf [facility] Work Phone: Nitrite Test strip Ql (U)on 09-30-2021 Nitrite Ql (U) Negative Negative [facility] Work Phone: No Panel Informationon 09-30 Estimated GFR (MDRD) Amer 68 mL/min >60 [facility] Work Phone: Comment on above: GFR Calc Estimated GFR (MDRD) Non-Af Amer 56 mL/min >60 [facility] Work Phone: Comment on above: Non- GFR Calc Protein Test strip Ql (U)on 09-30-2021 Protein Ql (U) Negative Negative [facility] Work Phone: Serum or plasma albumin kaitlin urement (mass/volume)on 09-30-2021 Albumin [Mass/Vol] 3.6 g/dL 3.2-5.0 [facility] Work Phone: Serum or plasma calcium kaitlin urement (mass/volume)on 09-30-2021 Calcium [Mass/Vol] 9.1 mg/dL 8.5-10.1 [facility] Work Phone: Serum or plasma creatinine m easurement (mass/volume)on 09-30-2021 Creatinine [Mass/Vol] 1.37 mg/dL 0.70-1.30 [facility] Work Phone: Comment on above: The validity of the calculated GFR & GFRAA in patients over 70 years has not been determined. Clinical correlation is essential. Serum or plasma urea nitroge n measurement (mass/volume)on 09-30-2021 Urea nitrogen [Mass/Vol] 11 mg/dL 7-18 [facility] Work Phone: Squamous epithelial cells de tection in urine sediment by light microscopyon 09-30-2021 Epithelial cells.squamous LM Ql (Urine sed) 0-5 SEEN /hpf 0-5 [facility] Work Phone: Urine blood detectionon 09-14 RBC Ql (U) 25 /ul Negative [facility] Work Phone: RBC Ql (U) 0-5 SEEN /hpf 0-5 [facility] Work Phone: Urine clarityon 09-30-2021 Clarity (U) Clear Clear [facility] Work Phone: Urine color determinationon 09-30-2021 Color (U) Straw Yellow [facility] Work Phone: Urine glucose detectionon Glucose Ql (U) Normal mg/dl Normal [facility] Work Phone: Urine leukocyte esterase det ection by dipstickon 09-30-2021 Leukocyte esterase Test strip Ql (U) 100 /ul Negative [facility] Work Phone: Urine pHon 09-30-2021 pH (U) 7.0 [pH] 5.0 - 8.0 [facility] Work Phone: Urine sediment bacteria coun t by microscopy (number/high power field)on 09-30-2021 Bacteria LM.HPF (Urine sed) [#/Area] RARE /hpf None Seen [facility] Work Phone: Urine specific gravity measu rementon 09-30-2021 Specific gravity (U) [Rel density] 1.010 1.002-1.030 [facility] Work Phone: Urobilinogen Auto test strip Ql (U)on 09-30-2021 Urobilinogen Ql (U) Normal mg/dl Normal [facility] Work Phone: Basophil percentageon 2021 Bilirubin [Mass/Vol] 0.40 mg/dL 0.20-1.00 [facility] Work Phone: Comment on above: For patients on eltr ombopag therapy, use of Dimension [place] TBIL is not recommended. Chloride [Moles/Vol] 110 mmol/L 98-107 [facility] Work Phone: Glucose [Mass/Vol] 109 mg/dL 74-106 [facility] Work Phone: Comment on above: Fasting Glucose resu lt from 100 to 125 mg/dL suggests IMPAIRED HOMEOSTASIS per A.D.A. criteria. Potassium [Moles/Vol] 4.3 mmol/L 3.5-5.1 [facility] Work Phone: Protein [Mass/Vol] 7.3 g/dL 6.4-8.2 [facility] [place]: Sodium [Moles/Vol] 139 mmol/L 136-145 [facility] Work [place]: Laboratory - Chemistry and C hemistry - challengeon 08-22-2021 ALP [Catalytic activity/Vol] 103 U/L 45-117 [facility] Work Phone: ALT [Catalytic activity/Vol] 59 U/L 16-61 [facility] Work Phone: CO2 [Moles/Vol] 26.0 mmol/L 21.0-32.0 [facility] Work Phone: Globulin (S) [Mass/Vol] 4.1 g/dL 2.2-4.2 [facility] Work Phone: Magnesium [Mass/Vol] 2.2 mg/dL 1.6-2.6 [facility] Work Phone: Urea nitrogen/Creatinine [Mass ratio] 11.0 mg/mg 10-20 [facility] Work Phone: No Panel Informationon 08-22 Estimated GFR (MDRD) Amer 69 mL/min >60 [facility] Work Phone: Comment on above: GFR Calc Estimated GFR (MDRD) Non-Af Amer 57 mL/min >60 [facility] Work Phone: Comment on above: Non- GFR Calc Serum or plasma albumin kaitlin urement (mass/volume)on 08-22-2021 Albumin [Mass/Vol] 3.2 g/dL 3.2-5.0 [facility] Work Phone: Serum or plasma albumin/glob ulin mass ratioon 08-22-2021 Albumin/Globulin [Mass ratio] 0.8 {ratio} 0.9-2.4 [facility] Work Phone: Serum or plasma calcium kaitlin urement (mass/volume)on 08-22-2021 Calcium [Mass/Vol] 8.8 mg/dL 8.5-10.1 [facility] Work Phone: Serum or plasma creatinine m easurement (mass/volume)on 08-22-2021 Creatinine [Mass/Vol] 1.36 mg/dL 0.70-1.30 [facility] Work Phone: Comment on above: The validity of the calculated GFR & GFRAA in patients over 70 years has not been determined. Clinical correlation is essential. Serum or plasma urea nitroge n measurement (mass/volume)on 08-22-2021 Urea nitrogen [Mass/Vol] 15 mg/dL 7-18 [facility] Work Phone: Thin prep Papanicolaou smear with manual screeningon 08-22-2021 Thin prep Papanicolaou smear with manual screening 23 U/L 15-37 [facility] Work Phone: Thin prep Papanicolaou smear with manual screening 3 5-15 [facility] Work Phone: Basophil percentageon 2021 Bilirubin [Mass/Vol] 0.40 mg/dL 0.20-1.00 [facility] Work Phone: Comment on above: For patients on eltr ombopag therapy, use of Dimension [place] TBIL is not recommended. Chloride [Moles/Vol] 113 mmol/L 98-107 [facility] Work Phone: Glucose [Mass/Vol] 97 mg/dL 74-106 [facility] Work Phone: Potassium [Moles/Vol] 3.4 mmol/L 3.5-5.1 [facility] Work Phone: Protein [Mass/Vol] 6.6 g/dL 6.4-8.2 [facility] Work Phone: Sodium [Moles/Vol] 141 mmol/L 136-145 [facility] Work Phone: WBC (Bld) [#/Vol] 4.7 10*3/uL 4.4-11.0 [facility]: Blood erythrocytes count (nu mber/volume)on 08-18-2021 RBC (Bld) [#/Vol] 4.60 10*6/uL 4.6-6.2 [facility] Work Phone: Blood hemoglobin measurement (mass/volume)on 08-18-2021 Hemoglobin (Bld) [Mass/Vol] 14.2 g/dL 13.0-16.5 [facility] Work Phone: Blood platelet mean volumeon 08-18-2021 Platelet mean volume (Bld) [Entitic vol] 8.9 fL 6.2-12.0 [facility] Work Phone: Determination of erythrocyte mean corpuscular volume (MCV)on 08-18-2021 MCV (RBC) [Entitic vol] 93.5 fL 80-94 [facility] Work Phone: Direct bilirubinon Bilirubin.direct [Mass/Vol] 0.10 mg/dL 0.00-0.30 [facility] Work Phone: Hematocrit Auto (Bld) [Volum e fraction]on 08-18-2021 Hematocrit (Bld) [Volume fraction] 43.0 % 40-54 [facility] Work Phone: Laboratory - Chemistry and C hemistry - challengeon 08-18-2021 ALP [Catalytic activity/Vol] 95 U/L 45-117 [facility] Work Phone: ALT [Catalytic activity/Vol] 63 U/L 16-61 [facility] Work Phone: CO2 [Moles/Vol] 23.0 mmol/L 21.0-32.0 [facility] Work Phone: Globulin (S) [Mass/Vol] 3.7 g/dL 2.2-4.2 [facility] Work Phone: Urea nitrogen/Creatinine [Mass ratio] 14.9 mg/mg 10-20 [facility] Work Phone: Laboratory - Hematology and Cell countson 08-18-2021 Erythrocyte distribution width (RBC) [Entitic vol] 43.1 fL 35.1-43.9 [facility] Work Phone: Erythrocyte distribution width (RBC) [Ratio] 12.5 % 11.6-14.6 [facility] Work Phone: MCH (RBC) [Entitic mass] 30.9 pg 27.0-32.0 [facility] Work Phone: MCHC Auto (RBC) [Mass/Vol]on 08-18-2021 MCHC (RBC) [Mass/Vol] 33.0 g/dL 32-36 [facility] Work Phone: No Panel Informationon 08-18 Estimated GFR (MDRD) Amer 84 mL/min >60 [facility] Work Phone: Comment on above: GFR Calc Estimated GFR (MDRD) Non-Af Amer 70 mL/min >60 [facility] Work Phone: Comment on above: Non- GFR Calc Platelets bldon 08-18-2021 Platelets (Bld) [#/Vol] 275 10*3/uL 150-450 [facility] Work Phone: Serum or plasma albumin kaitlin urement (mass/volume)on 08-18-2021 Albumin [Mass/Vol] 2.9 g/dL 3.2-5.0 [facility] Work Phone: Serum or plasma calcium kaitlin urement (mass/volume)on 08-18-2021 Calcium [Mass/Vol] 7.6 mg/dL 8.5-10.1 [facility] Work Phone: Serum or plasma creatinine m easurement (mass/volume)on 08-18-2021 Creatinine [Mass/Vol] 1.14 mg/dL 0.70-1.30 [facility] Work Phone: Comment on above: The validity of the calculated GFR & GFRAA in patients over 70 years has not been determined. Clinical correlation is essential. Serum or plasma urea nitroge n measurement (mass/volume)on 08-18-2021 Urea nitrogen [Mass/Vol] 17 mg/dL 7-18 [facility] Work Phone: Thin prep Papanicolaou smear with manual screeningon 08-18-2021 Thin prep Papanicolaou smear with manual screening 31 U/L 15-37 [facility] Work Phone: Thin prep Papanicolaou smear with manual screening 5 5-15 [facility] Work Phone: Absolute lymphocyte counton 08-09-2021 Lymphocytes Auto (Unsp spec) [#/Vol] 1.16 10*3/uL 0.83-4.51 [facility] Work Phone: Basophil percentageon 2021 Basophils/100 WBC (Bld) 0.5 % 0-1 [facility] Work Phone: Chloride [Moles/Vol] 109 mmol/L 98-107 [facility] Work Phone: Eosinophils/100 WBC (Bld) 0.2 % 0-5 [facility] Work Phone: Glucose [Mass/Vol] 135 mg/dL 74-106 [facility] Work Phone: Comment on above: Fasting Glucose resu lt greater than or equal to 126 mg/dL suggests DIABETES MELLITUS per A.D.A. criteria. Lactate [Moles/Vol] 0.9 mmol/L 0.4-2.0 [facility] Work Phone: Neutrophils (Bld) [#/Vol] 4.3 10*3/uL 2.0-7.7 [facility] Work Phone: Neutrophils/100 WBC (Bld) 68.2 % 47-70 [facility] Work Phone: Potassium [Moles/Vol] 4.0 mmol/L 3.5-5.1 [facility] Work Phone: Sodium [Moles/Vol] 140 mmol/L 136-145 [facility] Work Phone: WBC (Bld) [#/Vol] 6.3 10*3/uL 4.4-11.0 [facility] Work Phone: Blood erythrocytes count (nu mber/volume)on 08-09-2021 RBC (Bld) [#/Vol] 4.44 10*6/uL 4.6-6.2 [facility]: Blood hemoglobin measurement (mass/volume)on 08-09-2021 Hemoglobin (Bld) [Mass/Vol] 14.3 g/dL 13.0-16.5 [facility] Work Phone: Blood lymphocytes/100 leukoc yteson 08-09-2021 Lymphocytes/100 WBC (Bld) 18.3 % 19-41 [facility] Work Phone: Blood monocytes/100 leukocyt eson 08-09-2021 Monocytes/100 WBC (Bld) 12.6 % 0-10 [facility] Work Phone: Blood platelet mean volumeon 08-09-2021 Platelet mean volume (Bld) [Entitic vol] 9.3 fL 6.2-12.0 [facility] Work Phone: Determination of erythrocyte mean corpuscular volume (MCV)on 08-09-2021 MCV (RBC) [Entitic vol] 94.4 fL 80-94 [facility] Work Phone: Hematocrit Auto (Bld) [Volum e fraction]on 08-09-2021 Hematocrit (Bld) [Volume fraction] 41.9 % 40-54 [facility] Work Phone: Laboratory - Chemistry and C hemistry - challengeon 08-09-2021 CO2 [Moles/Vol] 29.0 mmol/L 21.0-32.0 [facility] Work Phone: Urea nitrogen/Creatinine [Mass ratio] 12.0 mg/mg 10-20 [facility] Work Phone: Laboratory - Hematology and Cell countson 08-09-2021 Erythrocyte distribution width (RBC) [Entitic vol] 42.9 fL 35.1-43.9 [facility] Work Phone: Erythrocyte distribution width (RBC) [Ratio] 12.3 % 11.6-14.6 [facility] Work Phone: Immature granulocytes/100 WBC (Bld) 0.200 % 0.0-0.9 [facility] Work Phone: Comment on above: IG% - Immature Granu locytes (promyelocytes, myelocytes and metamyelocytes) > 1% indicates that a LEFT SHIFT is Present. MCH (RBC) [Entitic mass] 32.2 pg 27.0-32.0 [facility] Work Phone: Nucleated RBC/100 WBC (Bld) [Ratio] 0 % 0-5 [facility] Work Phone: MCHC Auto (RBC) [Mass/Vol]on 08-09-2021 MCHC (RBC) [Mass/Vol] 34.1 g/dL 32-36 [facility] Work Phone: No Panel Informationon 08-09 Estimated Creatinine Clearance Calc 45.43 ml/min [facility] Work Phone: Estimated GFR (MDRD) Amer 58 mL/min >60 [facility] Work Phone: Comment on above: GFR Calc Estimated GFR (MDRD) Non-Af Amer 48 mL/min >60 [facility] Work Phone: Comment on above: Non- GFR Calc Platelets bldon 08-09-2021 Platelets (Bld) [#/Vol] 174 10*3/uL 150-450 [facility] Work Phone: Serum or plasma calcium kaitlin urement (mass/volume)on 08-09-2021 Calcium [Mass/Vol] 9.0 mg/dL 8.5-10.1 [facility] Work Phone: Serum or plasma creatinine m easurement (mass/volume)on 08-09-2021 Creatinine [Mass/Vol] 1.58 mg/dL 0.70-1.30 [facility] Work Phone: Comment on above: The validity of the calculated GFR & GFRAA in patients over 70 years has not been determined. Clinical correlation is essential. Serum or plasma urea nitroge n measurement (mass/volume)on 08-09-2021 Urea nitrogen [Mass/Vol] 19 mg/dL 7-18 [facility] Work Phone: Thin prep Papanicolaou smear with manual screeningon 08-09-2021 Thin prep Papanicolaou smear with manual screening 2 5-15 [facility] Work Phone: Basophil percentageon 2021 Basophil percentage 10-25 SEEN /hpf 0-5 [facility] Work Phone: Bilirubin Test strip Ql (U)o n 08-04-2021 Bilirubin Ql (U) Negative Negative [facility] Work Phone: Culture, urineon 08-04-2021 Bacteria identified Cx Nom (U) Escherichia coli [facility] Work Phone: Ketones Test strip Ql (U)on 08-04-2021 Ketones Ql (U) Negative Negative [facility] Work Phone: Mucus LM Ql (Urine sed)on Mucus Ql (Urine sed) 0 SEEN /hpf [facility] Work Phone: Nitrite Test strip Ql (U)on 08-04-2021 Nitrite Ql (U) Negative Negative [facility] Work Phone: No Panel Informationon 08-04 Parathyroid Hormone (Intact) 75.2 pg/mL 18.4-80.1 [facility] Work Phone: Urine Microalbumin/Creatinine Ratio 12.4 mg/g CRE <30 [facility] Work Phone: Vitamin D 25-Hydroxy 36.4 ng/mL [facility] Work Phone: Comment on above: Vitamin D 25(OH) Sta tus Range Deficiency <20 ng/mL (50nmol/L) Insufficiency 20 - 30 ng/mL (50 - 75 nmol/L) Sufficiency 30 - 100 ng/mL (75 - 250 nmol/L) Toxicity >100 ng/mL (>250 nmol/L) Protein Test strip Ql (U)on 08-04-2021 Protein Ql (U) Negative Negative [facility] Work Phone: Squamous epithelial cells de tection in urine sediment by light microscopyon 08-04-2021 Epithelial cells.squamous LM Ql (Urine sed) 0 SEEN /hpf 0-5 [facility] Work Phone: Thin prep Papanicolaou smear with manual screeningon 08-04-2021 Thin prep Papanicolaou smear with manual screening 13.8 mg/L NO RANGE EST. [facility] Work Phone: Urine blood detectionon 07-16 RBC Ql (U) 10 /ul Negative [facility] Work Phone: RBC Ql (U) 0-5 SEEN /hpf 0-5 [facility] Work Phone: Urine clarityon 08-04-2021 Clarity (U) Clear Clear [facility] Work Phone: Urine color determinationon 08-04-2021 Color (U) Yellow Yellow [facility] Work Phone: Urine creatinine measurement (mass/volume)on 08-04-2021 Creatinine (U) [Mass/Vol] 111.00 mg/dL NO RANGE EST. [facility] Work Phone: Urine glucose detectionon Glucose Ql (U) Normal mg/dl Normal [facility] Work Phone: Urine leukocyte esterase det ection by dipstickon 08-04-2021 Leukocyte esterase Test strip Ql (U) 100 /ul Negative [facility] Work Phone: Urine pHon 08-04-2021 pH (U) 7.0 [pH] 5.0 - 8.0 [facility] Work Phone: Urine sediment bacteria coun t by microscopy (number/high power field)on 08-04-2021 Bacteria LM.HPF (Urine sed) [#/Area] 1 /[HPF] None Seen [facility] Work Phone: Urine specific gravity measu rementon 08-04-2021 Specific gravity (U) [Rel density] 1.010 1.002-1.030 [facility] Work Phone: Urobilinogen Auto test strip Ql (U)on 08-04-2021 Urobilinogen Ql (U) Normal mg/dl Normal [facility] Work Phone: Basophil percentageon 2021 Basophil percentage 0-5 SEEN /hpf 0-5 [facility] Work Phone: Basophil percentage 2.7 mg/dL 2.5-4.9 [facility] Work Phone: Chloride [Moles/Vol] 105 mmol/L 98-107 [facility] Work Phone: Glucose [Mass/Vol] 103 mg/dL 74-106 [facility] Work Phone: Comment on above: Fasting Glucose resu lt from 100 to 125 mg/dL suggests IMPAIRED HOMEOSTASIS per A.D.A. criteria. Potassium [Moles/Vol] 3.8 mmol/L 3.5-5.1 [facility] Work Phone: Sodium [Moles/Vol] 138 mmol/L 136-145 [facility] Work Phone: WBC (Bld) [#/Vol] 5.1 10*3/uL 4.4-11.0 [facility] Work Phone: Bilirubin Test strip Ql (U)o n 07-14-2021 Bilirubin Ql (U) Negative Negative [facility] Work Phone: Blood erythrocytes count (nu mber/volume)on 07-14-2021 RBC (Bld) [#/Vol] 4.86 10*6/uL 4.6-6.2 [facility] Work Phone: Blood hemoglobin measurement (mass/volume)on 07-14-2021 Hemoglobin (Bld) [Mass/Vol] 15.1 g/dL 13.0-16.5 [facility] Work Phone: Blood platelet mean volumeon 07-14-2021 Platelet mean volume (Bld) [Entitic vol] 9.6 fL 6.2-12.0 [facility] Work Phone: Culture, urineon 07-14-2021 Bacteria identified Cx Nom (U) Negative [facility] Work Phone: Determination of erythrocyte mean corpuscular volume (MCV)on 07-14-2021 MCV (RBC) [Entitic vol] 93.4 fL 80-94 [facility] Work Phone: Hematocrit Auto (Bld) [Volum e fraction]on 07-14-2021 Hematocrit (Bld) [Volume fraction] 45.4 % 40-54 [facility] Work Phone: Ketones Test strip Ql (U)on 07-14-2021 Ketones Ql (U) Negative Negative [facility] Work Phone: Laboratory - Chemistry and C hemistry - challengeon 07-14-2021 CO2 [Moles/Vol] 28.0 mmol/L 21.0-32.0 [facility] Work Phone: Magnesium [Mass/Vol] 2.5 mg/dL 1.6-2.6 [facility] Work Phone: Urea nitrogen/Creatinine [Mass ratio] 12.7 mg/mg 10-20 [facility] Work Phone: Laboratory - Hematology and Cell countson 07-14-2021 Erythrocyte distribution width (RBC) [Entitic vol] 43.6 fL 35.1-43.9 [facility] Work Phone: Erythrocyte distribution width (RBC) [Ratio] 12.7 % 11.6-14.6 [facility] Work Phone: MCH (RBC) [Entitic mass] 31.1 pg 27.0-32.0 [facility] Work Phone: MCHC Auto (RBC) [Mass/Vol]on 07-14-2021 MCHC (RBC) [Mass/Vol] 33.3 g/dL 32-36 [facility] Work Phone: Mucus LM Ql (Urine sed)on Mucus Ql (Urine sed) 0 SEEN /hpf [facility] Work Phone: Nitrite Test strip Ql (U)on 07-14-2021 Nitrite Ql (U) Negative Negative [facility] Work Phone: No Panel Informationon 07-14 Estimated GFR (MDRD) Amer 66 mL/min >60 [facility] Work Phone: Comment on above: GFR Calc Estimated GFR (MDRD) Non-Af Amer 54 mL/min >60 [facility] Work Phone: Comment on above: Non- GFR Calc Parathyroid Hormone (Intact) 98.2 pg/mL 18.4-80.1 [facility] Work Phone: Urine Microalbumin/Creatinine Ratio 42.9 mg/g CRE <30 [facility] Work Phone: Platelets bldon 07-14-2021 Platelets (Bld) [#/Vol] 200 10*3/uL 150-450 [facility] Work Phone: Protein Test strip Ql (U)on 07-14-2021 Protein Ql (U) Negative Negative [facility] Work Phone: Serum or plasma albumin kaitlin urement (mass/volume)on 07-14-2021 Albumin [Mass/Vol] 3.7 g/dL 3.2-5.0 [facility] Work Phone: Serum or plasma calcium kaitlin urement (mass/volume)on 07-14-2021 Calcium [Mass/Vol] 9.2 mg/dL 8.5-10.1 [facility] Work Phone: Serum or plasma creatinine m easurement (mass/volume)on 07-14-2021 Creatinine [Mass/Vol] 1.42 mg/dL 0.70-1.30 [facility] Work Phone: Comment on above: The validity of the calculated GFR & GFRAA in patients over 70 years has not been determined. Clinical correlation is essential. Serum or plasma urea nitroge n measurement (mass/volume)on 07-14-2021 Urea nitrogen [Mass/Vol] 18 mg/dL 7-18 [facility] Work Phone: Squamous epithelial cells de tection in urine sediment by light microscopyon 07-14-2021 Epithelial cells.squamous LM Ql (Urine sed) 0 SEEN /hpf 0-5 [facility] Work Phone: Thin prep Papanicolaou smear with manual screeningon 07-14-2021 Thin prep Papanicolaou smear with manual screening 30.7 mg/L NO RANGE EST. [facility] Work Phone: Urine blood detectionon 06-18 RBC Ql (U) 10 /ul Negative [facility] Work Phone: RBC Ql (U) 0-5 SEEN /hpf 0-5 [facility] Work Phone: Urine clarityon 07-14-2021 Clarity (U) Clear Clear [facility] Work Phone: Urine color determinationon 07-14-2021 Color (U) Yellow Yellow [facility] Work Phone: Urine creatinine measurement (mass/volume)on 07-14-2021 Creatinine (U) [Mass/Vol] 71.60 mg/dL NO RANGE EST. [facility] Work Phone: Urine glucose detectionon Glucose Ql (U) Normal mg/dl Normal [facility] Work Phone: Urine leukocyte esterase det ection by dipstickon 07-14-2021 Leukocyte esterase Test strip Ql (U) 25 /ul Negative [facility] Work Phone: Urine pHon 07-14-2021 pH (U) 6.0 [pH] 5.0 - 8.0 [facility] Work Phone: Urine sediment bacteria coun t by microscopy (number/high power field)on 07-14-2021 Bacteria LM.HPF (Urine sed) [#/Area] 0 /[HPF] None Seen [facility] Work Phone: Urine specific gravity measu rementon 07-14-2021 Specific gravity (U) [Rel density] 1.015 1.002-1.030 [facility] Work Phone: Urobilinogen Auto test strip Ql (U)on 07-14-2021 Urobilinogen Ql (U) Normal mg/dl Normal [facility] Work Phone: Whole blood hemoglobin A1c/t otal hemoglobin ratio (mass fraction)on 07-14-2021 HbA1c (Bld) [Mass fraction] 5.6 % 3.8-5.6 [facility] Work Phone: Comment on above: Normal < 5.7 % Predi abetic 5.7 - 6.4 % Diabetic >or= 6.5 % Please note range changes. Basophil percentageon 2021 Basophil percentage 25-50 SEEN /hpf [facility] Work Phone: Bilirubin Test strip Ql (U)o n 06-27-2021 Bilirubin Ql (U) Negative Negative [facility] Work Phone: Culture, urineon 06-27-2021 Bacteria identified Cx Nom (U) Escherichia coli [facility] Work Phone: Ketones Test strip Ql (U)on 06-27-2021 Ketones Ql (U) Negative Negative [facility] Work Phone: Mucus LM Ql (Urine sed)on Mucus Ql (Urine sed) 0 SEEN /hpf [facility] Work Phone: Nitrite Test strip Ql (U)on 06-27-2021 Nitrite Ql (U) Negative Negative [facility] Work Phone: Protein Test strip Ql (U)on 06-27-2021 Protein Ql (U) 15 mg/dl Negative [facility] Work Phone: Squamous epithelial cells de tection in urine sediment by light microscopyon 06-27-2021 Epithelial cells.squamous LM Ql (Urine sed) 0 SEEN /hpf [facility] Work Phone: Urine blood detectionon 06-17 RBC Ql (U) 25 /ul Negative [facility] Work Phone: RBC Ql (U) 0-5 SEEN /hpf [facility] Work Phone: Urine clarityon 06-27-2021 Clarity (U) Sl. Cloudy Clear [facility] Work Phone: Urine color determinationon 06-27-2021 Color (U) Yellow Yellow [facility] Work Phone: Urine glucose detectionon Glucose Ql (U) Normal mg/dl Normal [facility] Work Phone: Urine leukocyte esterase det ection by dipstickon 06-27-2021 Leukocyte esterase Test strip Ql (U) 500 /ul Negative [facility] Work Phone: Urine pHon 06-27-2021 pH (U) 6.5 [pH] [facility] Work Phone: Urine sediment bacteria coun t by microscopy (number/high power field)on 06-27-2021 Bacteria LM.HPF (Urine sed) [#/Area] 1 /[HPF] None Seen [facility] Work Phone: Urine specific gravity measu rementon 06-27-2021 Specific gravity (U) [Rel density] 1.015 [facility] Work Phone: Urobilinogen Auto test strip Ql (U)on 06-27-2021 Urobilinogen Ql (U) Normal mg/dl Normal [facility] Work Phone: Laboratory - Microbiology an d Antimicrobial susceptibilityon 06-25-2021 SARS-CoV-2 (COVID-19) RNA RONY+probe Ql (Unsp spec) Not detected [facility] Work Phone: No Panel Informationon 06-25 Influenza Types A,B Rapid (Clinic) Not detected [facility] Work Phone: [id number] 05-22-2021 Date of Onset [id number] Invalid Interpretation Code [facility] [place] Comment on above: Performed By: #### C OVD19 #### [id number] [place], [place] [address] 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 [facility] [place] Comment on above: Performed By: #### C OVD19 #### Jina [address] [address] First Test No [facility] [place] Comment on above: Performed By: #### C OVD19 #### Jina [address] [address] Hospitalized No [facility] [place] Comment on above: Performed By: #### C OVD19 #### Jina [address] [address] ICU No [facility] [place] Comment on above: Performed By: #### C OVD19 #### Jina [address] [address] Not [facility] [place] Comment on above: Performed By: #### C OVD19 #### Jina [address] [address] Resides in Congregate Care Setting No [facility] [place] Comment on above: Performed By: #### C OVD19 #### [address] [address] [address] SARS-CoV-2 (COVID-19) RNA RONY+probe Ql (Unsp spec) Negative Normal Negative [facility] [place] Comment on above: Performed By: #### C OVD19 #### Jina [address] [address] SARS-CoV-2 (COVID-19) RNA RONY+probe Ql (Unsp spec) Normal [facility] ([place] Comment on above: Result Comment: Nega tive results do not preclude SARS-CoV-2 infection and should not be used as the sole basis for patient management decisions. Negative results must be combined with clinical observations, patient history, and epidemiological information. There is a risk of false negative values resulting from improperly collected, transported, or handled specimens. There is a risk of false negative values due to the presence of sequence variants in the pathogen targets of the assay, procedural errors, amplification inhibitors in specimens, or inadequate numbers of organisms for amplification. KEV SARS-CoV-2 Assay is a Real-Time reverse-transcriptase polymerase chain reaction (RT-PCR) based qualitative in vitro diagnostic test intended for the qualitative detection of nucleic acid from the SARS-CoV-2 in nasopharyngeal swab specimens collected from individuals suspected of COVID-19 by their healthcare provider. Testing is limited to laboratories certified under the Clinical Laboratory Improvement Amendments of 1988 (CLIA), 42 U.S.C. ?263a, to perform moderate and high complexity tests. COVID-19 Int Performed By: #### C OVD19 #### [address] [address] Symptomatic as Defined by [facility] No Normal [facility] ([place] Comment on above: Performed By: #### C OVD19 #### [address] [address] LABORATORYOrdered By: Alvarado Hernandez on 05-22-2021 ADMITTED TO INTENSIVE CARE UNIT FOR CONDITION OF INTEREST:FIND:PT:^PATIE NT:ORD: No (05/22/21 12:03 PM) Invalid Interpretation Code AO Auto Urine SS EMPLOYED IN A HEALTHCARE SETTING:FIND:PT:^PATIEN T:ORD: Yes (05/22/21 12:03 PM) Invalid Interpretation Code AO Auto Urine SS FIRST TEST FOR CONDITION OF INTEREST:FIND:PT:^PATIE NT:ORD: No (05/22/21 12:03 PM) Invalid Interpretation Code AO Auto Urine SS HAS SYMPTOMS RELATED TO CONDITION OF INTEREST:FIND:PT:^PATIE NT:ORD: No (05/22/21 12:03 PM) Invalid Interpretation Code AO Auto Urine SS Illness or injury onset date and time [id number] Invalid Interpretation Code AO Auto Urine SS Patient was hospitalized because of this condition No (05/22/21 12:03 PM) Invalid Interpretation Code AO Auto Urine SS status Not (05/22/21 12:03 PM) Invalid Interpretation Code AO Auto [facility]:FIND:PT:^ANGEL T:ORD: No (05/22/21 12:03 PM) Invalid Interpretation Code AO Auto Urine SS SARS-CoV-2 (COVID-19) RNA RONY+probe Ql (Resp) Negative (05/22/21 12:03 PM) Invalid Interpretation Code Negative AO Auto Urine SS SARS-CoV-2 (COVID-19) RNA RONY+probe Ql (Unsp spec) Negative results do not preclude SARS-CoV-2 infection and should not be used as the sole basis for patient management decisions. Negative results must be combined with clinical observations, patient history, and epidemiological information.There is a risk of false negative values resulting from improperly collected, transported, or handled specimens.There is a risk of false negative values due to the presence of sequence variants in the pathogen targets of the assay, procedural errors, amplification inhibitors in specimens, or inadequate numbers of organisms for amplification.KEV SARS-CoV-2 Assay is a Real-Time reverse-transcriptas e polymerase chain reaction (RT-PCR) based qualitative in vitro diagnostic test intended for the qualitative detection of nucleic acid from the SARS-CoV-2 in nasopharyngeal swab specimens collected from individuals suspected of COVID-19 by their healthcare provider. Testing is limited to laboratories certified under the Clinical Laboratory Improvement Amendments of 1988 (CLIA), 42 U.S.C. 263a, to perform moderate and high complexity tests. Invalid Interpretation Code AO Auto Urine SS Laboratory - Microbiology an d Antimicrobial susceptibilityon 04-29-2021 SARS-CoV-2 (COVID-19) RNA RONY+probe Ql (Unsp spec) Not detected [facility] Work Phone: Office Visit: Spine Visit- R sided neck painon 09-29-2016 Documentation of current medications (procedure) Done Invalid Interpretation Code [facility] Work Phone: Office Visit: Spine Visit- R sided neck painon 09-23-2016 Documentation of current medications (procedure) Done Invalid Interpretation Code [facility] Work Phone: Office Visit: Spine Visit- N EWon 09-22-2016 Documentation of current medications (procedure) Done Invalid Interpretation Code [facility] Work Phone: Tobacco smoking status DCIS Never smoker [facility] Work Phone: Tobacco use [facility] Never smoker Invalid Interpretation Code [facility] Work Phone: Lab Report: UACon 10-22-2012 Bilirubin (U) [Mass/Vol] 0 SEEN /hpf Normal [facility] Work Phone: specific gravity, urine 1.015 Normal 1.002-1.030 [facility] Work Phone: Urine, erythrocytes 0 SEEN /hpf Normal [facility] Work Phone: Lab Report: BMPon 04-19-2011 Calcium 8.9 mg/dL Normal 8.5-10.1 [facility] Work Phone: Chloride 106 mmol/L Normal 98-107 [facility] Work Phone: Creatinine 1.3 mg/dL Normal 0.8-1.3 [facility] Work Phone: Glucose 92 mg/dL Normal 70-110 [facility] Work Phone: Glucose [Mass/Vol] 92 mg/dL Normal 70-110 [facility] Work Phone: Potassium 4.4 mmol/L Normal 3.5-5.1 [facility] Work Phone: Sodium 144 mmol/L Normal 136-145 [facility] Work Phone: Urea nitrogen 16 mg/dL Normal 7-18 [facility] Work Phone: Lab Report: PSAon 04-19-2011 prostate specific antigen (PSA) screening 0.5 ng/mL Normal 0.0-4.0 [facility] Work Phone: Culture, urine Bacteria identified Cx Nom (U) Negative [facility] Work Phone: Bacteria identified Cx Nom (U) Escherichia coli [facility] Work Phone: Bacteria identified Cx Nom (U) Culture exhibits no growth. [facility] Work Phone: Vital Signs Date Time Vital Sign Value Performing Clinician Facility 11-16-2024 11:46-0400 Body height 167.[address] Noy Staples MD Work Phone: [facility] 03-03-2024 07:11-0400 Body height 167.6 cm Dave Stuart MD Work Phone: [facility] 03-03-2024 07:11-0400 Body temperature 75.99 [degF] Dave Stuart MD Work Phone: [facility] 03-03-2024 07:11-0400 SaO2% (BldA) [Mass fraction] 99 % Dave Stuart MD Work Phone: [facility] 08-27-2023 07:10-0400 Body height 167.6 cm Dave Stuart MD Work Phone: [facility] 08-27-2023 07:10-0400 Diastolic blood pressure 72 mm[Hg] Dave Stuart MD Work Phone: [facility] 08-27-2023 07:10-0400 Heart rate 72 /min Dave Stuatr MD Work Phone: [facility] 08-27-2023 07:10-0400 SaO2% (BldA) [Mass fraction] 100 % Dave Stuart MD Work Phone: [facility] 08-27-2023 07:10-0400 Systolic blood pressure 170 mm[Hg] Dave Stuart MD Work Phone: [facility] 03-12-2023 11:13-0400 Body height 167.6 cm Dave Stuart MD Work Phone: [facility] 03-12-2023 11:13-0400 Body weight 73.48 kg Dave Stuart MD Work Phone: [facility] 12-16-2022 09:02-0400 Diastolic blood pressure 77 mm[Hg] [facility] 12-16-2022 09:02-0400 Heart rate 67 /min [facility] 12-16-2022 09:02-0400 Respiratory rate 16 /min [facility] 12-16-2022 09:02-0400 Systolic blood pressure 127 mm[Hg] [facility] 12-16-2022 07:45-0400 Body height 167.64 cm [facility] 12-16-2022 07:45-0400 Body mass index (BMI) [Ratio] 25.3 kg/m2 [facility] 12-16-2022 07:45-0400 Body temperature 97.4 [degF] [facility] 12-16-2022 07:45-0400 Body weight 71.21 kg [facility] 12-16-2022 07:45-0400 SaO2% (BldA) [Mass fraction] 99 % [facility] 12-15-2022 08:58-0400 Diastolic blood pressure 81 mm[Hg] [facility] 12-15-2022 08:58-0400 Heart rate 66 /min [facility] 12-15-2022 08:58-0400 Systolic blood pressure 125 mm[Hg] [facility] 12-15-2022 07:50-0400 Body height 167.64 cm [facility] 12-15-2022 07:50-0400 Body mass index (BMI) [Ratio] 25.3 kg/m2 [facility] 12-15-2022 07:50-0400 Body temperature 97.6 [degF] [facility] 12-15-2022 07:50-0400 Body weight 71.21 kg [facility] 12-15-2022 07:50-0400 Respiratory rate 16 /min [facility] 12-15-2022 07:50-0400 SaO2% (BldA) [Mass fraction] 98 % [facility] 12-14-2022 08:38-0400 Body temperature 97.5 [degF] [facility] 12-14-2022 08:38-0400 Diastolic blood pressure 97 mm[Hg] [facility] 12-14-2022 08:38-0400 Heart rate 76 /min [facility] 12-14-2022 08:38-0400 Respiratory rate 16 /min [facility] 12-14-2022 08:38-0400 SaO2% (BldA) [Mass fraction] 98 % [facility] 12-14-2022 08:38-0400 Systolic blood pressure 131 mm[Hg] [facility] 12-14-2022 07:55-0400 Body mass index (BMI) [Ratio] 25.3 kg/m2 [facility] 12-14-2022 07:55-0400 Body weight 71.21 kg [facility] 12-13-2022 09:19-0400 Body temperature 97.8 [degF] [facility] 12-13-2022 09:19-0400 Diastolic blood pressure 73 mm[Hg] [facility] 12-13-2022 09:19-0400 Heart rate 57 /min [facility] 12-13-2022 09:19-0400 Respiratory rate 18 /min [facility] 12-13-2022 09:19-0400 SaO2% (BldA) [Mass fraction] 98 % [facility] 12-13-2022 09:19-0400 Systolic blood pressure 110 mm[Hg] [facility] 12-12-2022 11:50-0400 Body temperature 96.3 [degF] [facility] 12-12-2022 11:50-0400 Diastolic blood pressure 80 mm[Hg] [facility] 12-12-2022 11:50-0400 Heart rate 63 /min [facility] 12-12-2022 11:50-0400 Respiratory rate 18 /min [facility] 12-12-2022 11:50-0400 SaO2% (BldA) [Mass fraction] 100 % [facility] 12-12-2022 11:50-0400 Systolic blood pressure 120 mm[Hg] [facility] 12-11-2022 07:38-0400 Body height 167.64 cm [facility] 12-11-2022 07:38-0400 Body temperature 96.9 [degF] [facility] 12-11-2022 07:38-0400 Diastolic blood pressure 74 mm[Hg] [facility] 12-11-2022 07:38-0400 Heart rate 75 /min [facility] 12-11-2022 07:38-0400 Respiratory rate 16 /min [facility] 12-11-2022 07:38-0400 SaO2% (BldA) [Mass fraction] 100 % [facility] 12-11-2022 07:38-0400 Systolic blood pressure 115 mm[Hg] [facility] 12-10-2022 08:36-0400 Body temperature 97.3 [degF] [facility] 12-10-2022 08:36-0400 Diastolic blood pressure 76 mm[Hg] [facility] 12-10-2022 08:36-0400 Heart rate 74 /min [facility] 12-10-2022 08:36-0400 Respiratory rate 16 /min [facility] 12-10-2022 08:36-0400 SaO2% (BldA) [Mass fraction] 100 % [facility] 12-10-2022 08:36-0400 Systolic blood pressure 117 mm[Hg] [facility] 12-10-2022 07:40-0400 Body height 167.64 cm [facility] 12-09-2022 07:49-0400 Body height 167.64 cm [facility] 12-09-2022 07:49-0400 Body temperature 97.1 [degF] [facility] 12-09-2022 07:49-0400 Diastolic blood pressure 79 mm[Hg] [facility] 12-09-2022 07:49-0400 Heart rate 66 /min [facility] 12-09-2022 07:49-0400 Respiratory rate 16 /min [facility] 12-09-2022 07:49-0400 SaO2% (BldA) [Mass fraction] 98 % [facility] 12-09-2022 07:49-0400 Systolic blood pressure 121 mm[Hg] [facility] 12-08-2022 08:45-0400 Diastolic blood pressure 80 mm[Hg] [facility] 12-08-2022 08:45-0400 Heart rate 68 /min [facility] 12-08-2022 08:45-0400 Systolic blood pressure 122 mm[Hg] [facility] 12-08-2022 07:46-0400 Body mass index (BMI) [Ratio] 25.3 kg/m2 [facility] 12-08-2022 07:46-0400 Body temperature 98.2 [degF] [facility] 12-08-2022 07:46-0400 Body weight 71.21 kg [facility] 12-08-2022 07:46-0400 Respiratory rate 16 /min [facility] 12-08-2022 07:46-0400 SaO2% (BldA) [Mass fraction] 100 % [facility] 12-07-2022 08:47-0400 Body temperature 97.3 [degF] [facility] 12-07-2022 08:47-0400 Diastolic blood pressure 78 mm[Hg] [facility] 12-07-2022 08:47-0400 Heart rate 60 /min [facility] 12-07-2022 08:47-0400 Respiratory rate 16 /min [facility] 12-07-2022 08:47-0400 Systolic blood pressure 118 mm[Hg] [facility] 12-07-2022 07:36-0400 SaO2% (BldA) [Mass fraction] 99 % [facility] 12-06-2022 12:15-0400 Body temperature 98.2 [degF] [facility] 12-06-2022 12:15-0400 Diastolic blood pressure 80 mm[Hg] [facility] 12-06-2022 12:15-0400 Heart rate 67 /min [facility] 12-06-2022 12:15-0400 Respiratory rate 12 /min [facility] 12-06-2022 12:15-0400 SaO2% (BldA) [Mass fraction] 98 % [facility] 12-06-2022 12:15-0400 Systolic blood pressure 132 mm[Hg] [facility] 12-05-2022 12:00-0400 Body temperature 98.4 [degF] [facility] 12-05-2022 12:00-0400 Diastolic blood pressure 90 mm[Hg] [facility] 12-05-2022 12:00-0400 Heart rate 66 /min [facility] 12-05-2022 12:00-0400 Respiratory rate 12 /min [facility] 12-05-2022 12:00-0400 SaO2% (BldA) [Mass fraction] 100 % [facility] 12-05-2022 12:00-0400 Systolic blood pressure 129 mm[Hg] [facility] 12-04-2022 08:39-0400 Diastolic blood pressure 81 mm[Hg] [facility] 12-04-2022 08:39-0400 Heart rate 57 /min [facility] 12-04-2022 08:39-0400 Respiratory rate 16 /min [facility] 12-04-2022 08:39-0400 Systolic blood pressure 136 mm[Hg] [facility] 12-04-2022 07:28-0400 Body height 167.64 cm [facility] 12-04-2022 07:28-0400 Body temperature 96.7 [degF] [facility] 12-04-2022 07:28-0400 SaO2% (BldA) [Mass fraction] 97 % [facility] 12-03-2022 08:43-0400 Body temperature 97 [degF] [facility] 12-03-2022 08:43-0400 Diastolic blood pressure 81 mm[Hg] [facility] 12-03-2022 08:43-0400 Heart rate 71 /min [facility] 12-03-2022 08:43-0400 Respiratory rate 16 /min [facility] 12-03-2022 08:43-0400 SaO2% (BldA) [Mass fraction] 100 % [facility] 12-03-2022 08:43-0400 Systolic blood pressure 119 mm[Hg] [facility] 12-02-2022 08:56-0400 Diastolic blood pressure 87 mm[Hg] [facility] 12-02-2022 08:56-0400 Heart rate 64 /min [facility] 12-02-2022 08:56-0400 Systolic blood pressure 120 mm[Hg] [facility] 12-02-2022 07:48-0400 Body height 167.64 cm [facility] 12-02-2022 07:48-0400 Body mass index (BMI) [Ratio] 25.2 kg/m2 [facility] 12-02-2022 07:48-0400 Body temperature 97.6 [degF] [facility] 12-02-2022 07:48-0400 Body weight 70.76 kg [facility] 12-02-2022 07:48-0400 Diastolic blood pressure 73 mm[Hg] [facility] 12-02-2022 07:48-0400 Heart rate 69 /min [facility] 12-02-2022 07:48-0400 Respiratory rate 16 /min [facility] 12-02-2022 07:48-0400 SaO2% (BldA) [Mass fraction] 100 % [facility] 12-02-2022 07:48-0400 Systolic blood pressure 117 mm[Hg] [facility] 12-01-2022 08:39-0400 Body temperature 97.8 [degF] [facility] 12-01-2022 08:39-0400 Diastolic blood pressure 84 mm[Hg] [facility] 12-01-2022 08:39-0400 Heart rate 71 /min [facility] 12-01-2022 08:39-0400 Respiratory rate 16 /min [facility] 12-01-2022 08:39-0400 SaO2% (BldA) [Mass fraction] 99 % [facility] 12-01-2022 08:39-0400 Systolic blood pressure 128 mm[Hg] [facility] 12-01-2022 07:38-0400 Body height 167.64 cm [facility] 12-01-2022 07:38-0400 Body mass index (BMI) [Ratio] 25.2 kg/m2 [facility] 12-01-2022 07:38-0400 Body weight 70.76 kg [facility] 11-30-2022 13:43-0400 Body temperature 97 [degF] [facility] 11-30-2022 13:43-0400 Diastolic blood pressure 76 mm[Hg] [facility] 11-30-2022 13:43-0400 Heart rate 57 /min [facility] 11-30-2022 13:43-0400 Respiratory rate 16 /min [facility] 11-30-2022 13:43-0400 SaO2% (BldA) [Mass fraction] 99 % [facility] 11-30-2022 13:43-0400 Systolic blood pressure 130 mm[Hg] [facility] 11-30-2022 12:18-0400 Body height 167.64 cm [facility] 11-30-2022 12:18-0400 Body mass index (BMI) [Ratio] 25.2 kg/m2 [facility] 11-30-2022 12:18-0400 Body weight 70.76 kg [facility] 11-05-2021 13:49-0400 Body temperature 97.7 [degF] [facility] Work Phone: 11-05-2021 13:49-0400 Diastolic blood pressure 78 mm[Hg] [facility] Work Phone: 11-05-2021 13:49-0400 Heart rate 68 /min [facility] Work Phone: 11-05-2021 13:49-0400 Respiratory rate 12 /min [facility] Work Phone: 11-05-2021 13:49-0400 SaO2% (BldA) [Mass fraction] 98 % [facility] Work Phone: 11-05-2021 13:49-0400 Systolic blood pressure 106 mm[Hg] [facility] Work Phone: 11-05-2021 07:52-0400 Body height 167.64 cm [facility] Work Phone: 11-04-2021 07:43-0400 Body temperature 96.9 [degF] [facility] Work Phone: 11-04-2021 07:43-0400 Diastolic blood pressure 70 mm[Hg] [facility] Work Phone: 11-04-2021 07:43-0400 Heart rate 70 /min [facility] Work Phone: 11-04-2021 07:43-0400 Respiratory rate 12 /min [facility] Work Phone: 11-04-2021 07:43-0400 SaO2% (BldA) [Mass fraction] 99 % [facility] Work Phone: 11-04-2021 07:43-0400 Systolic blood pressure 114 mm[Hg] [facility] Work Phone: 11-03-2021 08:42-0400 Diastolic blood pressure 86 mm[Hg] [facility] Work Phone: 11-03-2021 08:42-0400 Heart rate 62 /min [facility] Work Phone: 11-03-2021 08:42-0400 Respiratory rate 16 /min [facility] Work Phone: 11-03-2021 08:42-0400 Systolic blood pressure 118 mm[Hg] [facility] Work Phone: 11-03-2021 07:48-0400 Body height 167.64 cm [facility] Work Phone: 11-03-2021 07:48-0400 Body temperature 96 [degF] [facility] Work Phone: 11-03-2021 07:48-0400 SaO2% (BldA) [Mass fraction] 98 % [facility] Work Phone: 11-02-2021 09:18-0400 Body temperature 97 [degF] [facility] Work Phone: 11-02-2021 09:18-0400 Diastolic blood pressure 82 mm[Hg] [facility] Work Phone: 11-02-2021 09:18-0400 Heart rate 67 /min [facility] Work Phone: 11-02-2021 09:18-0400 Respiratory rate 16 /min [facility] Work Phone: 11-02-2021 09:18-0400 SaO2% (BldA) [Mass fraction] 99 % [facility] Work Phone: 11-02-2021 09:18-0400 Systolic blood pressure 111 mm[Hg] [facility] Work Phone: 11-01-2021 10:41-0400 Body temperature 96.3 [degF] [facility] Work Phone: 11-01-2021 10:41-0400 Diastolic blood pressure 69 mm[Hg] [facility] Work Phone: 11-01-2021 10:41-0400 Heart rate 68 /min [facility] Work Phone: 11-01-2021 10:41-0400 Respiratory rate 16 /min [facility] Work Phone: 11-01-2021 10:41-0400 SaO2% (BldA) [Mass fraction] 98 % [facility] Work Phone: 11-01-2021 10:41-0400 Systolic blood pressure 134 mm[Hg] [facility] Work Phone: 10-31-2021 08:48-0400 Body height 167.64 cm [facility] Work Phone: 10-31-2021 08:48-0400 Body temperature 96.2 [degF] [facility] Work Phone: 10-31-2021 08:48-0400 Diastolic blood pressure 81 mm[Hg] [facility] [facility] Work Phone: 10-31-2021 08:48-0400 Heart rate 67 /min [facility] Work Phone: 10-31-2021 08:48-0400 Respiratory rate 16 /min [facility] Work Phone: 10-31-2021 08:48-0400 SaO2% (BldA) [Mass fraction] 100 % [facility] Work Phone: 10-31-2021 08:48-0400 Systolic blood pressure 115 mm[Hg] [facility] Work Phone: 10-30-2021 08:31-0400 Body temperature 97.1 [degF] [facility] Work Phone: 10-30-2021 08:31-0400 Diastolic blood pressure 85 mm[Hg] [facility] Work Phone: 10-30-2021 08:31-0400 Heart rate 72 /min [facility] Work Phone: 10-30-2021 08:31-0400 Respiratory rate 12 /min [facility] Work Phone: 10-30-2021 08:31-0400 SaO2% (BldA) [Mass fraction] 98 % [facility] Work Phone: 10-30-2021 08:31-0400 Systolic blood pressure 116 mm[Hg] [facility] Work Phone: 10-30-2021 07:45-0400 Body height 167.64 cm [facility] Work Phone: 10-29-2021 08:52-0400 Body temperature 98 [degF] [facility] Work Phone: 10-29-2021 08:52-0400 Diastolic blood pressure 76 mm[Hg] [facility] Work Phone: 10-29-2021 08:52-0400 Heart rate 56 /min [facility] Work Phone: 10-29-2021 08:52-0400 Respiratory rate 12 /min [facility] Work Phone: 10-29-2021 08:52-0400 SaO2% (BldA) [Mass fraction] 99 % [facility] Work Phone: 10-29-2021 08:52-0400 Systolic blood pressure 108 mm[Hg] [facility] Work Phone: 10-29-2021 07:54-0400 Body mass index (BMI) [Ratio] 26.3 kg/m2 [facility] Work Phone: 10-29-2021 07:54-0400 Body weight 73.93 kg [facility] Work Phone: 10-28-2021 08:38-0400 Body temperature 98 [degF] [facility] Work Phone: 10-28-2021 08:38-0400 Diastolic blood pressure 85 mm[Hg] [facility] Work Phone: 10-28-2021 08:38-0400 Heart rate 84 /min [facility] Work Phone: 10-28-2021 08:38-0400 Respiratory rate 12 /min [facility] Work Phone: 10-28-2021 08:38-0400 SaO2% (BldA) [Mass fraction] 98 % [facility] Work Phone: 10-28-2021 08:38-0400 Systolic blood pressure 113 mm[Hg] [facility] Work Phone: 10-28-2021 07:39-0400 Body mass index (BMI) [Ratio] 26.3 kg/m2 [facility] Work Phone: 10-28-2021 07:39-0400 Body weight 73.93 kg [facility] Work Phone: 10-27-2021 07:47-0400 Body height 167.64 cm [facility] Work Phone: 10-27-2021 07:47-0400 Body temperature 97.6 [degF] [facility] Work Phone: 10-27-2021 07:47-0400 Diastolic blood pressure 58 mm[Hg] [facility] Work Phone: 10-27-2021 07:47-0400 Heart rate 68 /min [facility] Work Phone: 10-27-2021 07:47-0400 Respiratory rate 16 /min [facility] Work Phone: 10-27-2021 07:47-0400 SaO2% (BldA) [Mass fraction] 98 % [facility] Work Phone: 10-27-2021 07:47-0400 Systolic blood pressure 100 mm[Hg] [facility] Work Phone: 10-26-2021 08:15-0400 Body temperature 98.3 [degF] [facility] Work Phone: 10-26-2021 08:15-0400 Diastolic blood pressure 62 mm[Hg] [facility] Work Phone: 10-26-2021 08:15-0400 Heart rate 63 /min [facility] Work Phone: 10-26-2021 08:15-0400 Respiratory rate 16 /min [facility] Work Phone: 10-26-2021 08:15-0400 SaO2% (BldA) [Mass fraction] 99 % [facility] Work Phone: 10-26-2021 08:15-0400 Systolic blood pressure 107 mm[Hg] [facility] Work Phone: 10-25-2021 08:18-0400 Body temperature 98.3 [degF] [facility] Work Phone: 10-25-2021 08:18-0400 Diastolic blood pressure 69 mm[Hg] [facility] Work Phone: 10-25-2021 08:18-0400 Heart rate 74 /min [facility] Work Phone: 10-25-2021 08:18-0400 Respiratory rate 16 /min [facility] Work Phone: 10-25-2021 08:18-0400 SaO2% (BldA) [Mass fraction] 98 % [facility] Work Phone: 10-25-2021 08:18-0400 Systolic blood pressure 111 mm[Hg] [facility] Work Phone: 10-24-2021 09:30-0400 Diastolic blood pressure 80 mm[Hg] [facility] Work Phone: 10-24-2021 09:30-0400 Heart rate 86 /min [facility] Work Phone: 10-24-2021 09:30-0400 Respiratory rate 16 /min [facility] Work Phone: 10-24-2021 09:30-0400 SaO2% (BldA) [Mass fraction] 99 % [facility] Work Phone: 10-24-2021 09:30-0400 Systolic blood pressure 138 mm[Hg] [facility] Work Phone: 10-24-2021 08:44-0400 Body temperature 97.4 [degF] [facility] Work Phone: 10-23-2021 08:31-0400 Body temperature 97.3 [degF] [facility] Work Phone: 10-23-2021 08:31-0400 Diastolic blood pressure 82 mm[Hg] [facility] Work Phone: 10-23-2021 08:31-0400 Heart rate 61 /min [facility] Work Phone: 10-23-2021 08:31-0400 Respiratory rate 16 /min [facility] Work Phone: 10-23-2021 08:31-0400 SaO2% (BldA) [Mass fraction] 98 % [facility] Work Phone: 10-23-2021 08:31-0400 Systolic blood pressure 115 mm[Hg] [facility] Work Phone: 10-23-2021 07:47-0400 Body mass index (BMI) [Ratio] 26.3 kg/m2 [facility] Work Phone: 10-23-2021 07:47-0400 Body weight 73.93 kg [facility] Work Phone: 10-22-2021 09:46-0400 Diastolic blood pressure 81 mm[Hg] [facility] Work Phone: 10-22-2021 09:46-0400 Heart rate 70 /min [facility] Work Phone: 10-22-2021 09:46-0400 Respiratory rate 16 /min [facility] Work Phone: 10-22-2021 09:46-0400 SaO2% (BldA) [Mass fraction] 98 % [facility] Work Phone: 10-22-2021 09:46-0400 Systolic blood pressure 124 mm[Hg] [facility] Work Phone: 10-22-2021 08:50-0400 Body mass index (BMI) [Ratio] 26.3 kg/m2 [facility] Work Phone: 10-22-2021 08:50-0400 Body temperature 97.8 [degF] [facility] Work Phone: 10-22-2021 08:50-0400 Body weight 73.93 kg [facility] Work Phone: 10-21-2021 07:35-0400 Body height 167.[address] Noy Staples Work Phone: [facility] Work Phone: 10-21-2021 07:35-0400 Body mass index (BMI) [Ratio] 26.3 kg/m2 Dr. Noy Staples Work Phone: [facility] Work Phone: 10-21-2021 07:35-0400 Body temperature 97.5 [degF] Dr. Noy Staples Work Phone: [facility] Work Phone: 10-21-2021 07:35-0400 Body weight 73.[address] Noy Staples Work Phone: [facility] Work Phone: 10-21-2021 07:35-0400 Diastolic blood pressure 76 mm[Hg] Dr. Noy Staples Work Phone: [facility] Work Phone: 10-21-2021 07:35-0400 Heart rate 86 /min Dr. Noy Staples Work Phone: [facility] Work Phone: 10-21-2021 07:35-0400 Respiratory rate 16 /min Dr. Noy Staples Work Phone: [facility] Work Phone: 10-21-2021 07:35-0400 SaO2% (BldA) [Mass fraction] 99 % Dr. Noy Staples Work Phone: [facility] Work Phone: 10-21-2021 07:35-0400 Systolic blood pressure 121 mm[Hg] Dr. Noy Staples Work Phone: [facility] Work Phone: 10-20-2021 08:51-0400 Diastolic blood pressure 69 mm[Hg] Dr. Noy Staples Work Phone: [facility] Work Phone: 10-20-2021 08:51-0400 Heart rate 61 /min Dr. Noy Staples Work Phone: [facility] Work Phone: 10-20-2021 08:51-0400 Respiratory rate 16 /min Dr. Noy Staples Work Phone: [facility] Work Phone: 10-20-2021 08:51-0400 Systolic blood pressure 116 mm[Hg] Dr. Noy Staples Work Phone: [facility] Work Phone: 10-20-2021 07:54-0400 Body height 167.[address] Noy Staples Work Phone: [facility] Work Phone: 10-20-2021 07:54-0400 Body mass index (BMI) [Ratio] 26.3 kg/m2 Dr. Noy Staples Work Phone: [facility] Work Phone: 10-20-2021 07:54-0400 Body temperature 97.8 [degF] Dr. Noy Staples Work Phone: [facility] Work Phone: 10-20-2021 07:54-0400 Body weight 73.[address] Noy Staples Work Phone: [facility] Work Phone: 10-20-2021 07:54-0400 SaO2% (BldA) [Mass fraction] 97 % Dr. Noy Staples Work Phone: [facility] Work Phone: 10-17-2021 08:53-0400 Body temperature 97.5 [degF] Dr. Noy Staples Work Phone: [facility] Work Phone: 10-17-2021 08:53-0400 Diastolic blood pressure 79 mm[Hg] Dr. Noy Staples Work Phone: [facility] Work Phone: 10-17-2021 08:53-0400 Heart rate 79 /min Dr. Noy Staples Work Phone: [facility] Work Phone: 10-17-2021 08:53-0400 Respiratory rate 14 /min Dr. Noy Staples Work Phone: [facility] Work Phone: 10-17-2021 08:53-0400 SaO2% (BldA) [Mass fraction] 99 % Dr. Noy Staples Work Phone: [facility] Work Phone: 10-17-2021 08:53-0400 Systolic blood pressure 113 mm[Hg] Dr. Noy Staples Work Phone: [facility] Work Phone: 10-17-2021 07:42-0400 Body height 167.[address] Noy Staples Work Phone: [facility] Work Phone: 10-17-2021 07:42-0400 Body mass index (BMI) [Ratio] 26.1 kg/m2 Dr. Noy Staples Work Phone: [facility] Work Phone: 10-17-2021 07:42-0400 Body weight 73.[address] Noy Staples Work Phone: [facility] Work Phone: 10-16-2021 08:31-0400 Body temperature 96.5 [degF] Dr. Noy Staples Work Phone: [facility] Work Phone: 10-16-2021 08:31-0400 Diastolic blood pressure 72 mm[Hg] Dr. Noy Staples Work Phone: [facility] Work Phone: 10-16-2021 08:31-0400 Heart rate 68 /min Dr. Noy Staples Work Phone: [facility] Work Phone: 10-16-2021 08:31-0400 Respiratory rate 12 /min Dr. Noy Staples Work Phone: [facility] Work Phone: 10-16-2021 08:31-0400 SaO2% (BldA) [Mass fraction] 98 % Dr. Noy Staples Work Phone: [facility] Work Phone: 10-16-2021 08:31-0400 Systolic blood pressure 108 mm[Hg] Dr. Noy Staples Work Phone: [facility] Work Phone: 10-16-2021 07:45-0400 Body mass index (BMI) [Ratio] 26.1 kg/m2 Dr. Noy Staples Work Phone: [facility] Work Phone: 10-16-2021 07:45-0400 Body weight 73.[address] Noy Staples Work Phone: [facility] Work Phone: 10-15-2021 09:23-0400 Body mass index (BMI) [Ratio] 26.1 kg/m2 Dr. Noy Staples Work Phone: [facility] Work Phone: 10-15-2021 09:23-0400 Body temperature 97.8 [degF] Dr. Noy Staples Work Phone: [facility] Work Phone: 10-15-2021 09:23-0400 Body weight 73.[address] Noy Staples Work Phone: [facility] Work Phone: 10-15-2021 09:23-0400 Diastolic blood pressure 102 mm[Hg] Dr. Noy Staples Work Phone: [facility] Work Phone: 10-15-2021 09:23-0400 Heart rate 76 /min Dr. Noy Staples Work Phone: [facility] Work Phone: 10-15-2021 09:23-0400 Respiratory rate 14 /min Dr. Noy Staples Work Phone: [facility] Work Phone: 10-15-2021 09:23-0400 SaO2% (BldA) [Mass fraction] 100 % Dr. Noy Staples Work Phone: [facility] Work Phone: 10-15-2021 09:23-0400 Systolic blood pressure 138 mm[Hg] Dr. Noy Staples Work Phone: [facility] Work Phone: 10-14-2021 08:35-0400 Body temperature 97.2 [degF] Dr. Noy Staples Work Phone: [facility] Work Phone: 10-14-2021 08:35-0400 Diastolic blood pressure 79 mm[Hg] Dr. Noy Staples Work Phone: [facility] Work Phone: 10-14-2021 08:35-0400 Heart rate 73 /min Dr. Noy Staples Work Phone: [facility] Work Phone: 10-14-2021 08:35-0400 Respiratory rate 12 /min Dr. Noy Staples Work Phone: [facility] Work Phone: 10-14-2021 08:35-0400 SaO2% (BldA) [Mass fraction] 98 % Dr. Noy Staples Work Phone: [facility] Work Phone: 10-14-2021 08:35-0400 Systolic blood pressure 123 mm[Hg] Dr. Noy Staples Work Phone: [facility] Work Phone: 10-14-2021 07:53-0400 Body mass index (BMI) [Ratio] 26.1 kg/m2 Dr. Noy Staples Work Phone: [facility] Work Phone: 10-14-2021 07:53-0400 Body weight 73.[address] Noy Staples Work Phone: [facility] Work Phone: 10-13-2021 08:17-0400 Body temperature 98.2 [degF] Dr. Noy Staples Work Phone: [facility] Work Phone: 10-13-2021 08:17-0400 Diastolic blood pressure 79 mm[Hg] Dr. Noy Staples Work Phone: [facility] Work Phone: 10-13-2021 08:17-0400 Heart rate 72 /min Dr. Noy Staples Work Phone: [facility] Work Phone: 10-13-2021 08:17-0400 Respiratory rate 12 /min Dr. Noy Staples Work Phone: [facility] Work Phone: 10-13-2021 08:17-0400 SaO2% (BldA) [Mass fraction] 99 % Dr. Noy Staples Work Phone: [facility] Work Phone: 10-13-2021 08:17-0400 Systolic blood pressure 127 mm[Hg] Dr. Noy Staples Work Phone: [facility] Work Phone: 10-12-2021 08:20-0400 Body temperature 97.8 [degF] Dr. Noy Staples Work Phone: [facility] Work Phone: 10-12-2021 08:20-0400 Diastolic blood pressure 78 mm[Hg] Dr. Noy Staples Work Phone: [facility] Work Phone: 10-12-2021 08:20-0400 Heart rate 78 /min Dr. Noy Staples Work Phone: [facility] Work Phone: 10-12-2021 08:20-0400 Respiratory rate 14 /min Dr. Noy Staples Work Phone: [facility] Work Phone: 10-12-2021 08:20-0400 SaO2% (BldA) [Mass fraction] 100 % Dr. Noy Staples Work Phone: [facility] Work Phone: 10-12-2021 08:20-0400 Systolic blood pressure 135 mm[Hg] Dr. Noy Staples Work Phone: [facility] Work Phone: 10-11-2021 08:51-0400 Body temperature 98 [degF] Dr. Noy Staples Work Phone: [facility] Work Phone: 10-11-2021 08:51-0400 Diastolic blood pressure 97 mm[Hg] Dr. Noy Staples Work Phone: [facility] Work Phone: 10-11-2021 08:51-0400 Heart rate 74 /min Dr. Noy Staples Work Phone: [facility] Work Phone: 10-11-2021 08:51-0400 Respiratory rate 12 /min Dr. Noy Staples Work Phone: [facility] Work Phone: 10-11-2021 08:51-0400 SaO2% (BldA) [Mass fraction] 100 % Dr. Noy Staples Work Phone: [facility] Work Phone: 10-11-2021 08:51-0400 Systolic blood pressure 129 mm[Hg] Dr. Noy Staples Work Phone: [facility] Work Phone: 10-10-2021 07:54-0400 Body temperature 96.8 [degF] Dr. Noy Staples Work Phone: [facility] Work Phone: 10-10-2021 07:54-0400 Diastolic blood pressure 81 mm[Hg] Dr. Noy Staples Work Phone: [facility] Work Phone: 10-10-2021 07:54-0400 Heart rate 73 /min Dr. Noy Staples Work Phone: [facility] Work Phone: 10-10-2021 07:54-0400 Respiratory rate 16 /min Dr. Noy Staples Work Phone: [facility] Work Phone: 10-10-2021 07:54-0400 SaO2% (BldA) [Mass fraction] 99 % Dr. Noy Staples Work Phone: [facility] Work Phone: 10-10-2021 07:54-0400 Systolic blood pressure 133 mm[Hg] Dr. Noy Staples Work Phone: [facility] Work Phone: 08-22-2021 08:15-0400 Body height 167.[address] Noy Staples Work Phone: [facility] Work Phone: 08-22-2021 08:15-0400 Body temperature 97.5 [degF] Dr. Noy Staples Work Phone: [facility] Work Phone: 08-22-2021 08:15-0400 Diastolic blood pressure 77 mm[Hg] Dr. Noy Staples Work Phone: [facility] Work Phone: 08-22-2021 08:15-0400 Heart rate 78 /min Dr. Noy Staples Work Phone: [facility] Work Phone: 08-22-2021 08:15-0400 Respiratory rate 16 /min Dr. Noy Staplse Work Phone: [facility] Work Phone: 08-22-2021 08:15-0400 SaO2% (BldA) [Mass fraction] 95 % Dr. Noy Staples Work Phone: [facility] Work Phone: 08-22-2021 08:15-0400 Systolic blood pressure 135 mm[Hg] Dr. Noy Staples Work Phone: [facility] Work Phone: 08-21-2021 09:42-0400 Body temperature 97.9 [degF] Dr. Noy Staples Work Phone: [facility] Work Phone: 08-21-2021 09:42-0400 Diastolic blood pressure 89 mm[Hg] Dr. Noy Staples Work Phone: [facility] Work Phone: 08-21-2021 09:42-0400 Heart rate 71 /min Dr. Noy Staples Work Phone: [facility] Work Phone: 08-21-2021 09:42-0400 Respiratory rate 12 /min Dr. Noy Staples Work Phone: [facility] Work Phone: 08-21-2021 09:42-0400 SaO2% (BldA) [Mass fraction] 99 % Dr. Noy Staples Work Phone: [facility] Work Phone: 08-21-2021 09:42-0400 Systolic blood pressure 129 mm[Hg] Dr. Noy Staples Work Phone: [facility] Work Phone: 08-20-2021 09:04-0400 Diastolic blood pressure 89 mm[Hg] Dr. Noy Staples Work Phone: [facility] Work Phone: 08-20-2021 09:04-0400 Heart rate 71 /min Dr. Noy Staples Work Phone: [facility] Work Phone: 08-20-2021 09:04-0400 Respiratory rate 16 /min Dr. Noy Staples Work Phone: [facility] Work Phone: 08-20-2021 09:04-0400 Systolic blood pressure 142 mm[Hg] Dr. Noy Staples Work Phone: [facility] Work Phone: 08-20-2021 07:55-0400 Body temperature 97.8 [degF] Dr. Noy Staples Work Phone: [facility] Work Phone: 08-20-2021 07:55-0400 SaO2% (BldA) [Mass fraction] 99 % Dr. Noy Staples Work Phone: [facility] Work Phone: 08-19-2021 10:24-0400 Body temperature 97.2 [degF] Dr. Noy Staples Work Phone: [facility] Work Phone: 08-19-2021 10:24-0400 Diastolic blood pressure 72 mm[Hg] Dr. Noy Staples Work Phone: [facility] Work Phone: 08-19-2021 10:24-0400 Heart rate 62 /min Dr. Noy Staples Work Phone: [facility] Work Phone: 08-19-2021 10:24-0400 Respiratory rate 16 /min Dr. Noy Staples Work Phone: [facility] Work Phone: 08-19-2021 10:24-0400 SaO2% (BldA) [Mass fraction] 99 % Dr. Noy Staples Work Phone: [facility] Work Phone: 08-19-2021 10:24-0400 Systolic blood pressure 119 mm[Hg] Dr. Noy Staples Work Phone: [facility] Work Phone: 08-18-2021 09:49-0400 Body temperature 96.6 [degF] Dr. Noy Staples Work Phone: [facility] Work Phone: 08-18-2021 09:49-0400 Diastolic blood pressure 83 mm[Hg] Dr. Noy Staples Work Phone: [facility] Work Phone: 08-18-2021 09:49-0400 Heart rate 69 /min Dr. Noy Staples Work Phone: [facility] Work Phone: 08-18-2021 09:49-0400 Respiratory rate 16 /min Dr. Noy Staples Work Phone: [facility] Work Phone: 08-18-2021 09:49-0400 SaO2% (BldA) [Mass fraction] 100 % Dr. Noy Staples Work Phone: [facility] Work Phone: 08-18-2021 09:49-0400 Systolic blood pressure 140 mm[Hg] Dr. Noy Staples Work Phone: [facility] Work Phone: 08-18-2021 08:21-0400 Body height 167.[address] Noy Staples Work Phone: [facility] Work Phone: 08-17-2021 09:11-0400 Body temperature 98.5 [degF] Dr. Noy Staples Work Phone: [facility] Work Phone: 08-17-2021 09:11-0400 Diastolic blood pressure 87 mm[Hg] Dr. Noy Staples Work Phone: [facility] Work Phone: 08-17-2021 09:11-0400 Heart rate 62 /min Dr. Noy Staples Work Phone: [facility] Work Phone: 08-17-2021 09:11-0400 Respiratory rate 18 /min Dr. Noy Staples Work Phone: [facility] Work Phone: 08-17-2021 09:11-0400 SaO2% (BldA) [Mass fraction] 98 % Dr. Noy Staples Work Phone: [facility] Work Phone: 08-17-2021 09:11-0400 Systolic blood pressure 127 mm[Hg] Dr. Noy Staples Work Phone: [facility] Work Phone: 08-16-2021 09:33-0400 Body temperature 97.2 [degF] Dr. Noy Staples Work Phone: [facility] Work Phone: 08-16-2021 09:33-0400 Diastolic blood pressure 90 mm[Hg] Dr. Noy Staples Work Phone: [facility] Work Phone: 08-16-2021 09:33-0400 Heart rate 61 /min Dr. Noy Staples Work Phone: [facility] Work Phone: 08-16-2021 09:33-0400 Respiratory rate 16 /min Dr. Noy Staples Work Phone: [facility] Work Phone: 08-16-2021 09:33-0400 SaO2% (BldA) [Mass fraction] 100 % Dr. Noy Staples Work Phone: [facility] Work Phone: 08-16-2021 09:33-0400 Systolic blood pressure 129 mm[Hg] Dr. Noy Staples Work Phone: [facility] Work Phone: 08-15-2021 08:09-0400 Body height 167.[address] Noy Staples Work Phone: [facility] Work Phone: 08-15-2021 08:09-0400 Body temperature 96.2 [degF] Dr. Noy Staples Work Phone: [facility] Work Phone: 08-15-2021 08:09-0400 Diastolic blood pressure 86 mm[Hg] Dr. Noy Staples Work Phone: [facility] Work Phone: 08-15-2021 08:09-0400 Heart rate 71 /min Dr. Noy Staples Work Phone: [facility] Work Phone: 08-15-2021 08:09-0400 Respiratory rate 16 /min Dr. Noy Staples Work Phone: [facility] Work Phone: 08-15-2021 08:09-0400 SaO2% (BldA) [Mass fraction] 100 % Dr. Noy Staples Work Phone: [facility] Work Phone: 08-15-2021 08:09-0400 Systolic blood pressure 114 mm[Hg] Dr. Noy Staples Work Phone: [facility] Work Phone: 08-14-2021 09:26-0400 Body temperature 96.4 [degF] Dr. Noy Staples Work Phone: [facility] Work Phone: 08-14-2021 09:26-0400 Diastolic blood pressure 78 mm[Hg] Dr. Noy Staples Work Phone: [facility] Work Phone: 08-14-2021 09:26-0400 Heart rate 61 /min Dr. Noy Staples Work Phone: [facility] Work Phone: 08-14-2021 09:26-0400 SaO2% (BldA) [Mass fraction] 99 % Dr. Noy Staples Work Phone: [facility] Work Phone: 08-14-2021 09:26-0400 Systolic blood pressure 125 mm[Hg] Dr. Noy Staples Work Phone: [facility] Work Phone: 08-14-2021 08:08-0400 Respiratory rate 16 /min Dr. Noy Staples Work Phone: [facility] Work Phone: 08-13-2021 08:12-0400 Body mass index (BMI) [Ratio] 26.8 kg/m2 Dr. Noy Staples Work Phone: [facility] Work Phone: 08-13-2021 08:12-0400 Body temperature 96.3 [degF] Dr. Noy Staples Work Phone: [facility] Work Phone: 08-13-2021 08:12-0400 Body weight 75.[address] Noy Staples Work Phone: [facility] Work Phone: 08-13-2021 08:12-0400 Diastolic blood pressure 83 mm[Hg] Dr. Noy Staples Work Phone: [facility] Work Phone: 08-13-2021 08:12-0400 Heart rate 75 /min Dr. Noy Staples Work Phone: [facility] Work Phone: 08-13-2021 08:12-0400 Respiratory rate 16 /min Dr. Noy Staples Work Phone: [facility] Work Phone: 08-13-2021 08:12-0400 SaO2% (BldA) [Mass fraction] 99 % Dr. Noy Staples Work Phone: [facility] Work Phone: 08-13-2021 08:12-0400 Systolic blood pressure 124 mm[Hg] Dr. Noy Staples Work Phone: [facility] Work Phone: 08-12-2021 08:00-0400 Body temperature 98 [degF] Dr. Noy Staples Work Phone: [facility] Work Phone: 08-12-2021 08:00-0400 Diastolic blood pressure 81 mm[Hg] Dr. Noy Staples Work Phone: [facility] Work Phone: 08-12-2021 08:00-0400 Heart rate 78 /min Dr. Noy Staples Work Phone: [facility] Work Phone: 08-12-2021 08:00-0400 Respiratory rate 16 /min Dr. Noy Staples Work Phone: [facility] Work Phone: 08-12-2021 08:00-0400 SaO2% (BldA) [Mass fraction] 98 % Dr. Noy Staples Work Phone: [facility] Work Phone: 08-12-2021 08:00-0400 Systolic blood pressure 136 mm[Hg] Dr. Noy Staples Work Phone: [facility] Work Phone: 08-11-2021 10:51-0400 Body temperature 99.9 [degF] Dr. Noy Staples Work Phone: [facility] Work Phone: 08-11-2021 10:51-0400 Diastolic blood pressure 76 mm[Hg] Dr. Noy Staples Work Phone: [facility] Work Phone: 08-11-2021 10:51-0400 Heart rate 90 /min Dr. Noy Staples Work Phone: [facility] Work Phone: 08-11-2021 10:51-0400 Respiratory rate 16 /min Dr. Noy Staples Work Phone: [facility] Work Phone: 08-11-2021 10:51-0400 SaO2% (BldA) [Mass fraction] 98 % Dr. Noy Staples Work Phone: [facility] Work Phone: 08-11-2021 10:51-0400 Systolic blood pressure 135 mm[Hg] Dr. Noy Staples Work Phone: [facility] Work Phone: 08-09-2021 05:40-0400 Body temperature 99.1 [degF] Dr. Noy Staples Work Phone: [facility] Work Phone: 08-09-2021 05:40-0400 Diastolic blood pressure 76 mm[Hg] Dr. Noy Staples Work Phone: [facility] Work Phone: 08-09-2021 05:40-0400 Heart rate 85 /min Dr. Noy Staples Work Phone: [facility] Work Phone: 08-09-2021 05:40-0400 Respiratory rate 16 /min Dr. Noy Staples Work Phone: [facility] Work Phone: 08-09-2021 05:40-0400 SaO2% (BldA) [Mass fraction] 99 % Dr. Noy Staples Work Phone: [facility] Work Phone: 08-09-2021 05:40-0400 Systolic blood pressure 138 mm[Hg] Dr. Noy Staples Work Phone: [facility] Work Phone: 08-09-2021 03:54-0400 Body mass index (BMI) [Ratio] 31.6 kg/m2 Dr. Noy Staples Work Phone: [facility] Work Phone: 08-09-2021 03:54-04[address] Body weight [address] Noy Staples Work Phone: [facility] Work Phone: 09-22-2016 12:42-0400 BMI (Body Mass Index) 26.14 kg/m2 Ivonneadelso Samaniegosi HENRY [facility] Work Phone: 09-22-2016 12:42-0400 Body weight 73.48 kg Ivonne Dossi DC [facility] Work Phone: 09-22-2016 12:42-0400 Height 167.64 cm Ivonne Dossi DC [facility] Work Phone: 09-22-2016 12:42-0400 Weight 73.48 kg Ivonne Dossi DC [facility] Work Phone: 08-13-2011 16:23-0400 Body Temperature 97.6 [degF] Ivonne Samaniegosi HENRY [facility] Work Phone: 08-13-2011 16:23-0400 BP Diastolic 77 mm[Hg] Ivonne Dossi [facility] Work Phone: 08-13-2011 16:23-0400 BP Systolic 121 mm[Hg] Ivonne Dossi DC [facility] Work Phone: 08-13-2011 16:23-0400 Pulse (Heart Rate) 64 /min Ivonne Samaniegosi [facility] Work Phone: 04-16-2011 16:31-0500 Pulse Oximetry 98 % Ivonne Dossi DC [facility] Work Phone: Encounters Encounter Date Encounter Type Care Provider Facility Start: 11-16-2024 End: 11-16-[address] Ivonne Garcia DC [facility] Work Phone: Start: 11-16-2024 End: 11-16-[address] Noy Staples MD Work Phone: [facility] Start: 06-25-2024 End: 06-25-2024 ambulatory Noy Staples Facility:[facility] Start: 03-03-2024 End: 03-03-2024 Patient encounter procedure Dave Stuart MD Work Phone: [facility] Comment on above: Malignant neoplasm o f left kidney (HCC) (Primary Dx); Hypertrophy of prostate with urinary obstruction; Prostate mass; Calculus of kidney Start: 03-03-2024 End: 03-03-2024 ambulatory DAVE STUART Facility:[facility] Start: 03-03-2024 End: 03-03-2024 ambulatory Noy Staples Facility:[facility] Start: 03-01-2024 End: 03-01-2024 ambulatory Noy Staples Facility:[facility] Start: 08-30-2023 End: 08-30-[address] Noy Staples Work Phone: [facility] Work Phone: Start: 08-30-2023 End: 08-30-[address] Noy Staples Work Phone: [facility] Work Phone: Start: 08-27-2023 End: 08-27-2023 Patient encounter procedure Dave Stuart MD Work Phone: [facility] Comment on above: Disorder of prostate (Primary Dx); Calculus of kidney; Malignant neoplasm of left kidney (HCC) Start: 08-27-2023 End: 08-27-2023 ambulatory DAVE STUART Facility:[facility] Start: 07-29-2023 End: 07-29-[address] Noy Staples Work Phone: [facility] Work Phone: Start: 07-26-2023 End: 07-26-[address] Noy Staples Work Phone: [facility] Work Phone: Start: 07-09-2023 ambulatory NOY STAPLES Facility:[facility] Start: 07-09-2023 End: 07-09-2023 Subsequent hospital visit by physician [facility] Comment on above: Cyst of prostate [N4 2.83] Start: 05-29-2023 Telephone encounter Lucie couch PA-C Work Phone: [facility] Comment on above: Results Start: 05-27-2023 End: 05-27-2023 ambulatory DAVE SMALL STUART Facility:[facility] Start: 05-03-2023 End: 05-03-2023 ambulatory [facility] Work Phone: Start: 05-03-2023 End: 05-03-2023 Patient encounter procedure [facility] Work Phone: Start: 04-22-2023 End: 04-23-2023 ambulatory DAVE STUART Facility:[facility] Start: 04-14-2023 End: 04-14-2023 ambulatory [facility] Work Phone: Start: 04-14-2023 End: 04-14-2023 Patient encounter procedure [facility] Work Phone: Start: 04-12-2023 Telephone encounter Dave Stuart MD Work Phone: [facility] Comment on above: Results Start: 04-07-2023 Preprocedural examination done Dave Stuart MD Work Phone: [facility] Work Phone: Start: 04-07-2023 End: 04-07-2023 ambulatory CHERI MURRAY Facility:[facility] Start: 03-25-2023 Telephone encounter Cheri Murray MD Work Phone: [facility] Comment on above: Surgery Scheduled Start: 03-19-2023 Telephone encounter Dave Stuart MD Work Phone: [facility] Comment on above: Surgery Rescheduled Start: 03-12-2023 End: 03-12-2023 Patient encounter procedure Dave Stuart MD Work Phone: [facility] Comment on above: Hypertrophy of prost ate with urinary obstruction (Primary Dx); Prostate mass Start: 03-12-2023 End: 03-12-2023 ambulatory DAVE STUART Facility:[facility] Start: 12-17-2022 End: 12-17-2022 ambulatory [facility] Work Phone: Start: 12-17-2022 End: 12-17-2022 Patient encounter procedure [facility] Work Phone: Start: 12-16-2022 End: 12-16-2022 ambulatory [facility] Work Phone: Start: 12-16-2022 End: 12-16-2022 Patient encounter procedure [facility] Work Phone: Start: 12-15-2022 End: 12-15-2022 ambulatory [facility] Work Phone: Start: 12-15-2022 End: 12-15-2022 Patient encounter procedure [facility] Work Phone: Start: 12-14-2022 Telephone encounter Dave Stuart MD Work Phone: [facility] Comment on above: Surgery Scheduled Start: 12-14-2022 End: 12-14-2022 Patient encounter procedure [facility] Work Phone: Start: 12-13-2022 End: 12-13-2022 ambulatory [facility] Work Phone: Start: 12-13-2022 End: 12-13-2022 Patient encounter procedure [facility] Work Phone: Start: 12-12-2022 End: 12-12-2022 ambulatory [facility] Work Phone: Start: 12-12-2022 End: 12-12-2022 Patient encounter procedure [facility] Work Phone: Start: 12-11-2022 End: 12-11-2022 ambulatory [facility] Work Phone: Start: 12-11-2022 End: 12-11-2022 Patient encounter procedure [facility] Work Phone: Start: 12-10-2022 End: 12-10-2022 ambulatory [facility] Work Phone: Start: 12-10-2022 End: 12-10-2022 Patient encounter procedure [facility] Work Phone: Start: 12-09-2022 Telephone encounter Dave Stuart MD Work Phone: [facility] Comment on above: Schedule Surgery Start: 12-09-2022 End: 12-09-2022 ambulatory [facility] Work Phone: Start: 12-09-2022 End: 12-09-2022 Patient encounter procedure [facility] Work Phone: Start: 12-08-2022 End: 12-08-2022 Patient encounter procedure [facility] Work Phone: Start: 12-07-2022 End: 12-07-2022 Patient encounter procedure [facility] Work Phone: Start: 12-06-2022 End: 12-06-2022 ambulatory [facility] Work Phone: Start: 12-06-2022 End: 12-06-2022 Patient encounter procedure [facility] Work Phone: Start: 12-05-2022 End: 12-05-2022 Patient encounter procedure [facility] Work Phone: Start: 12-04-2022 End: 12-04-2022 Patient encounter procedure [facility] Work Phone: Start: 12-03-2022 End: 12-03-2022 Patient encounter procedure [facility] Work Phone: Start: 12-02-2022 End: 12-02-2022 ambulatory [facility] Work Phone: Start: 12-02-2022 End: 12-02-2022 Patient encounter procedure [facility] Work Phone: Start: 12-01-2022 End: 12-01-2022 ambulatory [facility] Work Phone: Start: 12-01-2022 End: 12-01-2022 Patient encounter procedure [facility] Work Phone: Start: 11-30-2022 End: 11-30-2022 ambulatory [facility] Work Phone: Start: 11-30-2022 End: 11-30-2022 Patient encounter procedure [facility] Work Phone: Start: 11-27-2022 End: 11-27-2022 ambulatory [facility] Work Phone: Start: 11-27-2022 End: 11-27-2022 Patient encounter procedure [facility] Work Phone: Start: 10-20-2022 End: 10-20-2022 Patient encounter procedure [facility] Work Phone: Start: 02-09-2022 End: 02-09-2022 ambulatory [facility] Work Phone: Start: 02-09-2022 End: 02-09-2022 Patient encounter procedure [facility] Start: 12-02-2021 Telephone encounter Dave Stuart MD Work Phone: [facility] Comment on above: Patient Question; Pa tient Update Start: 11-30-2021 End: 11-30-2021 Patient encounter procedure [facility] Start: 11-05-2021 End: 11-05-2021 Patient encounter procedure [facility] Start: 11-04-2021 End: 11-04-2021 Patient encounter procedure [facility] Start: 11-03-2021 End: 11-03-2021 Patient encounter procedure [facility] Start: 11-02-2021 End: 11-02-2021 Patient encounter procedure [facility] Start: 11-01-2021 End: 11-01-2021 Patient encounter procedure [facility] Start: 10-31-2021 End: 10-31-2021 Patient encounter procedure [facility] Start: 10-30-2021 End: 10-30-2021 Patient encounter procedure [facility] Start: 10-29-2021 End: 10-29-2021 Patient encounter procedure [facility] Start: 10-28-2021 End: 10-28-2021 Patient encounter procedure [facility] Start: 10-27-2021 End: 10-27-2021 Patient encounter procedure [facility] Start: 10-26-2021 End: 10-26-2021 Patient encounter procedure [facility] Start: 10-25-2021 End: 10-25-2021 Patient encounter procedure [facility] Start: 10-24-2021 End: 10-24-2021 Patient encounter procedure [facility] Start: 10-23-2021 End: 10-23-2021 Patient encounter procedure [facility] Start: 10-22-2021 End: 10-22-2021 Patient encounter procedure [facility] Start: 10-21-2021 End: 10-21-[address] Noy Staples Work Phone: [facility] Start: 10-20-2021 End: 10-20-[address] Noy Staples Work Phone: [facility] Start: 10-19-2021 End: 10-19-[address] Noy Staples Work Phone: [facility] Start: 10-18-2021 End: 10-18-[address] Noy Staples Work Phone: [facility] Start: 10-17-2021 End: 10-17-[address] [facility] Staples [facility] Start: 10-16-2021 End: 10-16-[address] N[facility] Staples [facility] Start: 10-15-2021 End: 10-15-[address] N[facility] Staples [facility] Start: 10-14-2021 End: 10-14-[address] N[facility] Staples [facility] Start: 10-13-2021 End: 10-13-[address] N[facility] Staples [facility] Start: 10-12-2021 End: 10-12-[address] N[facility] Staples [facility] Start: 10-12-2021 End: 10-12-[address] N[facility] Staples [facility] Start: 10-11-2021 End: 10-11-[address] N[facility] Staples [facility] Start: 10-10-2021 End: 10-10-[address] Noy Staples Work Phone: [facility] Start: 10-03-2021 End: 10-03-2021 Subsequent hospital visit by physician Mri 1 [facility] (I-Stat/Lg Bore/3t) [facility] Comment on above: Congenital utricle c yst of prostate [N42.83] Start: 09-30-2021 Orders Only Dave Stuart MD Work Phone: [facility] Comment on above: Patient Question Start: 09-30-2021 End: 09-30-[address] Noy Staples Work Phone: [facility] Start: 08-24-2021 End: 08-24-[address] N[facility] Staples [facility] Start: 08-23-2021 End: 08-23-[address] N[facility] Staples [facility] Start: 08-22-2021 End: 08-22-[address] N[facility] Staples [facility] Start: 08-21-2021 End: 08-21-[address] N[facility] Staples [facility] Start: 08-20-2021 End: 08-20-[address] N[facility] Staples [facility] Start: 08-19-2021 End: 08-19-[address] N[facility] Staples [facility] Start: 08-18-2021 End: 08-18-[address] N[facility] Staples [facility] Start: 08-17-2021 End: 08-17-[address] N[facility] Staples [facility] Start: 08-16-2021 End: 08-16-[address] N[facility] Staples [facility] Start: 08-15-2021 End: 08-15-[address] N[facility] Staples [facility] Start: 08-14-2021 End: 08-14-[address] N[facility] Staples [facility] Start: 08-13-2021 End: 08-13-[address] N[facility] Staples [facility] Start: 08-12-2021 End: 08-12-[address] N[facility] Staples [facility] Start: 08-11-2021 End: 08-11-[address] N[facility] Staples [facility] Start: 08-09-2021 End: 08-09-2021 Emergency department patient visit Dr. Noy Staples Work Phone: [facility] Start: 08-04-2021 End: 08-04-[address] N[facility] Staples [facility] Start: 07-14-2021 End: 07-14-[address] N[facility] Staples [facility] Start: 06-27-2021 End: 06-27-[address] Noy Staples Work Phone: [facility] Start: 06-25-2021 End: 06-25-[address] Noy Staples Work Phone: [facility] Start: 05-22-2021 End: 05-22-2021 Patient encounter procedure [place] [facility] Start: 05-05-2021 End: 05-05-[address] Noy Staples Work Phone: [facility] Start: 04-29-2021 End: 04-29-[address] Noy Staples Work Phone: [facility] Start: 04-29-2021 End: 04-29-[address] Noy Staples Work Phone: [facility] Start: 07-31-2019 Patient encounter procedure DAVE STUART Facility:[facility] Start: 07-29-2018 Patient encounter procedure DAVE STUART Facility:[facility] Start: 07-25-2018 End: 07-25-2018 Patient encounter procedure DAVE STUART Facility:[facility] Procedures Date Procedure Procedure Detail Performing Clinician Start: 03-03-2024 Urnls dip stick/tabl et rgnt auto w/o microscopy Dave Stuart MD Work Phone: Start: 08-30-2023 Diagnostic radiograp hy of abdomen Dr. Noy Staples Work Phone: Start: 08-27-2023 Urnls dip stick/tabl et rgnt auto w/o microscopy Dave Stuart MD Work Phone: Start: 05-03-2023 Urine culture Start: 04-14-2023 Urine culture Start: 12-17-2022 Bacteria identified in Urine by Culture Start: 12-17-2022 Urine culture Start: 12-09-2022 Bacteria identified in Urine by Culture Start: 12-09-2022 Urine culture Start: 11-27-2022 Bacteria identified in Urine by Culture Start: 11-27-2022 Urine culture Start: 10-03-2021 Mri pelvis w/o & w/c ontrast material Dave Stuart MD Work Phone: Start: 09-30-2021 Bacteria identified in Urine by Culture Dr. Noy Staples Work Phone: Start: 09-30-[address] Noy Staples Work Phone: Start: 08-04-2021 Bacteria identified in Urine by Culture Dr. Noy Staplse Work Phone: Start: 08-04-[address] Noy Staples Work Phone: Start: 07-14-[address] Noy Staples Work Phone: Start: 06-27-2021 Bacteria identified in Urine by Culture Dr. Noy Staples Work Phone: Start: 06-27-[address] Noy Staples Work Phone: Start: 09-29-2016 End: 09-29-2016 Documentation of current medications Ivonne Dossi DC Start: 09-29-2016 End: 09-29-2016 Chiropract manj 1-2 regions Ivonne B Spenser i DC Work Phone: Start: 09-29-2016 End: 09-29-2016 Ultrasound therapy Ivonne B Dossi DC Work Phone: Start: 09-23-2016 End: 09-24-2016 Chiropract manj 1-2 regions Ivonne B Spenser i DC Work Phone: Start: 09-23-2016 End: 09-24-2016 Electric stimulation therapy Ivonne B Dossi DC Work Phone: Start: 09-23-2016 End: 09-24-2016 Ultrasound therapy Ivonne B Dossi DC Work Phone: Start: 09-22-2016 End: 09-22-2016 Chiropract manj 1-2 regions Ivonne B Spenser i DC Work Phone: Start: 09-22-2016 End: 09-22-2016 Electric stimulation therapy Ivonne B Dossi DC Work Phone: Start: 09-22-2016 End: 09-22-2016 Ultrasound therapy Ivonne B Dossi DC Work Phone: Start: 09-22-2016 End: 09-22-2016 X-ray exam of neck spine Ivonne Guzman Dossi D C Work Phone: Start: 04-19-2011 End: 04-19-2011 [object Object] Ivonne Dossi DC Adrenalectomy w/expl w/wo bx abdl/lmbr/drsal spx [place] Bacteria identified in Urine by Culture Total nephrectomy [place] Urine culture Vasectomy [place] Plan of Treatment Date Care Activity Detail Author Start: 03-01-2028 Prostate Cancer Screening Discussion Prostate Cancer Screening Discussion [facility] Start: 03-01-2028 Prostate specific antigen measurement Prostate Cancer Screening Discussion [facility] Start: 03-16-2025 End: 03-16-2025 Patient encounter procedure 03/16/2025 7:00 AM EDT Office Visit [facility] [address] [place] [address] Dave Stuart MD [address] [place] [address] 1 year follow up [facility] Comment on above: 1 year follow up Start: 01-16-2024 Covid-19 Vaccine ( season) Covid-19 Vaccine () [facility] Start: 01-16-2024 Influenza vaccination Influenza Vacc ine (#1) [facility] Start: 05-17-2023 Behavioral Health Screening Behavioral Health Screening [facility] Start: 05-17-2023 Depression Assessment Depression Ass essment [facility] Start: 01-15-2023 Covid-19 Vaccine () Covid-19 Vaccine () [facility] Start: 01-15-2023 Influenza vaccination INFLUENZA (#1) [facility] Start: 12-13-2022 Iv infusion therapy/prophylaxis /dx 1st to 1 hr THER/PROPH/DIAG IV INF [facility] Start: 12-11-2022 Iv infusion therapy/prophylaxis /dx 1st to 1 hr THER/PROPH/DIAG IV INF [facility] Start: 12-09-2022 Bacteria identified in Urine by Culture Urine Culture [facility] Start: 12-09-2022 Urine culture Urine Culture [facility] Start: 12-08-2022 Iv infusion therapy/prophylaxis /dx 1st to 1 hr THER/PROPH/DIAG IV INF [facility] Start: 12-07-2022 Iv infusion therapy/prophylaxis /dx 1st to 1 hr THER/PROPH/DIAG IV INF [facility] Start: 12-02-2022 Iv infusion therapy/prophylaxis /dx 1st to 1 hr THER/PROPH/DIAG IV INF [facility] Start: 11-30-2022 Iv infusion therapy/prophylaxis /dx 1st to 1 hr THER/PROPH/DIAG IV INF [facility] Start: 05-17-2022 DEPRESSION ASSESSMENT DEPRESSION ASS ESSMENT [facility] Start: 2022 RSV Vaccine (1 - 1-d ose 60+ series) RSV Vaccine (1 - 1-dose 60+ series) [facility] Start: 2022 RSV Vaccine (1 - Ris k 60-74 years 1-dose series) RSV Vaccine (1 - Risk 60-74 years 1-dose series) [facility] Start: 01-15-2022 Influenza vaccination INFLUENZA (#1) [facility] Start: 11-30-2021 Procedure [facility] Work Phone: Start: 11-05-2021 Iv infusion therapy/prophylaxis /dx 1st to 1 hr [facility] Work Phone: Start: 11-04-2021 Iv infusion therapy/prophylaxis /dx 1st to 1 hr THER/PROPH/DIAG IV INF [facility] Work Phone: Start: 11-02-2021 Following clinical pathway protocol [facility] Work Phone: Start: 11-02-2021 Peripherally inserte d central catheter care [facility] Work Phone: Start: 10-31-2021 Iv infusion therapy/prophylaxis /dx 1st to 1 hr THER/PROPH/DIAG IV INF [facility] Work Phone: Start: 10-30-2021 Iv infusion therapy/prophylaxis /dx 1st to 1 hr THER/PROPH/DIAG IV INF [facility] Work Phone: Start: 10-29-2021 Iv infusion therapy/prophylaxis /dx 1st to 1 hr THER[facility]PROPH/[facility] Work Phone: Start: 10-28-2021 Iv infusion therapy/prophylaxis /dx 1st to 1 hr THER/PROPH/DIAG IV INF [facility] Work Phone: Start: 10-24-2021 Iv infusion therapy/prophylaxis /dx 1st to 1 hr THER/PROPH/DIAG IV INF [facility] Work Phone: Start: 10-23-2021 Iv infusion therapy/prophylaxis /dx 1st to 1 hr THER[facility]PROPH/[facility] Work Phone: Start: 10-22-2021 Iv infusion therapy/prophylaxis /dx 1st to 1 hr THER/PROPH/[facility]AG [facility] Work Phone: Start: 10-20-2021 Iv infusion therapy/prophylaxis /dx 1st to 1 hr THER/PROPH/[facility]AG [facility] Work Phone: Start: 10-14-2021 Iv infusion therapy/prophylaxis /dx 1st to 1 hr THER[facility]PROPH[facility] Work Phone: Start: 10-13-2021 Following clinical pathway protocol [facility] Work Phone: Start: 10-12-2021 Following clinical pathway protocol [facility] Work Phone: Start: 10-11-2021 Following clinical pathway protocol [facility] Work Phone: Start: 09-30-2021 Urine culture Urine Culture [facility] Work Phone: Start: 08-24-2021 Iv infusion therapy/prophylaxis /dx 1st to 1 hr THER/PROPH/DIAG [facility] Work Phone: Start: 08-24-2021 Following clinical pathway protocol [facility] Work Phone: Start: 08-23-2021 Following clinical pathway protocol [facility] Work Phone: Start: 08-22-2021 Iv infusion therapy/prophylaxis /dx 1st to 1 hr THER/PROPH/DIAG [facility] Work Phone: Start: 08-21-2021 Iv infusion therapy/prophylaxis /dx 1st to 1 hr THER/PROPH/DIAG [facility] Work Phone: Start: 08-20-2021 Iv infusion therapy/prophylaxis /dx 1st to 1 hr THER/PROPH/DIAG [facility] Work Phone: Start: 08-19-2021 Iv infusion therapy/prophylaxis /dx 1st to 1 hr THER/PROPH/DIAG IV [facility] Work Phone: Start: 08-17-2021 Iv infusion therapy/prophylaxis /dx 1st to 1 hr THER/PROPH/DIAG [facility] Work Phone: Start: 08-17-2021 Following clinical pathway protocol [facility] Work Phone: Start: 08-16-2021 Following clinical pathway protocol [facility] Work Phone: Start: 08-15-2021 Iv infusion therapy/prophylaxis /dx 1st to 1 hr THER/PROPH/DIAG [facility] Work Phone: Start: 07-11-2021 COVID-19 VACCINE (4 - Booster for Moderna series) COVID-19 VACCINE (4 - Booster for Moderna series) [facility] Start: 05-05-2021 COVID-19 VACCINE (4 - Moderna series) COVID-19 VACCINE (4 - Moderna series) [facility] Start: 2017 PROSTATE CANCER SCREENING DISCUSSION PROSTATE CANCER SCREENING DISCUSSION [facility] Start: 12-25-2016 DIABETES SCREEN DIABETES SCREEN [facility] Start: 12-25-2016 Diabetes Screening Diabetes Screenin g [facility] Start: 09-29-2016 End: 09-29-2016 Appointment Appointment [facility] Work Phone: Start: 09-23-2016 End: 09-23-2016 Appointment [facility]ointment [facility] Work Phone: Start: 09-23-2016 End: 09-24-2016 Follow up Appt 2x/week Follow up Appt 2x/week [facility] Work Phone: Start: 02-26-2012 SHINGRIX VACCINE (1 of 2) SHINGRIX VACCINE (1 of 2) [facility] Start: 2007 COLOGUARD (FIT-DNA) COLOGUARD (FIT-D NA) [facility] Start: 2007 Colonoscopy COLONOSCOPY [facility] Start: 2007 COLORECTAL CANCER SCREENING COLORECTAL CANCER SCREENING [facility] Start: [address] COLONOGRAPHY [facility] Start: 2007 FECAL OCCULT BLOOD FECAL OCCULT BLOO D [facility] Start: 2007 Screening for malign ant neoplasm of colon [facility] Start: 2007 SIGMOIDOSCOPY SIGMOIDOSCOPY [facility] Start: 1997 Lipid 1996 panel - Serum or Plasma Lipid Screening [facility] Start: 1997 Lipid panel Lipid Screening [facility] Start: 1997 LIPID SCREEN LIPID SCREEN [facility] Start: 1981 Urine microalbumin profile [facility] Start: 02-26-1980 Annual PCP 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 Administrative Clerk bran Disease Visit Annual PCP Team Chronic Disease Visit [facility] Start: 02-26-1980 Anxiety Screening Anxiety Screening [facility] Start: 02-26-1980 BP Controlled (<130/80) BP Controlle d (<130/80) [facility] Start: 02-26-1980 Depression Screening Depression Scre ening [facility] Start: 02-26-1980 HEPATITIS C SCREENING HEPATITIS C [facility] Start: 02-26-1980 Hepatitis C screening Hepatitis C [facility] Start: 02-26-1980 HIV SCREENING HIV SCREENING [facility] Start: 02-26-1980 HIV screening HIV Screening [facility] Start: 1974 Adult depression screening assessment DEPRESSION SCREENING [facility] Chiropractic manipulation [facility] Mri pelvis w/o & w/contrast material MRI PROSTATE WO/W IVCON Radiology Routine 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 Chronic prostatitis 10/03/2021 10:04 AM EDT [facility] Work Phone: Patient Education [facility] Work Phone: Patient referral [facility] Work Phone: Procedure [facility] Work Phone: End: 08-25-2024 Prostate specific Ag [Mass/volume] in Serum or Plasma PROSTATE-SPECIFIC ANTIGEN DIAGNOSTIC Lab Routine Disorder of prostate Every 3 months for 4 Occurrences starting 08/27/2023 until 08/25/2024 [facility] Work Phone: Comment on above: Every 3 months for 4 Occurrences starting 08/27/2023 until 08/25/2024 Urine culture Urine Culture [facility] Work Phone: End: 09-25-2024 XR Abdomen Supine and Upright XR ABDOMEN 1V SUPINE Radiology Routine Calculus of kidney 1 Occurrences starting 08/27/2023 until 09/25/2024 [facility] Work Phone: Comment on above: 1 Occurrences starti ng 08/27/2023 until 09/25/2024 End: 04-02-2025 XR Abdomen Supine and Upright XR ABDOMEN 1V SUPINE Radiology Routine Calculus of kidney 1 Occurrences starting 03/03/2024 until 04/02/2025 [facility] Work Phone: Comment on above: 1 Occurrences starti ng 03/03/2024 until 04/02/2025 [facility] Immunizations Immunization Date Immunization Notes Care Provider [facility] 03-30-2024 influenza, seasonal, injectable, preservative free Dr. Noy Staples MD Work Phone: [facility] 02-17-2023 influenza, injectabl e, quadrivalent, preservative free [facility] 02-17-2023 influenza virus vaccine, unspecified formulation Dave Stuart MD Work Phone: [facility] 04-28-2022 influenza, injectabl e, quadrivalent, preservative free [facility] 04-28-2022 influenza, seasonal, injectable [facility] 02-21-2021 influenza, injectabl e, quadrivalent, preservative free [facility] 02-21-2021 influenza, seasonal, injectable Dr. Noy Staples Work Phone: [facility] 07-09-2020 influenza, injectabl e, quadrivalent, preservative free [facility] 07-09-2020 influenza, seasonal, injectable Dr. Noy Staples Work Phone: [facility] 06-17-2020 Covid (Moderna) Dr. Noy Ann Work Phone: [facility] 05-20-2020 Neishaid (Moderna) Dr. Noy Ann Work Phone: [facility] 03-20-2019 influenza, injectabl e, quadrivalent, preservative free [facility] 03-20-2019 influenza, seasonal, injectable Dr. Noy Staples Work Phone: [facility] 03-16-2018 influenza, injectabl e, quadrivalent, preservative free [facility] 03-16-2018 influenza, seasonal, injectable Dr. Noy Staples Work Phone: [facility] 03-10-2017 influenza, injectabl e, quadrivalent, preservative free [facility] 03-10-2017 influenza, seasonal, injectable Dr. Noy Staples Work Phone: [facility] 02-13-2016 influenza, injectabl e, quadrivalent, preservative free [facility] 02-13-2016 influenza, seasonal, injectable Dr. Noy Staples Work Phone: [facility] 02-13-2015 influenza, injectabl e, quadrivalent, preservative free [facility] 02-13-2015 influenza, seasonal, injectable Dr. Noy Staples Work Phone: [facility] 02-07-2014 influenza, injectabl e, quadrivalent, preservative free [facility] 02-07-2014 influenza, seasonal, injectable Dr. Noy Staples Work Phone: [facility] 05-24-[address] Noy Staples Work Phone: [facility] Payers Date Payer Category Payer Self-pay [id number] 2022 Unknown [id number] 2016 Private Health Insurance [employer] PPO [id number] 2016-Present [phone] [address] [place] [address] PPO [id number] 2016 Private Health Insurance [employer] PPO [id number] 2016-Present [phone] [address] [place] [address] PPO [id number] 2016 Private Health Insurance [id number] 1960 Unknown [id number] 1960 Unknown [id number] 1960 Unknown [id number] Private Health Insurance [id number] Unknown [id number] Unknown [id number] Unknown [id number] Unknown [id number] Unknown [id number] Unknown [id number] Social History Date Type Detail Facility Start: 12-16-2016 End: 11-16-2024 Never smoked tobacco (finding) [facility] Sex Assigned At [facility] Start: 08-09-2021 End: 07-29-2023 Tobacco smoking status NHIS Unknown if ever smoked [facility] Start: 1960 Sex Assigned At Male [facility] Start: 12-16-2016 End: 03-12-2023 Tobacco use and exposure Smokeless tobacco non-user [facility] Start: 08-08-2021 End: 03-03-2024 Alcohol intake Current non-drinker of alcohol (finding) [facility] Start: 1960 Sex Assigned At Not on file [facility] Start: 09-23-2021 End: 10-03-2021 Exposure to SARS-CoV-2 (event) Not sure [facility] Start: 10-06-2021 End: 03-12-2023 Gender identity Not on file [facility] Start: 10-06-2021 End: 03-12-2023 History of Social function [facility] National Score (1-100), lower number is lower risk 34 [facility] Goals Date Patient Goal Desired Activity /State Mental Status Date Assessment Result Facility 12-16-2022 Cognitive function Voice/Name [facility] Work Phone: 12-15-2022 Cognitive function Voice/Name [facility] Work Phone: 12-14-2022 Cognitive function Voice/Name [facility] Work Phone: 12-11-2022 Cognitive function Voice/Name [facility] Work Phone: 12-10-2022 Cognitive function Voice/Name [facility] Work Phone: 12-09-2022 Cognitive function Awake;Alert;A ppropriate;Follow s Commands [facility] Work Phone: 12-08-2022 Cognitive function Voice/Name [facility] Work Phone: 12-07-2022 Cognitive function Voice/Name [facility] Work Phone: 12-04-2022 Cognitive function Voice/Name [facility] Work Phone: 12-03-2022 Cognitive function [facility] Work Phone: 12-02-2022 Cognitive function Voice/Name [facility] Work Phone: 12-01-2022 Cognitive function Voice/Name [facility] Work Phone: 11-30-2022 Cognitive function Voice/Name [facility] Work Phone: 11-05-2021 Cognitive function Voice/Name [facility] Work Phone: 11-04-2021 Cognitive function Voice/Name [facility] Work Phone: 11-03-2021 Cognitive function Voice/Name [facility] Work Phone: 10-31-2021 [facility]: 10-30-2021 Cognitive function Voice/Name [facility] Work Phone: 10-27-2021 Cognitive function Awake;Alert;Appropriat e [facility] Work Phone: 10-24-2021 Cognitive function Awake;Alert;A ppropriate;Follow s Commands [facility] Work Phone: 10-23-2021 Cognitive function Voice/Name [facility] Work Phone: 10-21-2021 Cognitive function Voice/Name [facility] Work Phone: 10-20-2021 Cognitive function Voice/Name [facility] Work Phone: 10-17-2021 Cognitive function Voice/Name [facility] Work Phone: 10-16-2021 Cognitive function Voice/Name [facility] Work Phone: 10-15-2021 Cognitive function Voice/Name [facility] Work Phone: 10-14-2021 Cognitive function Voice/Name [facility] Work Phone: 10-10-2021 Cognitive function Level Of Cons ciousness Awake;Alert;Appropriate;Follow s Commands [facility] Work Phone: 08-22-2021 Cognitive function Awake;Alert;A ppropriate;Follow s Commands [facility] Work Phone: 08-21-2021 Cognitive function Awake;Alert;A ppropriate;Follow s Commands [facility] Work Phone: 08-20-2021 Cognitive function Awake;Alert;A ppropriate;Follow s Commands [facility] Work Phone: 08-19-2021 Cognitive function Level Of Cons ciousness Awake;Alert;Appropriate;Follow s Commands [facility] Work Phone: 08-18-2021 Cognitive function Voice/Name [facility] Work Phone: 08-15-2021 Cognitive function Voice/Name [facility] Work Phone: 08-14-2021 Cognitive function Awake;Alert;A ppropriate;Follow s Commands [facility] Work Phone: 08-13-2021 Cognitive function Voice/Name [facility] Work Phone: 08-12-2021 Cognitive function Awake;Alert;A ppropriate;Follow s Commands [facility] Work Phone: 08-11-2021 Cognitive function Level Of Cons ciousness Awake;Alert;Appropriate;Follow s Commands [facility] Work Phone: 08-09-2021 Cognitive function Level Of Cons ciousness Awake;Alert;Appropriate;Follow s Commands [facility] Work Phone: Clinical Notes 09-30-2021 to 03-03-2024 Dave Stuart MD - 03/03/2024 7:15 AM EDTCnicDeejayBRITTANY - 08/27/2023 7:19 AM RAULTBDave vega MD - 08/27/2023 7:18 AM EDT Note Date & Type Note Facility 03-03-2024 History of Presen t illness Narrative ESTABLISHED PATIENT VISIT HPI Ricardo Gannon is a 64 year old male who presents with a history of left renal cell carcinoma, much greater than 5 years out with no evidence of disease PSA 1.02 03/01/24 Creatinine 1.32 Currently taking methenamine and occasionally takes nitrofurantoin He does have a simple cyst and a small renal stone. Solitary right kidney Longstanding history of a prostatic utricle and recurrent UTI with sepsis. MRI done for the prostatic utricle and this demonstrated a PI-RADS 4 lesion. This was biopsied again demonstrated high-grade PIN Mini TURP/unroofing of prostatic utricle in April 2023 07/09/23 Renal US: 1. Status post left nephrectomy. 2. Right kidney shows no hydronephrosis. 3. Benign-appearing right-sided renal cysts. 4. 2. Nonobstructing stones in the right kidney. Creatinine Date Value Ref Range Status 01/03/2014 1.67 (H) 0.67 - 1.17 mg/dL Final PSA (no units) Date Value 09/16/2019 1.20 10/08/2018 0.70 11/25/2017 0.63 Color (no units) Date Value 12/15/2012 YELLOW Glucose, Urine (mg/dL) Date Value 07/23/2017 neg Bilirubin, Urine (no units) Date Value 07/23/2017 neg Ketones, Urine (no units) Date Value 07/23/2017 neg Specific [place], Ur (no units) Date Value 07/23/2017 1.020 Hemoglobin/Blood,Ur (no units) Date Value 07/23/2017 trace pH, Urine (no units) Date Value 07/23/2017 6.0 Protein, Urine (mg/dL) Date Value 07/23/2017 neg Nitrites (no units) Date Value 07/23/2017 neg Leukocytes Esterase (no units) Date Value 12/15/2012 NEGATIVE 24HR Urine Studies: No results for input(s): LUPH, LUCAL, LUCIT, LUOXA, LUURIC, LUVOL, LSCAO, LSCAP, LSURIC, LUCL, EVANGELIST, CARTER, LUUREA, LUAM, LUMAG, LUPHOS, LUPCR, LUCREA, LUCRKBW, LUCAKBW, LUCACREA, LUCREACL, LWK, LUSUL in the last 91902 hours. REVIEW OF SYSTEMS Review of Systems Review of system, history including past medical history, surgical history, family history and social history reviewed and confirmed by me. HISTORIES PAST MEDICAL HISTORY Diagnosis Date Acute prostatitis Encounter for prostate cancer screening Hypertension Male stress incontinence Malignant neoplasm of left kidney, except renal pelvis (HCC) Unspecified disorder of prostate PAST SURGICAL HISTORY Procedure Laterality Date PAST SURGICAL HISTORY OF 2013 left total nephrectomy VASECTOMY UNI/BI SPX W/POSTOP SEMEN EXAMS FAMILY HISTORY Problem Relation Age of Onset Hypertension Mother Stroke Mother Hypertension Father SOCIAL HISTORY Social History Tobacco Use Smoking status: Never Smokeless tobacco: Never Substance Use Topics Alcohol use: No Drug use: No MEDICATIONS: ascorbic acid (VITAMIN C ORAL) Take 1,000 mg by mouth. Methenamine Hippurate (HIPREX) 1 gram tablet Take 1 g by mouth two times a day with meals. Cholecalciferol, Vitamin D3, 50 mcg (2,000 unit) cap Take by mouth. AMLODIPINE BESYLATE (NORVASC ORAL) Take 10 mg by mouth. SIMVASTATIN ORAL Take 20 mg by mouth once daily. Tadalafil (CIALIS) 5 mg tablet Take 1 tablet by mouth once daily. nitrofurantoin macrocrystal (MACRODANTIN) 50 mg capsule Take 1 capsule by mouth as directed for 30 doses. Take 1 tab PO as directed (Patient not taking: Reported on 03/03/2024) PHYSICAL EXAMINATION General appearance: Well appearing, alert, in no acute distress, and well-hydrated, well nourished ASSESSMENT/PLAN: 1. Malignant neoplasm of left kidney (HCC) - ICD9: 189.0, ICD10: C64.2 (primary diagnosis) 2. Hypertrophy of prostate with urinary obstruction - ICD9: 600.01, 599.69, ICD10: N40.1, N13.8 3. Prostate mass - ICD9: 602.8, ICD10: N42.89 4. Calculus of kidney - ICD9: 592.0, ICD10: N20.0 - XR ABDOMEN 1V SUPINE Dave Stuart Start daily tadalafil ; May try to stop methenamine Uses nitrofurantoin prn sexual activity Medical Decision Making: Medical Decision Making Level: 1 - N/A documented in this encounter [facility] 03-03-2024 Note HNO ID: [id number] Author: DAVE STUART MD Service: ? Author Type: Physician Type: Progress Notes Filed: 03/03/2024 08:41 Note Text: ESTABLISHED PATIENT VISIT HPI Ricardo Gannon is a 64 year old male who presents with a history of left renal cell carcinoma, much greater than 5 years out with no evidence of disease PSA 1.02 03/01/24 Creatinine 1.32 Currently taking methenamine and occasionally takes nitrofurantoin He does have a simple cyst and a small renal stone. Solitary right kidney Longstanding history of a prostatic utricle and recurrent UTI with sepsis. MRI done for the prostatic utricle and this demonstrated a PI-RADS 4 lesion. This was biopsied again demonstrated high-grade PIN Mini TURP/unroofing of prostatic utricle in April 2023 07/09/23 Renal US: 1. Status post left nephrectomy. 2. Right kidney shows no hydronephrosis. 3. Benign-appearing right-sided renal cysts. 4. 2. Nonobstructing stones in the right kidney. Creatinine Date Value Ref Range Status 01/03/2014 1.67 (H) 0.67 - 1.17 mg/dL Final PSA (no units) Date Value 09/16/2019 1.20 10/08/2018 0.70 11/25/2017 0.63 Color (no units) Date Value 12/15/2012 YELLOW Glucose, Urine (mg/dL) Date Value 07/23/2017 neg Bilirubin, Urine (no units) Date Value 07/23/2017 neg Ketones, Urine (no units) Date Value 07/23/2017 neg Specific [place], Ur (no units) Date Value 07/23/2017 1.020 Hemoglobin/Blood,Ur (no units) Date Value 07/23/2017 trace pH, Urine (no units) Date Value 07/23/2017 6.0 Protein, Urine (mg/dL) Date Value 07/23/2017 neg Nitrites (no units) Date Value 07/23/2017 neg Leukocytes Esterase (no units) Date Value 12/15/2012 NEGATIVE 24HR Urine Studies: No results for input(s): LUPH, LUCAL, LUCIT, LUOXA, LUURIC, LUVOL, LSCAO, LSCAP, LSURIC, LUCL, EVANGELIST, CARTER, LUUREA, LUAM, LUMAG, LUPHOS, LUPCR, LUCREA, LUCRKBW, LUCAKBW, LUCACREA, LUCREACL, LWK, LUSUL in the last 64767 hours. REVIEW OF SYSTEMS Review of Systems Review of system, history including past medical history, surgical history, family history and social history reviewed and confirmed by me. HISTORIES PAST MEDICAL HISTORY Diagnosis Date Acute prostatitis Encounter for prostate cancer screening Hypertension Male stress incontinence Malignant neoplasm of left kidney, except renal pelvis (HCC) Unspecified disorder of prostate PAST SURGICAL HISTORY Procedure Laterality Date PAST SURGICAL HISTORY OF 2013 left total nephrectomy VASECTOMY UNI/BI SPX W/POSTOP SEMEN EXAMS FAMILY HISTORY Problem Relation Age of Onset Hypertension Mother Stroke Mother Hypertension Father SOCIAL HISTORY Social History Tobacco Use Smoking status: Never Smokeless tobacco: Never Substance Use Topics Alcohol use: No Drug use: No MEDICATIONS: ascorbic acid (VITAMIN C ORAL) Take 1,000 mg by mouth. Methenamine Hippurate (HIPREX) 1 gram tablet Take 1 g by mouth two times a day with meals. Cholecalciferol, Vitamin D3, 50 mcg (2,000 unit) cap Take by mouth. AMLODIPINE BESYLATE (NORVASC ORAL) Take 10 mg by mouth. SIMVASTATIN ORAL Take 20 mg by mouth once daily. Tadalafil (CIALIS) 5 mg tablet Take 1 tablet by mouth once daily. nitrofurantoin macrocrystal (MACRODANTIN) 50 mg capsule Take 1 capsule by mouth as directed for 30 doses. Take 1 tab PO as directed (Patient not taking: Reported on 03/03/2024) PHYSICAL EXAMINATION General appearance: Well appearing, alert, in no acute distress, and well-hydrated, well nourished ASSESSMENT/PLAN: 1. Malignant neoplasm of left kidney (HCC) - ICD9: 189.0, ICD10: C64.2 (primary diagnosis) 2. Hypertrophy of prostate with urinary obstruction - ICD9: 600.01, 599.69, ICD10: N40.1, N13.8 3. Prostate mass - ICD9: 602.8, ICD10: N42.89 4. Calculus of kidney - ICD9: 592.0, ICD10: N20.0 - XR ABDOMEN 1V SUPINE Dave Stuart Start daily tadalafil ; May try to stop methenamine Uses nitrofurantoin prn sexual activity Medical Decision Making: Medical Decision Making Level: 1 - N/A [facility] 08-27-2023 Note HNO ID: [id number] Author: DEEJAY SCHMID OCCA Service: ? Author Type: Director Of Student Services Type: Progress Notes Filed: 08/27/2023 07:45 Note Text: patient declined meter repairer BRITTANY Mariano [facility] 08-27-2023 History of Presen t illness Narrative patient declined meter repairer BRITTANY Mariano ESTABLISHED PATIENT VISIT HPI Buckley S Jagdeep is a 63 year old male who presents left renal cell carcinoma, no evidence of disease greater than 5 years out Recent renal ultrasound reviewed, simple cyst, small renal stone, gave order for KUB MRI of the prostate done for a prostatic utricle and recurrent UTI with sepsis demonstrated a PI-RADS 4 lesion. This lesion was biopsied and was high-grade PIN Patient will get a follow-up PSA Mini TURP/unroofing of prostatic utricle in April 2023 and has had no urinary tract infections since. Urinary tract infections and sepsis tended to happen after ejaculation, so he will continue to take prophylactic nitrofurantoin after sexual activity Creatinine Date Value Ref Range Status 01/03/2014 1.67 (H) 0.67 - 1.17 mg/dL Final PSA (no units) Date Value 09/16/2019 1.20 10/08/2018 0.70 11/25/2017 0.63 Color (no units) Date Value 12/15/2012 YELLOW Glucose, Urine (mg/dL) Date Value 07/23/2017 neg Bilirubin, Urine (no units) Date Value 07/23/2017 neg Ketones, Urine (no units) Date Value 07/23/2017 neg Specific [place], Ur (no units) Date Value 07/23/2017 1.020 Hemoglobin/Blood,Ur (no units) Date Value 07/23/2017 trace pH, Urine (no units) Date Value 07/23/2017 6.0 Protein, Urine (mg/dL) Date Value 07/23/2017 neg Nitrites (no units) Date Value 07/23/2017 neg Leukocytes Esterase (no units) Date Value 12/15/2012 NEGATIVE 24HR Urine Studies: No results for input(s): LUPH, LUCAL, LUCIT, LUOXA, LUURIC, LUVOL, LSCAO, LSCAP, LSURIC, LUCL, EVANGELIST, CARTER, LUUREA, LUAM, LUMAG, LUPHOS, LUPCR, LUCREA, LUCRKBW, LUCAKBW, LUCACREA, LUCREACL, LWK, LUSUL in the last 39128 hours. REVIEW OF SYSTEMS Review of Systems Constitutional: Negative. HENT: Negative. Eyes: Negative. Respiratory: Negative. Cardiovascular: Negative. Gastrointestinal: Negative. Endocrine: Negative. Genitourinary: Nocturia Review of system, history including past medical history, surgical history, family history and social history reviewed and confirmed by me. HISTORIES PAST MEDICAL HISTORY Diagnosis Date Acute prostatitis Encounter for prostate cancer screening Hypertension Male stress incontinence Malignant neoplasm of left kidney, except renal pelvis (HCC) Unspecified disorder of prostate PAST SURGICAL HISTORY Procedure Laterality Date PAST SURGICAL HISTORY OF 2013 left total nephrectomy VASECTOMY UNI/BI SPX W/POSTOP SEMEN EXAMS FAMILY HISTORY Problem Relation Age of Onset Hypertension Mother Stroke Mother Hypertension Father SOCIAL HISTORY Social History Tobacco Use Smoking status: Never Smokeless tobacco: Never Substance Use Topics Alcohol use: No Drug use: No MEDICATIONS: Tadalafil (CIALIS) 5 mg tablet Take 1 tablet by mouth once daily. nitrofurantoin macrocrystal (MACRODANTIN) 100 mg capsule Take 1 capsule by mouth two times a day. ascorbic acid (VITAMIN C ORAL) Take 1,000 mg by mouth. Methenamine Hippurate (HIPREX) 1 gram tablet Take 1 g by mouth two times a day with meals. nitrofurantoin macrocrystal (MACRODANTIN) 50 mg capsule Take 1 capsule by mouth as directed for 30 doses. Take 1 tab PO as directed (Patient not taking: Reported on 05/27/2023) Cholecalciferol, Vitamin D3, 50 mcg (2,000 unit) cap Take by mouth. Tadalafil (CIALIS) 5 mg tablet Take 1 tablet by mouth once daily. AMLODIPINE BESYLATE (NORVASC ORAL) Take 10 mg by mouth. SIMVASTATIN ORAL Take 20 mg by mouth once daily. PHYSICAL EXAMINATION General appearance: Well appearing, alert, in no acute distress, and well-hydrated, well nourished ASSESSMENT/PLAN: 1. Disorder of prostate - ICD9: 602.9, ICD10: N42.9 (primary diagnosis) - PROSTATE-SPECIFIC ANTIGEN DIAGNOSTIC 2. Calculus of kidney - ICD9: 592.0, ICD10: N20.0 - XR ABDOMEN 1V SUPINE 3. Malignant neoplasm of left kidney (HCC) - ICD9: 189.0, ICD10: C64.2 HANSA Stuart Medical Decision Making: Medical Decision Making Level: 1 - N/A documented in this encounter [facility] 08-27-2023 Note HNO ID: [id number] Author: DAVE STUART MD Service: ? Author Type: Physician Type: Progress Notes Filed: 08/27/2023 07:45 Note Text: ESTABLISHED PATIENT VISIT HPI Ricardo Gannon is a 63 year old male who presents left renal cell carcinoma, no evidence of disease greater than 5 years out Recent renal ultrasound reviewed, simple cyst, small renal stone, gave order for KUB MRI of the prostate done for a prostatic utricle and recurrent UTI with sepsis demonstrated a PI-RADS 4 lesion. This lesion was biopsied and was high-grade PIN Patient will get a follow-up PSA Mini TURP/unroofing of prostatic utricle in April 2023 and has had no urinary tract infections since. Urinary tract infections and sepsis tended to happen after ejaculation, so he will continue to take prophylactic nitrofurantoin after sexual activity Creatinine Date Value Ref Range Status 01/03/2014 1.67 (H) 0.67 - 1.17 mg/dL Final PSA (no units) Date Value 09/16/2019 1.20 10/08/2018 0.70 11/25/2017 0.63 Color (no units) Date Value 12/15/2012 YELLOW Glucose, Urine (mg/dL) Date Value 07/23/2017 neg Bilirubin, Urine (no units) Date Value 07/23/2017 neg Ketones, Urine (no units) Date Value 07/23/2017 neg Specific [place], Ur (no units) Date Value 07/23/2017 1.020 Hemoglobin/Blood,Ur (no units) Date Value 07/23/2017 trace pH, Urine (no units) Date Value 07/23/2017 6.0 Protein, Urine (mg/dL) Date Value 07/23/2017 neg Nitrites (no units) Date Value 07/23/2017 neg Leukocytes Esterase (no units) Date Value 12/15/2012 NEGATIVE 24HR Urine Studies: No results for input(s): LUPH, LUCAL, LUCIT, LUOXA, LUURIC, LUVOL, LSCAO, LSCAP, LSURIC, LUCL, EVANGELIST, CARTER, LUUREA, LUAM, LUMAG, LUPHOS, LUPCR, LUCREA, LUCRKBW, LUCAKBW, LUCACREA, LUCREACL, LWK, LUSUL in the last 38997 hours. REVIEW OF SYSTEMS Review of Systems Constitutional: Negative. HENT: Negative. Eyes: Negative. Respiratory: Negative. Cardiovascular: Negative. Gastrointestinal: Negative. Endocrine: Negative. Genitourinary: Nocturia Review of system, history including past medical history, surgical history, family history and social history reviewed and confirmed by me. HISTORIES PAST MEDICAL HISTORY Diagnosis Date Acute prostatitis Encounter for prostate cancer screening Hypertension Male stress incontinence Malignant neoplasm of left kidney, except renal pelvis (HCC) Unspecified disorder of prostate PAST SURGICAL HISTORY Procedure Laterality Date PAST SURGICAL HISTORY OF 2013 left total nephrectomy VASECTOMY UNI/BI SPX W/POSTOP SEMEN EXAMS FAMILY HISTORY Problem Relation Age of Onset Hypertension Mother Stroke Mother Hypertension Father SOCIAL HISTORY Social History Tobacco Use Smoking status: Never Smokeless tobacco: Never Substance Use Topics Alcohol use: No Drug use: No MEDICATIONS: Tadalafil (CIALIS) 5 mg tablet Take 1 tablet by mouth once daily. nitrofurantoin macrocrystal (MACRODANTIN) 100 mg capsule Take 1 capsule by mouth two times a day. ascorbic acid (VITAMIN C ORAL) Take 1,000 mg by mouth. Methenamine Hippurate (HIPREX) 1 gram tablet Take 1 g by mouth two times a day with meals. nitrofurantoin macrocrystal (MACRODANTIN) 50 mg capsule Take 1 capsule by mouth as directed for 30 doses. Take 1 tab PO as directed (Patient not taking: Reported on 05/27/2023) Cholecalciferol, Vitamin D3, 50 mcg (2,000 unit) cap Take by mouth. Tadalafil (CIALIS) 5 mg tablet Take 1 tablet by mouth once daily. AMLODIPINE BESYLATE (NORVASC ORAL) Take 10 mg by mouth. SIMVASTATIN ORAL Take 20 mg by mouth once daily. PHYSICAL EXAMINATION General appearance: Well appearing, alert, in no acute distress, and well-hydrated, well nourished ASSESSMENT/PLAN: 1. Disorder of prostate - ICD9: 602.9, ICD10: N42.9 (primary diagnosis) - PROSTATE-SPECIFIC ANTIGEN DIAGNOSTIC 2. Calculus of kidney - ICD9: 592.0, ICD10: N20.0 - XR ABDOMEN 1V SUPINE 3. Malignant neoplasm of left kidney (HCC) - ICD9: 189.0, ICD10: C64.2 HANSA Stuart Medical Decision Making: Medical Decision Making Level: 1 - N/A [facility] 07-09-2023 History of Presen t illness Narrative Radiology Service Progress Note PATIENT NAME: Ricardo Gannon DATE OF SERVICE: July 09, 2023 TIME: 4:17 PM PATIENT IDENTITY VERIFICATION COMPLETED USING TWO (2) IDENTIFIERS: Name and Date of confirmed by patient verbally. FALL SCREENING: Has the patient had 2 falls in the last year or 1 fall with injury or currently using an Ambulatory Assistive Device (Walker, Cane, Wheelchair, Crutches, etc.)? No PATIENT GENDER DATA: Male PATIENT RELEVANT IMPLANT DATA REVIEWED: Yes PATIENT PRESENTS WITH AN IMPLANTABLE OR ATTACHED VP DELIVERY: No RADIOLOGY DEPARTMENT: Ultrasound PERIPHERAL IV DATA: Not applicable SIGNED BY: Mady Balderas TECHNOLOGIST July 09, 2023 4:17 PM documented in this encounter [facility] 07-09-2023 Note HNO ID: [id number] Author: MADY BALDERAS TECHNOLOGIST Service: ? Author Type: Technologist Type: Progress Notes Filed: 07/09/2023 16:17 Note Text: Radiology Service Progress Note PATIENT NAME: Ricardo Gannon DATE OF SERVICE: July 09, 2023 TIME: 4:17 PM PATIENT IDENTITY VERIFICATION COMPLETED USING TWO (2) IDENTIFIERS: Name and Date of confirmed by patient verbally. FALL SCREENING: Has the patient had 2 falls in the last year or 1 fall with injury or currently using an Ambulatory Assistive Device (Walker, Cane, Wheelchair, Crutches, etc.)? No PATIENT GENDER DATA: Male PATIENT RELEVANT IMPLANT DATA REVIEWED: Yes PATIENT PRESENTS WITH AN IMPLANTABLE OR ATTACHED VP DELIVERY: No RADIOLOGY DEPARTMENT: Ultrasound PERIPHERAL IV DATA: Not applicable SIGNED BY: TECHNOLOGIST Marisa July 09, 2023 4:17 PM [facility] 05-29-2023 Miscellaneous Notes Please call pt, no infection in urine. Lucie Schneider PA-C documented in this encounter [facility] 05-27-2023 Note HNO ID: [id number] Author: LUCIE SCHNEIDER PA-C Service: ? Author Type: Physician Automotive General Manager Type: Progress Notes Filed: 05/27/2023 15:24 Note Text: ESTABLISHED PATIENT OFFICE VISIT HISTORY OF PRESENT ILLNESS: Ricardo Gannon is a 63 year old male, Ht 167.6 cm (5' 6) BMI 25.82 kg/m2 with a PMH significant for s/p Turp, pvr 67cc. . Pt with just occational dysuria since surgery, has not seen blood for several days. No fever,chills. Will continue methenamine and sending urine today. LAB: Creatinine Date Value Ref Range Status 01/03/2014 1.67 (H) 0.67 - 1.17 mg/dL Final PSA (no units) Date Value 09/16/2019 1.20 10/08/2018 0.70 11/25/2017 0.63 Glucose, Urine (mg/dL) Date Value 07/23/2017 neg Bilirubin, Urine (no units) Date Value 07/23/2017 neg Ketones, Urine (no units) Date Value 07/23/2017 neg Specific [place], Ur (no units) Date Value 07/23/2017 1.020 Hemoglobin/Blood,Ur (no units) Date Value 07/23/2017 trace pH, Urine (no units) Date Value 07/23/2017 6.0 Protein, Urine (mg/dL) Date Value 07/23/2017 neg Urobilinogen, Urine (EU) Date Value 07/23/2017 0.2 Nitrites (no units) Date Value 07/23/2017 neg Leukocytes (no units) Date Value 07/23/2017 neg Color/Appearance (comment:) Date Value 07/23/2017 y/c MEDICATIONS: ascorbic acid (VITAMIN C ORAL) Take 1,000 mg by mouth. Methenamine Hippurate (HIPREX) 1 gram tablet Take 1 g by mouth two times a day with meals. Cholecalciferol, Vitamin D3, 50 mcg (2,000 unit) cap Take by mouth. Tadalafil (CIALIS) 5 mg tablet Take 1 tablet by mouth once daily. AMLODIPINE BESYLATE (NORVASC ORAL) Take 10 mg by mouth. SIMVASTATIN ORAL Take 20 mg by mouth once daily. nitrofurantoin macrocrystal (MACRODANTIN) 50 mg capsule Take 1 capsule by mouth as directed for 30 doses. Take 1 tab PO as directed (Patient not taking: Reported on 05/27/2023) Review of Systems HISTORIES PAST MEDICAL HISTORY Diagnosis Date Acute prostatitis Encounter for prostate cancer screening Hypertension Male stress incontinence Malignant neoplasm of left kidney, except renal pelvis (HCC) Unspecified disorder of prostate FAMILY HISTORY Problem Relation Age of Onset Hypertension Mother Stroke Mother Hypertension Father Social History Tobacco Use Smoking status: Never Smokeless tobacco: Never Substance Use Topics Alcohol use: No Drug use: No PHYSICAL EXAMINATION GENERAL APPEARANCE: Well appearing, alert, in no acute distress, well-hydrated, well nourished. ASSESSMENT/PLAN: 1. Hypertrophy of prostate with urinary obstruction - ICD9: 600.01, 599.69, ICD10: N40.1, N13.8 - US MSR POST-VOID RESID URINE - URINE CULTURE Continue methenamine Lucie Schneider PA-C [facility] 04-23-2023 Note HNO ID: [id number] Author: Abel Guthrie [facility] Service: Pharmacy Author Type: Pharmacist Type: Plan of Care Filed: 04/23/2023 11:56 AM Note Text: DISCHARGE MEDICATION REVIEW BY PHARMACY Patient Name: Ricardo Gannon Account #: Data Unavailable Admission Date: 04/22/2023 Date of Contact: April 23, 2023 Time of Contact: 11:56 AM Medication list was reviewed by a Pharmacist for drug interactions or drug related problems:Yes Below is a summary of pharmacist recommendations discussed with LIP: No Recommendations at this time from Discharge Medication List. Abel Cleveland [facility] April 23, 2023 11:56 AM Pager: [phone] 04/23/2023 11:56 AM Medication List CONTINUE taking these medications Cholecalciferol (Vitamin D3) 50 mcg (2,000 unit) Cap Methenamine Hippurate 1 gram tablet Commonly known as: HIPREX nitrofurantoin macrocrystal 50 mg capsule Commonly known as: MACRODANTIN Take 1 capsule by mouth as directed for 30 doses. Take 1 tab PO as directed NORVASC ORAL SIMVASTATIN ORAL Tadalafil 5 mg tablet Commonly known as: CIALIS Take 1 tablet by mouth once daily. VITAMIN C ORAL [facility] 04-23-2023 Note HNO ID: [id number] Author: Prem Dowling MD Service: Urology Author Type: Resident Type: Progress Notes Filed: 04/23/2023 8:06 AM Note Text: Attestation signed by Lito Laurent MD at 04/23/2023 9:24 AM Discussed with the resident and agree with resident's findings and plan as documented in the resident's note. Pt is s/p unroofing of prostatic utricle cyst, home with martinez the f/u with Dr Madan Laurent MD UROLOGY PROGRESS NOTE PATIENT NAME: Ricardo Gannon DATE OF : 1960 ADMISSION DATE: 04/22/2023 9:08 AM Subjective No acute events overnight. Pain only at meatus Tolerated diet, used IS Objective VS: BP 112/70 Pulse (!) 57 Temp 36.6 ?C (97.9 ?F) (Oral) Resp 18 Ht 167.6 cm (5' 6) Wt 71.4 kg (157 lb 4.8 oz) SpO2 95% BMI 25.39 kg/m? I AND O - 24hr: Intake/Output Summary (Last 24 hours) at 04/23/2023 0716 Last data filed at 04/23/2023 0100 Gross per 24 hour Intake 1600 ml Output 1650 ml Net -50 ml Physical Exam: General: Neck: Resp: Abdomen: No acute distress Supple Normal effort Soft, non-tender, nondistended : Martinez in place draining CYU Labs and Imaging Studies LABS: BMP: Glucose (mg/dL) Date Value 01/03/2014 91 Potassium (mEq/L) Date Value 01/03/2014 4.9 Sodium (mEq/L) Date Value 01/03/2014 140 Chloride (mEq/L) Date Value 01/03/2014 104 CO2 (mEq/L) Date Value 01/03/2014 30 Creatinine (mg/dL) Date Value 01/03/2014 1.67 BUN (mg/dL) Date Value 01/03/2014 11 Anion Gap (no units) Date Value 12/25/2013 8 Calcium (mg/dL) Date Value 01/03/2014 9.3 CBC: Hemoglobin (g/dL) Date Value 12/08/2013 12.8 Hematocrit (%) Date Value 12/08/2013 38.5 WBC (thou/cmm) Date Value 12/08/2013 6.2 Platelet Count (thou/cmm) Date Value 12/08/2013 144 Urinalysis: Specific [place], Ur Date Value Ref Range Status 07/23/2017 1.020 1.005 - 1.030 Final Glucose, Urine Date Value Ref Range Status 07/23/2017 neg Neg mg/dL Final Bilirubin, Urine Date Value Ref Range Status 07/23/2017 neg Neg Final Ketones, Urine Date Value Ref Range Status 07/23/2017 neg Neg Final Hemoglobin/Blood,Ur Date Value Ref Range Status 07/23/2017 trace Neg Final Protein, Urine Date Value Ref Range Status 07/23/2017 neg Neg mg/dL Final Urobilinogen, Urine Date Value Ref Range Status 07/23/2017 0.2 Normal (<1.1) EU Final Nitrites Date Value Ref Range Status 07/23/2017 neg Neg Final Leukocytes Date Value Ref Range Status 07/23/2017 neg Neg Final Urine Culture: No results found for: URCUL RADIOLOGY: Assessment and Plan ASSESSMENT: Dr Gannon is a 63 year old male with prostatic utricle s/p TURP/unroofing of prostatic utricle 04/22 PLAN: -diet -ambulate -IS -pain control; can put lidojet on meatus -maintain martinez; 3rd port capped -home with martinez -no labs -will get one dose of ertapenem today -discharge today Prem Dowling MD [facility] 04-22-2023 Note HNO ID: [id number] Author: Duglas Davies RN Service: ? Author Type: Registered Nurse Type: Nursing Progress Note Filed: 04/22/2023 6:21 PM Note Text: Other: Martinez urine in tubing clear tellow. Manual irrigation held at this time. [facility] 04-22-2023 Note HNO ID: [id number] Author: Hemanth Mancera APRN.CRNA Service: Anesthesiology Author Type: Nurse Product Scientist Type: Anesthesia Procedure Notes Filed: 04/22/2023 1:05 PM Note Text: ANESTHESIOLOGY PROCEDURE NOTE Airway General Information Procedure Start Time/Medication Administration: 04/22/2023 12:55 PM Patient location during procedure: OR Timeout Performed Pre-procedure: timeout performed Consent Obtained: Yes Patient identity confirmed: arm band Staffing Anesthesiologist: Juan Sofia MD Performed by: anesthesiologist Indications and Patient Condition Indications for airway management: anesthesia Preoxygenated: yes anesthesia circuit Patient position: sniffing Method: asleep Cricoid Pressure: No Manual In-Line Stabilization: No Difficult Mask: No Final Airway Details Final airway type: supraglottic airway Number of attempts at approach: 1 Final Supraglottic Airway: i-gel Size 5 Seal Adequate: yes Failed airway: no Unrecognized esophageal intubation: no Airway not difficult SIGNATURE: Hemanth Mancera APRN.CRNA PATIENT NAME: Ricardo Gannon DATE: April 22, 2023 TIME: 1:04 PM CSN: [id number] [facility] 04-13-2023 Miscellaneous Notes Pt notified of below. Pt to do preop labs tomorrow. Postop with Lucie scheduled for 05/27/22 @ 3:00. Melody Dupree Pt had MRI Fusion prostate Bx last week. Also has TURP scheduled for next week, 04/22/23. Please advise if okay to proceed with TURP based on Bx results. Thanks, Melody Dupree documented in this encounter [facility] 04-09-2023 Note HNO ID: [id number] Author: Karina Duran APRN.ENGINE SETTER Service: ? Author Type: Nurse Practitioner Type: Progress Notes Filed: 04/09/2023 4:10 PM Note Text: Summary: PAT Patient no show to [facility] today, e-mail sent and notified surgery scheduling. [facility] 03-25-2023 Miscellaneous Notes Pt is scheduled for MRI Fusion Bx LOCAL with Dr Murray at [facility] on 04/07/23 @ 2:50 (1:20 arrival). Pt given date, time, prep and arrival instructions over the phone on 03/15/23. Melody Dupree documented in this encounter [facility] 03-19-2023 Miscellaneous Notes Pt's Cysto, TURP with Dr Stuart at [facility] rescheduled to 04/22/23 @ 11:15 (9:15 arrival). PAT and labs on 04/09/23 @ 11:20 at [place]. Follow up with Lucie on 05/26/22 @ 11:30. Pt given date, time, prep and arrival instructions in person on 02/20/23. Melody Dupree documented in this encounter [facility] 03-12-2023 Note HNO ID: [id number] Author: Dave Stuart MD Service: ? Author Type: Physician Type: Progress Notes Filed: 03/12/2023 12:29 PM Note Text: ESTABLISHED PATIENT VISIT HPI Ricardo Gannon is a 63 year old male who presents with recurrent UTI, ESBL E. Coli Ertapenem sensitive Has a prostatic utricle and original plan was to do a limited TUR to unroofed and opened the prostate at the utricle to try to decrease risk of future infection Patient ended up going to [facility] for a second opinion and a follow-up MRI demonstrated a PI-RADS 4 lesion PSMA PET scan demonstrated mild uptake in the prostate and some uptake in the ribs. PSA is only 1.3 During today's visit I introduced patient to Dr. Murray and discussed MRI fusion biopsy We will put TURP on hold until fusion biopsy is performed Patient Entered Questionnaires PROMIS Global Health Percentiles provide an indication of how the patient's score ranks in relation to the general population. Higher percentile rankings indicate better function/quality of life. 50th percentile is the average of the general population and indicates half of respondents had a worse score. Creatinine Date Value Ref Range Status 01/03/2014 1.67 (H) 0.67 - 1.17 mg/dL Final PSA (no units) Date Value 09/16/2019 1.20 10/08/2018 0.70 11/25/2017 0.63 Color (no units) Date Value 12/15/2012 YELLOW Glucose, Urine (mg/dL) Date Value 07/23/2017 neg Bilirubin, Urine (no units) Date Value 07/23/2017 neg Ketones, Urine (no units) Date Value 07/23/2017 neg Specific [place], Ur (no units) Date Value 07/23/2017 1.020 Hemoglobin/Blood,Ur (no units) Date Value 07/23/2017 trace pH, Urine (no units) Date Value 07/23/2017 6.0 Protein, Urine (mg/dL) Date Value 07/23/2017 neg Nitrites (no units) Date Value 07/23/2017 neg Leukocytes Esterase (no units) Date Value 12/15/2012 NEGATIVE 24HR Urine Studies: No results for input(s): LUPH, LUCAL, LUCIT, LUOXA, LUURIC, LUVOL, LSCAO, LSCAP, LSURIC, LUCL, EVANGELIST, CARTER, LUUREA, LUAM, LUMAG, LUPHOS, LUPCR, LUCREA, LUCRKBW, LUCAKBW, LUCACREA, LUCREACL, LWK, LUSUL in the last 92514 hours. REVIEW OF SYSTEMS Review of Systems Constitutional: Negative for chills, fatigue, fever and unexpected weight change. HENT: Negative for sore throat and trouble swallowing. Eyes: Negative for visual disturbance. Respiratory: Negative for shortness of breath and wheezing. Cardiovascular: Negative for chest pain and leg swelling. Gastrointestinal: Negative for abdominal pain, blood in stool, diarrhea and nausea. Endocrine: Positive for polyuria. Genitourinary: Negative for difficulty urinating, dysuria, enuresis, flank pain, frequency, hematuria and urgency. Nocturia Musculoskeletal: Negative for back pain. Skin: Negative for rash. Neurological: Negative for dizziness and headaches. Hematological: Does not bruise/bleed easily. Psychiatric/Behavioral: Negative for behavioral problems and confusion. Review of system, history including past medical history, surgical history, family history and social history reviewed and confirmed by me. HISTORIES PAST MEDICAL HISTORY Diagnosis Date Acute prostatitis Encounter for prostate cancer screening Hypertension Male stress incontinence Malignant neoplasm of left kidney, except renal pelvis (HCC) Unspecified disorder of prostate PAST SURGICAL HISTORY Procedure Laterality Date VASECTOMY UNI/BI SPX W/POSTOP SEMEN EXAMS FAMILY HISTORY Problem Relation Age of Onset Hypertension Mother Stroke Mother Hypertension Father SOCIAL HISTORY Social History Tobacco Use Smoking status: Never Smokeless tobacco: Never Substance Use Topics Alcohol use: No Drug use: No MEDICATIONS: nitrofurantoin macrocrystal (MACRODANTIN) 50 mg capsule Take 1 capsule by mouth as directed for 30 doses. Take 1 tab PO as directed fosfomycin (MONUROL) 3 g pack cefdinir (OMNICEF) 300 mg capsule Take 1 capsule by mouth twice daily. cefdinir (OMNICEF) 300 mg capsule Cholecalciferol, Vitamin D3, 50 mcg (2,000 unit) cap Take by mouth. Tadalafil (CIALIS) 5 mg tablet Take 1 tablet by mouth once daily. AMLODIPINE BESYLATE (NORVASC ORAL) Take by mouth. SIMVASTATIN ORAL Take by mouth. PHYSICAL EXAMINATION General appearance: Well appearing, alert, in no acute distress, and well-hydrated, well nourished ASSESSMENT/PLAN: 1. Hypertrophy of prostate with urinary obstruction - ICD9: 600.01, 599.69, ICD10: N40.1, N13.8 (primary diagnosis) 2. Prostate mass - ICD9: 602.8, ICD10: N42.89 Discussed risk benefits and alternatives to MRI fusion biopsy. He will need ertapenem preoperatively Patient met with Dr. Murray and discussed in my presence Patient also met with Melody our chief crew scheduler to proceed with scheduling. We will place TURP on hold Dave Stuart Medical Decision Making: (more content not included)... [facility] 03-12-2023 History of Presen t illness Narrative ESTABLISHED PATIENT VISIT HPI Ricardo Gannon is a 63 year old male who presents with recurrent UTI, ESBL E. Coli Ertapenem sensitive Has a prostatic utricle and original plan was to do a limited TUR to unroofed and opened the prostate at the utricle to try to decrease risk of future infection Patient ended up going to [facility] for a second opinion and a follow-up MRI demonstrated a PI-RADS 4 lesion PSMA PET scan demonstrated mild uptake in the prostate and some uptake in the ribs. PSA is only 1.3 During today's visit I introduced patient to Dr. Murray and discussed MRI fusion biopsy We will put TURP on hold until fusion biopsy is performed Patient Entered Questionnaires PROMIS Global Health Percentiles provide an indication of how the patient's score ranks in relation to the general population. Higher percentile rankings indicate better function/quality of life. 50th percentile is the average of the general population and indicates half of respondents had a worse score. Creatinine Date Value Ref Range Status 01/03/2014 1.67 (H) 0.67 - 1.17 mg/dL Final PSA (no units) Date Value 09/16/2019 1.20 10/08/2018 0.70 11/25/2017 0.63 Color (no units) Date Value 12/15/2012 YELLOW Glucose, Urine (mg/dL) Date Value 07/23/2017 neg Bilirubin, Urine (no units) Date Value 07/23/2017 neg Ketones, Urine (no units) Date Value 07/23/2017 neg Specific [place], Ur (no units) Date Value 07/23/2017 1.020 Hemoglobin/Blood,Ur (no units) Date Value 07/23/2017 trace pH, Urine (no units) Date Value 07/23/2017 6.0 Protein, Urine (mg/dL) Date Value 07/23/2017 neg Nitrites (no units) Date Value 07/23/2017 neg Leukocytes Esterase (no units) Date Value 12/15/2012 NEGATIVE 24HR Urine Studies: No results for input(s): LUPH, LUCAL, LUCIT, LUOXA, LUURIC, LUVOL, LSCAO, LSCAP, LSURIC, LUCL, EVANGELIST, CARTER, LUUREA, LUAM, LUMAG, LUPHOS, LUPCR, LUCREA, LUCRKBW, LUCAKBW, LUCACREA, LUCREACL, LWK, LUSUL in the last 77312 hours. REVIEW OF SYSTEMS Review of Systems Constitutional: Negative for chills, fatigue, fever and unexpected weight change. HENT: Negative for sore throat and trouble swallowing. Eyes: Negative for visual disturbance. Respiratory: Negative for shortness of breath and wheezing. Cardiovascular: Negative for chest pain and leg swelling. Gastrointestinal: Negative for abdominal pain, blood in stool, diarrhea and nausea. Endocrine: Positive for polyuria. Genitourinary: Negative for difficulty urinating, dysuria, enuresis, flank pain, frequency, hematuria and urgency. Nocturia Musculoskeletal: Negative for back pain. Skin: Negative for rash. Neurological: Negative for dizziness and headaches. Hematological: Does not bruise/bleed easily. Psychiatric/Behavioral: Negative for behavioral problems and confusion. Review of system, history including past medical history, surgical history, family history and social history reviewed and confirmed by me. HISTORIES PAST MEDICAL HISTORY Diagnosis Date Acute prostatitis Encounter for prostate cancer screening Hypertension Male stress incontinence Malignant neoplasm of left kidney, except renal pelvis (HCC) Unspecified disorder of prostate PAST SURGICAL HISTORY Procedure Laterality Date VASECTOMY UNI/BI SPX W/POSTOP SEMEN EXAMS FAMILY HISTORY Problem Relation Age of Onset Hypertension Mother Stroke Mother Hypertension Father SOCIAL HISTORY Social History Tobacco Use Smoking status: Never Smokeless tobacco: Never Substance Use Topics Alcohol use: No Drug use: No MEDICATIONS: nitrofurantoin macrocrystal (MACRODANTIN) 50 mg capsule Take 1 capsule by mouth as directed for 30 doses. Take 1 tab PO as directed fosfomycin (MONUROL) 3 g pack cefdinir (OMNICEF) 300 mg capsule Take 1 capsule by mouth twice daily. cefdinir (OMNICEF) 300 mg capsule Cholecalciferol, Vitamin D3, 50 mcg (2,000 unit) cap Take by mouth. Tadalafil (CIALIS) 5 mg tablet Take 1 tablet by mouth once daily. AMLODIPINE BESYLATE (NORVASC ORAL) Take by mouth. SIMVASTATIN ORAL Take by mouth. PHYSICAL EXAMINATION General appearance: Well appearing, alert, in no acute distress, and well-hydrated, well nourished ASSESSMENT/PLAN: 1. Hypertrophy of prostate with urinary obstruction - ICD9: 600.01, 599.69, ICD10: N40.1, N13.8 (primary diagnosis) 2. Prostate mass - ICD9: 602.8, ICD10: N42.89 Discussed risk benefits and alternatives to MRI fusion biopsy. He will need ertapenem preoperatively Patient met with Dr. Murray and discussed in my presence Patient also met with Melody mercado chief crew scheduler to proceed with scheduling. We will place TURP on hold Dave Stuart Medical Decision Making: Medical Decision Making Level: 1 - N/A documented in this encounter [facility] 12-14-2022 Miscellaneous Notes Pt is scheduled for Cysto, TURP with Dr Stuart at [facility] on 02/02/23 @ 8:00 (6:00 arrival). PAT and labs on 01/29/23 @ 1:00 at [facility]. Postop with Lucie @ [facility] on 03/17/23 @ 11:30. Pt given date, time, prep and arrival instructions over the phone on 12/11/22. Written info mailed to pt's home also. Melody Dupree documented in this encounter [facility] 12-09-2022 Miscellaneous Notes Patient needs scheduled for cystoscopy, transurethral resection of prostate. Needs urine culture and pretesting at least 10 days preop Contact patient to start scheduling. I believe he is thinking January. 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 He is getting final culture results and will send to me or you. I sent a prescription for low-dose nitrofurantoin to his pharmacy. He will pick this up we discussed taking nitrofurantoin or fosfomycin as a prophylactic antibiotic moving forward for a few months. Will also talk to his infectious disease colleagues Okay to close call for now Pt called states he has had another UTI - pt self treating with Macrobid. Pt states there is a C&S being done at [place]. Pt would like to know if you think there would be a reason for him to repeat an MRI - pt states he still is not comfortable with surgery. Please advise or call pt Stacey Gonzalez CMA documented in this encounter [facility] 10-03-2021 History of Presen t illness Narrative Radiology Service Progress Note DATE OF SERVICE: October 03, 2021 TIME: 9:44 AM PATIENT IDENTITY VERIFICATION COMPLETED USING TWO (2) STANDARD IDENTIFIERS: Name and Date of confirmed by patient verbally and Name and Date of confirmed by identification band. FALL SCREENING: Has the patient had 2 falls in the last year or 1 fall with injury or currently using an Ambulatory Assistive Device (Walker, Cane, Wheelchair, Crutches, etc.)? No PATIENT GENDER DATA: Male PATIENT RELEVANT IMPLANT DATA REVIEWED: Not Applicable ALLERGIES: Reviewed and unchanged CONTRAST ALLERGY: NO. EXAM: MRI - CONTRAST TYPE: GROUP II PERIPHERAL IV DATA: Ambulatory: A peripheral IV was started in the Left antecubital site with a Angio cath: 22 gauge. RADIOLOGY DEPARTMENT: MR; Exam(s) Completed: Body: Prostate SIGNATURE: RT Heather(R) PATIENT NAME: Ricardo Gannon DATE: October 03, 2021 TIME: 9:44 AM documented in this encounter [facility] 09-30-2021 Miscellaneous Notes Phoned patient and notified of message below regarding ABX per provider. Patient acknowledged understanding of instructions and has no further questions. Stacey Gonzalez CMA Cefdinir sent to pharmacy Start a few days prior Pt called he is scheduled for a Cysto/Trus Wednesday and would like to know if he should start an ABX prior. Pt concerned because of prior infections Pt prefers Omnicef Please advise Stacey Gonzalez CMA documented in this encounter [facility] Evaluation + Plan note No data available for this section [facility] Evaluation note Diagnosis Onset Date Encounter for screening for COVID-19 acute [facility] Work Phone: Evaluation noteNo assessment information available [facility] Work Phone: Evaluation note* Diagnosis 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 Hypertrophy of prostate with urinary obstruction and other lower urinary tract symptoms (LUTS) Chronic prostatitis [facility] Diagnosis Hypertrophy of prostate with urinary obstruction- Primary Hypertrophy of prostate with urinary obstruction and other lower urinary tract symptoms (LUTS) Prostate mass Unspecified disorder of prostate BPH with obstruction/lower urinary tract symptoms Hypertrophy of prostate with urinary obstruction and other lower urinary tract symptoms (LUTS) [facility] Diagnosis Disorder of prostate- Primary Unspecified disorder of prostate Calculus of kidney Malignant neoplasm of left kidney (HCC) [facility] Diagnosis Onset Date Resolution Status Lumbar strain acute Segmental and somatic dysfunction of lumbar region acute Segmental and somatic dysfunction of pelvic region acute Back pain noneactive Lumbar strain acute Segmental and somatic dysfunction of lumbar region acute Segmental and somatic dysfunction of pelvic region acute Back pain noneactive [facility] Work Phone: Evaluation note* Diagnosis Malignant neoplasm of left kidney (HCC)- Primary Hypertrophy of prostate with urinary obstruction Hypertrophy of prostate with urinary obstruction and other lower urinary tract symptoms (LUTS) Prostate mass Unspecified disorder of prostate Calculus of kidney [facility] Diagnosis Onset Date Resolution Status Admit Date Segmental and somatic dysfun ction of lumbar region acute November 16, 2024 3:41pm Segmental and somatic dysfun ction of pelvic region acute November 16, 2024 3:41pm [facility] Work Phone: Hospital Discharge instructions No data available for this section [facility] Reason for referral (narrative)* Diagnostic Procedure Only (Routine) - Pending Review Specialty Diagnoses / Procedures Referred By Contreji t Referred To Contact XR IMAGING Diagnoses Calculus of kidney Procedures XR ABDOMEN 1V SUPINE RADIOLOGIC EXAM ABDOMEN 1 VIEW Dave Stuart MD [address] [place] [id number] [place] [address] Referral ID Status Reason Start Date Expiration Date Visits Requested Visits Authorized [id number] Pending Review Auto-Generat ed Referral 08/27/2023 09/25/2024 1 1 [facility] for referral (narrative)* Diagnostic Procedure Only (Routine) - New Request Specialty Diagnoses / Procedures Referred By Roslyn riddle Referred To Contact XR IMAGING Diagnoses Calculus of kidney Procedures XR ABDOMEN 1V SUPINE RADIOLOGIC EXAM ABDOMEN 1 [place] [address] [place] [phone] [place] [address] Referral ID Status Reason Start Date Expiration Date Visits Requested Visits Authorized [id number] New Request Auto-Generat ed Referral 04/02/2025 1 1 [facility] for referral (narrative)No reason for referral information available[facility] Work Phone: Summary Purpose Family History No Family History Records FoundNo Family History Records FoundNo Family History Records FoundNo Family History Records Found Advance Directives No Advanced Directives Records Found Advance Directive Response Recorded Date/ Time Living Will No August 09, 2021 4:01am Power of Fruit And Vegetable Classer No August 09 4:01am Advance Directive Response Recorded Date/ Time Living Will No August 09, 2021 3:01am Power of Fruit And Vegetable Classer No August 09 3:01am Chief Complaint and Reason for Visit Chief Complaint COVID TEST COVID TEST COVID DRIVE THRU COVID TEST INT LABS NEED NEW ORDER INT LABS fever ERTAPENEM ERTAPENEM ERTAPENEM ERTAPENEM ERTAPENEM ERTAPENEM Reason for Visit Encounter for screen ing for COVID-19 Chief Complaint COVID TEST COVID TEST COVID DRIVE THRU COVID TEST INT LABS NEED NEW ORDER INT LABS fever ERTAPENEM ERTAPENEM ERTAPENEM ERTAPENEM ERTAPENEM ERTAPENEM ERTAPENEM Reason for Visit Encounter for screen ing for COVID-19 Chief Complaint COVID TEST COVID TEST COVID DRIVE THRU COVID TEST INT LABS NEED NEW ORDER INT LABS fever ERTAPENEM ERTAPENEM ERTAPENEM ERTAPENEM ERTAPENEM ERTAPENEM ERTAPENEM ERTAPENEM ERTAPENEM Reason for Visit Encounter for screen ing for COVID-19 Chief Complaint COVID TEST COVID TEST COVID DRIVE THRU COVID TEST INT LABS NEED NEW ORDER INT LABS fever ERTAPENEM ERTAPENEM ERTAPENEM ERTAPENEM ERTAPENEM ERTAPENEM ERTAPENEM ERTAPENEM ERTAPENEM ERTAPENEM ERTAPENEM ERTAPENEM Reason for Visit Encounter for screen ing for COVID-19 Chief Complaint COVID TEST COVID TEST COVID DRIVE THRU COVID TEST INT LABS NEED NEW ORDER INT LABS fever ERTAPENEM ERTAPENEM ERTAPENEM ERTAPENEM ERTAPENEM ERTAPENEM ERTAPENEM ERTAPENEM ERTAPENEM ERTAPENEM ERTAPENEM ERTAPENEM ERTAPENEM Reason for Visit Encounter for screen ing for COVID-19 Chief Complaint COVID TEST COVID TEST COVID DRIVE THRU COVID TEST INT LABS NEED NEW ORDER INT LABS fever ERTAPENEM ERTAPENEM ERTAPENEM ERTAPENEM ERTAPENEM ERTAPENEM ERTAPENEM ERTAPENEM ERTAPENEM ERTAPENEM ERTAPENEM ERTAPENEM ERTAPENEM ERTAPENEM Reason for Visit Encounter for screen ing for COVID-19 Chief Complaint COVID DRIVE THRU COVID TEST INT LABS NEED NEW ORDER INT LABS fever ERTAPENEM ERTAPENEM ERTAPENEM ERTAPENEM ERTAPENEM ERTAPENEM ERTAPENEM ERTAPENEM ERTAPENEM ERTAPENEM ERTAPENEM ERTAPENEM ERTAPENEM ERTAPENEM Chief Complaint COVID TEST INT LABS NEED NEW ORDER INT LABS fever ERTAPENEM ERTAPENEM ERTAPENEM ERTAPENEM ERTAPENEM ERTAPENEM ERTAPENEM ERTAPENEM ERTAPENEM ERTAPENEM ERTAPENEM ERTAPENEM ERTAPENEM ERTAPENEM NEED ORDERS, URINE ALSO Chief Complaint COVID TEST INT LABS NEED NEW ORDER INT LABS fever ERTAPENEM ERTAPENEM ERTAPENEM ERTAPENEM ERTAPENEM ERTAPENEM ERTAPENEM ERTAPENEM ERTAPENEM ERTAPENEM ERTAPENEM ERTAPENEM ERTAPENEM ERTAPENEM NEED ORDERS, URINE ALSO ERTAPENEM 1 GRAM ERTAPENEM 1 GRAM Chief Complaint COVID TEST INT LABS NEED NEW ORDER INT LABS fever ERTAPENEM ERTAPENEM ERTAPENEM ERTAPENEM ERTAPENEM ERTAPENEM ERTAPENEM ERTAPENEM ERTAPENEM ERTAPENEM ERTAPENEM ERTAPENEM ERTAPENEM ERTAPENEM NEED ORDERS, URINE ALSO ERTAPENEM 1 GRAM ERTAPENEM 1 GRAM ERTAPENEM 1 GRAM Chief Complaint COVID TEST INT LABS NEED NEW ORDER INT LABS fever ERTAPENEM ERTAPENEM ERTAPENEM ERTAPENEM ERTAPENEM ERTAPENEM ERTAPENEM ERTAPENEM ERTAPENEM ERTAPENEM ERTAPENEM ERTAPENEM ERTAPENEM ERTAPENEM NEED ORDERS, URINE ALSO ERTAPENEM 1 GRAM ERTAPENEM 1 GRAM ERTAPENEM 1 GRAM ERTAPENEM 1 GRAM Chief Complaint COVID TEST INT LABS NEED NEW ORDER INT LABS fever ERTAPENEM ERTAPENEM ERTAPENEM ERTAPENEM ERTAPENEM ERTAPENEM ERTAPENEM ERTAPENEM ERTAPENEM ERTAPENEM ERTAPENEM ERTAPENEM ERTAPENEM ERTAPENEM NEED ORDERS, URINE ALSO ERTAPENEM 1 GRAM ERTAPENEM 1 GRAM ERTAPENEM 1 GRAM ERTAPENEM 1 GRAM ERTAPENEM 1 GRAM LABS W/IV START ERTAPENEM 1 GRAM ERTAPENEM 1 GRAM ERTAPENEM 1 GRAM Chief Complaint COVID TEST INT LABS NEED NEW ORDER INT LABS fever ERTAPENEM ERTAPENEM ERTAPENEM ERTAPENEM ERTAPENEM ERTAPENEM ERTAPENEM ERTAPENEM ERTAPENEM ERTAPENEM ERTAPENEM ERTAPENEM ERTAPENEM ERTAPENEM NEED ORDERS, URINE ALSO ERTAPENEM 1 GRAM ERTAPENEM 1 GRAM ERTAPENEM 1 GRAM ERTAPENEM 1 GRAM ERTAPENEM 1 GRAM ERTAPENEM 1 GRAM LABS W/IV START ERTAPENEM 1 GRAM ERTAPENEM 1 GRAM ERTAPENEM 1 GRAM ERTAPENEM 1 GRAM Chief Complaint COVID TEST INT LABS NEED NEW ORDER INT LABS fever ERTAPENEM ERTAPENEM ERTAPENEM ERTAPENEM ERTAPENEM ERTAPENEM ERTAPENEM ERTAPENEM ERTAPENEM ERTAPENEM ERTAPENEM ERTAPENEM ERTAPENEM ERTAPENEM NEED ORDERS, URINE ALSO ERTAPENEM 1 GRAM ERTAPENEM 1 GRAM ERTAPENEM 1 GRAM ERTAPENEM 1 GRAM ERTAPENEM 1 GRAM ERTAPENEM 1 GRAM LABS W/IV START ERTAPENEM 1 GRAM ERTAPENEM 1 GRAM ERTAPENEM 1 GRAM ERTAPENEM 1 GRAM ERTAPENEM 1 GRAM Chief Complaint COVID TEST INT LABS NEED NEW ORDER INT LABS fever ERTAPENEM ERTAPENEM ERTAPENEM ERTAPENEM ERTAPENEM ERTAPENEM ERTAPENEM ERTAPENEM ERTAPENEM ERTAPENEM ERTAPENEM ERTAPENEM ERTAPENEM ERTAPENEM NEED ORDERS, URINE ALSO ERTAPENEM 1 GRAM ERTAPENEM 1 GRAM ERTAPENEM 1 GRAM ERTAPENEM 1 GRAM ERTAPENEM 1 GRAM ERTAPENEM 1 GRAM LABS W/IV START ERTAPENEM 1 GRAM ERTAPENEM 1 GRAM ERTAPENEM 1 GRAM ERTAPENEM 1 GRAM ERTAPENEM 1 GRAM ERTAPENEM 1 GRAM Chief Complaint NEED NEW ORDER INT LABS fever ERTAPENEM ERTAPENEM ERTAPENEM ERTAPENEM ERTAPENEM ERTAPENEM ERTAPENEM ERTAPENEM ERTAPENEM ERTAPENEM ERTAPENEM ERTAPENEM ERTAPENEM ERTAPENEM NEED ORDERS, URINE ALSO ERTAPENEM 1 GRAM ERTAPENEM 1 GRAM ERTAPENEM 1 GRAM ERTAPENEM 1 GRAM ERTAPENEM 1 GRAM ERTAPENEM 1 GRAM LABS W/IV START ERTAPENEM 1 GRAM ERTAPENEM 1 GRAM ERTAPENEM 1 GRAM ERTAPENEM 1 GRAM ERTAPENEM 1 GRAM ERTAPENEM 1 GRAM picc draw ERTAPENEM 1 GRAM ERTAPENEM 1 GRAM ERTAPENEM 1 GRAM ERTAPENEM 1 GRAM ERTAPENEM 1 GRAM Chief Complaint NEED NEW ORDER INT LABS fever ERTAPENEM ERTAPENEM ERTAPENEM ERTAPENEM ERTAPENEM ERTAPENEM ERTAPENEM ERTAPENEM ERTAPENEM ERTAPENEM ERTAPENEM ERTAPENEM ERTAPENEM ERTAPENEM NEED ORDERS, URINE ALSO ERTAPENEM 1 GRAM ERTAPENEM 1 GRAM ERTAPENEM 1 GRAM ERTAPENEM 1 GRAM ERTAPENEM 1 GRAM ERTAPENEM 1 GRAM LABS W/IV START ERTAPENEM 1 GRAM ERTAPENEM 1 GRAM ERTAPENEM 1 GRAM ERTAPENEM 1 GRAM ERTAPENEM 1 GRAM ERTAPENEM 1 GRAM picc draw ERTAPENEM 1 GRAM ERTAPENEM 1 GRAM ERTAPENEM 1 GRAM ERTAPENEM 1 GRAM ERTAPENEM 1 GRAM ERTAPENEM 1 GRAM PICC drawn/dressing change ERTAPENEM 1 GRAM Chief Complaint NEED NEW ORDER INT LABS fever ERTAPENEM ERTAPENEM ERTAPENEM ERTAPENEM ERTAPENEM ERTAPENEM ERTAPENEM ERTAPENEM ERTAPENEM ERTAPENEM ERTAPENEM ERTAPENEM ERTAPENEM ERTAPENEM NEED ORDERS, URINE ALSO ERTAPENEM 1 GRAM ERTAPENEM 1 GRAM ERTAPENEM 1 GRAM ERTAPENEM 1 GRAM ERTAPENEM 1 GRAM ERTAPENEM 1 GRAM LABS W/IV START ERTAPENEM 1 GRAM ERTAPENEM 1 GRAM ERTAPENEM 1 GRAM ERTAPENEM 1 GRAM ERTAPENEM 1 GRAM ERTAPENEM 1 GRAM picc draw ERTAPENEM 1 GRAM ERTAPENEM 1 GRAM ERTAPENEM 1 GRAM ERTAPENEM 1 GRAM ERTAPENEM 1 GRAM ERTAPENEM 1 GRAM PICC drawn/dressing change ERTAPENEM 1 GRAM ERTAPENEM 1 GRAM Chief Complaint NEED NEW ORDER INT LABS fever ERTAPENEM ERTAPENEM ERTAPENEM ERTAPENEM ERTAPENEM ERTAPENEM ERTAPENEM ERTAPENEM ERTAPENEM ERTAPENEM ERTAPENEM ERTAPENEM ERTAPENEM ERTAPENEM NEED ORDERS, URINE ALSO ERTAPENEM 1 GRAM ERTAPENEM 1 GRAM ERTAPENEM 1 GRAM ERTAPENEM 1 GRAM ERTAPENEM 1 GRAM ERTAPENEM 1 GRAM LABS W/IV START ERTAPENEM 1 GRAM ERTAPENEM 1 GRAM ERTAPENEM 1 GRAM ERTAPENEM 1 GRAM ERTAPENEM 1 GRAM ERTAPENEM 1 GRAM picc draw ERTAPENEM 1 GRAM ERTAPENEM 1 GRAM ERTAPENEM 1 GRAM ERTAPENEM 1 GRAM ERTAPENEM 1 GRAM ERTAPENEM 1 GRAM PICC drawn/dressing change ERTAPENEM 1 GRAM ERTAPENEM 1 GRAM ERTAPENEM 1 GRAM ERTAPENEM 1 GRAM Chief Complaint NEED NEW ORDER INT LABS fever ERTAPENEM ERTAPENEM ERTAPENEM ERTAPENEM ERTAPENEM ERTAPENEM ERTAPENEM ERTAPENEM ERTAPENEM ERTAPENEM ERTAPENEM ERTAPENEM ERTAPENEM ERTAPENEM NEED ORDERS, URINE ALSO ERTAPENEM 1 GRAM ERTAPENEM 1 GRAM ERTAPENEM 1 GRAM ERTAPENEM 1 GRAM ERTAPENEM 1 GRAM ERTAPENEM 1 GRAM LABS W/IV START ERTAPENEM 1 GRAM ERTAPENEM 1 GRAM ERTAPENEM 1 GRAM ERTAPENEM 1 GRAM ERTAPENEM 1 GRAM ERTAPENEM 1 GRAM picc draw ERTAPENEM 1 GRAM ERTAPENEM 1 GRAM ERTAPENEM 1 GRAM ERTAPENEM 1 GRAM ERTAPENEM 1 GRAM ERTAPENEM 1 GRAM PICC drawn/dressing change ERTAPENEM 1 GRAM ERTAPENEM 1 GRAM ERTAPENEM 1 GRAM ERTAPENEM 1 GRAM ERTAPENEM 1 GRAM Chief Complaint NEED NEW ORDER INT LABS fever ERTAPENEM ERTAPENEM ERTAPENEM ERTAPENEM ERTAPENEM ERTAPENEM ERTAPENEM ERTAPENEM ERTAPENEM ERTAPENEM ERTAPENEM ERTAPENEM ERTAPENEM ERTAPENEM NEED ORDERS, URINE ALSO ERTAPENEM 1 GRAM ERTAPENEM 1 GRAM ERTAPENEM 1 GRAM ERTAPENEM 1 GRAM ERTAPENEM 1 GRAM ERTAPENEM 1 GRAM LABS W/IV START ERTAPENEM 1 GRAM ERTAPENEM 1 GRAM ERTAPENEM 1 GRAM ERTAPENEM 1 GRAM ERTAPENEM 1 GRAM ERTAPENEM 1 GRAM picc draw ERTAPENEM 1 GRAM ERTAPENEM 1 GRAM ERTAPENEM 1 GRAM ERTAPENEM 1 GRAM ERTAPENEM 1 GRAM ERTAPENEM 1 GRAM PICC drawn/dressing change ERTAPENEM 1 GRAM ERTAPENEM 1 GRAM ERTAPENEM 1 GRAM ERTAPENEM 1 GRAM ERTAPENEM 1 GRAM ERTAPENEM 1 GRAM ERTAPENEM Chief Complaint INT LABS fever ERTAPENEM ERTAPENEM ERTAPENEM ERTAPENEM ERTAPENEM ERTAPENEM ERTAPENEM ERTAPENEM ERTAPENEM ERTAPENEM ERTAPENEM ERTAPENEM ERTAPENEM ERTAPENEM NEED ORDERS, URINE ALSO ERTAPENEM 1 GRAM ERTAPENEM 1 GRAM ERTAPENEM 1 GRAM ERTAPENEM 1 GRAM ERTAPENEM 1 GRAM ERTAPENEM 1 GRAM LABS W/IV START ERTAPENEM 1 GRAM ERTAPENEM 1 GRAM ERTAPENEM 1 GRAM ERTAPENEM 1 GRAM ERTAPENEM 1 GRAM ERTAPENEM 1 GRAM picc draw ERTAPENEM 1 GRAM ERTAPENEM 1 GRAM ERTAPENEM 1 GRAM ERTAPENEM 1 GRAM ERTAPENEM 1 GRAM ERTAPENEM 1 GRAM PICC drawn/dressing change ERTAPENEM 1 GRAM ERTAPENEM 1 GRAM ERTAPENEM 1 GRAM ERTAPENEM 1 GRAM ERTAPENEM 1 GRAM ERTAPENEM 1 GRAM ERTAPENEM E ORDER Chief Complaint LABS W/IV START ERTAPENEM 1 GRAM ERTAPENEM 1 GRAM ERTAPENEM 1 GRAM ERTAPENEM 1 GRAM ERTAPENEM 1 GRAM ERTAPENEM 1 GRAM picc draw ERTAPENEM 1 GRAM ERTAPENEM 1 GRAM ERTAPENEM 1 GRAM ERTAPENEM 1 GRAM ERTAPENEM 1 GRAM ERTAPENEM 1 GRAM PICC drawn/dressing change ERTAPENEM 1 GRAM ERTAPENEM 1 GRAM ERTAPENEM 1 GRAM ERTAPENEM 1 GRAM ERTAPENEM 1 GRAM ERTAPENEM 1 GRAM ERTAPENEM E ORDER EORDER- URINE Chief Complaint E ORDERS ERTAPENEM Chief Complaint E ORDERS ERTAPENEM ERTAPENEM Chief Complaint E ORDERS ERTAPENEM ERTAPENEM ERTAPENEM Chief Complaint E ORDERS ERTAPENEM ERTAPENEM ERTAPENEM ERTAPENEM ERTAPENEM ERTAPENEM ERTAPENEM Chief Complaint E ORDERS ERTAPENEM ERTAPENEM ERTAPENEM ERTAPENEM ERTAPENEM ERTAPENEM ERTAPENEM ERTAPENEM ERTAPENEM ERTAPENEM Chief Complaint E ORDERS ERTAPENEM ERTAPENEM ERTAPENEM ERTAPENEM ERTAPENEM ERTAPENEM ERTAPENEM ERTAPENEM ERTAPENEM ERTAPENEM ERTAPENEM Chief Complaint E ORDERS ERTAPENEM ERTAPENEM ERTAPENEM ERTAPENEM ERTAPENEM ERTAPENEM ERTAPENEM ERTAPENEM ERTAPENEM ERTAPENEM ERTAPENEM ERTAPENEM Chief Complaint E ORDERS ERTAPENEM ERTAPENEM ERTAPENEM ERTAPENEM ERTAPENEM ERTAPENEM ERTAPENEM ERTAPENEM ERTAPENEM ERTAPENEM ERTAPENEM ERTAPENEM ERTAPENEM Chief Complaint E ORDERS ERTAPENEM ERTAPENEM ERTAPENEM ERTAPENEM ERTAPENEM ERTAPENEM ERTAPENEM ERTAPENEM ERTAPENEM ERTAPENEM ERTAPENEM ERTAPENEM ERTAPENEM ERTAPENEM Chief Complaint E ORDERS ERTAPENEM ERTAPENEM ERTAPENEM ERTAPENEM ERTAPENEM ERTAPENEM ERTAPENEM ERTAPENEM ERTAPENEM ERTAPENEM ERTAPENEM ERTAPENEM ERTAPENEM ERTAPENEM ERTAPENEM ERTAPENEM Chief Complaint E ORDERS ERTAPENEM ERTAPENEM ERTAPENEM ERTAPENEM ERTAPENEM ERTAPENEM ERTAPENEM ERTAPENEM ERTAPENEM ERTAPENEM ERTAPENEM ERTAPENEM ERTAPENEM ERTAPENEM ERTAPENEM ERTAPENEM ERTAPENEM Chief Complaint E ORDERS ERTAPENEM ERTAPENEM ERTAPENEM ERTAPENEM ERTAPENEM ERTAPENEM ERTAPENEM ERTAPENEM ERTAPENEM ERTAPENEM ERTAPENEM ERTAPENEM ERTAPENEM ERTAPENEM ERTAPENEM ERTAPENEM ERTAPENEM E ORDERS Chief Complaint e orders Chief Complaint e orders E-ORDER Chief Complaint Back pain Back pain Reason for Visit Lumbar strain Segmental and somatic dysfunction of lumbar region Segmental and somatic dysfunction of pelvic region Back pain Lumbar strain Segmental and somatic dysfunction of lumbar region Segmental and somatic dysfunction of pelvic region Back pain Chief Complaint Admit Date REEVAL November 16, 2024 3:41p m Reason for Visit Admit Date Segmental and somatic dysfunction of lum bar region November 16, 2024 3:41pm Segmental and somatic dysfunction of pel olamide region November 16, 2024 3:41pm Reason for Referral Specialty Diagnoses / Procedures Referred By Roslyn t Referred To Contact MR IMAGING Diagnoses 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 Chronic prostatitis Procedures MRI PROSTATE WO/W IVCON MRI PELVIS W/O & W/CONTRAST MATERIAL Dave Stuart MD [address] [place] [address] Mr Imaging Referral ID Status Reason Start Date Expiration Date V isits Requested Visits Authorized [id number] Closed Auto-Generate d Referral 09/17/2021 05/16/2022 1 1 Additional Source Comments (unrecognized sect ion and content) No Status Records FoundNo Status Records FoundNo Status Records FoundNo Status Records Found INFORMATION SOURCE (unrecogn ized section and content) DATE CREATED AUTHOR 07/27/2018 [facility] DATE CREATED AUTHOR AUTHOR'S ORGANIZ ATION 05/23/2021 [facility] ([place]) DATE CREATED AUTHOR AUTHOR'S ORGANIZ ATION 03/05/2024 [facility] DATE CREATED AUTHOR AUTHOR'S ORGANIZ ATION 11/23/2024 [facility] Goals (unrecognized section and content) Goals may be documented in a n alternate section Source Comments (unrecognize d section and content) In the event this informatio n is protected by the Federal Confidentiality of Alcohol and Drug Abuse Patient Records regulations: The Federal rules restrict any use of the information to criminally investigate or prosecute any alcohol or drug abuse patient.[facility] the event this information is protected by the Federal Confidentiality of Alcohol and Drug Abuse Patient Records regulations: The Federal rules restrict any use of the information to criminally investigate or prosecute any alcohol or drug abuse patient.[facility] the event this information is protected by the Federal Confidentiality of Alcohol and Drug Abuse Patient Records regulations: The Federal rules restrict any use of the information to criminally investigate or prosecute any alcohol or drug abuse patient.[facility] the event this information is protected by the Federal Confidentiality of Alcohol and Drug Abuse Patient Records regulations: The Federal rules restrict any use of the information to criminally investigate or prosecute any alcohol or drug abuse patient.[facility] the event this information is protected by the Federal Confidentiality of Alcohol and Drug Abuse Patient Records regulations: The Federal rules restrict any use of the information to criminally investigate or prosecute any alcohol or drug abuse patient.[facility] HospitalIn the event this information is protected by the Federal Confidentiality of Alcohol and Drug Abuse Patient Records regulations: The Federal rules restrict any use of the information to criminally investigate or prosecute any alcohol or drug abuse patient.[facility] HospitalIn the event this information is protected by the Federal Confidentiality of Alcohol and Drug Abuse Patient Records regulations: The Federal rules restrict any use of the information to criminally investigate or prosecute any alcohol or drug abuse patient.[facility] HospitalIn the event this information is protected by the Federal Confidentiality of Alcohol and Drug Abuse Patient Records regulations: The Federal rules restrict any use of the information to criminally investigate or prosecute any alcohol or drug abuse patient.[facility] HospitalIn the event this information is protected by the Federal Confidentiality of Alcohol and Drug Abuse Patient Records regulations: The Federal rules restrict any use of the information to criminally investigate or prosecute any alcohol or drug abuse patient.[facility] HospitalIn the event this information is protected by the Federal Confidentiality of Alcohol and Drug Abuse Patient Records regulations: The Federal rules restrict any use of the information to criminally investigate or prosecute any alcohol or drug abuse patient.[facility] HospitalIn the event this information is protected by the Federal Confidentiality of Alcohol and Drug Abuse Patient Records regulations: The Federal rules restrict any use of the information to criminally investigate or prosecute any alcohol or drug abuse patient.[facility] HospitalIn the event this information is protected by the Federal Confidentiality of Alcohol and Drug Abuse Patient Records regulations: The Federal rules restrict any use of the information to criminally investigate or prosecute any alcohol or drug abuse patient.[facility] HospitalIn the event this information is protected by the Federal Confidentiality of Alcohol and Drug Abuse Patient Records regulations: The Federal rules restrict any use of the information to criminally investigate or prosecute any alcohol or drug abuse patient.[facility] HospitalIn the event this information is protected by the Federal Confidentiality of Alcohol and Drug Abuse Patient Records regulations: The Federal rules restrict any use of the information to criminally investigate or prosecute any alcohol or drug abuse patient.[facility] Care Teams (unrecognized sec tion and content) Cardiothoracic Icu Rn Relationship Specialty Start Date End Date Noy Staples MD PCP - General Family Practice 12/16/16 Cardiothoracic Icu Rn Relationship Specialty Start Date End Date Noy Staples MD PCP - General Family Practice 12/16/16 Cardiothoracic Icu Rn Relationship Specialty Start Date End Date Noy Staples MD PCP - General Family Practice 12/16/16 Cardiothoracic Icu Rn Relationship Specialty Start Date End Date Noy Staples MD PCP - General Family Practice 12/16/16 Team Status: Active Member Role Status Dates Dr. Noy Staples MD Family Provider Active Dr. Noy Staples MD Primary Care Provider Active Team Status: Inactive Member Role Status Dates Dr. Noy Staples MD Primary Care Provide r, Attending Provider, Referring Provider Active Team Status: Active Member Role Status Dates Dr. Noy Staples MD Primary Care Provide r, Attending Provider, Referring Provider Active Cardiothoracic Icu Rn Relationship Specialty Start Date End Date Noy Staples MD PCP - General Family Medicine 12/16/16 Team Status: Inactive Member Role Status Dates Dr. Noy Staples MD Primary Care Provider, Attending Matthew duncan Active Cardiothoracic Icu Rn Relationship Specialty Start Date End Date Noy Staples MD PCP - General Family Medicine 12/16/16 Cardiothoracic Icu Rn Relationship Specialty Start Date End Date Noy Staples MD PCP - General Family Medicine 12/16/16 Cardiothoracic Icu Rn Relationship Specialty Start Date End Date Noy Staples MD PCP - General Family Medicine 12/16/16 Cardiothoracic Icu Rn Relationship Specialty Start Date End Date Noy Staples MD PCP - General Family Medicine 12/16/16 Cardiothoracic Icu Rn Relationship Specialty Start Date End Date Noy Staples MD PCP - General Family Medicine 12/16/16 Cardiothoracic Icu Rn Relationship Specialty Start Date End Date Noy Staples MD PCP - General Family Medicine 12/16/16 Cardiothoracic Icu Rn Relationship Specialty Start Date End Date Noy Staples MD PCP - General Family Medicine 12/16/16 Cardiothoracic Icu Rn Relationship Specialty Start Date End Date Noy Staples MD PCP - General Family Medicine 12/16/16 Team Status: Inactive Member Role Status Dates Dr. Noy Staples MD Primary Care Provider, Referring Matthew duncan Active Dr. Ivonne Garcia DC Attending Provider Active Team Status: Inactive Member Role Status Dates Dr. Noy Staples MD Primary Care Provider Active Dr. Dave Stuart MD Attending Provider, Referring Provider Active Cardiothoracic Icu Rn Relationship Specialty Start Date End Date Noy Staples MD PCP - General Family Medicine 12/16/16 Team Status: Active Member Role/Relationship Status Dates Dr. Noy Staples MD Family Provider Active Dr. Noy Staples MD Primary Care Provider Active Team Status: Inactive Member Role/Relationship Status Dates Dr. Noy Staples MD Primary Care Provider Active Start: November 16, 2024 End: November 16, 2024 Dr. Noy Staples MD Referring Provider Active St art: November 16, 2024 End: November 16, 2024 Dr. 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 Chronic prostatitis Procedures MRI PROSTATE WO/W IVCON MRI PELVIS W/O & W/CONTRAST MATERIAL Dave Stuart MD [address] [place] [address] Mr Imaging Referral ID Status Reason Start Date Expiration Date V isits Requested Visits Authorized [id number] Closed Auto-Generate d Referral 09/17/2021 05/16/2022 1 1 Reason Comments Patient Question Patient Update Reason Comments Schedule Surgery Reason Comments Surgery Scheduled Reason Comments Patient Conference Reason Comments Surgery Rescheduled Reason Comments Results Reason Comments PSA Reason Comments Prostate Problem Kidney Stones Renal Cancer FOR RECORDS PERTAINING TO PATIENTS WHO ARE OR HAVE BEEN ENROLLED IN A CHEMICAL DEPENDENCY/SUBSTANCEABUSE PROGRAM, SOME INFORMATION MAY BE OMITTED. This clinical summary was aggregated from multiple sources. Caution should be exercised in using it in the provision of clinical care. This summary normalizes information from multiple sources, and as a consequence, information in this document may materially change the coding, format and clinical context of patient data. In addition, data may be omitted in some cases. CLINICAL DECISIONS SHOULD BE BASED ON THE PRIMARY CLINICAL RECORDS. [employer] provides no warranty or guarantee of the accuracy or completeness of information in this document.
[2024-12-04 07:12] LABS: Hematocrit 43.0 % (40-54); Hemoglobin 14.3 g/dL (13.0-16.5); Immature Granulocytes Count 0.010 X10^3/uL (0.0-0.0); Mean Corp Hgb Conc 33.3 g/dL (32-36); Mean Corpuscular Volume 94.5 fL (80-94); Mean Platelet Vol. 9.9 fl (6.2-12.0); NRBC Flagged by Analyzer 0 % (0-5); Platelet Count 168 K/mm3 (150-450); RBC Distribution Width CV 12.2 % (11.6-14.6); RBC Distribution Width SD 42.3 fl (35.1-43.9); Red Blood Count 4.55 M/mm3 (4.6-6.2); White Blood Count 4.0 K/mm3 (4.4-11.0)
[2024-12-04 07:36] LABS: Creatinine, Urine (random) 123.00 mg/dL (39.00-259.00); Microalbumin,Random Urine < 12.0 mg/L (<20 mg/L)
[2024-12-04 07:53] LABS: AST(SGOT) 19 U/L (<=37); Alanine Aminotransfer ALT/SGPT 18 U/L (<=46); Albumin, Serum 4.0 g/dL (3.4-4.8); Alkaline Phosphatase 87 U/L (40-129); Anion Gap 10 (5-15); BUN 13 mg/dL (4-19); BUN/Creat Ratio 10.2 RATIO (10-20); CORTISOL AM 13.70 ug/dL (6.02-18.40); Calcium,Total 9.5 mg/dL (7.6-11.0); Carbon Dioxide 23.0 mmol/L (21.0-32.0); Chloride 106 mmol/L (98-108); Cholesterol 185 mg/dL (<=200); Globulin 3.0 g/dL (2.2-4.2); Glucose 106 mg/dL (70-99); Low Density Lipoprotein Calc. 95 mg/dL; PSA,Total- Diagnostic 1.01 ng/mL (0.00-4.00); Potassium 3.9 mmol/L (3.3-5.1); Triglycerides 57 mg/dL; Very Low Density Lipoprotein 11 mg/dL (5-40); cholesterol:hdl ratio screen 2.34
== END | disposition home or self-care (01) ==
PROVIDERS: PCP Family Medicine; Referring Provider Family Medicine; Visit Provider Family Medicine
DX: N41.1 Chronic prostatitis (principal); N18.31 Chronic kidney disease, stage 3a; E78.00 Pure hypercholesterolemia, unspecified
CPT/HCPCS: 36415; 80053; 80061; 82043; 82533; 82570; 84153; 85025

== ENCOUNTER → 2025-03-15 | Outpatient (CLI) | payer OTHER, SELFPAY ==
[2025-03-15 06:56] LABS: Mucous, Urine 0 SEEN /hpf (<or=2+); Red Blood Cells-Urine 0 SEEN /hpf (0-5)
[2025-03-15 07:37] LABS: Creatinine, Urine (random) 177.00 mg/dL (39.00-259.00); Microalbumin,Random Urine 39.7 mg/L (<20 mg/L)
[2025-03-15 08:05] LABS: Color, Urine Yellow (Yellow); Glucose, Dipstick Normal (Normal); Ketone-Dipstick Negative (Negative); Leukocyte Esterase-Dipstick Negative /ul (Negative); Nitrite-Dipstick Negative (Negative); Occult Blood-Urine Negative /ul (Negative); Protein-Dipstick 15 mg/dl (Negative); Specific Gravity, Urine 1.020 (1.002-1.030); Urine Bilirubin Dipstick Negative (Negative)
[2025-03-15 08:11] LABS: Squamous Epithelial Cells - UA 0-5 SEEN /hpf (0-5)
[2025-03-15 08:14] LABS: PSA,Total- Diagnostic 1.00 ng/mL (0.00-4.00)
[2025-03-15 08:17] LABS: AST(SGOT) 23 U/L (<=37); Alanine Aminotransfer ALT/SGPT 17 U/L (<=46); Albumin, Serum 4.0 g/dL (3.4-4.8); Alkaline Phosphatase 88 U/L (40-129); Anion Gap 9 (5-15); BUN 24 mg/dL (4-19); BUN/Creat Ratio 15.9 RATIO (10-20); Calcium,Total 9.2 mg/dL (7.6-11.0); Carbon Dioxide 23.8 mmol/L (21.0-32.0); Chloride 106 mmol/L (98-108); Globulin 3.0 g/dL (2.2-4.2); Glucose 102 mg/dL (70-99); Potassium 4.0 mmol/L (3.3-5.1)
== END | disposition home or self-care (01) ==
LOC: LAB.FUTURE 06:49 → LAB 06:50
PROVIDERS: PCP Family Medicine; Referring Provider Urology; Visit Provider Urology
DX: C64.2 Malignant neoplasm of left kidney, except renal pelvis (principal); N18.31 Chronic kidney disease, stage 3a; N42.9 Disorder of prostate, unspecified
CPT/HCPCS: 80053; 81001; 82043; 82570; 84153